=== PATIENT | female | born 1955 | race Caucasian/White ===

== ENCOUNTER 2022-03-09 15:41 | Inpatient (IN) ==
[2022-03-09] MEDS ORDERED: SODIUM CHLORIDE 0.9% 1000ML 500 ML IV ONE (15:52)
[2022-03-09] MEDS ORDERED: MoRPHine SULFATE 4 MG/ML 1 ML CARP\\VIAL IV STA (15:53)
[2022-03-09] MEDS ORDERED: ONDANSETRON INJ 2 MG/ML 2 ML VIAL IV STA (15:53)
--- NOTE | 2022-03-09 15:55 | Emergency Department Note ---
Impression & Plan Hip fracture ADMIT ED Provider Note HPI: The patient is a 66-year-old female with obesity, who presents the emergency department with a chief complaint of right-sided hip pain after mechanical fall. Patient states that she lost her balance when she tripped on something in her house, states that she tried to stabilize herself against a TV stand that then fell over and she fell on her right hip. She has acute pain in her right hip on arrival. She cannot move her right leg secondary to pain in the right hip joint. Patient is otherwise alert, denies any head trauma, she is hemodynamically stable on arrival and otherwise in no acute distress. ROS: -MSK: Right hip pain *10 point review systems was conducted and is otherwise negative unless stated above *Outpatient medications and allergy history reviewed PE: General: Obese, alert, NAD HEENT: Normocephalic, atraumatic Eyes: Extraocular eye movement is intact, no scleral erythema Pulmonary: Clear to auscultation bilaterally, no wheezing Cardio: Regular rate and rhythm GI: Abdomen is soft, nontender : No suprapubic tenderness MSK: Right lower extremity is externally rotated, limited range of motion secondary to pain Skin: No evidence of rash Neuro: Alert, no focal deficits Psychiatric: Cooperative laboratory monitor: - An order was placed for continuous cardiac monitoring - Patient was noted to be in sinus rhythm with rate of 90 EKG: Rate: 107 Rhythm: Sinus tachycardia Intervals: Within normal limits ST changes: No ST elevation Time: 1623 Medical Decision Making: Patient presented to the emergency department after mechanical fall, denies any head trauma, denies any syncope, she does complain of right hip pain, on arrival here examination is consistent with right hip fracture, external rotation, shortened, patient does have pain at the right hip. X-ray imaging does confirm a comminuted and mildly displaced right intertrochanteric hip fracture. Patient does have neurovascular status intact distally in the right foot, palpable dorsalis pedis pulse. Patient was given IV morphine here in the ED for pain, lab work was obtained, EKG does not show any arrhythmia or ischemic changes. Patient is not noted to be on any blood thinners. Patient's lab work shows evidence of hyperglycemia in the 390s without evidence of DKA. Case was discussed with the on-call hospitalist service for [facility], given the patient's multiple comorbidities including sleep apnea, on home oxygen at night, type 2 diabetes, patient will be admitted to the hospitalist service for orthopedic consultation and definitive care. Patient is in agreement to the above plan and she was admitted in stable condition. Diagnosis: 1. Right hip fracture, closed 2. Hyperglycemia without DKA 3. Morbid obesity 4. History of CINTHIA, on supplemental oxygen at night Disposition: Admission Blair Salazar DO Emergency Medicine Past Med/Surg History Social History Smoking Status: Current every day smoker Feels Safe at Home: Yes Results & Data (ED) Vital Signs Vital Signs - 24 hr 03/09/22 15:50 03/09/22 15:55 Temperature 37.4 C Temperature Source Oral Pulse Rate 111 H 95 H Pulse Rate [Apical] 111 H Pulse Rhythm Regular Regular Pulse Strength Normal Respiratory Rate 20 18 Respiratory Effort / Characteristics Non-Labored Respiratory Depth Normal Blood Pressure 170/93 H Blood Pressure Mean 118 Blood Pressure Position Lying Pulse Oximetry 90 96 Oxygen Delivery Method Room Air Nasal Cannula Oxygen Flow Rate 3 Sepsis Recent Fever Within 48 Hours No Sepsis New/Unexplained Change in Mental Status N/A Sepsis Action Taken by Nursing No Action Required Laboratory Data Result diagrams: 03/09/22 16:03 03/09/22 16:03 Lab Results 03/09/22 03/09/22 03/09/22 Range/Units 16:03 16:03 16:03 WBC 10.20 (4.8-10.8) K/uL RBC 5.50 H (4.2-5.4) M/uL Hgb 14.0 (12.0-16.0) g/dL Hct 45.9 (37-47) % MCV 83.5 (80-100) fL MCH 25.5 (25-34) pg MCHC 30.5 L (32-36) g/dL RDW Std Deviation 54.8 H (36.4-46.3) fL RDW Coeff of Prakash 17.7 H (11.5-14.5) % Plt Count 161 (130-400) K/uL Immature Gran % (Auto) 0.3 % Neut % (Auto) 77.9 % Lymph % (Auto) 15.1 % Citrus % (Auto) 6.1 % Eos % (Auto) 0.5 % Baso % (Auto) 0.1 % Neut # (Auto) 7.95 H (1.4-6.5) K/uL Lymph # (Auto) 1.54 (1.2-3.4) K/uL Citrus # (Auto) 0.62 H (0.11-0.59) K/uL Eos # (Auto) 0.05 (0-0.5) K/uL Baso # (Auto) 0.01 (0-0.2) K/uL Immature Gran # (Auto) 0.03 H (0.00-0.02) K/uL PT 10.4 (9.0-12.0) Seconds INR 1.0 (0.9-1.1) APTT 23.9 (21.0-31.0) Seconds PTT Ratio 0.9 Sodium 137 (136-145) mmol/L Potassium 3.6 (3.5-5.1) mmol/L Chloride 100 (98-107) mmol/L Carbon Dioxide 28 (21-32) mmol/L Anion Gap 9 (3-11) BUN 32 H (6-23) mg/dl Creatinine 1.47 H (0.6-1.2) mg/dl Est Cr Clr Drug Dosing 51.0 ml/min Est GFR ( Amer) 43.0 ml/min Est GFR (Non-Af Amer) 37.1 ml/min BUN/Creatinine Ratio 21.8 H (10-20) Glucose 389 H* (70-99(Fasting)) mg/dl Calcium 9.1 (8.5-10.1) mg/dl Total Bilirubin 0.4 (0.2-1.0) mg/dl AST 8 L (13-39) U/L ALT 7 (7-52) U/L Alkaline Phosphatase 130 H (34-104) U/L Total Protein 6.5 (6.0-8.3) gm/dl Albumin 3.7 (3.4-5.0) gm/dl Globulin 2.8 (2.5-4.0) gm/dl Albumin/Globulin Ratio 1.3 (0.9-2) Administered Medications Discontinued Medications Morphine Sulfate (Morphine Sulfate 4 Mg/Ml 1 Ml Carp\Vial) 4 mg IV NOW STA Stop: 03/09/22 15:54 Last Admin: 03/09/22 16:05 Dose: 4 mg Documented by: [id number] Ondansetron HCl (Ondansetron Inj 2 Mg/Ml 2 Ml Vial) 4 mg IV NOW STA Stop: 03/09/22 15:54 Last Admin: 03/09/22 16:06 Dose: 4 mg Documented by: [id number] Imaging Data Radiologist's Impression: Hip/Pelvis X-Ray 03/09/22 15:52 XR hip SARAH 2v w pelvis HISTORY: 66 years-old Female R hip pain s/p fall acute right hip pain status post fall COMPARISON: None TECHNIQUE: AP view of the pelvis with 2 views of the hips FINDINGS: Limited exam secondary to patient body habitus. Demineralized appearance of the bones. Mild osteoarthritis of the hips. No acute pelvic ring fracture identified. There is an acute fracture of the proximal right femur which is predominately intertrochanteric and also demonstrates subtrochanteric extension. The lesser trochanter is displaced medially several millimeters. Mild impaction with slight apex superior lateral angulation. There is no dislocation, additional acute fracture or dislocation. IMPRESSION: 1. Acute comminuted, mildly displaced and impacted intertrochanteric fracture of the right femur. 2. Limited exam secondary to patient body habitus. ACT 112: Negative or not required by law. The above report was generated using voice recognition software. It may contain grammatical, syntax or spelling errors. Electronically signed by: Malcolm Stauffer M.D. 03/09/2022 4:31 PM Chest X-Ray 03/09/22 15:53 XR chest 1V portable HISTORY: 66 years-old Female fall acute chest trauma status post fall COMPARISON: None TECHNIQUE: AP view of the chest FINDINGS: Cardiac silhouette is enlarged. Lungs are hyperinflated with interstitial coarsening. No pneumothorax, pleural effusion or lobar airspace consolidation. Degenerative changes of the shoulders and spine. Chronic appearing left-sided rib fractures. IMPRESSION: 1. Cardiomegaly without acute process. 2. Chronic appearing left-sided rib fractures. ACT 112: Negative or not required by law. The above report was generated using voice recognition software. It may contain grammatical, syntax or spelling errors. Electronically signed by: Malcolm Stauffer M.D. 03/09/2022 4:29 PM Discharge Plan Visit Data Chief Complaint: Hip Pain Stated Complaint: FALL, R HIP PAIN ED Provider: Blair Salazar Discharge Problem: Hip fracture Forms Stand Alone Forms: My [facility] Referrals Referrals: PCP,NO [Physician] - Discharge Problem: Hip fracture Qualifiers: Encounter type: initial encounter Fracture type: closed Laterality: right Qualified Code(s): S72.001A - Fracture of unspecified part of neck of right femur, initial encounter for closed fracture
[2022-03-09 16:18] LABS: Basophils # (auto) 0.01 K/uL (0-0.2); Basophils % (auto) 0.1 %; Eosinophils # (auto) 0.05 K/uL (0-0.5); Eosinophils % (auto) 0.5 %; Hematocrit (blood only) 45.9 % (37-47); Immature Granulocytes # (auto) 0.03 K/uL (0.00-0.02); Immature Granulocytes % (auto) 0.3 %; Lymphocytes # (auto) 1.54 K/uL (1.2-3.4); Lymphocytes % (auto) 15.1 %; Mean Corpuscular Hemoglobin 25.5 pg (25-34); Mean Corpuscular Hgb Conc 30.5 g/dL (32-36); Mean Corpuscular Volume 83.5 fL (80-100); Monocytes # (auto) 0.62 K/uL (0.11-0.59); Monocytes % (auto) 6.1 %; Neutrophils # (auto) 7.95 K/uL (1.4-6.5); Neutrophils % (auto) 77.9 %; Platelet Count 161 K/uL (130-400); RDW Coefficient of Variation 17.7 % (11.5-14.5); RDW Standard Deviation 54.8 fL (36.4-46.3)
[2022-03-09 16:29] LABS: Partial Thromboplastin Ratio 0.9; Partial Thromboplastin Time 23.9 Seconds (21.0-31.0); Prothrombin Time 10.4 Seconds (9.0-12.0)
--- NOTE | 2022-03-09 16:30 | XRay Report ---
XR chest 1V portable HISTORY: 66 years-old Female fall acute chest trauma status post fall COMPARISON: None TECHNIQUE: AP view of the chest FINDINGS: Cardiac silhouette is enlarged. Lungs are hyperinflated with interstitial coarsening. No pneumothorax , pleural effusion or lobar airspace consolidation. Degenerative changes of the shoulders and spine. Chronic appearing left-sided rib fractures. IMPRESSION: 1. Cardiomegaly without acute process. 2. Chronic appearing left-sided rib fractures. ACT 112: Negative or not required by law. The above report was generated using voice recognition software. It may contain grammatical, syntax o r spelling errors. Electronically signed by: Malcolm Stauffer M.D. 03/09/2022 4:29 PM
--- NOTE | 2022-03-09 16:32 | XRay Report ---
XR hip SARAH 2v w pelvis HISTORY: 66 years-old Female R hip pain s/p fall acute right hip pain status post fall COMPARISON: None TECHNIQUE: AP view of the pelvis with 2 views of the hips FINDINGS: Limited exam secondary to patient body habitus. Demineralized appearance of the bones. Mild osteoarth ritis of the hips. No acute pelvic ring fracture identified. There is an acute fracture of the proxim al right femur which is predominately intertrochanteric and also demonstrates subtrochanteric extensi on. The lesser trochanter is displaced medially several millimeters. Mild impaction with slight apex superior lateral angulation. There is no dislocation, additional acute fracture or dislocation. IMPRESSION: 1. Acute comminuted, mildly displaced and impacted intertrochanteric fracture of the right femur. 2. Limited exam secondary to patient body habitus. ACT 112: Negative or not required by law. The above report was generated using voice recognition software. It may contain grammatical, syntax o r spelling errors. Electronically signed by: Malcolm Stauffer M.D. 03/09/2022 4:31 PM
[2022-03-09 16:50] LABS: Albumin Globulin Ratio 1.3 (0.9-2); Albumin Level 3.7 gm/dl (3.4-5.0); BUN Creatinine Ratio 21.8 (10-20); Bilirubin,Total 0.4 mg/dl (0.2-1.0); Calcium 9.1 mg/dl (8.5-10.1); Est GFR (Non-African American) 37.1 ml/min; Globulin 2.8 gm/dl (2.5-4.0); Potassium 3.6 mmol/L (3.5-5.1); Total Protein 6.5 gm/dl (6.0-8.3)
[2022-03-09] MEDS ORDERED: PHARMACY GLYCEMIC MGMT CONSULT PRN (17:47)
--- NOTE | 2022-03-09 18:07 | History & Physical Report ---
Date of Service March 09, 2022 Assessment & Plan (1) Fall: (2) Hip fracture: Plan: Patient presented after mechanical fall with right hip pain. Hip x-ray showing acute comminuted impacted intertrochanteric right femoral fracture. Patient likely needs surgery. Patient does have some risk considering her cardiac history with diastolic heart failure, aortic stenosis. I explained this to the patient. However, risk of not having surgery likely outweighs surgical risks. Patient will like to proceed with surgery Review of previous outpatient Cardiology work up showed Echo in June 2018 showed EF of 55 to 59%, severe aortic valve stenosis. Patient was seen in by circulation librarian then and had cardiac catheterization in July 2018 which reported no significant coronary artery disease by angiography mild to moderate elevation of PA pressures of 35 to 88 mmHg, mean RA pressure of 14 mmHg, mean gradient of 16.9 mmHg and estimated LEAH of 1.22 cm quiet which represent moderate AAS, PVR of 2.4 Wood units which is mildly elevated. Cardiac output of 6.8 Shirin and 6.1 thermodilution Patient had not followed up with circulation librarian since and had considered appointment since 2018 till now. Based on history, patient does not seem to have decompensated heart failure or ACS at this time. However, will get a 2D echocardiogram to better assess aortic stenosis and cardiac function prior to surgery Will keep NPO after midnight Surgery consult (3) Chronic diastolic (congestive) heart failure: (4) Aortic stenosis: Plan: Hold home lasix for now in view of possible surgery Continue atorvastatin and gemfibrozil Continue coreg Hold ASA in view of surgery (5) Obesity: (6) CINTHIA (obstructive sleep apnea): (7) Smoker: (8) COPD (chronic obstructive pulmonary disease): Plan: Counseled patient extensively on need to quit smoking. Continue CPAP at bedtime while inpatient. Continue home guaifenesin Continue DuoNeb (9) Diabetes mellitus: Plan: Patient uses glipizide at home. Blood sugar elevated at 389. Hold home glipizide Start insulin per protocol Pharm glycemic consult Get A1c in AM Continue gabapentin for neuropathy (10) CKD (chronic kidney disease) stage 3, GFR 30-59 ml/min: Plan: Cr is 1.4 Avoid nephrotoxins and monitor (11) Hypothyroid: Plan: Continue levothyroxine DVT ppx SCD Hold pharmacologic agent for now in view of possible surgery History of Present Illness Chief Complaint: Fall Primary Care Provider: Mary Robert MD 66-year-old woman with history of obesity, COPD, CINTHIA on CPAP at bedtime with oxygen at 3 L, heart failure with preserved ejection fraction, aortic stenosis, diabetes mellitus, hyperlipidemia, neuropathy, hypothyroidism, active smoker who presents after a fall at home with right hip pain. Patient reported tripping at home and falling on the right side on her hip. Denies any trauma to head or loss of consciousness Reported she has been having pain since. Patient usually ambulates with a walker especially outside. Reports chronic dyspnea on exertion, chronic cough. Denies any chest pain, palpitations, orthopnea or PND. Denies fevers, chills, nausea, abdominal pain, diarrhea, constipation Denies dysuria, frequency, urgency, incontinence or hematuria. Reports she uses CPAP to sleep at night with 3 L/min of oxygen. Does not use oxygen during the day. Patient smokes about 1 pack/day. Denies alcohol or illicit drug use. Reports father had heart problems. Allergies Allergy/AdvReac Type Severity Reaction Status Date / Time No Known Allergies Allergy Unverified 03/09/22 17:28 Home Medications Medication Instructions Recorded Confirmed Type allopurinol 300 mg tablet 300 mg PO DAILY 03/09/22 03/09/22 History aspirin 81 mg capsule 81 mg PO DAILY 03/09/22 03/09/22 History atorvastatin 40 mg tablet 40 mg PO DAILY 03/09/22 03/09/22 History camphor-menthol 0.2 %-3.5 % 1 applic TOPICAL Q6H PRN 03/09/22 03/09/22 History topical gel carvedilol 6.25 mg tablet 6.25 mg PO BID 03/09/22 03/09/22 History clotrimazole 1 % topical cream 1 applic TOPICAL TID PRN 03/09/22 03/09/22 History (Athlete's Foot (clotrimazole)) cyanocobalamin (vitamin B-12) 1,000 mcg PO DAILY 03/09/22 03/09/22 History 1,000 mcg tablet furosemide 40 mg tablet 40 mg PO DAILY 03/09/22 03/09/22 History gabapentin 100 mg capsule 100 mg PO TID 03/09/22 03/09/22 History gemfibrozil 600 mg tablet 600 mg PO BID 03/09/22 03/09/22 History glipizide 5 mg tablet, extended 5 mg PO DAILYBB 03/09/22 03/09/22 History release 24 hr guaifenesin 1,200 mg tablet, 1,200 mg PO Q12H PRN 03/09/22 03/09/22 History extended release 12 hr levothyroxine 150 mcg tablet 150 mcg PO 5XWK 03/09/22 03/09/22 History omega 0-gli-dju-fish oil 1,000 mg 1 cap PO DAILY 03/09/22 03/09/22 History (120 mg-180 mg) capsule (Fish Oil) omeprazole 20 mg tablet,delayed 20 mg PO DAILY 03/09/22 03/09/22 History release tramadol 50 mg tablet 50 mg PO Q8H PRN 03/09/22 03/09/22 History Past Med/Surg History Social History Smoking Status: Current every day smoker Feels Safe at Home: Yes Review of Systems Review of Systems: Review of systems as detailed in HPI Physical Exam Constitutional: + well hydrated and + obese; no acute distress Eyes: PERRL, conjunctivae normal, anicteric sclerae ENMT: external ear and nose normal, oropharynx normal Respiratory: normal respiratory effort, lungs clear to auscultation Cardiovascular: Rate/Rhythm: regular rate and regular rhythm Systolic ejection murmur [prominently aortic region] S1-S2 Gastrointestinal (Abdomen): normal bowel sounds, soft, nontender, no hepatosplenomegaly Musculoskeletal: Right lower extremity externally rotated and shortened Neurologic: PERRL, EOMI, accommodation nl, no face palsy, no dysarthria Psychiatric: A+Ox3, euthymic affect Results & Data Results & Data ([facility]) Vital Signs (Past 12 Hours) Vital Signs Temp Pulse Pulse Resp BP Pulse Ox 03/09/22 15:55 95 H 111 H 18 96 03/09/22 15:50 37.4 C 111 H 20 170/93 H 90 Laboratory Results Abnormal lab results 03/09/22 03/09/22 Range/Units 16:03 16:03 RBC 5.50 H (4.2-5.4) M/uL MCHC 30.5 L (32-36) g/dL RDW Std Deviation 54.8 H (36.4-46.3) fL RDW Coeff of Prakash 17.7 H (11.5-14.5) % Neut # (Auto) 7.95 H (1.4-6.5) K/uL Becker # (Auto) 0.62 H (0.11-0.59) K/uL Immature Gran # (Auto) 0.03 H (0.00-0.02) K/uL BUN 32 H (6-23) mg/dl Creatinine 1.47 H (0.6-1.2) mg/dl BUN/Creatinine Ratio 21.8 H (10-20) Glucose 389 H* (70-99(Fasting)) mg/dl AST 8 L (13-39) U/L Alkaline Phosphatase 130 H (34-104) U/L Diagnostic Findings Chest x-ray Cardiac silhouette is enlarged. Lungs are hyperinflated with interstitial coarsening. No pneumothorax, pleural effusion or lobar airspace consolidation. Degenerative changes of the shoulders and spine. Chronic appearing left-sided rib fractures. IMPRESSION: 1. Cardiomegaly without acute process. 2. Chronic appearing left-sided rib fractures. Hip and pelvic x-ray Limited exam secondary to patient body habitus. Demineralized appearance of the bones. Mild osteoarthritis of the hips. No acute pelvic ring fracture identified. There is an acute fracture of the proximal right femur which is predominately intertrochanteric and also demonstrates subtrochanteric extension. The lesser trochanter is displaced medially several millimeters. Mild impaction with slight apex superior lateral angulation. There is no dislocation, additional acute fracture or dislocation. IMPRESSION: 1. Acute comminuted, mildly displaced and impacted intertrochanteric fracture of the right femur. 2. Limited exam secondary to patient body habitus. (1) Hip fracture Encounter type: initial encounter Fracture type: closed Laterality: right Qualified Code(s): S72.001A - Fracture of unspecified part of neck of right femur, initial encounter for closed fracture
[2022-03-09] MEDS ORDERED: INSULIN ASPART PER UNIT SC STA (18:17)
[2022-03-09] MEDS ORDERED: INSULIN GLARGINE SOLOSTAR 100 UNITS/ML 3 ML PEN SC STA (18:17)
[2022-03-09] MEDS ORDERED: CARBOHYDRATES FOR HYPOGLYCEMIA PO PRN ×2 (18:30→19:43)
[2022-03-09] MEDS ORDERED: DEXTROSE 50% 50 ML SYRINGE IV PRN ×2 (18:30→19:43)
[2022-03-09] MEDS ORDERED: GLUCAGON FOR INJ 1 MG VIAL SQ PRN ×2 (18:30→19:43)
[2022-03-09] MEDS ORDERED: GLUCOSE 10 TABS/TUBE PO PRN ×2 (18:30→19:43)
[2022-03-09] MEDS ORDERED: GLUCOSE 40% GEL 15 GM TUBE PO PRN ×2 (18:30→19:43)
[2022-03-09] MEDS ORDERED: INSULIN HUMAN REGULAR PER UNIT 5 UNITS in SYRINGE 0 ML IV STA (19:52)
[2022-03-09] MEDS ORDERED: PNEUMOCOCCAL POLYSACCHARIDES 25 MCG/0.5 ML VIAL/SYR IM ONE (20:10)
[2022-03-09] MEDS: MoRPHine SULFATE 2 MG/ML CARP IV PRN (20:12)
[2022-03-09] MEDS: INSULIN ASPART PER UNIT SC SCH (20:39)
[2022-03-09] MEDS ORDERED: INSULIN GLARGINE SOLOSTAR 100 UNITS/ML 3 ML PEN SC SCH ×3 (20:45→21:00)
[2022-03-09] MEDS: gemfibroziL 600 MG TAB PO SCH (21:34)
[2022-03-09] MEDS: carvediloL 6.25 MG TAB PO SCH (21:35)
[2022-03-09] MEDS: GABAPENTIN 100 MG CAP PO SCH (21:35)
[2022-03-09] MEDS: traMADol HCL 50 MG TABLET PO PRN (21:37)
[2022-03-09] MEDS: ACETAMINOPHEN 500 MG TAB PO SCH (21:44)
[2022-03-10] MEDS: INSULIN ASPART PER UNIT SC SCH ×4 (00:15→21:22)
[2022-03-10] MEDS ORDERED: CLOTRIMAZOLE 1% CR 15 GM TUBE TOP PRN (00:23)
[2022-03-10] MEDS: ACETAMINOPHEN 500 MG TAB PO SCH ×3 (03:34→21:23)
[2022-03-10] MEDS: LEVOTHYROXINE SODIUM 150 MCG TABLET PO SCH (05:24)
[2022-03-10] MEDS: MoRPHine SULFATE 2 MG/ML CARP IV PRN ×2 (06:21→11:46)
[2022-03-10 07:44] LABS: Estimated Average Glucose 283 mg/dl; Hemoglobin A1C 11.5 % (4.5-5.6)
[2022-03-10] MEDS: allopurinoL 300 MG TAB PO SCH (08:32)
[2022-03-10] MEDS: PANTOprazole 40 MG TAB PO SCH (08:33)
[2022-03-10] MEDS: ATORVASTATIN 40 MG TAB PO SCH (08:33)
[2022-03-10] MEDS: CYANOCOBALAMIN (B-12) 500 MCG TABLET PO SCH (08:33)
[2022-03-10] MEDS: carvediloL 6.25 MG TAB PO SCH ×2 (08:33→21:24)
[2022-03-10] MEDS: gemfibroziL 600 MG TAB PO SCH ×2 (08:33→21:25)
[2022-03-10] MEDS: GABAPENTIN 100 MG CAP PO SCH ×3 (08:33→21:25)
[2022-03-10] MEDS ORDERED: OMEGA-3 (PURIFIED FISH OIL) 1 GM CAP PO SCH (09:00)
--- NOTE | 2022-03-10 11:22 | Pharmacy Report ---
Pharmacy Glycemic Short Note 2 - Date of Service March 10, 2022 - Glycemic Short BSG Results (Last 24 hours): 03/09/22 03/09/22 03/09/22 16:03 18:29 19:48 Glucose 389 H* POC Glucose 380 H* 337 H* 03/09/22 03/10/22 03/10/22 19:50 00:08 05:59 Glucose POC Glucose 336 H* 267 H 232 H OUTPATIENT ANTIDIABETIC REGIMEN: * Glipizide * HbA1c 11.5% on 03/09/22 ASSESSMENT: * 66 yo with with poorly controlled T2DM on a single oral agent as an outpatient admitted 03/09 with a fall and is currently NPO for possible surgical intervention * Lantus initiated at 0.2 units/kg last night * Novolog weight-based moderate stress estimate initiated last night PLAN FOR INPATIENT GLYCEMIC CONTROL: * Hold outpatient oral diabetes medications * Basal insulin * Lantus [] units SQ BID * Bolus insulin * NovoLog per scale ACHS or Q6hrs while NPO * Goal Range: Low [] mg/dL - High [] mg/dL * Correction Factor: [] mg/dL/unit * Nutritional / Prandial insulin per carb ratio of 1 unit per [] grams CHO consumed
[2022-03-10] MEDS: NICOTINE 21 MG/24 HR TDSY TD SCH (11:46)
[2022-03-10] MEDS: ALBUT/IPRATROP 3MG/0.5MG NEB 3 ML VIAL NEB PRN (12:16)
--- NOTE | 2022-03-10 13:00 | Hospitalist Progress Note ---
Date of Service March 10, 2022 Assessment & Plan (1) Fall: (2) Hip fracture: Plan: Patient presented after mechanical fall with right hip pain. Hip x-ray showing acute comminuted impacted intertrochanteric right femoral fracture. Possible age related osteoporotic fracture Review of previous outpatient Cardiology work up showed Echo in June 2018 showed EF of 55 to 59%, severe aortic valve stenosis. Patient was seen by cnc mill operator then and had cardiac catheterization in July 2018 which reported no significant CAD but moderate Patient had not followed up with cnc mill operator since and had canceled appointments since 2018 till now. TTE today showed EF 60-65%, mod conc LVH, moderate Aortic stenosis Patient to go to OR today for surgery Vit D 27 (3) Chronic diastolic (congestive) heart failure: (4) Aortic stenosis: Plan: Hold home lasix for now in view of surgery and patient has been NPO. Will resume tomorrow postop Continue atorvastatin and gemfibrozil Continue coreg Continue to hold ASA in view of surgery (5) Obesity: (6) CINTHIA (obstructive sleep apnea): (7) Smoker: (8) COPD (chronic obstructive pulmonary disease): Plan: Continue CPAP at bedtime while inpatient. Continue home guaifenesin Continue DuoNeb Nicotine patch. Continue smoking cessation counselling (9) Diabetes mellitus: Plan: Patient uses glipizide at home only A1c is 11.5 Continue insulin per protocol Will need insulin on dc Educated patient on need for better glycemic control DM educator consult Continue gabapentin for neuropathy (10) CKD (chronic kidney disease) stage 3, GFR 30-59 ml/min: Plan: Cr is 1.4 Avoid nephrotoxins and monitor (11) Hypothyroid: Plan: Continue levothyroxine DVT ppx SCD Hold pharmacologic agent for now in view of possible surgery Admission and Anticipated Discharge Date Admission Date: March 09, 2022 Subjective Patient seen and examined Reports right hip pain is controlled Has chronic cough Reported some shortness of breath this morning that resolved with nebs Denied chest pain, nausea, vomiting, abd pain, diarrhea Physical Exam Constitutional: + well hydrated and + obese; no acute distress Eyes: PERRL, conjunctivae normal, anicteric sclerae ENMT: external ear and nose normal, oropharynx normal Respiratory: normal respiratory effort, lungs clear to auscultation Cardiovascular: Rate/Rhythm: regular rate and regular rhythm Systolic ejection murmur S1 S2 Gastrointestinal (Abdomen): normal bowel sounds, soft, nontender, no hepatosplenomegaly Musculoskeletal: Right lower extremity externally rotated and shortened Neurologic: PERRL, EOMI, accommodation nl, no face palsy, no dysarthria Psychiatric: A+Ox3, euthymic affect Results & Data Results & Data ([facility]) Vital Signs (Past 12 Hours) Vital Signs Temp Pulse Pulse Resp BP Pulse Ox 03/10/22 12:17 103 H 22 93 03/10/22 08:18 36.4 C L 107 H 18 153/85 H 92 03/10/22 03:09 106 H 21 91 Laboratory Results Abnormal lab results 03/09/22 03/09/22 03/09/22 Range/Units 15:51 16:03 16:03 RBC 5.50 H (4.2-5.4) M/uL MCHC 30.5 L (32-36) g/dL RDW Std Deviation 54.8 H (36.4-46.3) fL RDW Coeff of Prakash 17.7 H (11.5-14.5) % Neut # (Auto) 7.95 H (1.4-6.5) K/uL Noble # (Auto) 0.62 H (0.11-0.59) K/uL Immature Gran # (Auto) 0.03 H (0.00-0.02) K/uL BUN 32 H (6-23) mg/dl Creatinine 1.47 H (0.6-1.2) mg/dl BUN/Creatinine Ratio 21.8 H (10-20) Glucose 389 H* (70-99(Fasting)) mg/dl POC Glucose (70-99) mg/dl Hemoglobin A1c 11.5 H (4.5-5.6) % AST 8 L (13-39) U/L Alkaline Phosphatase 130 H (34-104) U/L 25-OH Vitamin D Total (30-100) ng/ml 03/09/22 03/09/22 03/09/22 Range/Units 18:29 19:48 19:50 RBC (4.2-5.4) M/uL MCHC (32-36) g/dL RDW Std Deviation (36.4-46.3) fL RDW Coeff of Prakash (11.5-14.5) % Neut # (Auto) (1.4-6.5) K/uL Noble # (Auto) (0.11-0.59) K/uL Immature Gran # (Auto) (0.00-0.02) K/uL BUN (6-23) mg/dl Creatinine (0.6-1.2) mg/dl BUN/Creatinine Ratio (10-20) Glucose (70-99(Fasting)) mg/dl POC Glucose 380 H* 337 H* 336 H* (70-99) mg/dl Hemoglobin A1c (4.5-5.6) % AST (13-39) U/L Alkaline Phosphatase (34-104) U/L 25-OH Vitamin D Total (30-100) ng/ml 03/10/22 03/10/22 03/10/22 Range/Units 00:08 05:59 08:51 RBC (4.2-5.4) M/uL MCHC (32-36) g/dL RDW Std Deviation (36.4-46.3) fL RDW Coeff of Prakash (11.5-14.5) % Neut # (Auto) (1.4-6.5) K/uL Noble # (Auto) (0.11-0.59) K/uL Immature Gran # (Auto) (0.00-0.02) K/uL BUN (6-23) mg/dl Creatinine (0.6-1.2) mg/dl BUN/Creatinine Ratio (10-20) Glucose (70-99(Fasting)) mg/dl POC Glucose 267 H 232 H (70-99) mg/dl Hemoglobin A1c (4.5-5.6) % AST (13-39) U/L Alkaline Phosphatase (34-104) U/L 25-OH Vitamin D Total 27.1 L (30-100) ng/ml 03/10/22 Range/Units 12:00 RBC (4.2-5.4) M/uL MCHC (32-36) g/dL RDW Std Deviation (36.4-46.3) fL RDW Coeff of Prakash (11.5-14.5) % Neut # (Auto) (1.4-6.5) K/uL Noble # (Auto) (0.11-0.59) K/uL Immature Gran # (Auto) (0.00-0.02) K/uL BUN (6-23) mg/dl Creatinine (0.6-1.2) mg/dl BUN/Creatinine Ratio (10-20) Glucose (70-99(Fasting)) mg/dl POC Glucose 201 H (70-99) mg/dl Hemoglobin A1c (4.5-5.6) % AST (13-39) U/L Alkaline Phosphatase (34-104) U/L 25-OH Vitamin D Total (30-100) ng/ml (1) Hip fracture Encounter type: initial encounter Fracture type: closed Laterality: right Qualified Code(s): S72.001A - Fracture of unspecified part of neck of right femur, initial encounter for closed fracture
--- NOTE | 2022-03-10 13:53 | Orthopedic Consultation ---
Date of Consultation March 10, 2022 Assessment & Plan (1) Hip fracture: Patient has a displaced right intertrochanteric fracture. Discussed surgical intervention is recommended. Risk, benefits, alternatives to surgery discussed with patient and she wishes to proceed. Plan will be for right trochanteric femoral nailing, likely will need an intermediate length nail. Dr. Harris will see the patient later today. We will plan on OR today with Dr. Harris if medically optimized to proceed with surgery today. History of Present Illness Reason for Consultation: Right hip fracture Requesting Physician: Linda Shetty MD Attending Physician: Linda Shetty MD History of Present Illness 66-year-old woman with history of obesity, COPD, CINTHIA on CPAP at bedtime with oxygen at 3 L, heart failure with preserved ejection fraction, aortic stenosis, diabetes mellitus, hyperlipidemia, neuropathy, hypothyroidism, active smoker who presents after a mechanical fall at home. She has nausea and vomiting and x- rays revealed intertrochanteric fracture of her right femur. Currently her pain is controlled. She has no other complaints at this time. Denies chest pain, shortness of breath, dizziness, fever/chills. Allergies Allergy/AdvReac Type Severity Reaction Status Date / Time No Known Allergies Allergy Unverified 03/09/22 17:28 Home Medications Medication Instructions Recorded Confirmed Type allopurinol 300 mg tablet 300 mg PO DAILY 03/09/22 03/09/22 History aspirin 81 mg capsule 81 mg PO DAILY 03/09/22 03/09/22 History atorvastatin 40 mg tablet 40 mg PO DAILY 03/09/22 03/09/22 History camphor-menthol 0.2 %-3.5 % 1 applic TOPICAL Q6H PRN 03/09/22 03/09/22 History topical gel carvedilol 6.25 mg tablet 6.25 mg PO BID 03/09/22 03/09/22 History clotrimazole 1 % topical cream 1 applic TOPICAL TID PRN 03/09/22 03/09/22 History (Athlete's Foot (clotrimazole)) cyanocobalamin (vitamin B-12) 1,000 mcg PO DAILY 03/09/22 03/09/22 History 1,000 mcg tablet furosemide 40 mg tablet 40 mg PO DAILY 03/09/22 03/09/22 History gabapentin 100 mg capsule 100 mg PO TID 03/09/22 03/09/22 History gemfibrozil 600 mg tablet 600 mg PO BID 03/09/22 03/09/22 History glipizide 5 mg tablet, extended 5 mg PO DAILYBB 03/09/22 03/09/22 History release 24 hr guaifenesin 1,200 mg tablet, 1,200 mg PO Q12H PRN 03/09/22 03/09/22 History extended release 12 hr levothyroxine 150 mcg tablet 150 mcg PO 5XWK 03/09/22 03/09/22 History omega 6-acx-zky-fish oil 1,000 mg 1 cap PO DAILY 03/09/22 03/09/22 History (120 mg-180 mg) capsule (Fish Oil) omeprazole 20 mg tablet,delayed 20 mg PO DAILY 03/09/22 03/09/22 History release tramadol 50 mg tablet 50 mg PO Q8H PRN 03/09/22 03/09/22 History Patient History Medical History Aortic stenosis Chronic diastolic (congestive) heart failure CKD (chronic kidney disease) stage 3, GFR 30-59 ml/min COPD (chronic obstructive pulmonary disease) Diabetes mellitus GERD (gastroesophageal reflux disease) Gout Hypothyroid Obesity CINTHIA (obstructive sleep apnea) Smoker Social History Smoking Status: Current every day smoker Cigarettes Per Day: one; Do You Dip or Chew Tobacco: No; Tobacco Cessation Education Requested by Patient: Yes Hx Alcohol Use: No Hx Substance Use: No Preferred Language: Marshallese Communication Ability: Effective Car Pilot Required: No Beliefs That Will Affect Care: None Current Living Situation: Spouse Other Information That Helps Us Care for You: No Feels Safe at Home: Yes Safety Concerns: Feels Safe At This Time Assistive Devices: Walker Review of Systems Review of Systems: All systems reviewed & are unremarkable except as noted in HPI & below Physical Exam Constitutional: WD/WN, vitals as above abdominal obesity Eyes: PERRL, conjunctivae normal, anicteric sclerae Respiratory: normal respiratory effort; no respiratory distress Cardiovascular: Rate/Rhythm: regular rate and regular rhythm Extremities: no edema Musculoskeletal: Right hip: Leg is shortened and externally rotated. Pain with gentle logroll. Mild tenderness proximal femur. Distally neurovascular status and sensation intact. Toes are mobile. No calf tenderness. Skin: no rashes, warm and dry Neurologic: patellar DTR's 2+ bilat, sensation intact Psychiatric: A+Ox3, euthymic affect Results & Data ([facility]) Vital Signs (Past 12 Hours) Vital Signs Temp Pulse Pulse Resp BP Pulse Ox 03/10/22 12:17 103 H 22 93 03/10/22 08:18 36.4 C L 107 H 18 153/85 H 92 03/10/22 03:09 106 H 21 91 Diagnostic Findings XR hip SARAH 2v w pelvis HISTORY: 66 years-old Female R hip pain s/p fall acute right hip pain status post fall COMPARISON: None TECHNIQUE: AP view of the pelvis with 2 views of the hips FINDINGS: Limited exam secondary to patient body habitus. Demineralized appearance of the bones. Mild osteoarthritis of the hips. No acute pelvic ring fracture identified. There is an acute fracture of the proximal right femur which is predominately intertrochanteric and also demonstrates subtrochanteric extension. The lesser trochanter is displaced medially several millimeters. Mild impaction with slight apex superior lateral angulation. There is no dislocation, additional acute fracture or dislocation. IMPRESSION: 1. Acute comminuted, mildly displaced and impacted intertrochanteric fracture of the right femur. 2. Limited exam secondary to patient body habitus. (1) Hip fracture Encounter type: initial encounter Fracture type: closed Laterality: right Qualified Code(s): S72.001A - Fracture of unspecified part of neck of right femur, initial encounter for closed fracture
--- NOTE | 2022-03-10 14:03 | Electrocardiogram Report ---
Test Reason : Blood Pressure : / mmHG Vent. Rate : 107 BPM Atrial Rate : 107 BPM P-R Int : 170 ms QRS Dur : 102 ms QT Int : 352 ms P-R-T Axes : 068 078 063 degrees QTc Int : 469 ms Poor data quality, interpretation may be adversely affected Sinus tachycardia with occasional Premature ventricular complexes Otherwise normal ECG No previous ECGs available Confirmed by Geronimo Mason ([id number]) on 03/10/2022 2:02:56 PM Referred By: REFERRED SELF Confirmed By:Joe Mason
[2022-03-10] MEDS: INSULIN GLARGINE SOLOSTAR 100 UNITS/ML 3 ML PEN SC SCH ×2 (14:08→21:19)
[2022-03-10] MEDS ORDERED: PROPOFOL IV EMULSION 10 MG/ML 20 ML VIAL IV ONE (16:15)
[2022-03-10] MEDS ORDERED: PHENYLEPHRINE 100MCG/ML 5ML SYR ONE (16:15)
[2022-03-10] MEDS ORDERED: MIDAZOLAM HCL 1 MG/ML 2ML VIAL ONE (16:15)
[2022-03-10] MEDS ORDERED: fentaNYL citrate 100 MCG/2 ML VIAL ONE (16:15)
[2022-03-10] MEDS ORDERED: LIDOCAINE 2% 2 ML VIAL/AMP(20MG/ML) INFIL ONE (16:15)
[2022-03-10] MEDS ORDERED: ePHEDrine sulfate 50 MG/ML SYR ONE (16:15)
[2022-03-10] MEDS ORDERED: ePHEDrine sulfate 50 MG/ML AMP IV PRN (16:19)
[2022-03-10] MEDS ORDERED: ATROPINE SULFATE 0.1 MG/ML 10ML SYR IV PRN (16:19)
[2022-03-10] MEDS ORDERED: LABETALOL HCL IV 5 MG/ML 20ML IV PRN (16:19)
[2022-03-10] MEDS ORDERED: fentaNYL citrate 100 MCG/2 ML VIAL IV PRN (16:19)
[2022-03-10] MEDS ORDERED: ONDANSETRON INJ 2 MG/ML 2 ML VIAL IV PRN (16:19)
[2022-03-10] MEDS ORDERED: HYDROmorphone INJ 1 MG/ML SYRINGE IV PRN (16:19)
[2022-03-10] MEDS ORDERED: PHENYLEPHRINE 100MCG/ML 5ML SYR IV PRN (16:19)
--- NOTE | 2022-03-10 16:25 | Anesthesiology Consultation ---
Date of Service March 10, 2022 Assessment & Plan (1) Encounter for pre-operative examination: Chart Review Chart Review: Acceptable Risk for Surgery and Patient NOT seen in Pre Admission Testing Consults Requested none History Surgery Operation Date: 03/10/22 09:35 Proposed Procedures p Right Troch Nail - Brodie Harris MD Height/Weight Height: 5 ft 9 in Weight: 113.5 kg Allergies Allergy/AdvReac Type Severity Reaction Status Date / Time No Known Allergies Allergy Unverified 03/09/22 17:28 Medications Home Medications Medication Instructions Recorded Confirmed Last Taken allopurinol 300 mg tablet 300 mg PO DAILY 03/09/22 03/09/22 Unknown aspirin 81 mg capsule 81 mg PO DAILY 03/09/22 03/09/22 Unknown atorvastatin 40 mg tablet 40 mg PO DAILY 03/09/22 03/09/22 Unknown camphor-menthol 0.2 %-3.5 % 1 applic TOPICAL Q6H PRN 03/09/22 03/09/22 Unknown topical gel carvedilol 6.25 mg tablet 6.25 mg PO BID 03/09/22 03/09/22 Unknown clotrimazole 1 % topical cream 1 applic TOPICAL TID PRN 03/09/22 03/09/22 Unknown (Athlete's Foot (clotrimazole)) cyanocobalamin (vitamin B-12) 1,000 mcg PO DAILY 03/09/22 03/09/22 Unknown 1,000 mcg tablet furosemide 40 mg tablet 40 mg PO DAILY 03/09/22 03/09/22 Unknown gabapentin 100 mg capsule 100 mg PO TID 03/09/22 03/09/22 Unknown gemfibrozil 600 mg tablet 600 mg PO BID 03/09/22 03/09/22 Unknown glipizide 5 mg tablet, extended 5 mg PO DAILYBB 03/09/22 03/09/22 03/09/22 release 24 hr guaifenesin 1,200 mg tablet, 1,200 mg PO Q12H PRN 03/09/22 03/09/22 Unknown extended release 12 hr levothyroxine 150 mcg tablet 150 mcg PO 5XWK 03/09/22 03/09/22 Unknown omega 2-jbs-zsg-fish oil 1,000 mg 1 cap PO DAILY 03/09/22 03/09/22 Unknown (120 mg-180 mg) capsule (Fish Oil) omeprazole 20 mg tablet,delayed 20 mg PO DAILY 03/09/22 03/09/22 Unknown release tramadol 50 mg tablet 50 mg PO Q8H PRN 03/09/22 03/09/22 Unknown Active Medications Generic Name Dose Route Start Last Admin Trade Name Freq PRN Reason Stop Dose Admin Acetaminophen 1,000 mg 03/09/22 19:43 03/10/22 11:46 Acetaminophen 500 Mg Tab PO 04/08/22 19:42 1,000 mg Q8H TRINA Administration Albuterol 3 ml 03/09/22 19:43 03/10/22 12:16 Albut/Ipratrop 3mg/0.5mg Neb 3 Ml Vial NEB 04/08/22 19:42 3 ml QIDR PRN Administration shortness of breath Protocol Allopurinol 300 mg 03/10/22 09:00 03/10/22 08:32 Allopurinol 300 Mg Tab PO 04/09/22 08:59 300 mg DAILY TRINA Administration Atorvastatin Calcium 40 mg 03/10/22 09:00 03/10/22 08:33 Atorvastatin 40 Mg Tab PO 04/09/22 08:59 40 mg DAILY TRINA Administration Carvedilol 6.25 mg 03/09/22 21:00 03/10/22 08:33 Carvedilol 6.25 Mg Tab PO 04/08/22 20:59 6.25 mg BID TRINA Administration Clotrimazole 1 appln 03/10/22 00:23 03/10/22 06:08 Clotrimazole 1% Cr 15 Gm Tube TOP 04/09/22 00:22 1 appln TID PRN Administration Other Cyanocobalamin 1,000 mcg 03/10/22 09:00 03/10/22 08:33 Cyanocobalamin (B-12) 500 Mcg Tablet PO 04/09/22 08:59 1,000 mcg DAILY TRINA Administration Fish Oil 1 gm 03/10/22 09:00 03/10/22 08:33 Eccles-3 (Purified Fish Oil) 1 Gm Cap PO 04/09/22 08:59 1 gm DAILY TRINA Administration Gabapentin 100 mg 03/09/22 21:00 03/10/22 14:08 Gabapentin 100 Mg Cap PO 04/08/22 20:59 100 mg TID TRINA Administration Gemfibrozil 600 mg 03/09/22 21:00 03/10/22 08:33 Gemfibrozil 600 Mg Tab PO 04/08/22 20:59 600 mg BID TRINA Administration Insulin Aspart 0 units 03/09/22 21:00 03/10/22 12:23 Insulin Aspart Per Unit SC 04/08/22 20:59 4 units Q6 TRINA Administration Insulin Glargine 0 units 03/10/22 12:45 03/10/22 14:08 Insulin Glargine Solostar 100 Units/Ml 3 Ml Pen SC 04/09/22 12:44 10 units BID TRINA Administration Protocol Levothyroxine Sodium 150 mcg 03/10/22 06:30 03/10/22 05:24 Levothyroxine Sodium 150 Mcg Tablet PO 04/09/22 06:29 Not Given [id number] TRINA Morphine Sulfate 2 mg 03/09/22 19:43 03/10/22 11:46 Morphine Sulfate 2 Mg/Ml Carp IV 03/23/22 19:42 2 mg Q4H PRN Administration Severe Pain Nicotine 21 mg 03/10/22 10:45 03/10/22 11:46 Nicotine 21 Mg/24 Hr Tdsy TD 04/09/22 10:44 21 mg QAM TRINA Administration Pantoprazole Sodium 40 mg 03/10/22 09:00 03/10/22 08:33 Pantoprazole 40 Mg Tab PO 04/09/22 08:59 40 mg DAILY TRINA Administration Tramadol HCl 50 mg 03/09/22 19:43 03/09/22 21:37 Tramadol Hcl 50 Mg Tablet PO 04/08/22 19:42 50 mg Q8H PRN Administration moderate pain Past Medical History Medical History Aortic stenosis Chronic diastolic (congestive) heart failure CKD (chronic kidney disease) stage 3, GFR 30-59 ml/min COPD (chronic obstructive pulmonary disease) Diabetes mellitus GERD (gastroesophageal reflux disease) Gout Hypothyroid Obesity CINTHIA (obstructive sleep apnea) Smoker Social History Smoking Status: Current every day smoker tobacco type: cigarettes Smoking cigarettes per day: one Do You Dip or Chew Tobacco: No Hx Alcohol Use: No Hx Substance Use: No Physical Exam Vital Signs Last Vital Signs Temp 36.6 C 03/10/22 15:10 Pulse 101 H 03/10/22 15:10 Resp 20 03/10/22 15:10 BP 148/72 H 03/10/22 15:10 Pulse Ox 90 03/10/22 15:10 Testing Laboratory Results 03/09/22 16:03 03/09/22 16:03 PT 10.4 Seconds (9.0-12.0) 03/09/22 16:03 INR 1.0 (0.9-1.1) 03/09/22 16:03 APTT 23.9 Seconds (21.0-31.0) 03/09/22 16:03 Hemoglobin A1c 11.5 % (4.5-5.6) H 03/09/22 15:51 03/10/22 03/10/22 12:00 05:59 POC Glucose 201 H 232 H Electrocardiogram Date: 03/09/22 DICTATED BY:Geronimo Mason MD Test Reason : Blood Pressure : / mmHG Vent. Rate : 107 BPM Atrial Rate : 107 BPM P-R Int : 170 ms QRS Dur : 102 ms QT Int : 352 ms P-R-T Axes : 068 078 063 degrees QTc Int : 469 ms Poor data quality, interpretation may be adversely affected Sinus tachycardia with occasional Premature ventricular complexes Otherwise normal ECG No previous ECGs available Confirmed by Geronimo Mason ([id number]) on 03/10/2022 2:02:56 PM Referred By: REFERRED SELF Confirmed By:Joe Mason Chest X-Ray Date: 03/09/22 XR chest 1V portable HISTORY: 66 years-old Female fall acute chest trauma status post fall COMPARISON: None TECHNIQUE: AP view of the chest FINDINGS: Cardiac silhouette is enlarged. Lungs are hyperinflated with interstitial coarsening. No pneumothorax, pleural effusion or lobar airspace consolidation. Degenerative changes of the shoulders and spine. Chronic appearing left-sided rib fractures. IMPRESSION: 1. Cardiomegaly without acute process. 2. Chronic appearing left-sided rib fractures. ACT 112: Negative or not required by law. The above report was generated using voice recognition software. It may contain grammatical, syntax or spelling errors. Electronically signed by: Malcolm Stauffer M.D. 03/09/2022 4:29 PM Dictated:03/09/221627 Transcribed: 03/09/221627 Echocardiogram Date: 03/10/22 EF: 60-65 Other Findings: + LVH (moderate concentric) Valvular Disease: + (at least moderate)
[2022-03-10] MEDS ORDERED: INSULIN ASPART PER UNIT SC STA (16:34)
[2022-03-10] MEDS ORDERED: ceFAZolin 2000MG 2,000 MG/15 ML SYR IV ONE (16:51)
[2022-03-10] MEDS ORDERED: ceFAZolin 2,000 MG/15 ML IV PUSH IV ONE (16:52)
[2022-03-10] MEDS ORDERED: BUPIVACAINE 0.5 % 5 MG/1 ML MPF 30ML VIAL ONE (17:19)
[2022-03-10] MEDS ORDERED: GLYCOPYRROLATE 0.2 MG/ML VIAL ONE (17:44)
[2022-03-10] MEDS ORDERED: SUCCINYLCHOLINE CHLORIDE 20 MG/ML 10 ML VIAL IV ONE (17:44)
[2022-03-10] MEDS ORDERED: NEOSTIGMINE METHYLSULFATE 1 MG/ML 10ML VIAL ONE (17:44)
[2022-03-10] MEDS ORDERED: ROCURONIUM BROMIDE 10 MG/ML 5 ML VIAL IV ONE (17:44)
[2022-03-10] MEDS ORDERED: ONDANSETRON INJ 2 MG/ML 2 ML VIAL ONE (17:44)
--- NOTE | 2022-03-10 19:02 | Post Operative Brief Note ---
Immediate Post Op Note v1 Date of Surgery March 10, 2022 Pre & Post Diagnosis Operation Date: 03/10/22 09:35 Pre-Op Diagnosis: acute, comminuted mild displaced and impacted intertrochanteric fracture of right femur, obesity BMI 37 Post-Op Diagnosis: acute, comminuted mild displaced and impacted intertrochanteric fracture of right femur, obesity BMI 37 I identified the patient and participated in the time-out.: Yes Procedure Operation Date: 03/10/22 09:35 Actual Procedures p internal fixation right hip fracture with Right Trochanteric femoral Nailing(Right), increased level difficulty due to obesity- Brodie Harris MD Surgeon Brodie Harris MD Laboratory Administrative Director Spencer EASLEY Estimated Blood Loss 50 Findings Consistent with Post-Op Diagnosis Anesthesia Type General Complications none Disposition Disposition: Recovery Room Overlapping Procedure I was immediately available: during the entire case.
[2022-03-10] MEDS ORDERED: SUGAMMADEX SODIUM 200 MG/2 ML VIAL IV ONE (19:06)
--- NOTE | 2022-03-10 19:11 | Operative Report ---
Post Operative Report Pre & Post Diagnosis Operation Date: 03/10/22 09:35 Pre-Op Diagnosis: acute, comminuted mild displaced and impacted intertrochanteric fracture of right femur, obesity BMI 37 Post-Op Diagnosis: acute, comminuted mild displaced and impacted intertrochanteric fracture of right femur, obesity BMI 37 I identified the patient and participated in the time-out.: Yes Procedure Operation Date: 03/10/22 09:35 Actual Procedures p internal fixation right hip fracture with Right Trochanteric femoral Nailing(Right), increased difficulty obesity BMI 37- Brodie Harris MD Surgeon Brodie Harris MD Staffing Mgr Spencer EASLEY Estimated Blood Loss 50 Findings Consistent with Post-Op Diagnosis Specimens None Drains None Complications none Disposition Disposition: Recovery Room Indications 66-year-old obese female who fell and fractured her right hip. Radiographs demonstrate varus alignment of the hip with intertrochanteric hip fracture with fracture line extending slightly below the lesser trochanter area. Patient appears to have good cortexes the femur distally. Description of Procedure Patient was taken to the operating room and anesthetized under general anesthesia in view of history of aortic stenosis. Patient had marked abdominal obesity with a large pannus and moderate obesity about the hip. The patient was placed supine on a fracture table. The right leg was placed into boot traction and the well leg was placed into a well-padded leg holding device in flexion and internal rotation. A calf SCD was on the left leg. We had to place benzoin on her abdomen pannus area and then placed surgical tape and tape her pannus to the opposite side of the bed in order to position the fat out of the surgical field. This took some time extra from normal positioning due to her obesity. Both upper extremities were well-padded and sheaths were placed around her arms to keep them across her chest area. The reduction was performed by abducting the hip placing longitudinal traction in the external rotated position then internally rotation after traction was placed and then adducting the hip. An anatomic reduction was obtained. The hip was sterilely prepped and draped in usual fashion using ChloraPrep. Fluoroscopy was used throughout the case to assist in the procedure. A lateral incision was made over the hip. The skin was incised sharply. The subcutaneous fat was divided down to the fascia. The fascia was divided longitudinally and the gluteus medius was split with a Kumar elevator enough to identify the tip of the greater trochanter. A guidewire was placed under fluoroscopic guidance and then the drill was used to open up the canal. We chose a Synthes titanium cannulated trochanteric femoral nail 11 mm x 130 degree neck angle. The insertion device was used to insert the leon and seated at the appropriate depth and then the second incision was made for the helical blade. The guide was placed and the guidewire was advanced under fluoroscopic guidance into the femoral neck and head. The guidewire placement on AP view just below the central region in the lower third on the lateral view centrally aligned. It was noted that while drilling the guidepin patient very hard bone. The reamers were used verifying very hard bone not consistent with osteoporosis. Then the 100 mm x 11 mm titanium helical blade was impacted into the neck and head fragment. The bone quality was excellent. The proximal locking screw was tightened. Traction was let off and then the compression device was used to compress the fracture site. Another small incision was made and the guide for the distal locking screw was advanced to the bone and the drill used and the measurement taken. A 42 mm length 4.9 mm with titanium locking screw was then placed with good fixation. Fluoroscopy views were obtained to document reduction AP and lateral views. All wounds were irrigated. The fascia was closed with i nterrupted #1 Vicryl sutures. The subcutaneous tissues were closed with 2-0 Vicryl sutures. The skin was closed with milton and sterile dressings were applied. The patient tolerated the procedure well. There was some time increased in the positioning and reduction part of the procedure which added 20 minutes of the procedure due to her obesity. My physician commercial lines account assistant Spencer EASLEY participated as heel sprayer first and was integral part in all aspects of the procedure throughout the procedure including patient positioning, prepping and draping, soft tissue retraction and wound closure and will participate in the postoperative care of the patient. I attest to the content of the Intraoperative Record and any orders documented therein. Any exceptions are noted below.
--- NOTE | 2022-03-10 19:21 | Fluoroscopy Report ---
FL femur RT 2V HISTORY: 66 years-old Female RIGHT TROCH NAIL acute right proximal femoral fracture COMPARISON: Pelvis and hip radiographs 03/09/2022 TECHNIQUE: 4 spot fluoroscopic images of the right femur were obtained utilizing 105.6 seconds fluoro scopy time FINDINGS: Status post placement of an intratrochanteric nail with medullary leon fixating the acute intertrochan teric fracture. There is improved alignment. Expected postoperative soft tissue swelling with deep ti ssue air. IMPRESSION: Fluoroscopic assistance as above. ACT 112: Negative or not required by law. The above report was generated using voice recognition software. It may contain grammatical, syntax o r spelling errors. Electronically signed by: Malcolm Stauffer M.D. 03/10/2022 7:19 PM
[2022-03-10] MEDS ORDERED: METOPROLOL TARTRATE 1 MG/ML VIAL IV ONE (19:22)
[2022-03-10] MEDS ORDERED: METOPROLOL TARTRATE 1 MG/ML VIAL IV STA (19:24)
[2022-03-10] MEDS ORDERED: ALBUT/IPRATROP 3MG/0.5MG NEB 3 ML VIAL NEB STA (20:23)
--- NOTE | 2022-03-10 20:48 | Anesthesiology Progress Note ---
Date of Service March 10, 2022 Anesthesia Post Procedure Vital Signs Vital Signs: Temp Pulse Pulse Pulse Resp BP BP 03/10/22 20:40 36.3 C L 96 H 17 139/83 03/10/22 20:37 97 H 17 03/10/22 20:30 36.3 C L 99 H 27 H 149/80 H 03/10/22 20:20 36.3 C L 97 H 9 L 141/84 H 03/10/22 20:10 94 H 16 154/74 H 03/10/22 20:00 94 H 27 H 141/95 H 03/10/22 19:50 94 H 17 113/83 03/10/22 19:41 101 H 147/87 H 03/10/22 19:40 95 H 16 163/91 H 03/10/22 19:30 95 H 18 140/94 03/10/22 19:20 36.6 C 102 H 16 149/93 H 03/10/22 16:28 36.7 C 103 H 19 138/73 03/10/22 15:10 36.6 C 101 H 20 148/72 H 03/10/22 12:17 103 H 22 03/10/22 08:18 36.4 C L 107 H 18 153/85 H 03/10/22 03:09 106 H 21 03/09/22 23:07 36.7 C 93 H 19 126/76 03/09/22 22:07 109 H 19 Pulse Ox 03/10/22 20:40 94 03/10/22 20:37 94 03/10/22 20:30 94 03/10/22 20:20 91 03/10/22 20:10 91 03/10/22 20:00 91 03/10/22 19:50 94 03/10/22 19:41 03/10/22 19:40 88 L 03/10/22 19:30 85 L 03/10/22 19:20 96 03/10/22 16:28 92 03/10/22 15:10 90 03/10/22 12:17 93 03/10/22 08:18 92 03/10/22 03:09 91 03/09/22 23:07 95 03/09/22 22:07 94 Pain Intensity Right Hip: Pain Intensity: 0 Transfer of Care Handoff Completed per policy Notes Mental Status: alert / awake / arousable Patient Amnestic to Procedure: Yes Nausea / Vomiting: adequately controlled Pain: adequately controlled Airway Patency, RR, SpO2: stable & adequate BP & HR: stable & adequate Hydration State: stable & adequate Anesthetic Complications: no major complications apparent and Pt Satisfied with anesthetic care Notes: The patient is awake and comfortable. Her vitals are stable. She is now using her CPAP from the floor and SpO2 is 94. She will have continuous pulse oximetry overnight.
[2022-03-10 21:28] LABS: BUN Creatinine Ratio 22.6 (10-20); Calcium 8.7 mg/dl (8.5-10.1); Creatinine Clr Calc Pharmacy 42.6 ml/min; Est GFR (African American) 34.3 ml/min; Est GFR (Non-African American) 29.6 ml/min; Potassium 4.3 mmol/L (3.5-5.1)
[2022-03-10] MEDS ORDERED: Nursing to Pharmacy Communication SCH (21:45)
[2022-03-10] MEDS: traMADol HCL 50 MG TABLET PO PRN (22:13)
[2022-03-11] MEDS: MoRPHine SULFATE 2 MG/ML CARP IV PRN (02:15)
[2022-03-11] MEDS: ACETAMINOPHEN 500 MG TAB PO SCH ×3 (05:08→19:31)
[2022-03-11] MEDS: LEVOTHYROXINE SODIUM 150 MCG TABLET PO SCH (05:08)
[2022-03-11] MEDS: ALBUT/IPRATROP 3MG/0.5MG NEB 3 ML VIAL NEB PRN (05:27)
[2022-03-11] MEDS: traMADol HCL 50 MG TABLET PO PRN ×2 (07:58→19:31)
[2022-03-11] MEDS: ATORVASTATIN 40 MG TAB PO SCH (08:01)
[2022-03-11] MEDS: CYANOCOBALAMIN (B-12) 500 MCG TABLET PO SCH (08:01)
[2022-03-11] MEDS: NICOTINE 21 MG/24 HR TDSY TD SCH (08:01)
[2022-03-11] MEDS: gemfibroziL 600 MG TAB PO SCH ×2 (08:01→22:01)
[2022-03-11] MEDS: PANTOprazole 40 MG TAB PO SCH (08:02)
[2022-03-11] MEDS: carvediloL 6.25 MG TAB PO SCH ×2 (08:02→20:15)
[2022-03-11] MEDS: GABAPENTIN 100 MG CAP PO SCH ×3 (08:02→20:14)
[2022-03-11] MEDS: allopurinoL 300 MG TAB PO SCH (08:02)
[2022-03-11] MEDS: POLYETHYLENE (MIRALAX) 17 GM PACK PO SCH (08:03)
[2022-03-11] MEDS: INSULIN GLARGINE SOLOSTAR 100 UNITS/ML 3 ML PEN SC SCH ×2 (08:03→20:25)
--- NOTE | 2022-03-11 08:31 | Orthopedic Progress Note ---
Date of Service March 11, 2022 Assessment & Plan (1) Hip fracture: Plan: Postop day 1 status post right TFN. PT/OT protocols. Toe-touch weightbearing. Right lower extremity DVT prophylaxis-enoxaparin, SCDs, LEXX devlin. Pain management as written. DC planning-patient planning for rehab versus SNF. Admission and Anticipated Discharge Date Admission Date: March 09, 2022 Subjective Postop day 1 Patient sitting up in bed awake and alert. Denies shortness of breath, chest pain, lightheadedness. She is having some pain getting in and out of bed but currently pain is controlled. Physical Exam Physical Exam: Dressings are clean, dry, and intact. Thigh is soft and nontender. Calves are soft nontender. Neurovascular intact. Toes are mobile. Results & Data ([facility]) Vital Signs (Past 12 Hours) Vital Signs Temp Pulse Pulse Pulse Resp BP BP 03/11/22 07:46 36.7 C 102 H 20 129/74 03/11/22 06:12 105 H 20 139/79 03/11/22 05:27 102 H 22 03/11/22 05:12 37.1 C 107 H 22 141/83 H 03/11/22 03:50 106 H 27 H 03/11/22 01:11 36.2 C L 95 H 20 130/60 03/11/22 00:10 36.5 C 75 19 112/60 03/10/22 23:01 36 C L 103 H 20 111/65 03/10/22 22:45 36.5 C 105 H 20 134/70 03/10/22 22:23 102 H 19 03/10/22 22:10 36.5 C 103 H 20 134/70 03/10/22 21:34 37.0 C 03/10/22 21:27 103 H 19 151/72 H 03/10/22 20:40 36.3 C L 96 H 17 139/83 03/10/22 20:37 97 H 17 Pulse Ox 03/11/22 07:46 91 03/11/22 06:12 91 03/11/22 05:27 90 03/11/22 05:12 89 L 03/11/22 03:50 96 03/11/22 01:11 94 03/11/22 00:10 93 03/10/22 23:01 94 03/10/22 22:45 91 03/10/22 22:23 92 03/10/22 22:10 91 03/10/22 21:34 03/10/22 21:27 93 03/10/22 20:40 94 03/10/22 20:37 94 Laboratory Results Laboratory Results WBC 10.20 K/uL (4.8-10.8) 03/09/22 16:03 RBC 5.50 M/uL (4.2-5.4) H 03/09/22 16:03 Hgb 14.0 g/dL (12.0-16.0) 03/09/22 16:03 Hct 45.9 % (37-47) 03/09/22 16:03 MCV 83.5 fL (80-100) 03/09/22 16:03 MCH 25.5 pg (25-34) 03/09/22 16:03 MCHC 30.5 g/dL (32-36) L 03/09/22 16:03 RDW Std Deviation 54.8 fL (36.4-46.3) H 03/09/22 16:03 RDW Coeff of Prakash 17.7 % (11.5-14.5) H 03/09/22 16:03 Plt Count 161 K/uL (130-400) 03/09/22 16:03 Immature Gran % (Auto) 0.3 % 03/09/22 16:03 Neut % (Auto) 77.9 % 03/09/22 16:03 Lymph % (Auto) 15.1 % 03/09/22 16:03 [place] % (Auto) 6.1 % 03/09/22 16:03 Eos % (Auto) 0.5 % 03/09/22 16:03 Baso % (Auto) 0.1 % 03/09/22 16:03 Neut # (Auto) 7.95 K/uL (1.4-6.5) H 03/09/22 16:03 Lymph # (Auto) 1.54 K/uL (1.2-3.4) 03/09/22 16:03 [place] # (Auto) 0.62 K/uL (0.11-0.59) H 03/09/22 16:03 Eos # (Auto) 0.05 K/uL (0-0.5) 03/09/22 16:03 Baso # (Auto) 0.01 K/uL (0-0.2) 03/09/22 16:03 Immature Gran # (Auto) 0.03 K/uL (0.00-0.02) H 03/09/22 16:03 PT 10.4 Seconds (9.0-12.0) 03/09/22 16:03 INR 1.0 (0.9-1.1) 03/09/22 16:03 APTT 23.9 Seconds (21.0-31.0) 03/09/22 16:03 PTT Ratio 0.9 03/09/22 16:03 Sodium 142 mmol/L (136-145) 03/10/22 21:00 Potassium 4.3 mmol/L (3.5-5.1) 03/10/22 21:00 Chloride 103 mmol/L (98-107) 03/10/22 21:00 Carbon Dioxide 32 mmol/L (21-32) 03/10/22 21:00 Anion Gap 7 (3-11) 03/10/22 21:00 BUN 40 mg/dl (6-23) H 03/10/22 21:00 Creatinine 1.77 mg/dl (0.6-1.2) H D 03/10/22 21:00 Est Cr Clr Drug Dosing 42.6 ml/min 03/10/22 21:00 Est GFR ( Amer) 34.3 ml/min 03/10/22 21:00 Est GFR (Non-Af Amer) 29.6 ml/min 03/10/22 21:00 BUN/Creatinine Ratio 22.6 (10-20) H 03/10/22 21:00 Glucose 204 mg/dl (70-99(Fasting)) H 03/10/22 21:00 POC Glucose 168 mg/dl (70-99) H 03/11/22 07:59 Estimat Average Glucose 283 mg/dl 03/09/22 15:51 Hemoglobin A1c 11.5 % (4.5-5.6) H 03/09/22 15:51 Calcium 8.7 mg/dl (8.5-10.1) 03/10/22 21:00 Total Bilirubin 0.4 mg/dl (0.2-1.0) 03/09/22 16:03 AST 8 U/L (13-39) L 03/09/22 16:03 ALT 7 U/L (7-52) 03/09/22 16:03 Alkaline Phosphatase 130 U/L (34-104) H 03/09/22 16:03 Total Protein 6.5 gm/dl (6.0-8.3) 03/09/22 16:03 Albumin 3.7 gm/dl (3.4-5.0) 03/09/22 16:03 Globulin 2.8 gm/dl (2.5-4.0) 03/09/22 16:03 Albumin/Globulin Ratio 1.3 (0.9-2) 03/09/22 16:03 25-OH Vitamin D Total 27.1 ng/ml (30-100) L 03/10/22 08:51 SARS-CoV-2, RNA, NAAT NEGATIVE (NEGATIVE) 03/09/22 16:54 Femur X-Ray 03/10/22 13:58 FL femur RT 2V HISTORY: 66 years-old Female RIGHT TROCH NAIL acute right proximal femoral fracture COMPARISON: Pelvis and hip radiographs 03/09/2022 TECHNIQUE: 4 spot fluoroscopic images of the right femur were obtained utilizing 105.6 seconds fluoroscopy time FINDINGS: Status post placement of an intratrochanteric nail with medullary leon fixating the acute intertrochanteric fracture. There is improved alignment. Expected postoperative soft tissue swelling with deep tissue air. IMPRESSION: Fluoroscopic assistance as above. ACT 112: Negative or not required by law. The above report was generated using voice recognition software. It may contain grammatical, syntax or spelling errors. Electronically signed by: Malcolm Stauffer M.D. 03/10/2022 7:19 PM (1) Hip fracture Encounter type: initial encounter Fracture type: closed Laterality: right Qualified Code(s): S72.001A - Fracture of unspecified part of neck of right femur, initial encounter for closed fracture
[2022-03-11 08:44] LABS: Basophils # (auto) 0.01 K/uL (0-0.2); Basophils % (auto) 0.1 %; Eosinophils # (auto) 0.01 K/uL (0-0.5); Eosinophils % (auto) 0.1 %; Hematocrit (blood only) 40.4 % (37-47); Immature Granulocytes # (auto) 0.03 K/uL (0.00-0.02); Immature Granulocytes % (auto) 0.3 %; Mean Corpuscular Hgb Conc 29.7 g/dL (32-36); Mean Corpuscular Volume 84.2 fL (80-100); Monocytes # (auto) 0.88 K/uL (0.11-0.59); Monocytes % (auto) 8.8 %; Neutrophils # (auto) 7.54 K/uL (1.4-6.5); Neutrophils % (auto) 75.7 %; Nucleated RBC # (auto) 0.02 K/uL (0-0); Nucleated RBC % (auto) 0.2 %; Platelet Count 169 K/uL (130-400); RDW Coefficient of Variation 18.2 % (11.5-14.5); RDW Standard Deviation 56.1 fL (36.4-46.3); White Blood Count 9.97 K/uL (4.8-10.8)
[2022-03-11] MEDS: INSULIN ASPART PER UNIT SC SCH ×4 (08:54→20:27)
[2022-03-11] MEDS: CHOLECALCIFEROL 400 UNITS 10 MCG TAB PO SCH (08:55)
[2022-03-11 09:13] LABS: BUN Creatinine Ratio 23.7 (10-20); Calcium 8.2 mg/dl (8.5-10.1); Creatinine Clr Calc Pharmacy 42.6 ml/min; Est GFR (African American) 34.3 ml/min; Est GFR (Non-African American) 29.6 ml/min; Potassium 3.9 mmol/L (3.5-5.1)
--- NOTE | 2022-03-11 10:49 | Hospitalist Progress Note ---
Date of Service March 11, 2022 Assessment & Plan (1) Fall: (2) Hip fracture: Plan: Patient presented after mechanical fall with right hip pain. Hip x-ray showing acute comminuted impacted intertrochanteric right femoral fracture. Possible age related osteoporotic fracture S/p Internal fixation with Right trochanteric femoral nailing POD#1 Pain control Incentive spirometry and flutter Repeat XR in view of increased oxygen requirement Vit D 27 (3) Chronic diastolic (congestive) heart failure: (4) Aortic stenosis: Plan: Review of previous outpatient Cardiology work up showed Echo in June 2018 showed EF of 55 to 59%, severe aortic valve stenosis. Patient was seen by child care leader then and had cardiac catheterization in July 2018 which reported no significant CAD but moderate Patient had not followed up with child care leader since and had canceled appointments since 2018 till now. TTE today showed EF 60-65%, mod conc LVH, moderate Aortic stenosis Resume home lasix Continue atorvastatin and gemfibrozil Continue coreg Resume home ASA Counseled patient on need to follow up with Card outpatient (5) Obesity: (6) CINTHIA (obstructive sleep apnea): (7) Smoker: (8) COPD (chronic obstructive pulmonary disease): Plan: Continue CPAP at bedtime while inpatient. Continue home guaifenesin Continue DuoNeb Nicotine patch. Continue smoking cessation counselling (9) Diabetes mellitus: Plan: Patient uses glipizide at home only A1c is 11.5 Continue insulin per protocol Will need insulin on dc DM educator consult Continue gabapentin for neuropathy (10) CKD (chronic kidney disease) stage 3, GFR 30-59 ml/min: Plan: Cr is 1.77 Avoid nephrotoxins and monitor (11) Hypothyroid: Plan: Continue levothyroxine DVT ppx Lovenox sq PT/OT while inpatient Will need rehab Admission and Anticipated Discharge Date Admission Date: March 09, 2022 Subjective Patient seen and examined Had surgery yesterday Has chronic cough On increased oxygen post op Reports right hip pain is well controlled Denied chest pain, nausea, vomiting, abd pain, diarrhea Yet to have a BM but passing flatus Denied fevers, chills Physical Exam Constitutional: + well hydrated and + obese; no acute distress Eyes: PERRL, conjunctivae normal, anicteric sclerae ENMT: external ear and nose normal, oropharynx normal Respiratory: normal respiratory effort; no respiratory distress Diminished breath sounds Cardiovascular: Rate/Rhythm: regular rate and regular rhythm S1 S2 Gastrointestinal (Abdomen): normal bowel sounds, soft, nontender, no hepatosplenomegaly Musculoskeletal: Clean dressing over right hip Neurologic: PERRL, EOMI, accommodation nl, no face palsy, no dysarthria Psychiatric: A+Ox3, euthymic affect Results & Data Results & Data ([facility]) Vital Signs (Past 12 Hours) Vital Signs Temp Pulse Pulse Resp BP Pulse Ox 03/11/22 07:46 36.7 C 102 H 20 129/74 91 03/11/22 06:12 105 H 20 139/79 91 03/11/22 05:27 102 H 22 90 03/11/22 05:12 37.1 C 107 H 22 141/83 H 89 L 03/11/22 03:50 106 H 27 H 96 03/11/22 01:11 36.2 C L 95 H 20 130/60 94 03/11/22 00:10 36.5 C 75 19 112/60 93 03/10/22 23:01 36 C L 103 H 20 111/65 94 Laboratory Results Abnormal lab results 03/10/22 03/10/22 03/10/22 Range/Units 16:30 19:27 20:59 MCHC (32-36) g/dL RDW Std Deviation (36.4-46.3) fL RDW Coeff of Prakash (11.5-14.5) % Neut # (Auto) (1.4-6.5) K/uL [place] # (Auto) (0.11-0.59) K/uL Immature Gran # (Auto) (0.00-0.02) K/uL Absolute Nucleated RBC (0-0) K/uL BUN (6-23) mg/dl Creatinine (0.6-1.2) mg/dl BUN/Creatinine Ratio (10-20) Glucose (70-99(Fasting)) mg/dl POC Glucose 206 H 188 H 174 H (70-99) mg/dl Calcium (8.5-10.1) mg/dl 03/10/22 03/11/22 03/11/22 Range/Units 21:00 06:14 07:59 MCHC (32-36) g/dL RDW Std Deviation (36.4-46.3) fL RDW Coeff of Prakash (11.5-14.5) % Neut # (Auto) (1.4-6.5) K/uL [place] # (Auto) (0.11-0.59) K/uL Immature Gran # (Auto) (0.00-0.02) K/uL Absolute Nucleated RBC (0-0) K/uL BUN 40 H (6-23) mg/dl Creatinine 1.77 H D (0.6-1.2) mg/dl BUN/Creatinine Ratio 22.6 H (10-20) Glucose 204 H (70-99(Fasting)) mg/dl POC Glucose 176 H 168 H (70-99) mg/dl Calcium (8.5-10.1) mg/dl 03/11/22 03/11/22 03/11/22 Range/Units 08:03 08:03 12:02 MCHC 29.7 L (32-36) g/dL RDW Std Deviation 56.1 H (36.4-46.3) fL RDW Coeff of Prakash 18.2 H (11.5-14.5) % Neut # (Auto) 7.54 H (1.4-6.5) K/uL [place] # (Auto) 0.88 H (0.11-0.59) K/uL Immature Gran # (Auto) 0.03 H (0.00-0.02) K/uL Absolute Nucleated RBC 0.02 H (0-0) K/uL BUN 42 H (6-23) mg/dl Creatinine 1.77 H (0.6-1.2) mg/dl BUN/Creatinine Ratio 23.7 H (10-20) Glucose 144 H (70-99(Fasting)) mg/dl POC Glucose 216 H (70-99) mg/dl Calcium 8.2 L (8.5-10.1) mg/dl (1) Hip fracture Encounter type: initial encounter Fracture type: closed Laterality: right Qualified Code(s): S72.001A - Fracture of unspecified part of neck of right femur, initial encounter for closed fracture
--- NOTE | 2022-03-11 13:00 | Pharmacy Report ---
Pharmacy Glycemic Short Note 2 - Date of Service March 11, 2022 - Glycemic Short BSG Results (Last 24 hours): 03/10/22 03/10/22 03/10/22 16:30 19:27 20:59 Glucose POC Glucose 206 H 188 H 174 H 03/10/22 03/11/22 03/11/22 21:00 06:14 07:59 Glucose 204 H POC Glucose 176 H 168 H 03/11/22 03/11/22 08:03 12:02 Glucose 144 H POC Glucose 216 H OUTPATIENT ANTIDIABETIC REGIMEN: * Glipizide * HbA1c 11.5% on 03/09/22 ASSESSMENT: 03/11/22 * Patient received 35 units of insulin yesterday, 20 units basal, fasting blood sugar above goal, increase basal. * Blood sugars trending up today with meals, tighten CR 03/10/22 * 66 yo with with poorly controlled T2DM on a single oral agent as an outpatient admitted 03/09 with a fall and is currently NPO for possible surgical intervention * Lantus initiated at 0.2 units/kg last night * Novolog weight-based moderate stress estimate initiated last night PLAN FOR INPATIENT GLYCEMIC CONTROL: * Hold outpatient oral diabetes medications * Basal insulin * Lantus 0-15 units SQ BID, BSG < 90 = 0 units, BSG 90-140 = 10 units, BSG > 140 = 15 units * Bolus insulin * NovoLog per scale ACHS or Q6hrs while NPO * Goal Range: Low 110 mg/dL - High 140 mg/dL * Correction Factor: 15 mg/dL/unit * Nutritional / Prandial insulin per carb ratio of 1 unit per 6 grams CHO consumed
--- NOTE | 2022-03-11 15:03 | XRay Report ---
XR chest 1V portable HISTORY: Hypoxia COMPARISON: Chest 03/09/2022. FINDINGS: No pneumothorax. No pleural effusions. There is diffuse chronic interstitial thickening, un changed. Progressive patchy densities within the base of the right lower lobe. Cardiac silhouette is top normal in size. No evidence for pulmonary edema. IMPRESSION: 1. Diffuse chronic interstitial thickening, unchanged. 2. Progressive patchy densities at the right lung base. This may represent atelectasis or pneumonia. ACT 112: Negative or not required by law. Electronically signed by: Lenard Herrera M.D. 03/11/2022 3:02 PM
[2022-03-11] MEDS: ENOXAPARIN INJ 40 MG/0.4 ML SYR SQ SCH (19:30)
[2022-03-11] MEDS: guaiFENesin 600 MG TABCR PO PRN (20:13)
[2022-03-12] MEDS: MoRPHine SULFATE 2 MG/ML CARP IV PRN (01:16)
[2022-03-12] MEDS: ACETAMINOPHEN 500 MG TAB PO SCH ×3 (04:09→19:54)
[2022-03-12] MEDS: LEVOTHYROXINE SODIUM 150 MCG TABLET PO SCH (04:09)
[2022-03-12] MEDS: ALBUT/IPRATROP 3MG/0.5MG NEB 3 ML VIAL NEB PRN (07:45)
[2022-03-12] MEDS: CYANOCOBALAMIN (B-12) 500 MCG TABLET PO SCH (08:12)
[2022-03-12] MEDS: ASPIRIN 81 MG ECTAB PO SCH (08:12)
[2022-03-12] MEDS: GABAPENTIN 100 MG CAP PO SCH ×3 (08:13→19:51)
[2022-03-12] MEDS: ATORVASTATIN 40 MG TAB PO SCH (08:14)
[2022-03-12] MEDS: PANTOprazole 40 MG TAB PO SCH (08:14)
[2022-03-12] MEDS: allopurinoL 300 MG TAB PO SCH (08:15)
[2022-03-12] MEDS: CHOLECALCIFEROL 400 UNITS 10 MCG TAB PO SCH (08:18)
[2022-03-12] MEDS: carvediloL 6.25 MG TAB PO SCH ×2 (08:19→19:52)
[2022-03-12] MEDS: POLYETHYLENE (MIRALAX) 17 GM PACK PO SCH (08:20)
[2022-03-12] MEDS: gemfibroziL 600 MG TAB PO SCH ×2 (08:21→19:52)
[2022-03-12] MEDS: NICOTINE 21 MG/24 HR TDSY TD SCH (08:22)
[2022-03-12] MEDS: FUROSEMIDE 40 MG TAB PO SCH (08:25)
[2022-03-12 08:33] LABS: Mean Corpuscular Hgb Conc 29.8 g/dL (32-36)
[2022-03-12 08:54] LABS: Hematocrit (blood only) 38.6 % (37-47); Hemoglobin 11.5 g/dL (12.0-16.0); Mean Corpuscular Hemoglobin 25.4 pg (25-34); Mean Corpuscular Volume 85.2 fL (80-100); RDW Coefficient of Variation 18.5 % (11.5-14.5); RDW Standard Deviation 57.7 fL (36.4-46.3); Red Blood Count 4.53 M/uL (4.2-5.4); White Blood Count 8.53 K/uL (4.8-10.8)
[2022-03-12 08:56] LABS: BUN Creatinine Ratio 24.4 (10-20); Calcium 8.2 mg/dl (8.5-10.1); Creatinine Clr Calc Pharmacy 42.8 ml/min; Est GFR (African American) 34.6 ml/min; Est GFR (Non-African American) 29.8 ml/min; Potassium 3.9 mmol/L (3.5-5.1)
[2022-03-12] MEDS: INSULIN ASPART PER UNIT SC SCH ×4 (08:59→20:50)
[2022-03-12] MEDS: INSULIN GLARGINE SOLOSTAR 100 UNITS/ML 3 ML PEN SC SCH ×2 (09:00→20:46)
[2022-03-12 09:14] LABS: Platelet Count 116 K/uL (130-400)
[2022-03-12 09:15] LABS: Platelet Estimate Decreased (Normal)
--- NOTE | 2022-03-12 10:02 | Orthopedic Progress Note ---
Date of Service March 12, 2022 Assessment & Plan (1) Hip fracture: Plan: Postop day 2 status post right TFN. PT/OT protocols. Toe-touch weightbearing. Right lower extremity DVT prophylaxis-enoxaparin, SCDs, LEXX hose. Pain management as written. DC planning-patient planning for rehab versus SNF. Admission and Anticipated Discharge Date Admission Date: March 09, 2022 Subjective Patient is postop day 2. Resting comfortably in bed. Complains of mild pain in her hip otherwise no complaints. Denies chest pain, shortness of breath, head aches, fevers and chills. Review of Systems Review of Systems: All systems reviewed & are unremarkable except as noted in Subjective Physical Exam Physical Exam: Right hip dressings are clean dry and intact. Compartments are soft and compressible. Toes are mobile. No calf tenderness. Distal neurovascular status and sensation intact Constitutional: WD/WN, vitals as above Results & Data ([facility]) Vital Signs (Past 12 Hours) Vital Signs Temp Pulse Resp BP Pulse Ox 03/12/22 08:08 36.6 C 105 H 20 121/77 93 03/12/22 08:07 36.5 C 105 H 18 122/81 89 L 03/12/22 07:45 104 H 20 89 L 03/11/22 22:18 98 H 91 03/11/22 22:08 92 (1) Hip fracture Encounter type: initial encounter Fracture type: closed Laterality: right Qualified Code(s): S72.001A - Fracture of unspecified part of neck of right femur, initial encounter for closed fracture
--- NOTE | 2022-03-12 13:59 | Pharmacy Report ---
Pharmacy Glycemic Short Note 2 - Date of Service March 12, 2022 - Glycemic Short BSG Results (Last 24 hours): 03/11/22 03/11/22 03/12/22 17:11 20:18 07:52 Glucose 103 H POC Glucose 186 H 223 H 03/12/22 03/12/22 08:03 12:10 Glucose POC Glucose 133 H 219 H OUTPATIENT ANTIDIABETIC REGIMEN: * Glipizide * HbA1c 11.5% on 03/09/22 ASSESSMENT: 03/12/22 * BSGs yesterday were [phone] mg/dL. * Patient received 64 units of insulin yesterday (30 units of basal and 34 units of bolus). * Fasting today is slightly lower with POC of 133 mg/dL and PRP of 103 mg/dL. Decrease basal to 26 units (10% decrease) * Tighten CR since BSGs continue to trend upwards. 03/11/22 * Patient received 35 units of insulin yesterday, 20 units basal, fasting blood sugar above goal, increase basal. * Blood sugars trending up today with meals, tighten CR 03/10/22 * 66 yo with with poorly controlled T2DM on a single oral agent as an outpatient admitted 03/09 with a fall and is currently NPO for possible surgical intervention * Lantus initiated at 0.2 units/kg last night * Novolog weight-based moderate stress estimate initiated last night PLAN FOR INPATIENT GLYCEMIC CONTROL: * Hold outpatient oral diabetes medications * Basal insulin * Lantus 13 units SQ BID * Bolus insulin * NovoLog per scale ACHS or Q6hrs while NPO * Goal Range: Low 110 mg/dL - High 140 mg/dL * Correction Factor: 15 mg/dL/unit * Nutritional / Prandial insulin per carb ratio of 1 unit per 5 grams CHO consumed
--- NOTE | 2022-03-12 18:14 | Hospitalist Progress Note ---
Date of Service March 12, 2022 Assessment & Plan (1) Fall: (2) Hip fracture: Plan: Right hip fracture Secondary to mechanical fall Hip x-ray showing acute comminuted impacted intertrochanteric right femoral fracture. Possible age related osteoporotic fracture S/P Internal fixation with Right trochanteric femoral nailing on 03/10/22 by Pain control Incentive spirometry Vit D 27 Appreciate orthopedics help On Lovenox for DVT prophylaxis Needs follow-up with orthopedics upon discharge Needs rehab placement Toe-touch weightbearing right lower extremity Continue vitamin D supplements (3) Chronic diastolic (congestive) heart failure: Plan: New home diuretics Monitor volume status (4) Aortic stenosis: Plan: As per Prior Provider Review of previous outpatient Cardiology work up showed Echo in June 2018 showed EF of 55 to 59%, severe aortic valve stenosis. Patient was seen by sewer bricklayer then and had cardiac catheterization in July 2018 which reported no significant CAD but moderate Patient had not followed up with sewer bricklayer since and had canceled appointments since 2018 till now. --TTE showed EF 60-65%, mod conc LVH, moderate Aortic stenosis Resume home lasix Continue atorvastatin and gemfibrozil Continue Coreg Continue home ASA Needs follow up with Cardiology upon discharge (5) Obesity: Plan: BMI 37 (6) CINTHIA (obstructive sleep apnea): Plan: CPAP at bedtime (7) Smoker: (8) COPD (chronic obstructive pulmonary disease): Plan: Chronic oxygen dependency on 3 L at bedtime Continue CPAP at bedtime while inpatient. Inhalers not helpful as per patient Continue DuoNeb Nicotine patch. Continue smoking cessation counselling Check CXR and Procalcitonin AM Titrate oxygen to keep saturation 88 to 92% given history of COPD (9) Diabetes mellitus: Plan: Patient uses glipizide at home only A1c is 11.5 Continue insulin per protocol Will need insulin on dc DM educator consulted Continue gabapentin for neuropathy (10) CKD (chronic kidney disease) stage 3, GFR 30-59 ml/min: Plan: Cr is 1.77 Avoid nephrotoxins and monitor (11) Hypothyroid: Plan: Continue levothyroxine DVT ppx Lovenox sq PT/OT while inpatient Will need rehab Needs Scripts: 1.) Pen [place] 32 gauge x 5/32. 2.) Basaglar Kwikpen. 3.) Accu-Chek Maty meter. Admission and Anticipated Discharge Date Admission Date: March 09, 2022 Subjective Patient is seen and examined at bedside States having cough with expectoration Right hip pain is controlled Denies any chest pain, dizziness, nausea, abdominal pain Offers no other complaints Review of Systems Review of Systems: All systems reviewed & are unremarkable except as noted in Subjective Physical Exam Physical Exam: Physical Exam: Vitals signs as noted above General Appearance:Obese, no apparent distress Head: normocephalic, Atraumatic Eyes: normal inspection, EOMI Neck: supple, Trachea midline Respiratory/Chest: Decreased breath sounds, Scattered wheezes, No accessory muscle use Cardiovascular: S1, S2, No murmur Abdomen/GI:Soft, Non tender, Bowel sounds present Extremities/Musculoskeletal:normal inspection, no edema, R ight hip surgical site Neurologic/Psych:AAOX3, grossly no focal neurological deficits Skin: normal color, warm Results & Data Results & Data ([facility]) Vital Signs (Past 12 Hours) Vital Signs Temp Pulse Resp BP Pulse Ox 03/12/22 15:31 93 03/12/22 15:00 36.7 C 113 H 20 106/57 L 92 03/12/22 11:17 92 03/12/22 11:00 36.5 C 109 H 16 121/74 88 L 03/12/22 08:08 36.6 C 105 H 20 121/77 93 03/12/22 08:07 36.5 C 105 H 18 122/81 89 L 03/12/22 07:45 104 H 20 89 L Laboratory Results Short CBC 03/12/22 Range/Units 07:52 WBC 8.53 (4.8-10.8) K/uL Hgb 11.5 L (12.0-16.0) g/dL Hct 38.6 (37-47) % Plt Count 116 L (130-400) K/uL BMP 03/12/22 07:52 Sodium 139 Potassium 3.9 Chloride 100 Carbon Dioxide 30 BUN 43 H Creatinine 1.76 H Glucose 103 H Calcium 8.2 L (1) Hip fracture Encounter type: initial encounter Fracture type: closed Laterality: right Qualified Code(s): S72.001A - Fracture of unspecified part of neck of right fem ur, initial encounter for closed fracture
[2022-03-12] MEDS: ENOXAPARIN INJ 40 MG/0.4 ML SYR SQ SCH (19:50)
[2022-03-12] MEDS: traMADol HCL 50 MG TABLET PO PRN (19:50)
[2022-03-13] MEDS: MoRPHine SULFATE 2 MG/ML CARP IV PRN (02:09)
[2022-03-13] MEDS: LEVOTHYROXINE SODIUM 150 MCG TABLET PO SCH (05:07)
[2022-03-13] MEDS: ACETAMINOPHEN 500 MG TAB PO SCH ×3 (05:07→18:46)
--- NOTE | 2022-03-13 07:39 | XRay Report ---
XR chest 1V portable CLINICAL HISTORY: Cough. COMPARISON STUDY: Chest radiograph March 11, 2022. FINDINGS: An old proximal right humeral fracture is incidentally noted. Patient is rotated. No pneumo thorax or pleural effusion is present. Cardiomegaly is noted. No evidence for pulmonary edema. No con solidation to suggest pneumonia. Mild left basilar opacity favors atelectasis. IMPRESSION: 1. No acute cardiopulmonary findings. 2. Mild left basilar opacity which favors atelectasis. ACT 112: Negative or not required by law. Electronically signed by: Jareth Dupont M.D. 03/13/2022 7:38 AM
[2022-03-13 07:58] LABS: Hematocrit (blood only) 35.4 % (37-47); Hemoglobin 10.7 g/dL (12.0-16.0); Mean Corpuscular Hemoglobin 25.4 pg (25-34); Mean Corpuscular Hgb Conc 30.2 g/dL (32-36); Mean Corpuscular Volume 84.1 fL (80-100); Nucleated RBC # (auto) 0.03 K/uL (0-0); Nucleated RBC % (auto) 0.5 %; Platelet Count 164 K/uL (130-400); RDW Coefficient of Variation 18.4 % (11.5-14.5); RDW Standard Deviation 56.2 fL (36.4-46.3); Red Blood Count 4.21 M/uL (4.2-5.4); White Blood Count 5.76 K/uL (4.8-10.8)
[2022-03-13 09:01] LABS: BUN Creatinine Ratio 27.1 (10-20); Creatinine Clr Calc Pharmacy 41.6 ml/min; Est GFR (African American) 33.4 ml/min; Est GFR (Non-African American) 28.8 ml/min; Potassium 3.7 mmol/L (3.5-5.1)
[2022-03-13] MEDS: INSULIN ASPART PER UNIT SC SCH ×4 (09:12→21:06)
[2022-03-13] MEDS: NICOTINE 21 MG/24 HR TDSY TD SCH (09:13)
[2022-03-13] MEDS: ASPIRIN 81 MG ECTAB PO SCH (09:13)
[2022-03-13] MEDS: CHOLECALCIFEROL 400 UNITS 10 MCG TAB PO SCH (09:13)
[2022-03-13] MEDS: GABAPENTIN 100 MG CAP PO SCH ×3 (09:14→20:07)
[2022-03-13] MEDS: allopurinoL 300 MG TAB PO SCH (09:14)
[2022-03-13] MEDS: CYANOCOBALAMIN (B-12) 500 MCG TABLET PO SCH (09:14)
[2022-03-13] MEDS: gemfibroziL 600 MG TAB PO SCH ×2 (09:14→20:06)
[2022-03-13] MEDS: PANTOprazole 40 MG TAB PO SCH (09:14)
[2022-03-13] MEDS: carvediloL 6.25 MG TAB PO SCH ×2 (09:14→20:07)
[2022-03-13] MEDS: ATORVASTATIN 40 MG TAB PO SCH (09:14)
[2022-03-13] MEDS: INSULIN GLARGINE SOLOSTAR 100 UNITS/ML 3 ML PEN SC SCH ×2 (09:15→21:05)
[2022-03-13] MEDS: FUROSEMIDE 40 MG TAB PO SCH (09:15)
[2022-03-13] MEDS: POLYETHYLENE (MIRALAX) 17 GM PACK PO SCH (09:16)
[2022-03-13] MEDS: traMADol HCL 50 MG TABLET PO PRN ×2 (11:26→21:08)
--- NOTE | 2022-03-13 12:40 | Orthopedic Progress Note ---
Date of Service March 13, 2022 Assessment & Plan (1) Hip fracture: Plan: Postop day 3 status post right TFN. PT/OT protocols. Toe-touch weightbearing. Right lower extremity DVT prophylaxis-enoxaparin, SCDs, LEXX devlin. Pain management as written. DC planning-patient planning for rehab versus SNF. Orthopedics will sign off at this time. Instructions placed in dc section. Please call with any questions. Admission and Anticipated Discharge Date Admission Date: March 09, 2022 Subjective POD 1 Pt sitting up in bed. Feeling well today. Having some pain in the hip depending on her positioning. No other complaints. Physical Exam Physical Exam: Dressings C/D/I. Thigh soft, NT. Calves soft, NT. N/V intact. Toes mobile. Results & Data ([facility]) Vital Signs (Past 12 Hours) Vital Signs Resp BP Pulse Ox 03/13/22 12:30 94 03/13/22 10:01 96 03/13/22 08:38 19 131/66 94 (1) Hip fracture Encounter type: initial encounter Fracture type: closed Laterality: right Qualified Code(s): S72.001A - Fracture of unspecified part of neck of right femur, initial encounter for closed fracture
--- NOTE | 2022-03-13 18:00 | Electrocardiogram Report ---
Test Reason : Blood Pressure : / mmHG Vent. Rate : 104 BPM Atrial Rate : 104 BPM P-R Int : 170 ms QRS Dur : 100 ms QT Int : 366 ms P-R-T Axes : 068 076 081 degrees QTc Int : 481 ms Sinus tachycardia with occasional Premature ventricular complexes Nonspecific ST abnormality Abnormal ECG When compared with ECG of 09-MAR-2022 16:23, No significant change was found Confirmed by Geronimo Mason ([id number]) on 03/13/2022 5:59:53 PM Referred By: REFERRED SELF Confirmed By:Joe Mason
[2022-03-13] MEDS: guaiFENesin 600 MG TABCR PO PRN (18:16)
--- NOTE | 2022-03-13 18:22 | Hospitalist Progress Note ---
Date of Service March 13, 2022 Assessment & Plan (1) Fall: (2) Hip fracture: Plan: Right hip fracture Secondary to mechanical fall Hip x-ray showing acute comminuted impacted intertrochanteric right femoral fracture. Possible age related osteoporotic fracture S/P Internal fixation with Right trochanteric femoral nailing on 03/10/22 by Pain control Incentive spirometry Vit D 27 Appreciate orthopedics help On Lovenox for DVT prophylaxis Needs follow-up with orthopedics upon discharge Toe-touch weightbearing right lower extremity Continue vitamin D supplements Plan to discharge to rehab facility as able (3) Chronic diastolic (congestive) heart failure: Plan: New home diuretics Monitor volume status (4) Aortic stenosis: Plan: As per Prior Provider Review of previous outpatient Cardiology work up showed Echo in June 2018 showed EF of 55 to 59%, severe aortic valve stenosis. Patient was seen by feather cutting machine feeder then and had cardiac catheterization in July 2018 which reported no significant CAD but moderate Patient had not followed up with feather cutting machine feeder since and had canceled appointments since 2018 till now. --TTE showed EF 60-65%, mod conc LVH, moderate Aortic stenosis Resume home lasix Continue atorvastatin and gemfibrozil Continue Coreg Continue home ASA Needs follow up with Cardiology upon discharge (5) Obesity: Plan: BMI 37 (6) CINTHIA (obstructive sleep apnea): Plan: CPAP at bedtime (7) Smoker: (8) COPD (chronic obstructive pulmonary disease): Plan: Chronic oxygen dependency on 3 L at bedtime Continue CPAP at bedtime while inpatient. Inhalers not helpful as per patient Continue DuoNeb Nicotine patch. Continue smoking cessation counselling Check CXR and Procalcitonin AM Titrate oxygen to keep saturation 88 to 92% given history of COPD Pulmonary hygiene Currently at baseline supplemental oxygen. (9) Diabetes mellitus: Plan: Patient uses glipizide at home only A1c is 11.5 Continue insulin per protocol Will need insulin on dc DM educator consulted Continue gabapentin for neuropathy (10) CKD (chronic kidney disease) stage 3, GFR 30-59 ml/min: Plan: Cr is 1.77 Avoid nephrotoxins and monitor (11) Hypothyroid: Plan: Continue levothyroxine DVT ppx Lovenox sq PT/OT while inpatient Will need rehab Needs Scripts: 1.) Pen [place] 32 gauge x /32. 2.) Basaglar Kwikpen. 3.) Accu-Chek Maty meter. Admission and Anticipated Discharge Date Admission Date: March 09, 2022 Subjective Patient is seen and examined at bedside States having thick secretions which she had difficulty expectorating Hip pain is controlled No other complaints Denies any chest pain, dizziness, nausea, abdominal pain Review of Systems Review of Systems: All systems reviewed & are unremarkable except as noted in Subjective Physical Exam Physical Exam: Physical Exam: Vitals signs as noted above General Appearance:Obese, no apparent distress Head: normocephalic, Atraumatic Eyes: normal inspection, EOMI Neck: supple, Trachea midline Respiratory/Chest: Decreased breath sounds, Scattered wheezes, No accessory muscle use Cardiovascular: S1, S2, No murmur Abdomen/GI:Soft, Non tender, Bowel sounds present Extremities/Musculoskeletal:normal inspection, no edema, R ight hip surgical site Neurologic/Psych:AAOX3, grossly no focal neurological deficits Skin: normal color, warm Results & Data Results & Data ([facility]) Vital Signs (Past 12 Hours) Vital Signs Temp Pulse Resp BP Pulse Ox 03/13/22 15:44 36.6 C 103 H 19 130/77 90 03/13/22 12:30 94 03/13/22 10:01 96 03/13/22 08:38 19 131/66 94 Laboratory Results Short CBC 03/13/22 Range/Units 07:36 WBC 5.76 (4.8-10.8) K/uL Hgb 10.7 L (12.0-16.0) g/dL Hct 35.4 L (37-47) % Plt Count 164 (130-400) K/uL BMP 03/13/22 07:36 Sodium 139 Potassium 3.7 Chloride 99 Carbon Dioxide 29 BUN 49 H Creatinine 1.81 H Glucose 148 H Calcium 8.0 L (1) Hip fracture Encounter type: initial encounter Fracture type: closed Laterality: right Qualified Code(s): S72.001A - Fracture of unspecified part of neck of right femur, initial encounter for closed fracture
[2022-03-13] MEDS: ENOXAPARIN INJ 40 MG/0.4 ML SYR SQ SCH (18:45)
[2022-03-14] MEDS: ACETAMINOPHEN 500 MG TAB PO SCH ×3 (03:50→20:28)
[2022-03-14] MEDS: LEVOTHYROXINE SODIUM 150 MCG TABLET PO SCH (06:25)
[2022-03-14 08:09] LABS: Hematocrit (blood only) 36.2 % (37-47); Hemoglobin 10.8 g/dL (12.0-16.0); Mean Corpuscular Hemoglobin 25.4 pg (25-34); Mean Corpuscular Hgb Conc 29.8 g/dL (32-36); Mean Corpuscular Volume 85.2 fL (80-100); Platelet Count 155 K/uL (130-400); RDW Coefficient of Variation 18.6 % (11.5-14.5); RDW Standard Deviation 57.2 fL (36.4-46.3); Red Blood Count 4.25 M/uL (4.2-5.4); White Blood Count 5.87 K/uL (4.8-10.8)
[2022-03-14 08:44] LABS: BUN Creatinine Ratio 33.8 (10-20); Calcium 8.2 mg/dl (8.5-10.1); Creatinine Clr Calc Pharmacy 49.9 ml/min; Est GFR (African American) 41.6 ml/min; Est GFR (Non-African American) 35.9 ml/min; Potassium 3.9 mmol/L (3.5-5.1)
[2022-03-14] MEDS: CHOLECALCIFEROL 400 UNITS 10 MCG TAB PO SCH (08:52)
[2022-03-14] MEDS: ASPIRIN 81 MG ECTAB PO SCH (08:53)
[2022-03-14] MEDS: carvediloL 6.25 MG TAB PO SCH ×2 (08:53→20:26)
[2022-03-14] MEDS: gemfibroziL 600 MG TAB PO SCH ×2 (08:53→20:26)
[2022-03-14] MEDS: GABAPENTIN 100 MG CAP PO SCH ×3 (08:53→20:26)
[2022-03-14] MEDS: CYANOCOBALAMIN (B-12) 500 MCG TABLET PO SCH (08:53)
[2022-03-14] MEDS: ATORVASTATIN 40 MG TAB PO SCH (08:53)
[2022-03-14] MEDS: FUROSEMIDE 40 MG TAB PO SCH (08:53)
[2022-03-14] MEDS: allopurinoL 300 MG TAB PO SCH (08:53)
[2022-03-14] MEDS: PANTOprazole 40 MG TAB PO SCH (08:53)
[2022-03-14] MEDS: POLYETHYLENE (MIRALAX) 17 GM PACK PO SCH (08:54)
[2022-03-14] MEDS: NICOTINE 21 MG/24 HR TDSY TD SCH (08:54)
[2022-03-14] MEDS: INSULIN GLARGINE SOLOSTAR 100 UNITS/ML 3 ML PEN SC SCH ×2 (08:56→18:06)
[2022-03-14] MEDS: INSULIN ASPART PER UNIT SC SCH ×4 (08:57→20:27)
--- NOTE | 2022-03-14 11:14 | Pharmacy Report ---
Pharmacy Glycemic Short Note 2 - Date of Service March 14, 2022 - Glycemic Short BSG Results (Last 24 hours): 03/13/22 03/13/22 03/13/22 11:58 16:52 20:47 Glucose POC Glucose 285 H 100 H 213 H 03/14/22 03/14/22 07:41 08:15 Glucose 144 H POC Glucose 156 H OUTPATIENT ANTIDIABETIC REGIMEN: * Glipizide * HbA1c 11.5% on 03/09/22 ASSESSMENT: 03/14/22 * BSGs yesterday were [phone] and fasting today is 156 mg/dL. * Patient received 80 units of insulin yesterday (30 units of basal and 50 units of bolus). * Increase basal to 34 units daily (~15% increase) as fasting still above goal. Transition to once daily dosing by giving PM Lantus at dinnertime. * Continue Novolog as CR tightened at lunch yesterday. 03/12/22 * BSGs yesterday were [phone] mg/dL. * Patient received 64 units of insulin yesterday (30 units of basal and 34 units of bolus). * Fasting today is slightly lower with POC of 133 mg/dL and PRP of 103 mg/dL. Decrease basal to 26 units (10% decrease) * Tighten CR since BSGs continue to trend upwards. 03/11/22 * Patient received 35 units of insulin yesterday, 20 units basal, fasting blood sugar above goal, increase basal. * Blood sugars trending up today with meals, tighten CR 03/10/22 * 66 yo with with poorly controlled T2DM on a single oral agent as an outpatient admitted 03/09 with a fall and is currently NPO for possible surgical intervention * Lantus initiated at 0.2 units/kg last night * Novolog weight-based moderate stress estimate initiated last night PLAN FOR INPATIENT GLYCEMIC CONTROL: * Hold outpatient oral diabetes medications * Basal insulin * Lantus 17 units SQ BID * Bolus insulin * NovoLog per scale ACHS or Q6hrs while NPO * Goal Range: Low 110 mg/dL - High 140 mg/dL * Correction Factor: 15 mg/dL/unit * Nutritional / Prandial insulin per carb ratio of 1 unit per 4 grams CHO consumed
[2022-03-14] MEDS: traMADol HCL 50 MG TABLET PO PRN (13:00)
--- NOTE | 2022-03-14 16:39 | Hospitalist Progress Note ---
Date of Service March 14, 2022 Assessment & Plan (1) Fall: (2) Hip fracture: Plan: Right hip fracture Secondary to mechanical fall Hip x-ray showing acute comminuted impacted intertrochanteric right femoral fracture. Possible age related osteoporotic fracture S/P Internal fixation with Right trochanteric femoral nailing on 03/10/22 by Pain control Incentive spirometry Vit D 27 Appreciate orthopedics help On Lovenox for DVT prophylaxis Needs follow-up with orthopedics upon discharge Toe-touch weightbearing right lower extremity Continue vitamin D supplements Plan to discharge to rehab facility when arranged Pain is controlled (3) Chronic diastolic (congestive) heart failure: Plan: New home diuretics Monitor volume status (4) Aortic stenosis: Plan: As per Prior Provider Review of previous outpatient Cardiology work up showed Echo in June 2018 showed EF of 55 to 59%, severe aortic valve stenosis. Patient was seen by manufacturing maintenance mechanic then and had cardiac catheterization in July 2018 which reported no significant CAD but moderate Patient had not followed up with manufacturing maintenance mechanic since and had canceled appointments since 2018 till now. --TTE showed EF 60-65%, mod conc LVH, moderate Aortic stenosis Resume home lasix Continue atorvastatin and gemfibrozil Continue Coreg Continue home ASA Needs follow up with Cardiology upon discharge (5) Obesity: Plan: BMI 37 (6) CINTHIA (obstructive sleep apnea): Plan: CPAP at bedtime (7) Smoker: (8) COPD (chronic obstructive pulmonary disease): Plan: Chronic oxygen dependency on 3 L at bedtime Continue CPAP at bedtime while inpatient. Inhalers not helpful as per patient Continue DuoNeb Nicotine patch. Continue smoking cessation counselling Normal Procalcitonin Titrate oxygen to keep saturation 88 to 92% given history of COPD Pulmonary hygiene Currently at baseline supplemental oxygen. Continue Pulmonary Hygiene (9) Diabetes mellitus: Plan: Patient uses glipizide at home only A1c is 11.5 Continue insulin per protocol Will need insulin on discharge DM educator consulted Continue gabapentin for neuropathy (10) CKD (chronic kidney disease) stage 3, GFR 30-59 ml/min: Plan: Cr is 1.77 Avoid nephrotoxins and monitor (11) Hypothyroid: Plan: Continue levothyroxine DVT ppx Lovenox sq PT/OT while inpatient Waiting for Rehab Placement Needs Scripts: 1.) Pen [place] 32 gauge x /32. 2.) Basaglar [place]. 3.) Accu-Chek Maty meter. Admission and Anticipated Discharge Date Admission Date: March 09, 2022 Subjective Patient is seen and examined at bedside States feeling much better today Supplemental oxygen back to baseline Less cough today No new complaints Waiting for rehab placement Denies any chest pain, dizziness, nausea, abdominal pain Review of Systems Review of Systems: All systems reviewed & are unremarkable except as noted in Subjective Physical Exam Physical Exam: Physical Exam: Vitals signs as noted above General Appearance:Obese, no apparent distress Head: normocephalic, Atraumatic Eyes: normal inspection, EOMI Neck: supple, Trachea midline Respiratory/Chest: Decreased breath sounds, Scattered wheezes, No accessory muscle use Cardiovascular: S1, S2, No murmur Abdomen/GI:Soft, Non tender, Bowel sounds present Extremities/Musculoskeletal:normal inspection, no edema, R ight hip surgical site Neurologic/Psych:AAOX3, grossly no focal neurological deficits Skin: normal color, warm Results & Data Results & Data ([facility]) Vital Signs (Past 12 Hours) Vital Signs Temp Pulse Resp BP Pulse Ox 03/14/22 14:17 36.3 C L 110 H 17 150/83 H 93 03/14/22 08:30 36.7 C 102 H 18 134/82 93 Laboratory Results Short CBC 03/14/22 Range/Units 07:41 WBC 5.87 (4.8-10.8) K/uL Hgb 10.8 L (12.0-16.0) g/dL Hct 36.2 L (37-47) % Plt Count 155 (130-400) K/uL BMP 03/14/22 07:41 Sodium 141 Potassium 3.9 Chloride 104 Carbon Dioxide 27 BUN 51 H Creatinine 1.51 H D Glucose 144 H Calcium 8.2 L (1) Hip fracture Encounter type: initial encounter Fracture type: closed Laterality: right Qualified Code(s): S72.001A - Fracture of unspecified part of neck of right femu r, initial encounter for closed fracture
[2022-03-14] MEDS: ENOXAPARIN INJ 40 MG/0.4 ML SYR SQ SCH (18:07)
[2022-03-15] MEDS: traMADol HCL 50 MG TABLET PO PRN ×2 (01:49→19:48)
[2022-03-15] MEDS: ACETAMINOPHEN 500 MG TAB PO SCH ×3 (04:31→19:46)
[2022-03-15] MEDS: CHOLECALCIFEROL 400 UNITS 10 MCG TAB PO SCH (08:31)
[2022-03-15] MEDS: GABAPENTIN 100 MG CAP PO SCH ×3 (08:31→19:46)
[2022-03-15] MEDS: carvediloL 6.25 MG TAB PO SCH ×2 (08:31→19:48)
[2022-03-15] MEDS: gemfibroziL 600 MG TAB PO SCH ×2 (08:31→19:47)
[2022-03-15] MEDS: PANTOprazole 40 MG TAB PO SCH (08:32)
[2022-03-15] MEDS: ATORVASTATIN 40 MG TAB PO SCH (08:32)
[2022-03-15] MEDS: FUROSEMIDE 40 MG TAB PO SCH (08:32)
[2022-03-15] MEDS: POLYETHYLENE (MIRALAX) 17 GM PACK PO SCH (08:32)
[2022-03-15] MEDS: CYANOCOBALAMIN (B-12) 500 MCG TABLET PO SCH (08:32)
[2022-03-15] MEDS: allopurinoL 300 MG TAB PO SCH (08:32)
[2022-03-15] MEDS: ASPIRIN 81 MG ECTAB PO SCH (08:32)
[2022-03-15] MEDS: NICOTINE 21 MG/24 HR TDSY TD SCH (08:34)
[2022-03-15] MEDS: INSULIN ASPART PER UNIT SC SCH ×4 (09:40→20:50)
[2022-03-15] MEDS: INSULIN GLARGINE SOLOSTAR 100 UNITS/ML 3 ML PEN SC SCH (09:41)
--- NOTE | 2022-03-15 14:54 | Hospitalist Progress Note ---
Date of Service March 15, 2022 Assessment & Plan (1) Fall: (2) Hip fracture: Plan: Right hip fracture Secondary to mechanical fall Hip x-ray showing acute comminuted impacted intertrochanteric right femoral fracture. Possible age related osteoporotic fracture S/P Internal fixation with Right trochanteric femoral nailing on 03/10/22 by Pain control Incentive spirometry Vit D 27 Appreciate orthopedics help On Lovenox for DVT prophylaxis Needs follow-up with orthopedics upon discharge Toe-touch weightbearing right lower extremity Continue vitamin D supplements Pain is controlled Waiting for rehab placement (3) Chronic diastolic (congestive) heart failure: Plan: New home diuretics Monitor volume status (4) Aortic stenosis: Plan: As per Prior Provider Review of previous outpatient Cardiology work up showed Echo in June 2018 showed EF of 55 to 59%, severe aortic valve stenosis. Patient was seen by transcribing operators supervisor then and had cardiac catheterization in July 2018 which reported no significant CAD but moderate Patient had not followed up with transcribing operators supervisor since and had canceled appointments since 2018 till now. --TTE showed EF 60-65%, mod conc LVH, moderate Aortic stenosis Resume home lasix Continue atorvastatin and gemfibrozil Continue Coreg Continue home ASA Needs follow up with Cardiology upon discharge (5) Obesity: Plan: BMI 37 (6) CINTHIA (obstructive sleep apnea): Plan: CPAP at bedtime (7) Smoker: (8) COPD (chronic obstructive pulmonary disease): Plan: Chronic oxygen dependency on 3 L at bedtime Continue CPAP at bedtime while inpatient. Inhalers not helpful as per patient Continue DuoNeb Nicotine patch. Continue smoking cessation counselling Normal Procalcitonin Titrate oxygen to keep saturation 88 to 92% given history of COPD Pulmonary hygiene Currently at baseline supplemental oxygen. Continue Pulmonary Hygiene (9) Diabetes mellitus: Plan: Patient uses glipizide at home only A1c is 11.5 Continue insulin per protocol Will need insulin on discharge DM educator consulted Continue gabapentin for peripheral neuropathy (10) CKD (chronic kidney disease) stage 3, GFR 30-59 ml/min: Plan: Cr 1.5 Avoid nephrotoxins and monitor (11) Hypothyroid: Plan: Continue levothyroxine DVT ppx Lovenox sq PT/OT while inpatient Waiting for Rehab Placement Needs Scripts: 1.) Pen [place] 32 gauge x /32. 2.) Basaglar Kwikpen. 3.) Accu-Chek Maty meter. Admission and Anticipated Discharge Date Admission Date: March 09, 2022 Subjective Patient is seen and examined at bedside No new complaints Waiting for rehab placement Denies any chest pain, dizziness, nausea, abdominal pain Review of Systems Review of Systems: All systems reviewed & are unremarkable except as noted in Subjective Physical Exam Physical Exam: Physical Exam: Vitals signs as noted above General Appearance:Obese, no apparent distress Head: normocephalic, Atraumatic Eyes: normal inspection, EOMI Neck: supple, Trachea midline Respiratory/Chest: Decreased breath sounds, Scattered wheezes, No accessory muscle use Cardiovascular: S1, S2, No murmur Abdomen/GI:Soft, Non tender, Bowel sounds present Extremities/Musculoskeletal:normal inspection, no edema, R ight hip surgical site Neurologic/Psych:AAOX3, grossly no focal neurological deficits Skin: normal color, warm Results & Data Results & Data ([facility]) Vital Signs (Past 12 Hours) Vital Signs Temp Pulse Resp BP Pulse Ox 03/15/22 08:02 36.4 C L 86 16 147/81 H 90 (1) Hip fracture Encounter type: initial encounter Fracture type: closed Laterality: right Qualified Code(s): S72.001A - Fracture of unspecified part of neck of right femur, initial encounter for closed fracture
[2022-03-15] MEDS: ENOXAPARIN INJ 40 MG/0.4 ML SYR SQ SCH (19:46)
[2022-03-16] MEDS: traMADol HCL 50 MG TABLET PO PRN ×2 (02:51→19:54)
[2022-03-16] MEDS: ACETAMINOPHEN 500 MG TAB PO SCH ×3 (02:51→19:49)
[2022-03-16] MEDS: POLYETHYLENE (MIRALAX) 17 GM PACK PO SCH (07:43)
[2022-03-16] MEDS: GABAPENTIN 100 MG CAP PO SCH ×3 (07:54→19:49)
[2022-03-16] MEDS: CYANOCOBALAMIN (B-12) 500 MCG TABLET PO SCH (07:54)
[2022-03-16] MEDS: ASPIRIN 81 MG ECTAB PO SCH (07:54)
[2022-03-16] MEDS: allopurinoL 300 MG TAB PO SCH (07:55)
[2022-03-16] MEDS: NICOTINE 21 MG/24 HR TDSY TD SCH (07:55)
[2022-03-16] MEDS: FUROSEMIDE 40 MG TAB PO SCH (07:55)
[2022-03-16] MEDS: PANTOprazole 40 MG TAB PO SCH (07:55)
[2022-03-16] MEDS: ATORVASTATIN 40 MG TAB PO SCH (07:55)
[2022-03-16] MEDS: gemfibroziL 600 MG TAB PO SCH ×2 (07:55→19:48)
[2022-03-16] MEDS: carvediloL 6.25 MG TAB PO SCH ×2 (07:55→19:48)
[2022-03-16] MEDS: CHOLECALCIFEROL 400 UNITS 10 MCG TAB PO SCH (07:56)
[2022-03-16] MEDS: INSULIN ASPART PER UNIT SC SCH ×4 (08:57→21:52)
[2022-03-16] MEDS: INSULIN GLARGINE SOLOSTAR 100 UNITS/ML 3 ML PEN SC SCH (09:01)
--- NOTE | 2022-03-16 13:35 | Pharmacy Report ---
Pharmacy Glycemic Short Note 2 - Date of Service March 16, 2022 - Glycemic Short BSG Results (Last 24 hours): 03/15/22 03/16/22 03/16/22 17:16 08:18 12:06 POC Glucose 85 127 H 215 H OUTPATIENT ANTIDIABETIC REGIMEN: * Glipizide * HbA1c 11.5% on 03/09/22 ASSESSMENT: 03/16/22 * BSGs yesterday were [phone] mg/dL. Fasting today is 127 mg/dL. * Patient received 77 units of insulin yesterday (35 units of basal and 42 units of bolus). Transitioned to once daily Lantus yesterday. * Continue Lantus as fasting in goal range. * Loosened CF as patient overcorrects. Continue Carbohydrate ratio. May require tighter CR at breakfast. 03/14/22 * BSGs yesterday were [phone] and fasting today is 156 mg/dL. * Patient received 80 units of insulin yesterday (30 units of basal and 50 units of bolus). * Increase basal to 34 units daily (~15% increase) as fasting still above goal. Transition to once daily dosing by giving PM Lantus at dinnertime. * Continue Novolog as CR tightened at lunch yesterday. 03/12/22 * BSGs yesterday were [phone] mg/dL. * Patient received 64 units of insulin yesterday (30 units of basal and 34 units of bolus). * Fasting today is slightly lower with POC of 133 mg/dL and PRP of 103 mg/dL. Decrease basal to 26 units (10% decrease) * Tighten CR since BSGs continue to trend upwards. 03/11/22 * Patient received 35 units of insulin yesterday, 20 units basal, fasting blood sugar above goal, increase basal. * Blood sugars trending up today with meals, tighten CR 03/10/22 * 66 yo with with poorly controlled T2DM on a single oral agent as an outpatient admitted 03/09 with a fall and is currently NPO for possible surgical intervention * Lantus initiated at 0.2 units/kg last night * Novolog weight-based moderate stress estimate initiated last night PLAN FOR INPATIENT GLYCEMIC CONTROL: * Hold outpatient oral diabetes medications * Basal insulin * Lantus 35 units SQ daily * Bolus insulin * NovoLog per scale ACHS or Q6hrs while NPO * Goal Range: Low 110 mg/dL - High 140 mg/dL * Correction Factor: 20 mg/dL/unit * Nutritional / Prandial insulin per carb ratio of 1 unit per 4 grams CHO consumed
--- NOTE | 2022-03-16 14:34 | XRay Report ---
KUB CLINICAL HISTORY: Abdominal discomfort. COMPARISON STUDY: None. FINDINGS: Right femoral internal fixation is partially imaged. Bowel gas pattern is within normal zhou its although the flanks were not included on this exam. A 6.2 cm slightly irregular density projects over the right upper quadrant and distal stomach, suboptimally assessed by radiography. IMPRESSION: 1. No evidence for a bowel obstruction. 2. 6.2 cm slightly irregular density which projects over the right upper quadrant and distal stomach. This is suboptimally assessed by radiography and of questionable significance. A CT of the abdomen c ould be obtained for further evaluation. ACT 112: Negative or not required by law. Electronically signed by: Jareth Dupont M.D. 03/16/2022 2:32 PM
--- NOTE | 2022-03-16 15:57 | Hospitalist Progress Note ---
Date of Service March 16, 2022 Assessment & Plan (1) Fall: (2) Hip fracture: Plan: Right hip fracture Secondary to mechanical fall Hip x-ray showing acute comminuted impacted intertrochanteric right femoral fracture. Possible age related osteoporotic fracture S/P Internal fixation with Right trochanteric femoral nailing on 03/10/22 by Pain control Incentive spirometry Vit D 27 Appreciate orthopedics help On Lovenox for DVT prophylaxis Needs follow-up with orthopedics upon discharge Toe-touch weightbearing right lower extremity Continue vitamin D supplements Pain is controlled Waiting for rehab placement Gastric Density -KUB:No evidence for a bowel obstruction. 6.2 cm slightly irregular density which projects over the right upper quadrant and distal stomach. This is suboptimally assessed by radiography and of questionable significance. A CT of the abdomen could be obtained for further evaluation. -Will obtain CT for further eval (3) Chronic diastolic (congestive) heart failure: Plan: New home diuretics Monitor volume status (4) Aortic stenosis: Plan: As per Prior Provider Review of previous outpatient Cardiology work up showed Echo in June 2018 showed EF of 55 to 59%, severe aortic valve stenosis. Patient was seen by jack winder then and had cardiac catheterization in July 2018 which reported no significant CAD but moderate Patient had not followed up with jack winder since and had canceled appointments since 2018 till now. --TTE showed EF 60-65%, mod conc LVH, moderate Aortic stenosis Resume home lasix Continue atorvastatin and gemfibrozil Continue Coreg Continue home ASA Needs follow up with Cardiology upon discharge (5) Obesity: Plan: BMI 37 (6) CINTHIA (obstructive sleep apnea): Plan: CPAP at bedtime (7) Smoker: (8) COPD (chronic obstructive pulmonary disease): Plan: Chronic oxygen dependency on 3 L at bedtime Continue CPAP at bedtime while inpatient. Inhalers not helpful as per patient Continue DuoNeb Nicotine patch. Continue smoking cessation counselling Normal Procalcitonin Titrate oxygen to keep saturation 88 to 92% given history of COPD Pulmonary hygiene Currently at baseline supplemental oxygen. Continue Pulmonary Hygiene (9) Diabetes mellitus: Plan: Patient uses glipizide at home only A1c is 11.5 Continue insulin per protocol Will need insulin on discharge DM educator consulted Continue gabapentin for peripheral neuropathy (10) CKD (chronic kidney disease) stage 3, GFR 30-59 ml/min: Plan: Cr 1.5 Avoid nephrotoxins and monitor (11) Hypothyroid: Plan: Continue levothyroxine DVT ppx Lovenox sq PT/OT while inpatient Waiting for Rehab Placement Needs Scripts: 1.) Pen [place] 32 gauge x 5/32. 2.) Sylwia Oneillpen. 3.) Accu-Chek Maty meter. Admission and Anticipated Discharge Date Admission Date: March 09, 2022 Subjective Patient is seen and examined at bedside States having some abd discomfort Last BM yesterday Denies any chest pain, dizziness, nausea, abdominal pain Review of Systems Review of Systems: All systems reviewed & are unremarkable except as noted in Subjective Physical Exam Physical Exam: Physical Exam: Vitals signs as noted above General Appearance:Obese, no apparent distress Head: normocephalic, Atraumatic Eyes: normal inspection, EOMI Neck: supple, Trachea midline Respiratory/Chest: Decreased breath sounds, Scattered wheezes, No accessory muscle use Cardiovascular: S1, S2, No murmur Abdomen/GI:Soft, Non tender, Bowel sounds present Extremities/Musculoskeletal:normal inspection, no edema, R ight hip surgical site Neurologic/Psych:AAOX3, grossly no focal neurological deficits Skin: normal color, warm Results & Data Results & Data ([facility]) Vital Signs (Past 12 Hours) Vital Signs Temp Pulse Resp BP Pulse Ox 03/16/22 07:45 37 C 95 H 18 133/68 94 (1) Hip fracture Encounter type: initial encounter Fracture type: closed Laterality: right Qualified Code(s): S72.001A - Fracture of unspecified part of neck of right femur, initial encounter for closed fracture
[2022-03-16] MEDS: ENOXAPARIN INJ 40 MG/0.4 ML SYR SQ SCH (19:47)
[2022-03-17] MEDS: traMADol HCL 50 MG TABLET PO PRN (02:08)
[2022-03-17] MEDS: ACETAMINOPHEN 500 MG TAB PO SCH ×2 (02:08→12:28)
[2022-03-17] MEDS: LEVOTHYROXINE SODIUM 150 MCG TABLET PO SCH (05:41)
[2022-03-17] MEDS ORDERED: INSULIN ASPART PER UNIT SC SCH ×2 (07:30→11:30)
[2022-03-17] MEDS: gemfibroziL 600 MG TAB PO SCH (09:00)
[2022-03-17] MEDS: GABAPENTIN 100 MG CAP PO SCH (09:00)
[2022-03-17] MEDS: carvediloL 6.25 MG TAB PO SCH (09:01)
[2022-03-17] MEDS: CYANOCOBALAMIN (B-12) 500 MCG TABLET PO SCH (09:01)
[2022-03-17] MEDS: POLYETHYLENE (MIRALAX) 17 GM PACK PO SCH (09:01)
[2022-03-17] MEDS: FUROSEMIDE 40 MG TAB PO SCH (09:02)
[2022-03-17] MEDS: CHOLECALCIFEROL 400 UNITS 10 MCG TAB PO SCH (09:02)
[2022-03-17] MEDS: allopurinoL 300 MG TAB PO SCH (09:02)
[2022-03-17] MEDS: ATORVASTATIN 40 MG TAB PO SCH (09:02)
[2022-03-17] MEDS: PANTOprazole 40 MG TAB PO SCH (09:02)
[2022-03-17] MEDS: ASPIRIN 81 MG ECTAB PO SCH (09:02)
--- NOTE | 2022-03-17 09:04 | CT Scan Report ---
CT abd pelvis wo con CLINICAL HISTORY: Stomach density TECHNIQUE: Helical axial images of the abdomen and pelvis were obtained. Automated dose lowering tech niques and/or adjustment according to patient size were utilized for this exam. This exam was perfor med without intravenous contrast. CT DOSE: 1544.42 mGy.cm COMPARISON: Comparison is made to abdomen radiograph 03/16/2022 FINDINGS: Lower chest: Atelectasis versus scarring is seen at the right lung base. Atherosclerotic disease is noted in the coronary arteries. Liver: Unremarkable. No focal lesions are seen. Gallbladder and biliary tree: No calcified gallstones. Normal caliber wall. No intra- or extrahepatic biliary ductal dilation. Pancreas: Unremarkable, no focal lesions. Spleen: Unremarkable. Adrenals: Multiple bilateral adrenal nodules are seen compatible with lipid rich adenomas. Kidneys and ureters: Multiple renal cysts are noted. Mild atrophic thinning of the kidneys is noted. Bladder: Unremarkable. Reproductive organs: Unremarkable. Bowel: Diverticulosis is seen without evidence of diverticulitis. Previously noted radiodensity in th e stomach is favored to represent gastric material. Lymph nodes Retroperitoneal: Unremarkable. Mesenteric: Unremarkable. Pelvic: Unremarkable. Peritoneum: Normal. Vessels: Unremarkable. Abdominal wall: A fat-containing umbilical hernia is seen. Bones: The right femur is transfixed by medullary leon. Partially healed fracture is noted. Degenerati ve changes are seen and there is a likely chronic compression deformity of L1. IMPRESSION: 1. Previously noted radiodensity in the stomach is favored to represent gastric contents. 2. Bilateral adrenal adenomas and renal cysts. 3. Additional findings as above. ACT 112: Negative or not required by law. Electronically signed by: Daren Yepez M.D. 03/17/2022 9:03 AM
[2022-03-17] MEDS: NICOTINE 21 MG/24 HR TDSY TD SCH (09:05)
[2022-03-17] MEDS: INSULIN GLARGINE SOLOSTAR 100 UNITS/ML 3 ML PEN SC SCH (09:43)
[2022-03-17 10:54] LABS: Appearance Urine Turbid (Clear); Bacteria Urine Automated 4+ (Negative); Bilirubin Urine Negative (Negative); Blood Urine 1+ (Negative); Color Urine Yellow; Epithelial Cell Urine Auto >30 /lpf (0-5); Glucose Urine UA Negative (Negative); Ketones Urine Negative (Negative); Leukocyte Esterase Urine 3+ (Negative); Nitrite Urine Negative (Negative); Protein Urine 2+ (Negative); Specific Gravity Urine 1.015 (1.000-1.030); Urobilinogen Urine Negative (Negative); WBC Urine Automated >30 /hpf (0-5); pH Urine 5.5 (4.5-7.5)
--- NOTE | 2022-03-17 12:57 | Hospitalist Progress Note ---
Date of Service March 17, 2022 Assessment & Plan (1) Fall: (2) Hip fracture: Plan: Right hip fracture Secondary to mechanical fall Hip x-ray showing acute comminuted impacted intertrochanteric right femoral fracture. Possible age related osteoporotic fracture S/P Internal fixation with Right trochanteric femoral nailing on 03/10/22 by Pain control Incentive spirometry Vit D 27 Appreciate orthopedics help On Lovenox for DVT prophylaxis Needs follow-up with orthopedics upon discharge Toe-touch weightbearing right lower extremity Continue vitamin D supplements Pain is controlled Plan to discharge to rehab facility today Adrenal Adenoma Gastric Density--Likely gastric contents -KUB:No evidence for a bowel obstruction. 6.2 cm slightly irregular density which projects over the right upper quadrant and distal stomach. This is rae boptimally assessed by radiography and of questionable significance. A CT of the abdomen could be obtained for further evaluation. -CT ABD:Previously noted radiodensity in the stomach is favored to represent gastric contents. Bilateral adrenal adenomas and renal cysts. -Incidentally found adrenal adenoma on CT. Advised to follow-up as outpatient (3) Chronic diastolic (congestive) heart failure: Plan: New home diuretics Monitor volume status (4) Aortic stenosis: Plan: As per Prior Provider Review of previous outpatient Cardiology work up showed Echo in June 2018 showed EF of 55 to 59%, severe aortic valve stenosis. Patient was seen by c ardiologist then and had cardiac catheterization in July 2018 which reported no significant CAD but moderate Patient had not followed up with ui lead developer since and had canceled appointments since 2018 till now. --TTE showed EF 60-65%, mod conc LVH, moderate Aortic stenosis Resume home lasix Continue atorvastatin and gemfibrozil Continue Coreg Continue home ASA Needs follow up with Cardiology upon discharge (5) Obesity: Plan: BMI 37 (6) CINTHIA (obstructive sleep apnea): Plan: CPAP at bedtime (7) Smoker: (8) COPD (chronic obstructive pulmonary disease): Plan: Chronic oxygen dependency on 3 L at bedtime Continue CPAP at bedtime while inpatient. Inhalers not helpful as per patient Continue DuoNeb Nicotine patch. Continue smoking cessation counselling Normal Procalcitonin Titrate oxygen to keep saturation 88 to 92% given history of COPD Pulmonary hygiene Currently at baseline supplemental oxygen. Continue Pulmonary Hygiene (9) Diabetes mellitus: Plan: Patient uses glipizide at home only A1c is 11.5 Continue insulin per protocol Will need insulin on discharge DM educator consulted Continue gabapentin for peripheral neuropathy (10) CKD (chronic kidney disease) stage 3, GFR 30-59 ml/min: Plan: Cr 1.5 Avoid nephrotoxins and monitor (11) Hypothyroid: Plan: Continue levothyroxine DVT ppx Lovenox sq Disposition Rehab Needs Scripts: 1.) Pen [place] 32 gauge x 5/32. 2.) Basaglar Kwikpen. 3.) Accu-Chek Maty meter. Admission and Anticipated Discharge Date Admission Date: March 09, 2022 Subjective Patient is seen and examined at bedside Right hip pain at surgical site is controlled No Abd pain today No other complaints Denies any chest pain, dyspnea, dizziness, nausea Plan to discharge to Rehab today Review of Systems Review of Systems: All systems reviewed & are unremarkable except as noted in Subjective Physical Exam Physical Exam: Physical Exam: Vitals signs as noted above General Appearance:Obese, no apparent distress Head: normocephalic, Atraumatic Eyes: normal inspection, EOMI Neck: supple, Trachea midline Respiratory/Chest: Decreased breath sounds, Scattered wheezes, No accessory muscle use Cardiovascular: S1, S2, No murmur Abdomen/GI:Soft, Non tender, Bowel sounds present Extremities/Musculoskeletal:normal inspection, no edema, Right hip surgical site Neurologic/Psych:AAOX3, grossly no focal neurological deficits Skin: normal color, warm Results & Data Results & Data ([facility]) Vital Signs (Past 12 Hours) Vital Signs Temp Pulse Resp BP Pulse Ox 03/17/22 07:24 36.5 C 94 H 18 138/81 92 Laboratory Results Urine 03/17/22 Range/Units Unknown Urine Color Yellow Urine Appearance Turbid A (Clear) Urine pH 5.5 (4.5-7.5) Ur Specific [place] 1.015 (1.000-1.030) Urine Protein 2+ H (Negative) Urine Glucose (UA) Negative (Negative) (1) Hip fracture Encounter type: initial encounter Fracture type: closed Laterality: right Qualified Code(s): S72.001A - Fracture of unspecified part of neck of right femur, initial encounter for closed fracture
--- NOTE | 2022-03-17 13:31 | Discharge Summary ---
Date of Service March 17, 2022 Admission HPI Per Admitting Provider 66-year-old woman with history of obesity, COPD, CINTHIA on CPAP at bedtime with oxygen at 3 L, heart failure with preserved ejection fraction, aortic stenosis, diabetes mellitus, hyperlipidemia, neuropathy, hypothyroidism, active smoker who presents after a fall at home with right hip pain. Patient reported tripping at home and falling on the right side on her hip. Denies any trauma to head or loss of consciousness Reported she has been having pain since. Patient usually ambulates with a walker especially outside. Reports chronic dyspnea on exertion, chronic cough. Denies any chest pain, palpitations, orthopnea or PND. Denies fevers, chills, nausea, abdominal pain, diarrhea, constipation Denies dysuria, frequency, urgency, incontinence or hematuria. Reports she uses CPAP to sleep at night with 3 L/min of oxygen. Does not use oxygen during the day. Patient smokes about 1 pack/day. Denies alcohol or illicit drug use. Reports father had heart problems. Admission Exam Per Admitting Provider Physical Exam Constitutional: + well hydrated and + obese; no acute di stress Eyes: PERRL, conjunctivae normal, anicteric sclerae ENMT: external ear and nose normal, oropharynx normal Respiratory: normal respiratory effort, lungs clear to auscultation Cardiovascular: Rate/Rhythm: regular rate and regular rhythm Systolic ejection murmur [prominently aortic region] S1-S2 Gastrointestinal (Abdomen): normal bowel sounds, soft, nontender, no hepatosplenomegaly Musculoskeletal: Right lower extremity externally rotated and shortened Neurologic: PERRL, EOMI, accommodation nl, no face palsy, no dysarthria Psychiatric: A+Ox3, euthymic affect Principal Diagnosis Right hip fracture Bilateral Adrenal Adenoma--Incidental finding CINTHIA on CPAP COPD:Chronic oxygen dependency on 3 L at bedtime CKD Uncontrolled DM II Discharge Data Allergies Allergy/AdvReac Type Severity Reaction Status Date / Time No Known Allergies Allergy Unverified 03/09/22 17:28 Consultations 03/09/22 16:58 Consult Orthopedic Surgery Routine 03/09/22 17:01 ED Decision to Admit Stat Procedures Performed Operation Date: 03/10/22 09:35 Actual Procedures p internal fixation right hip fracture with Right Trochanteric femoral Nailing(Right) - Brodie Harris MD Ordered Studies 03/10/22 13:58 FL femur RT 2V Routine 03/16/22 15:54 CT abd pelvis wo con Urgent Diabetes Follow up Diabetes Follow-up Needed for HgbA1c >9% Hospital Course (1) Fall: (2) Hip fracture: Right hip fracture Secondary to mechanical fall Hip x-ray showing acute comminuted impacted intertrochanteric right femoral fracture. Possible age related osteoporotic fracture S/P Internal fixation with Right trochanteric femoral nailing on 03/10/22 by Pain control Incentive spirometry Vit D 27 Appreciate orthopedics help On Lovenox for DVT prophylaxis Needs follow-up with orthopedics upon discharge Toe-touch weightbearing right lower extremity Continue vitamin D supplements Pain is controlled Plan to discharge to rehab facility today Adrenal Adenoma Gastric Density--Likely gastric contents -KUB:No evidence for a bowel obstruction. 6.2 cm slightly irregular density which projects over the right upper quadrant and distal stomach. This is suboptimally assessed by radiography and of questionable significance. A CT of the abdomen could be obtained for further evaluation. -CT ABD:Previously noted radiodensity in the stomach is favored to represent gastric contents. Bilateral adrenal adenomas and renal cysts. -Incidentally found adrenal adenoma on CT. Advised to follow-up as outpatient (3) Chronic diastolic (congestive) heart failure: New home diuretics Monitor volume status (4) Aortic stenosis: As per Prior Provider Review of previous outpatient Cardiology work up showed Echo in June 2018 showed EF of 55 to 59%, severe aortic valve stenosis. Patient was seen by anthropology department chair then and had cardiac catheterization in July 2018 which r eported no significant CAD but moderate Patient had not followed up with anthropology department chair since and had canceled appointments since 2018 till now. --TTE showed EF 60-65%, mod conc LVH, moderate Aortic stenosis Resume home lasix Continue atorvastatin and gemfibrozil Continue Coreg Continue home ASA Needs follow up with Cardiology upon discharge (5) Obesity: BMI 37 (6) CINTHIA (obstructive sleep apnea): CPAP at bedtime (7) Smoker: (8) COPD (chronic obstructive pulmonary disease): Chronic oxygen dependency on 3 L at bedtime Continue CPAP at bedtime while inpatient. Inhalers not helpful as per patient Continue DuoNeb Nicotine patch. Continue smoking cessation counselling Normal Procalcitonin Titrate oxygen to keep saturation 88 to 92% given history of COPD Pulmonary hygiene Currently at baseline supplemental oxygen. Continue Pulmonary Hygiene (9) Diabetes mellitus: Patient uses glipizide at home only A1c is 11.5 Continue insulin per protocol Will need insulin on discharge DM educator consulted Continue gabapentin for peripheral neuropathy (10) CKD (chronic kidney disease) stage 3, GFR 30-59 ml/min: Cr 1.5 Avoid nephrotoxins and monitor (11) Hypothyroid: Continue levothyroxine DVT ppx Lovenox sq Disposition Rehab Needs Scripts: 1.) Pen [place] 32 gauge x 5/32. 2.) Basaglar Kwikpen. 3.) Accu-Chek Maty meter. Total Time Total Time Spent Total Time Spent (In Minutes): 45 minutes Discharge Plan Discharge Items Patient Disposition: Transfer [facility] Reason For Visit: FALL Discharge Diagnosis: Right hip fracture Bilateral Adrenal Adenoma--Incidental finding CINTHIA on CPAP COPD:Chronic oxygen dependency on 3 L at bedtime CKD Uncontrolled DM II Activity: Per Instructions section Exercise/Sports: Gradually increase as tolerated Weightbearing: Right toe touch Non-emergency contact: Primary Care Provider and Surgeon Call non-emergency contact if: you have any medication questions, your symptoms worsen, your pain is not controlled, you have a fever, your temperature is above 101.5, your wound has increased redness and your wound has increased drainage Follow-up/Referrals: Mary Robert MD [Primary Care Provider] - Diet: Carb Consistent or DM2 and Heart Healthy [facility] Attending Provider Instructions: Follow-up with your primary care physician in 1 week upon discharge from rehab facility Follow-up with your orthopedic surgeon as advised. --You are Incidentally found to have adrenal adenoma on CT. follow-up with your physician for further work-up. --- Your diabetes is uncontrolled. Discussed with your physician for further adjustment of medications as needed. Seek immediate medical attention if your symptoms reoccur or worsen Please take all medications as instructed on discharge list below. Please call if you have any questions or problems. You can reach a [facility] hospitalist on duty at [facility] 24 hours a day by calling [phone] [facility] [employer] Provider Instructions: [facility] DISCHARGE INSTRUCTIONS: HIP FRACTURE SELF CARE INSTRUCTIONS: A. You are to ambulate with a walker or crutches for approximately 6 weeks. B. You are TOE TOUCH WEIGHT BEARING on your operative lower extremity for at least 6 weeks. C. Wear low heeled shoes with non-slip soles D. Be sure that your floors are free of things that could trip you throw rugs, electrical cords, and small objects. Avoid wet and waxed floors, especially with crutches/walker/cane. E. Try to walk several times a day with rest periods between. F. You may shower 48 hours after surgery and get the incision area wet, but DO NOT soak or submerge incision area in water. (No baths, swimming pools, hot tubs) G. You may have a large, band-aid like dressing over your incision (Aquacel). This will remain on your incision for 7 days, and then can be removed. You CAN shower with this on. If incision is leaking through the dressing, please call the office . H. Do NOT apply soap or any ointment/lotions directly over incision. I. You may use ice as needed to operative site. SPECIAL CARE INSTRUCTIONS: VERY IMPORTANT TO READ AND REVIEW A. You may be at risk for phlebitis or blood clots. a. Wear surgical stockings (LEXX hose) for 2 weeks after surgery to improve circulation and reduce swelling. b. Take LOVENOX 40mg SQ daily for 4 weeks or as directed. This is your blood thinner. B. There are a few signs you need to watch for after you are home. Call [facility] at [phone] if you experience any of the following: a. If you have a temperature of 101 degrees or higher. b. Sudden increase in pain in your hip not relieved by rest or pain medication. c. Any fluid or drainage from the incision; redness of the incision. d. Shortness of breath or chest pain. C. Call your physician if: a. Temperature is greater than 101 degrees (F). b. Pain is not relieved by prescribed pain medications. c. Increase drainage or redness from incision. d. Unanswered questions or concerns. D. Pain Medication: a. You will be prescribed pain medication upon discharge that should last till your first post-operative appointment. b. If you experience nausea and/or skin rash, discontinue this medication and contact our office for an alternative medication. c. Caution- narcotic pain medication can cause constip ation. FOLLOW UP VISIT: Please call [facility] at [phone] to schedule a follow up appointment 10-14 days from the date of your surgery date. Pending Studies at Discharge: No Stand-Alone Forms: My [facility] Skilled Items Patient informed of condition?: Yes DNR: No Discharge Level of Care: Skilled Communicable Disease: No Discharge Prognosis: Stable Lines: None Urinary Catheter: No Medications and DC Order Prescriptions: New polyethylene glycol 3350 [Miralax] 17 gram Powder In Packet 17 g PO DAILY PRN (Reason: constipation) Qty: 30 RF: 0 enoxaparin [Lovenox] 40 mg/0.4 mL Syringe 40 mg subcut Q24H 21 Days Qty: 8.4 RF: 0 cholecalciferol (vitamin D3) [Vitamin D3] 10 mcg (400 unit) Tablet 600 unit PO QAM Qty: 30 RF: 0 Basaglar KwikPen U-100 Insulin 100 unit/mL (3 mL) insulin pen 35 unit subcut DAILY Qty: 15 RF: 0 (DME) pen needle, diabetic [Pen Needle] 32 gauge x 5/32" needle See Rx Instructions .Route Qty: 100 RF: 0 (DME) blood-glucose meter [Accu-Chek Maty Plus Meter] [facility] [place] See Rx Instructions .Route Qty: 1 RF: 0 Continued gemfibrozil 600 mg tablet 600 mg PO BID RF: 0 levothyroxine 150 mcg tablet 150 mcg PO 5XWK RF: 0 furosemide 40 mg tablet 40 mg PO DAILY RF: 0 atorvastatin 40 mg tablet 40 mg PO DAILY RF: 0 carvedilol 6.25 mg tablet 6.25 mg PO BID RF: 0 glipizide 5 mg tablet extended release 24 hr 5 mg PO DAILYBB RF: 0 cyanocobalamin (vitamin B-12) 1,000 mcg tablet 1,000 mcg PO DAILY RF: 0 allopurinol 300 mg tablet 300 mg PO DAILY RF: 0 gabapentin 100 mg capsule 100 mg PO TID RF: 0 clotrimazole [Athlete's Foot (clotrimazole)] 1 % Cream 1 applic TOPICAL TID PRN (Reason: Other) RF: 0 guaifenesin 1,200 mg Tablet Extended Release 12hr 1,200 mg PO Q12H PRN (Reason: Cough) RF: 0 omeprazole 20 mg Tablet,Delayed Release (Dr/Ec) 20 mg PO DAILY RF: 0 omega 7-snj-dgu-fish oil [Fish Oil] 1,000 mg (120 mg-180 mg) Capsule 1 cap PO DAILY RF: 0 Biofreeze 0.2-3.5 % Gel 1 applic TOPICAL Q6H PRN (Reason: Pain) RF: 0 aspirin 81 mg Capsule 81 mg PO DAILY RF: 0 ipratropium-albuterol 0.5 mg-3 mg(2.5 mg base)/3 mL solution for nebulization 3 ml INHALATION QID PRN (Reason: Shortness Of Breath Or Wheezing) RF: 0 albuterol 90 mcg/actuation Aerosol 2 INHALATION Q6H PRN (Reason: Shortness Of Breath Or Wheezing) RF: 0 Dulera 200-5 mcg/actuation Hfa Aerosol Inhaler 2 INHALATION BID RF: 0 tramadol 50 mg tablet 50 mg PO Q8H PRN (Reason: Pain) Qty: 10 RF: 0 Discharge Orders: Discharge Order (Routine); Ordered 03/17/22 Ordered By: Bunny Carrero/Other Patient Handouts: Managing Type 2 Diabetes, Special Foot [facility] for Diabetes Admission Data Admit Date/Time: 03/09/22 17:40 Attending Provider: Bunny Anand Admit Provider: Linda Shetty I. Primary Care Provider: Mary Robert Other Providers: [place] ; Marvel Ware ; Linda Shetty I.
== END 2022-03-17 14:08 | DRG 481 ==
LOC: ED 15:41 → 3N 17:40 → SUATTDRO 17:40 → 3N 19:06

== ENCOUNTER 2022-04-27 15:20 | Inpatient (IN) ==
[2022-04-27] MEDS ORDERED: SODIUM CHLORIDE 0.9% 1000ML 1,000 ML IV SCH (16:00)
[2022-04-27 16:41] LABS: Basophils # (auto) 0.02 K/uL (0-0.2); Basophils % (auto) 0.2 %; Eosinophils # (auto) 0.06 K/uL (0-0.5); Eosinophils % (auto) 0.7 %; Hematocrit (blood only) 28.1 % (37-47); Hemoglobin 8.5 g/dL (12.0-16.0); Immature Granulocytes # (auto) 0.07 K/uL (0.00-0.02); Immature Granulocytes % (auto) 0.8 %; Lymphocytes % (auto) 32.1 %; Mean Corpuscular Hemoglobin 26.6 pg (25-34); Mean Corpuscular Hgb Conc 30.2 g/dL (32-36); Mean Corpuscular Volume 87.8 fL (80-100); Monocytes # (auto) 0.59 K/uL (0.11-0.59); Monocytes % (auto) 6.8 %; Neutrophils # (auto) 5.19 K/uL (1.4-6.5); Neutrophils % (auto) 59.4 %; Platelet Count 211 K/uL (130-400); RDW Coefficient of Variation 20.7 % (11.5-14.5); RDW Standard Deviation 66.1 fL (36.4-46.3); White Blood Count 8.73 K/uL (4.8-10.8)
[2022-04-27 16:57] LABS: Anisocytosis Present; Ovalocytes 1+; Polychromasia 1+
[2022-04-27 16:59] LABS: Albumin Globulin Ratio 1.4 (0.9-2); Albumin Level 3.1 gm/dl (3.4-5.0); BUN Creatinine Ratio 24.2 (10-20); Bilirubin,Total 0.3 mg/dl (0.2-1.0); Calcium 8.2 mg/dl (8.5-10.1); Creatinine Clr Calc Pharmacy 50.8 ml/min; Est GFR (African American) 40.7 ml/min; Est GFR (Non-African American) 35.1 ml/min; Globulin 2.2 gm/dl (2.5-4.0); Total Protein 5.3 gm/dl (6.0-8.3)
--- NOTE | 2022-04-27 18:24 | CT Scan Report ---
CT SCAN OF THE ABDOMEN AND PELVIS WITHOUT IV CONTRAST CLINICAL HISTORY: Hematochezia. COMPARISON STUDY: Abdominal CT dated 03/16/2022. TECHNIQUE: CT scan of the abdomen and pelvis is performed from the lung bases to the proximal femora. Images are reviewed in the axial, sagittal, and coronal planes. IV contrast was not administered for this examination. Note that the examination was performed in suboptimal fashion without IV contrast. A dose lowering technique was utilized adhering to the principles of ALARA. The patient was scanned twice due to significant streak artifact from the body wall abutting the CT gantry, and to include th e entirety of the right abdomen. CT DOSE: 3351.26 mGy.cm FINDINGS: Lung bases: The heart is normal in size and without pericardial effusion. The coronary arteries are d ensely calcified. There is a small hiatal hernia. A calcified granuloma seen in the right lower lobe. The lung bases are clear noting bibasilar scarring/atelectasis. Liver: The unenhanced liver is enlarged, measuring 20.5 cm in length. The liver is otherwise normal i n contour and attenuation. There is no intrahepatic biliary ductal dilatation. Gallbladder: The gallbladder is distended but otherwise normal as imaged. Spleen: The spleen is enlarged measuring 14.5 cm in length. Pancreas: The unenhanced pancreas is grossly unremarkable. Adrenal glands: Large bilateral adrenal adenomas are unchanged. Kidneys: The unenhanced kidneys demonstrate cortical atrophy and are without hydronephrosis. There ar e no renal calculi identified. Numerous bilateral renal cysts measure up to 3.4 cm. Abdominal vasculature: The abdominal aorta is normal in course and caliber noting advanced atheroscle rotic calcification. Bowel: There is moderate colonic diverticulosis without CT evidence of acute diverticulitis. No bowel obstruction is identified. The appendix is well-visualized and normal. Peritoneum: There is no intraperitoneal free air or abdominal ascites. There is a fat-containing umbi lical hernia. Lymphadenopathy: None. Pelvic viscera: The bladder, uterus, and adnexa are normal as visualized. Skeletal structures: The skeletal structures are osteopenic. No lytic or blastic lesions are seen. Th ere is a subacute fracture of the right proximal femur with intertrochanteric and intramedullary nail s in place. A chronic compression deformity of L1 is unchanged from previous, as is a mild chronic rae perior endplate compression deformity of T11. There are chronic/healed left-sided rib fractures. IMPRESSION: 1. No acute infectious or inflammatory findings are identified in the abdomen or pelvis. 2. Moderate colonic diverticulosis without CT evidence of acute diverticulitis. 3. Advanced coronary artery calcification. 4. Subacute fracture of the right proximal femur status post internal fixation. 5. Hepatosplenomegaly. 6. Additional chronic findings as above. ACT 112: Negative or not required by law. Electronically signed by: Jeffery Ruff M.D. 04/27/2022 6:22 PM
--- NOTE | 2022-04-27 18:31 | Emergency Department Note ---
Impression & Plan Acute GI bleeding, Acute blood loss anemia, CKD (chronic kidney disease) stage 3, GFR 30-59 ml/min ED Provider Note NAME: GRACIELA GARCIA AGE: 67 SEX: F ARRIVES VIA: Ambulance INFORMANT: Patient ED PROVIDER(S): Deavn Wyman MD CHIEF COMPLAINT: Red blood per rectum, referred. PLAN: Disposition: Admit MEDICAL DECISION MAKING: The patient is a pleasant 67-year-old woman who presents emergency department referred from [facility] [place] for gross bloody stools that began today. Patient reports she had milder episode yesterday but this resolved. Patient was recently admitted to this facility and had a right hip replacement on 03/10 and was discharged to [facility] subsequently. She reports she has been ambulating and performing her rehab effectively. Otherwise she denies any fevers, chills, cough, congestion, urinary symptoms. She denies any abdominal pain. Patient reports she takes a baby aspirin daily but denies any anticoagulation. On arrival the patient is no distress, afebrile, HR 110s and otherewise stable vital signs. Her abdomen is benign. Rectal exam does demonstrate gross red blood. This also accumulated into the patient's vaginal vault however this is not likely to be the source of bleeding and rather more likely to be GI in origin. WBC and platelets within normal limits. Hemoglobin is 8.5 which is down 2 poi nts from a week ago. Chemistry without metabolic acidosis. Creatinine 1.53 within patient's prior range of values in the setting of CKD. LFTs are unremarkable. CT of the abdomen pelvis was performed and did not demonstrate acute findings. Note is made of diverticulosis without evidence of diverticulitis. Given the patient's active hematochezia reasonable to proceed with admission for further management. Patient is agreement with this plan. Case was discussed with Dr. Andersen, [facility] hospitalist, who will evaluate the patient for admission. Triage Nursing notes reviewed and agree them. Prior medical records reviewed Vital Signs: reviewed and remarkable for tachycardia. Differential diagnosis: Diverticulosis, AVM, coagulopathy, colitis, inflammatory bowel disease, malignancy, Tahira-Hughes tear, esophagitis, peptic ulcer disease, variceal bleed, gastritis, epistaxis, fissure, hemorrhoids, as well as other pathologies. ER treatment provided: See below. Diagnostics interpreted by me: Cardiac Monitoring: An order for continuous cardiac monitoring was placed and demonstrated Sinus tachycardia, 116 bpm, no ectopy, no overt ST elevation or depression. Laboratory studies: See below Imaging studies: See below Consultation(s): Dr. Andersen [facility] hospitalist, HPI: The patient is a pleasant 67-year-old woman who presents emergency department referred from [facility] [place] for gross bloody stools that began today. Patient reports she had milder episode yesterday but this resolved. Patient was recently admitted to this facility and had a right hip replacement on 03/10 and was discharged to [facility] subsequently. She reports she has been ambulating and performing her rehab effectively. Otherwise she denies any fevers, chills, cough, congestion, urinary symptoms. She denies any abdominal pain. Patient reports she takes a baby aspirin daily but denies any anticoagulation. ROS: See above HPI for pertinent positives & negatives. A total of 10 systems reviewed and were otherwise negative. VITALS:See Below PHYSICAL EXAMINATION: GENERAL: Awake, alert, well-appearing, in no distress HENT: Normocephalic, atraumatic. Oropharynx unremarkable. EYES: Normal conjunctiva. Sclera non-icteric. NECK: Supple. No nuchal rigidity. FROM. No JVD. RESPIRATORY: Clear to auscultation. CARDIAC: Regular rate, normal rhythm. Extremities warm and well perfused. Pulses equal. ABDOMEN: Soft, non-distended. No tenderness to palpation. No rebound or gu arding. No masses. RECTAL: Gross red blood per rectum. MUSCULOSKELETAL: Chest examination reveals no tenderness. The back is symmetrical on inspection without obvious abnormality. There is no CVA tend erness to palpation. No joint edema. LOWER EXTREMITIES: Calves are equal size bilaterally and non-tender. No edema. No discoloration. NEURO: Normal sensorium. No sensory or motor deficits noted. SKIN: No rash or jaundice noted. Devan Wyman MD Past Med/Surg History Medical History Aortic stenosis Chronic diastolic (congestive) heart failure CKD (chronic kidney disease) stage 3, GFR 30-59 ml/min COPD (chronic obstructive pulmonary disease) Diabetes mellitus GERD (gastroesophageal reflux disease) Gout Hypothyroid Obesity CINTHIA (obstructive sleep apnea) Smoker Surgical History History of hip surgery Previous section Family History Father Coronary heart disease Brother Coronary heart disease Stroke Sister Diabetes Brother Coronary heart disease Social History Smoking Status: Former smoker Tobacco Type: Cigarettes Cigarettes Per Day: 1 ppd; Smoking End Date: 03/07/22; Second Hand Exposure: No; Do You Dip or Chew Tobacco: No; Tobacco Cessation Education Requested by Patient: No Hx Alcohol Use: No Hx Substance Use: No Preferred Language: Irish Communication Ability: Effective Landscape Management Technician Required: No Beliefs That Will Affect Care: None Current Living Situation: Rehab Current Living Situation Comment: [facility] Other Information That Helps Us Care for You: No Feels Safe at Home: Yes Safety Concerns: Feels Safe At This Time Assistive Devices: BiPap and Oxygen - at Night Allergies Allergies Allergy/AdvReac Type Severity Reaction Status Date / Time No Known Allergies Allergy Verified 04/27/22 15:44 Home Meds Home Medications Medication Instructions Recorded Confirmed allopurinol 300 mg tablet 300 mg PO DAILY 03/09/22 04/27/22 aspirin 81 mg capsule 81 mg PO DAILY 03/09/22 04/27/22 atorvastatin 40 mg tablet 40 mg PO QPM 03/09/22 04/27/22 camphor-menthol 0.2 %-3.5 % 1 applic TOPICAL Q6H PRN 03/09/22 04/27/22 topical gel carvedilol 6.25 mg tablet 6.25 mg PO BID 03/09/22 04/27/22 clotrimazole 1 % topical cream 1 applic TOPICAL Q8H PRN 03/09/22 04/27/22 (Athlete's Foot (clotrimazole)) cyanocobalamin (vitamin B-12) 1,000 mcg PO DAILY 03/09/22 04/27/22 1,000 mcg tablet furosemide 40 mg tablet 40 mg PO DAILY 03/09/22 04/27/22 gabapentin 100 mg capsule 100 mg PO TID 03/09/22 04/27/22 gemfibrozil 600 mg tablet 600 mg PO BID 03/09/22 04/27/22 glipizide 5 mg tablet, extended 5 mg PO DAILY 03/09/22 04/27/22 release 24 hr guaifenesin 1,200 mg tablet, 1,200 mg PO Q12H PRN 03/09/22 04/27/22 extended release 12 hr levothyroxine 150 mcg tablet 150 mcg PO DAILY 03/09/22 04/27/22 omega 8-lhn-fyw-fish oil 1,000 mg 1 cap PO TID 03/09/22 04/27/22 (120 mg-180 mg) capsule (Fish Oil) omeprazole 20 mg tablet,delayed 20 mg PO DAILY 03/09/22 04/27/22 release ipratropium 0.5 mg-albuterol 3 mg 3 ml INHALATION Q6H PRN 03/17/22 04/27/22 (2.5 mg base)/3 mL nebulization soln mometasone-formoterol HFA 200 2 inh INHALATION BID 03/17/22 04/27/22 mcg-5 mcg/actuation aerosol inhaler (Dulera) acetaminophen 325 mg tablet 650 mg PO Q6H PRN MDD 3 GRAMS/24 04/27/22 04/27/22 (Tylenol) HOURS albuterol sulfate 90 mcg/actuation 2 inh INHALATION Q6H PRN 04/27/22 04/27/22 breath activated powder inhaler insulin glargine 100 unit/mL 35 unit SUBCUT DAILY 04/27/22 04/27/22 subcutaneous solution menthol 0.44 %-zinc oxide 20.6 % 1 applic TOPICAL TID 04/27/22 04/27/22 topical ointment (Calmoseptine) methyl salicylate 15 %-menthol 10 1 applic TOPICAL Q6H PRN 04/27/22 04/27/22 % topical cream multivitamin with minerals 1 tab PO DAILY 04/27/22 04/27/22 tramadol 50 mg tablet 50 mg PO Q8H PRN 04/27/22 04/27/22 Previous Rx's Medication Instructions Recorded blood-glucose meter (Accu-Chek #1 ea 03/17/22 Maty Plus Meter) cholecalciferol (vitamin D3) 10 600 unit PO QAM #30 tab 03/17/22 mcg (400 unit) tablet (Vitamin D3) pen needle, diabetic 32 gauge x #100 ea 03/17/22 5/32" (Pen Needle) Results & Data (ED) Vital Signs Vital Signs - 24 hr 04/27/22 15:25 04/27/22 15:57 04/27/22 16:30 Temperature 36.9 C Temperature Source Oral Pulse Rate 113 H 114 H Respiratory Rate 20 16 Blood Pressure 129/65 141/66 H Blood Pressure Mean 86 91 Pulse Oximetry 94 95 94 Oxygen Delivery Method Room Air Sepsis Recent Fever Within 48 Hours No Sepsis New/Unexplained Change in Mental Status N/A Sepsis Action Taken by Nursing No Action Required 04/27/22 17:00 04/27/22 17:30 04/27/22 18:00 Temperature Temperature Source Pulse Rate 106 H 107 H 108 H Respiratory Rate 19 20 20 Blood Pressure 112/58 L 107/67 105/69 Blood Pressure Mean 76 80 81 Pulse Oximetry 92 96 94 Oxygen Delivery Method Sepsis Recent Fever Within 48 Hours Sepsis New/Unexplained Change in Mental Status Sepsis Action Taken by Nursing Laboratory Data Attestation: I reviewed the patient's lab results. Result diagrams: 04/27/22 22:08 04/27/22 16:29 Lab Results 04/27/22 04/27/22 04/27/22 Range/Units 16:29 16:29 16:29 WBC 8.73 (4.8-10.8) K/uL RBC 3.20 L (4.2-5.4) M/uL Hgb 8.5 L (12.0-16.0) g/dL Hct 28.1 L (37-47) % MCV 87.8 (80-100) fL MCH 26.6 (25-34) pg MCHC 30.2 L (32-36) g/dL RDW Std Deviation 66.1 H (36.4-46.3) fL RDW Coeff of Prakash 20.7 H (11.5-14.5) % Plt Count 211 (130-400) K/uL MPV 11.0 H (7.4-10.4) fL Immature Gran % (Auto) 0.8 % Neut % (Auto) 59.4 % Lymph % (Auto) 32.1 % [place] % (Auto) 6.8 % Eos % (Auto) 0.7 % Baso % (Auto) 0.2 % Neut # (Auto) 5.19 (1.4-6.5) K/uL Lymph # (Auto) 2.80 (1.2-3.4) K/uL [place] # (Auto) 0.59 (0.11-0.59) K/uL Eos # (Auto) 0.06 (0-0.5) K/uL Baso # (Auto) 0.02 (0-0.2) K/uL Immature Gran # (Auto) 0.07 H (0.00-0.02) K/uL Polychromasia 1+ Anisocytosis Present Ovalocytes 1+ PT 11.0 (9.0-12.0) Seconds INR 1.0 (0.9-1.1) Sodium 142 (136-145) mmol/L Potassium 4.0 (3.5-5.1) mmol/L Chloride 107 (98-107) mmol/L Carbon Dioxide 27 (21-32) mmol/L Anion Gap 8 (3-11) BUN 37 H (6-23) mg/dl Creatinine 1.53 H (0.6-1.2) mg/dl Est Cr Clr Drug Dosing 50.8 ml/min Est GFR ( Amer) 40.7 ml/min Est GFR (Non-Af Amer) 35.1 ml/min BUN/Creatinine Ratio 24.2 H (10-20) Glucose 170 H (70-99(Fasting)) mg/dl Calcium 8.2 L (8.5-10.1) mg/dl Total Bilirubin 0.3 (0.2-1.0) mg/dl AST 13 (13-39) U/L ALT 10 (7-52) U/L Alkaline Phosphatase 98 (34-104) U/L Total Protein 5.3 L (6.0-8.3) gm/dl Albumin 3.1 L (3.4-5.0) gm/dl Globulin 2.2 L (2.5-4.0) gm/dl Albumin/Globulin Ratio 1.4 (0.9-2) Lipase 14 (11-82) U/L SARS-CoV-2, RNA, NAAT (NEGATIVE) Blood Type Antibody Screen 04/27/22 04/27/22 Range/Units 16:30 18:38 WBC (4.8-10.8) K/uL RBC (4.2-5.4) M/uL Hgb (12.0-16.0) g/dL Hct (37-47) % MCV (80-100) fL MCH (25-34) pg MCHC (32-36) g/dL RDW Std Deviation (36.4-46.3) fL RDW Coeff of Prakash (11.5-14.5) % Plt Count (130-400) K/uL MPV (7.4-10.4) fL Immature Gran % (Auto) % Neut % (Auto) % Lymph % (Auto) % [place] % (Auto) % Eos % (Auto) % Baso % (Auto) % Neut # (Auto) (1.4-6.5) K/uL Lymph # (Auto) (1.2-3.4) K/uL [place] # (Auto) (0.11-0.59) K/uL Eos # (Auto) (0-0.5) K/uL Baso # (Auto) (0-0.2) K/uL Immature Gran # (Auto) (0.00-0.02) K/uL Polychromasia Anisocytosis Ovalocytes PT (9.0-12.0) Seconds INR (0.9-1.1) Sodium (136-145) mmol/L Potassium (3.5-5.1) mmol/L Chloride (98-107) mmol/L Carbon Dioxide (21-32) mmol/L Anion Gap (3-11) BUN (6-23) mg/dl Creatinine (0.6-1.2) mg/dl Est Cr Clr Drug Dosing ml/min Est GFR ( Amer) ml/min Est GFR (Non-Af Amer) ml/min BUN/Creatinine Ratio (10-20) Glucose (70-99(Fasting)) mg/dl Calcium (8.5-10.1) mg/dl Total Bilirubin (0.2-1.0) mg/dl AST (13-39) U/L ALT (7-52) U/L Alkaline Phosphatase (34-104) U/L Total Protein (6.0-8.3) gm/dl Albumin (3.4-5.0) gm/dl Globulin (2.5-4.0) gm/dl Albumin/Globulin Ratio (0.9-2) Lipase (11-82) U/L SARS-CoV-2, RNA, NAAT NEGATIVE (NEGATIVE) Blood Type O Positive Antibody Screen NEGATIVE Administered Medications Atorvastatin Calcium (Atorvastatin 40 Mg Tab) 40 mg PO QPM TRINA Stop: 05/27/22 21:13 Last Admin: 04/27/22 22:00 Dose: 40 mg Documented by: [id number] Carvedilol (Carvedilol 6.25 Mg Tab) 6.25 mg PO BID TRINA Stop: 05/27/22 21:13 Last Admin: 04/27/22 22:00 Dose: 6.25 mg Documented by: [id number] Gabapentin (Gabapentin 100 Mg Cap) 100 mg PO TID TRINA Stop: 05/27/22 21:13 Last Admin: 04/27/22 21:59 Dose: 100 mg Documented by: [id number] Gemfibrozil (Gemfibrozil 600 Mg Tab) 600 mg PO BID TRINA Stop: 05/27/22 21:13 Last Admin: 04/27/22 22:00 Dose: 600 mg Documented by: [id number] Sodium Chloride (Nss 1000ml) 1,000 mls @ 100 mls/hr IV .Q10H TRINA Stop: 05/27/22 21:13 Last Admin: 04/27/22 21:58 Dose: 100 mls/hr Documented by: [id number] Insulin Aspart (Insulin Aspart Per Unit) 0 units SC Q6 TRINA Stop: 05/27/22 21:29 Last Admin: 04/27/22 22:01 Dose: Not Given Documented by: [id number] Insulin Glargine (Insulin Glargine Solostar 100 Units/Ml 3 Ml Pen) 15 units SC BID TRINA Stop: 05/27/22 21:13 Last Admin: 04/27/22 22:01 Dose: 15 units Documented by: [id number] Cosigned by: [id number] Discontinued Medications Sodium Chloride (Nss 1000ml) 1,000 mls @ 125 mls/hr IV .Q8H TRINA Stop: 05/27/22 15:59 Last Infusion: 04/27/22 21:15 Dose: 0 mls/hr Documented by: [id number] Admin: 04/27/22 15:59 Dose: 125 mls/hr Documented by: [id number] Imaging Data Radiologist's Impression: Abdomen/Pelvis CT 04/27/22 17:10 CT SCAN OF THE ABDOMEN AND PELVIS WITHOUT IV CONTRAST CLINICAL HISTORY: Hematochezia. COMPARISON STUDY: Abdominal CT dated 03/16/2022. TECHNIQUE: CT scan of the abdomen and pelvis is performed from the lung bases to the proximal femora. Images are reviewed in the axial, sagittal, and coronal planes. IV contrast was not administered for this examination. Note that the examination was performed in suboptimal fashion without IV contrast. A dose lowering technique was utilized adhering to the principles of ALARA. The patient was scanned twice due to significant streak artifact from the body wall abutting the CT gantry, and to include the entirety of the right abdomen. CT DOSE: 3351.26 mGy.cm FINDINGS: Lung bases: The heart is normal in size and without pericardial effusion. The coronary arteries are densely calcified. There is a small hiatal hernia. A calcified granuloma seen in the right lower lobe. The lung bases are clear n oting bibasilar scarring/atelectasis. Liver: The unenhanced liver is enlarged, measuring 20.5 cm in length. The liver is otherwise normal in contour and attenuation. There is no intrahepatic biliary ductal dilatation. Gallbladder: The gallbladder is distended but otherwise normal as imaged. Spleen: The spleen is enlarged measuring 14.5 cm in length. Pancreas: The unenhanced pancreas is grossly unremarkable. Adrenal glands: Large bilateral adrenal adenomas are unchanged. Kidneys: The unenhanced kidneys demonstrate cortical atrophy and are without hydronephrosis. There are no renal calculi identified. Numerous bilateral renal cysts measure up to 3.4 cm. Abdominal vasculature: The abdominal aorta is normal in course and caliber noting advanced atherosclerotic calcification. Bowel: There is moderate colonic diverticulosis without CT evidence of acute diverticulitis. No bowel obstruction is identified. The appendix is well- visualized and normal. Peritoneum: There is no intraperitoneal free air or abdominal ascites. There is a fat-containing umbilical hernia. Lymphadenopathy: None. Pelvic viscera: The bladder, uterus, and adnexa are normal as visualized. Skeletal structures: The skeletal structures are osteopenic. No lytic or blastic lesions are seen. There is a subacute fracture of the right proximal femur with intertrochanteric and intramedullary nails in place. A chronic compression deformity of L1 is unchanged from previous, as is a mild chronic superior endplate compression deformity of T11. There are chronic/healed left-sided rib fractures. IMPRESSION: 1. No acute infectious or inflammatory findings are identified in the abdomen or pelvis. 2. Moderate colonic diverticulosis without CT evidence of acute diverticulitis. 3. Advanced coronary artery calcification. 4. Subacute fracture of the right proximal femur status post internal fixation. 5. Hepatosplenomegaly. 6. Additional chronic findings as above. ACT 112: Negative or not required by law. Electronically signed by: Jeffery Ruff M.D. 04/27/2022 6:22 PM Discharge Plan Visit Data Chief Complaint: Rectal Bleed ED Provider: Devan Wyman Discharge Problem: Acute GI bleeding, Acute blood loss anemia, CKD (chronic kidney disease) stage 3, GFR 30-59 ml/min Patient Disposition: Admitted As Inpatient Discharge Instructions Interventions: ED Discharge Assessment Last Done: 04/27/22 20:38 Discharge Problem: CKD (chronic kidney disease) stage 3, GFR 30-59 ml/min Qualifiers: Chronic kidney disease stage 3 subtype: unspecified whether 3a or 3b Qualified Code(s): N18.30 - Chronic kidney disease, stage 3 unspecified
--- NOTE | 2022-04-27 19:24 | History & Physical Report ---
Date of Service April 27, 2022 Assessment & Plan (1) Acute GI bleeding: Plan: Appears to be a lower GI bleed, possibly diverticular. Slight pain to palpation in LLQ. No evidence of obstruction/colitis/diverticulitis on CT scan. No h/o colonoscopy. No current indication for transfusion. Trend Hb in am. Ensure [address] large [address] IV[address] in place. GI consulted. Hold aspirin and Lasix. NPO pending consideration for scope tomorrow. (2) Acute blood loss anemia: Plan: Slight anemia at baseline in post-operative setting with additional blood loss anemia seen today 2/2 GI bleeding. Plan as above. (3) COPD (chronic obstructive pulmonary disease): Plan: chronic, stable. Cont current inhaler therapy. (4) Diabetes mellitus: Plan: chronic, uncontrolled with A1C last seen >11 in February 2022. Cont with Lantus, hold glipizide and start prandial insulin while in hospital. Repeat A1C with PCP after discharge from . (5) CINTHIA (obstructive sleep apnea): Plan: wears nightly CPAP. (6) Smoker: Plan: Has stayed quit since her surgery in February. Not using nicotine replacement at this time. Encouraged to continue in this effort. (7) CKD (chronic kidney disease) stage 3, GFR 30-59 ml/min: Plan: chronic, stable. Avoid nephrotoxic medications. (8) Aortic stenosis: Plan: Moderate with preservd EF seen on echo from February 2022. Monitor IVF administration closely so as to avoid pulmonary edema. (9) Hypothyroid: Plan: chronic, stable. Cont levothyroxine. (10) DVT prophylaxis: Plan: SCDs, chemoprophylaxis contraindicated in acute bleeding Full Code Dispo-to PCU, then back to center care after GI recommendations and clinical improvement. [facility] (11) Post-operative state: History of Present Illness Chief Complaint: rectal bleeding Primary Care Provider: [facility] 67 yo F presents with bright red bleed per rectum. She underwent a R hip nailing by Dr. Harris on 03/10/22 and subsequently went to [facility] for rehab where she has been since 03/17/22. She was placed on Lovenox for approximately 3-4 weeks. She also takes a baby aspirin for primary prevention of cardiac disease, given her elevated risk as a diabetic. She denies ever having GI bleeding or issues, and has not had a colonoscopy or endoscopy in the past. Baseline Hb was 12.5, post op it was around 10, now it is 8.5. She first had two episodes of BRBPR on 04/18 with no other symptoms. Her aspirin was held at that time and repeat labwork showed a stable Hb 10.6. She had no other e pisodes and was placed back on ASA 81mg on 04/23. She did well until yesterday (04/26) when she had more than 6 episodes of BRBPR with clots. She is tachycardic, but denies lightheadedness when changing position, denies chest pain, SOB, nausea, vomiting, abdominal pain, fevers or chills. She did mention a few days where she had significant diarrhea but this was a couple of weeks ago and has resolved. Allergies Allergy/AdvReac Type Severity Reaction Status Date / Time No Known Allergies Allergy Verified 04/27/22 15:44 Home Medications Medication Instructions Recorded Confirmed Type allopurinol 300 mg tablet 300 mg PO DAILY 03/09/22 04/27/22 History aspirin 81 mg capsule 81 mg PO DAILY 03/09/22 04/27/22 History atorvastatin 40 mg tablet 40 mg PO QPM 03/09/22 04/27/22 History camphor-menthol 0.2 %-3.5 % 1 applic TOPICAL Q6H PRN 03/09/22 04/27/22 History topical gel carvedilol 6.25 mg tablet 6.25 mg PO BID 03/09/22 04/27/22 History clotrimazole 1 % topical cream 1 applic TOPICAL Q8H PRN 03/09/22 04/27/22 History (Athlete's Foot (clotrimazole)) cyanocobalamin (vitamin B-12) 1,000 mcg PO DAILY 03/09/22 04/27/22 History 1,000 mcg tablet furosemide 40 mg tablet 40 mg PO DAILY 03/09/22 04/27/22 History gabapentin 100 mg capsule 100 mg PO TID 03/09/22 04/27/22 History gemfibrozil 600 mg tablet 600 mg PO BID 03/09/22 04/27/22 History glipizide 5 mg tablet, extended 5 mg PO DAILY 03/09/22 04/27/22 History release 24 hr guaifenesin 1,200 mg tablet, 1,200 mg PO Q12H PRN 03/09/22 04/27/22 History extended release 12 hr levothyroxine 150 mcg tablet 150 mcg PO DAILY 03/09/22 04/27/22 History omega 2-bew-ecx-fish oil 1,000 mg 1 cap PO TID 03/09/22 04/27/22 History (120 mg-180 mg) capsule (Fish Oil) omeprazole 20 mg tablet,delayed 20 mg PO DAILY 03/09/22 04/27/22 History release blood-glucose meter (Accu-Chek #1 ea 03/17/22 04/27/22 Rx Maty Plus Meter) cholecalciferol (vitamin D3) 10 600 unit PO QAM #30 tab 03/17/22 04/27/22 Rx mcg (400 unit) tablet (Vitamin D3) ipratropium 0.5 mg-albuterol 3 mg 3 ml INHALATION Q6H PRN 03/17/22 04/27/22 History (2.5 mg base)/3 mL nebulization soln mometasone-formoterol HFA 200 2 inh INHALATION BID 03/17/22 04/27/22 History mcg-5 mcg/actuation aerosol inhaler (Dulera) pen needle, diabetic 32 gauge x #100 ea 03/17/22 04/27/22 Rx 5/32" (Pen Needle) acetaminophen 325 mg tablet 650 mg PO Q6H PRN MDD 3 GRAMS/24 04/27/22 04/27/22 History (Tylenol) HOURS albuterol sulfate 90 mcg/actuation 2 inh INHALATION Q6H PRN 04/27/22 04/27/22 History breath activated powder inhaler insulin glargine 100 unit/mL 35 unit SUBCUT DAILY 04/27/22 04/27/22 History subcutaneous solution menthol 0.44 %-zinc oxide 20.6 % 1 applic TOPICAL TID 04/27/22 04/27/22 History topical ointment (Calmoseptine) methyl salicylate 15 %-menthol 10 1 applic TOPICAL Q6H PRN 04/27/22 04/27/22 History % topical cream multivitamin with minerals 1 tab PO DAILY 04/27/22 04/27/22 History tramadol 50 mg tablet 50 mg PO Q8H PRN 04/27/22 04/27/22 History Past Med/Surg History Medical History Aortic stenosis Chronic diastolic (congestive) heart failure CKD (chronic kidney disease) stage 3, GFR 30-59 ml/min COPD (chronic obstructive pulmonary disease) Diabetes mellitus GERD (gastroesophageal reflux disease) Gout Hypothyroid Obesity CINTHIA (obstructive sleep apnea) Smoker Surgical History History of hip surgery Previous section Family History Father Coronary heart disease Brother Coronary heart disease Stroke Sister Diabetes Brother Coronary heart disease Social History Smoking Status: Former smoker Tobacco Type: Cigarettes Cigarettes Per Day: 1 ppd; Smoking End Date: 03/07/22; Hx Alcohol Use: No Hx Substance Use: No Preferred Language: Bulgarian Communication Ability: Effective Front Office Specialist Required: No Beliefs That Will Affect Care: None Current Living Situation: Spouse Feels Safe at Home: Yes Assistive Devices: Walker Review of Systems Review of Systems: All systems were reviewed and negative except as indicated in HPI above. Physical Exam Physical Exam: CONSTITUTIONAL: obese, vitals as above, generally well- appearing, NAD EYES: pupils are round and equal bilaterally, normal conjunctivae, no scleral icterus ENT: external ear and nose normal, MMM, edentulous. NECK: trachea midline, RESPIRATORY: clear to auscultation bilaterally, no crackles, rales or wheezes, normal respiratory effort CARDIOVASCULAR: regular rate and rhythm, S1 and 2 heard without murmurs, gallops or rubs, no JVD, no peripheral edema, CHEST: inspection of chest was normal GASTROINTESTINAL: soft, TTP in LLQ, nondistended, no hepatomegaly, no guarding MUSCULOSKELETAL: strength 5/5 throughout, head is normocephalic and atraumatic SKIN: warm and dry, no rashes. well healed incision site on lateral right hip. NEUROLOGIC: patellar DTRs 2+ bilat. CN 2-12 grossly intact, +chronic sensory deficit on plantar foot surface bilaterally, normal cognition, normal speech, no tremor PSYCHIATRIC: alert cooperative and oriented to person, place and time. Euthymic mood, makes good eye contact, language grossly intact, recent and remote memory grossly intact. Results & Data Results & Data ([facility]) Vital Signs (Past 12 Hours) Vital Signs Temp Pulse Resp BP Pulse Ox 04/27/22 18:00 108 H 20 105/69 94 04/27/22 17:30 107 H 20 107/67 96 04/27/22 17:00 106 H 19 112/58 L 92 04/27/22 16:30 114 H 16 141/66 H 94 04/27/22 15:57 95 04/27/22 15:25 36.9 C 113 H 20 129/65 94 Laboratory Results Short CBC 04/27/22 Range/Units 16:29 WBC 8.73 (4.8-10.8) K/uL Hgb 8.5 L (12.0-16.0) g/dL Hct 28.1 L (37-47) % Plt Count 211 (130-400) K/uL BMP 04/27/22 16:29 Sodium 142 Potassium 4.0 Chloride 107 Carbon Dioxide 27 BUN 37 H Creatinine 1.53 H Glucose 170 H Calcium 8.2 L Liver Function 04/27/22 Range/Units 16:29 Total Bilirubin 0.3 (0.2-1.0) mg/dl AST 13 (13-39) U/L ALT 10 (7-52) U/L Alkaline Phosphatase 98 (34-104) U/L Albumin 3.1 L (3.4-5.0) gm/dl Diagnostic Findings Abdomen/Pelvis CT 04/27/22 17:10 CT SCAN OF THE ABDOMEN AND PELVIS WITHOUT IV CONTRAST CLINICAL HISTORY: Hematochezia. COMPARISON STUDY: Abdominal CT dated 03/16/2022. TECHNIQUE: CT scan of the abdomen and pelvis is performed from the lung bases to the proximal femora. Images are reviewed in the axial, sagittal, and coronal planes. IV contrast was not administered for this examination. Note that the examination was performed in suboptimal fashion without IV contrast. A dose lowering technique was utilized adhering to the principles of ALARA. The patient was scanned twice due to significant streak artifact from the body wall abutting the CT gantry, and to include the entirety of the right abdomen. CT DOSE: 3351.26 mGy.cm FINDINGS: Lung bases: The heart is normal in size and without pericardial effusion. The coronary arteries are densely calcified. There is a small hiatal hernia. A calcified granuloma seen in the right lower lobe. The lung bases are clear noting bibasilar scarring/atelectasis. Liver: The unenhanced liver is enlarged, measuring 20.5 cm in length. The liver is otherwise normal in contour and attenuation. There is no intrahepatic biliary ductal dilatation. Gallbladder: The gallbladder is distended but otherwise normal as imaged. Spleen: The spleen is enlarged measuring 14.5 cm in length. Pancreas: The unenhanced pancreas is grossly unremarkable. Adrenal glands: Large bilateral adrenal adenomas are unchanged. Kidneys: The unenhanced kidneys demonstrate cortical atrophy and are without hydronephrosis. There are no renal calculi identified. Numerous bilateral renal cysts measure up to 3.4 cm. Abdominal vasculature: The abdominal aorta is normal in course and caliber noting advanced atherosclerotic calcification. Bowel: There is moderate colonic diverticulosis without CT evidence of acute diverticulitis. No bowel obstruction is identified. The appendix is well- visualized and normal. Peritoneum: There is no intraperitoneal free air or abdominal ascites. There is a fat-containing umbilical hernia. Lymphadenopathy: None. Pelvic viscera: The bladder, uterus, and adnexa are normal as visualized. Skeletal structures: The skeletal structures are osteopenic. No lytic or blastic lesions are seen. There is a subacute fracture of the right proximal femur with intertrochanteric and intramedullary nails in place. A chronic compression deformity of L1 is unchanged from previous, as is a mild chronic superior endplate compression deformity of T11. There are chronic/healed left-sided rib fractures. IMPRESSION: 1. No acute infectious or inflammatory findings are identified in the abdomen or pelvis. 2. Moderate colonic diverticulosis without CT evidence of acute diverticulitis. 3. Advanced coronary artery calcification. 4. Subacute fracture of the right proximal femur status post internal fixation. 5. Hepatosplenomegaly. 6. Additional chronic findings as above. ACT 112: Negative or not required by law. Electronically signed by: Jeffery Ruff M.D. 04/27/2022 6:22 PM Code Status & VTE Plan VTE Prophylaxis Plan VTE Prophylaxis will be ordered: Yes
[2022-04-27] MEDS ORDERED: ALBUT/IPRATROP 3MG/0.5MG NEB 3 ML VIAL INH PRN (21:14)
[2022-04-27] MEDS ORDERED: GLUCOSE 10 TABS/TUBE PO PRN (21:14)
[2022-04-27] MEDS ORDERED: CARBOHYDRATES FOR HYPOGLYCEMIA PO PRN (21:14)
[2022-04-27] MEDS ORDERED: ACETAMINOPHEN 325 MG TAB PO PRN (21:14)
[2022-04-27] MEDS ORDERED: GLUCOSE 40% GEL 15 GM TUBE PO PRN (21:14)
[2022-04-27] MEDS ORDERED: DEXTROSE 50% 50 ML SYRINGE IV PRN (21:14)
[2022-04-27] MEDS ORDERED: GLUCAGON FOR INJ 1 MG VIAL SQ PRN (21:14)
[2022-04-27] MEDS ORDERED: ONDANSETRON INJ 2 MG/ML 2 ML VIAL IV PRN (21:14)
[2022-04-27] MEDS ORDERED: ALBUTEROL HFA 8 GM INHALER INH PRN (21:30)
[2022-04-27] MEDS: SODIUM CHLORIDE 0.9% 1000ML 1,000 ML IV SCH (21:58)
[2022-04-27] MEDS: GABAPENTIN 100 MG CAP PO SCH (21:59)
[2022-04-27] MEDS: carvediloL 6.25 MG TAB PO SCH (22:00)
[2022-04-27] MEDS: gemfibroziL 600 MG TAB PO SCH (22:00)
[2022-04-27] MEDS: ATORVASTATIN 40 MG TAB PO SCH (22:00)
[2022-04-27] MEDS: INSULIN GLARGINE SOLOSTAR 100 UNITS/ML 3 ML PEN SC SCH (22:01)
[2022-04-27] MEDS: INSULIN ASPART PER UNIT SC SCH (22:01)
[2022-04-27 22:23] LABS: Hematocrit (blood only) 24.8 % (37-47); Hemoglobin 7.5 g/dL (12.0-16.0)
[2022-04-28] MEDS: traMADol HCL 50 MG TABLET PO PRN ×2 (01:23→19:37)
[2022-04-28] MEDS: INSULIN ASPART PER UNIT SC SCH ×4 (06:09→21:00)
[2022-04-28] MEDS: LEVOTHYROXINE SODIUM 150 MCG TABLET PO SCH (06:10)
[2022-04-28] MEDS: SODIUM CHLORIDE 0.9% 1000ML 1,000 ML IV SCH (07:41)
[2022-04-28] MEDS: PANTOprazole 40 MG TAB PO SCH (07:42)
[2022-04-28] MEDS: gemfibroziL 600 MG TAB PO SCH ×2 (07:42→22:18)
[2022-04-28] MEDS: allopurinoL 300 MG TAB PO SCH (07:42)
[2022-04-28] MEDS: GABAPENTIN 100 MG CAP PO SCH ×3 (07:42→22:19)
[2022-04-28] MEDS: carvediloL 6.25 MG TAB PO SCH ×2 (07:42→22:18)
[2022-04-28] MEDS: INSULIN GLARGINE SOLOSTAR 100 UNITS/ML 3 ML PEN SC SCH (07:43)
[2022-04-28] MEDS: FLUTICASONE/VILANTEROL 100/25MCG 14 PUFFS/INHALER INH SCH (07:43)
[2022-04-28 08:02] LABS: Hematocrit (blood only) 21.5 % (37-47); Hemoglobin 6.4 g/dL (12.0-16.0); Mean Corpuscular Hemoglobin 26.6 pg (25-34); Mean Corpuscular Hgb Conc 29.8 g/dL (32-36); Mean Corpuscular Volume 89.2 fL (80-100); Mean Platelet Volume 10.6 fL (7.4-10.4); Nucleated RBC # (auto) 0.03 K/uL (0-0); Nucleated RBC % (auto) 0.5 %; Platelet Count 164 K/uL (130-400); RDW Coefficient of Variation 20.7 % (11.5-14.5); RDW Standard Deviation 67.6 fL (36.4-46.3); Red Blood Count 2.41 M/uL (4.2-5.4); White Blood Count 5.55 K/uL (4.8-10.8)
[2022-04-28 08:05] LABS: Calcium 7.9 mg/dl (8.5-10.1); Creatinine Clr Calc Pharmacy 54.1 ml/min; Est GFR (African American) 45.3 ml/min; Est GFR (Non-African American) 39.1 ml/min; Magnesium 1.3 mg/dl (1.7-2.4); Potassium 4.1 mmol/L (3.5-5.1)
[2022-04-28] MEDS ORDERED: FUROSEMIDE 40 MG/4 ML VIAL IV ONE (09:04)
[2022-04-28] MEDS ORDERED: SODIUM CHLORIDE 0.9% 250 ML IV PRN (09:04)
--- NOTE | 2022-04-28 09:59 | Gastrointestinal Consultation ---
Date of Consultation April 28, 2022 Assessment & Plan (1) Acute GI bleeding: (2) Acute blood loss anemia: 67-year-old female with the above multiple comorbidities, recent hip surgery, had been on Lovenox but not for several weeks, presented with BRB ME with blood clots. Had 1 episode overnight. Had drop in her hemoglobin, Hgb 6.4 this morning, with stable BUN. On exam, no active GI bleeding, she is resting comfortably in bed, soft abdomen. 2 units of PRBC ordered. Currently hemodynam ically stable. Given her presentation, this may represent a diverticular bleed, versus AVM, inflammatory, or even malignancy, given she has never had a colonoscopy. Upper GI bleed not as likely given her unchanged BUN. Clears today Start GoLytely bowel prep at 5 PM N.p.o. at midnight We will plan for colonoscopy tomorrow to evaluate her symptoms Agree with trend H&H, PRBC as needed Can continue PPI Monitor and document GI output Thank you for allowing us to participate in the care of this patient. Please call with any acute changes, questions or concerns. Please see addendum below with additional recommendation from my supervising physician. Supervising Physician Co-Signing Physician Notes Late entry: Patient was seen and examined on 04/28 with Arthur Pimentel PA-C whose note reflects our findings and plan. Patient with recent hip surgery. Painless hematochezia at home. Drop in H/H. Abd exam benign. Has never had a colonoscopy. PRep today for colonoscopy Thursday. History of Present Illness Reason for Consultation: acute GI bleeding Requesting Physician: Dr. Andersen Attending Physician: Pastora Montilla MD History of Present Illness This is a 67-year-old female with history of CKD, CHF, COPD, T2DM, GERD, hypothyroidism, obesity, CINTHIA on CPAP, tobacco use, referred from [facility] where she has been staying since 03/17/2022 after undergoing right hip nailing on 03/10/2022. She had been on Lovenox postop for several weeks but has not been on this since then. She takes a baby aspirin daily. She had approximately 1 episode of BRBPR approximately 1 week ago, that stopped spontaneously. Over the weekend developed several episodes of BRBPR with clots and was referred to the ER. On arrival Hgb 10.6, this morning was 6.4. Preop in February it was 12.5. Her BUN is at baseline - in the 40s. CKD is also baseline. She was having some lighth eadedness with ambulation. Aspirin has been held. She is getting 2 units of blood ordered. Overnight she had 1 episode of BRBPR, none this AM. CTAP nonacute. On exam, she is resting comfortably, she is tired and wants to go to sleep, her sleep mask is in place, wears a BiPAP mask. She is hemodynamically stable. She is mildly tachycardic but this appears to be chronic. Typically bowels move 1 or 2 times a day, brown and formed. Never had an EGD or a colonoscopy. Denies abdominal pain, nausea vomiting, hematemesis, melena or diarrhea, heartburn, dysphagia, abdominal cramping, CP, SOB, syncope or lightheadedness currently. Denies a family history of colon cancer, stomach or other GI cancers. She stopped smoking in February, otherwise no other AC or EtOH use. Allergies Allergy/AdvReac Type Severity Reaction Status Date / Time No Known Allergies Allergy Verified 04/27/22 15:44 Home Medications Medication Instructions Recorded Confirmed Type allopurinol 300 mg tablet 300 mg PO DAILY 03/09/22 04/27/22 History aspirin 81 mg capsule 81 mg PO DAILY 03/09/22 04/27/22 History atorvastatin 40 mg tablet 40 mg PO QPM 03/09/22 04/27/22 History camphor-menthol 0.2 %-3.5 % 1 applic TOPICAL Q6H PRN 03/09/22 04/27/22 History topical gel carvedilol 6.25 mg tablet 6.25 mg PO BID 03/09/22 04/27/22 History clotrimazole 1 % topical cream 1 applic TOPICAL Q8H PRN 03/09/22 04/27/22 History (Athlete's Foot (clotrimazole)) cyanocobalamin (vitamin B-12) 1,000 mcg PO DAILY 03/09/22 04/27/22 History 1,000 mcg tablet furosemide 40 mg tablet 40 mg PO DAILY 03/09/22 04/27/22 History gabapentin 100 mg capsule 100 mg PO TID 03/09/22 04/27/22 History gemfibrozil 600 mg tablet 600 mg PO BID 03/09/22 04/27/22 History glipizide 5 mg tablet, extended 5 mg PO DAILY 03/09/22 04/27/22 History release 24 hr guaifenesin 1,200 mg tablet, 1,200 mg PO Q12H PRN 03/09/22 04/27/22 History extended release 12 hr levothyroxine 150 mcg tablet 150 mcg PO DAILY 03/09/22 04/27/22 History omega 4-lzh-hyi-fish oil 1,000 mg 1 cap PO TID 03/09/22 04/27/22 History (120 mg-180 mg) capsule (Fish Oil) omeprazole 20 mg tablet,delayed 20 mg PO DAILY 03/09/22 04/27/22 History release blood-glucose meter (Accu-Chek #1 ea 03/17/22 04/27/22 Rx Maty Plus Meter) cholecalciferol (vitamin D3) 10 600 unit PO QAM #30 tab 03/17/22 04/27/22 Rx mcg (400 unit) tablet (Vitamin D3) ipratropium 0.5 mg-albuterol 3 mg 3 ml INHALATION Q6H PRN 03/17/22 04/27/22 History (2.5 mg base)/3 mL nebulization soln mometasone-formoterol HFA 200 2 inh INHALATION BID 03/17/22 04/27/22 History mcg-5 mcg/actuation aerosol inhaler (Dulera) pen needle, diabetic 32 gauge x #100 ea 03/17/22 04/27/22 Rx 5/32" (Pen Needle) acetaminophen 325 mg tablet 650 mg PO Q6H PRN MDD 3 GRAMS/24 04/27/22 04/27/22 History (Tylenol) HOURS albuterol sulfate 90 mcg/actuation 2 inh INHALATION Q6H PRN 04/27/22 04/27/22 History breath activated powder inhaler insulin glargine 100 unit/mL 35 unit SUBCUT DAILY 04/27/22 04/27/22 History subcutaneous solution menthol 0.44 %-zinc oxide 20.6 % 1 applic TOPICAL TID 04/27/22 04/27/22 History topical ointment (Calmoseptine) methyl salicylate 15 %-menthol 10 1 applic TOPICAL Q6H PRN 04/27/22 04/27/22 History % topical cream multivitamin with minerals 1 tab PO DAILY 04/27/22 04/27/22 History tramadol 50 mg tablet 50 mg PO Q8H PRN 04/27/22 04/27/22 History Patient History Medical History Aortic stenosis Chronic diastolic (congestive) heart failure CKD (chronic kidney disease) stage 3, GFR 30-59 ml/min COPD (chronic obstructive pulmonary disease) Diabetes mellitus GERD (gastroesophageal reflux disease) Gout Hypothyroid Obesity CINTHIA (obstructive sleep apnea) Smoker Surgical History History of hip surgery Previous section Family History Father Coronary heart disease Brother Coronary heart disease Stroke Sister Diabetes Brother Coronary heart disease Social History Smoking Status: Former smoker Tobacco Type: Cigarettes Cigarettes Per Day: 1 ppd; Smoking End Date: 03/07/22; Second Hand Exposure: No; Do You Dip or Chew Tobacco: No; Tobacco Cessation Education Requested by Patient: No Hx Alcohol Use: No Hx Substance Use: No Preferred Language: Setswana Communication Ability: Effective Database Software Technician Required: No Beliefs That Will Affect Care: None marital status: Current Living Situation: Rehab Current Living Situation Comment: [facility] Other Information That Helps Us Care for You: No Feels Safe at Home: Yes Safety Concerns: Feels Safe At This Time Assistive Devices: Oxygen - at Night and Walker Review of Systems Review of Systems: All systems reviewed & are unremarkable except as noted in HPI & below Physical Exam Constitutional: WD/WN, vitals as above Eyes: PERRL, conjunctivae normal, anicteric sclerae Respiratory: normal respiratory effort, lungs clear to auscultation Cardiovascular: Rate/Rhythm: regular rate and regular rhythm soft systoic murmur Gastrointestinal (Abdomen): normal bowel sounds, soft, nontender, no hepatosplenomegaly RECTAL: Dried maroon colored material ME; no active hematochezia or melena Skin: no rashes, warm and dry Psychiatric: A+Ox3, euthymic affect Results & Data ([facility]) Vital Signs (Past 12 Hours) Vital Signs Temp Pulse Pulse Resp BP Pulse Ox 04/28/22 08:32 95 H 04/28/22 07:49 36.5 C 94 H 18 117/72 93 04/28/22 05:00 36.8 C 107 H 18 103/62 91 04/28/22 04:03 93 H 19 94 04/27/22 23:39 36.5 C 102 H 18 109/58 L 100 04/27/22 23:05 104 H 21 94 Laboratory Results 04/28/22 04/28/22 04/28/22 Range/Units 06:51 06:51 06:51 WBC 5.55 (4.8-10.8) K/uL RBC 2.41 L (4.2-5.4) M/uL Hgb 6.4 L* (12.0-16.0) g/dL Hct 21.5 L (37-47) % MCV 89.2 (80-100) fL MCH 26.6 (25-34) pg MCHC 29.8 L (32-36) g/dL RDW Std Deviation 67.6 H (36.4-46.3) fL RDW Coeff of Prakash 20.7 H (11.5-14.5) % Plt Count 164 (130-400) K/uL MPV 10.6 H (7.4-10.4) fL Immature Gran % (Auto) % Neut % (Auto) % Lymph % (Auto) % Stanton % (Auto) % Eos % (Auto) % Baso % (Auto) % Neut # (Auto) (1.4-6.5) K/uL Lymph # (Auto) (1.2-3.4) K/uL Stanton # (Auto) (0.11-0.59) K/uL Eos # (Auto) (0-0.5) K/uL Baso # (Auto) (0-0.2) K/uL Immature Gran # (Auto) (0.00-0.02) K/uL Absolute Nucleated RBC 0.03 H (0-0) K/uL Nucleated RBC % (auto) 0.5 % Polychromasia Anisocytosis Ovalocytes PT (9.0-12.0) Seconds INR (0.9-1.1) Sodium 144 (136-145) mmol/L Potassium 4.1 (3.5-5.1) mmol/L Chloride 109 H (98-107) mmol/L Carbon Dioxide 27 (21-32) mmol/L Anion Gap 8 (3-11) BUN 42 H (6-23) mg/dl Creatinine 1.40 H (0.6-1.2) mg/dl Est Cr Clr Drug Dosing 54.1 ml/min Est GFR ( Amer) 45.3 ml/min Est GFR (Non-Af Amer) 39.1 ml/min BUN/Creatinine Ratio 30.0 H (10-20) Glucose 141 H (70-99(Fasting)) mg/dl POC Glucose (70-99) mg/dl Calcium 7.9 L (8.5-10.1) mg/dl Magnesium 1.3 L (1.7-2.4) mg/dl Total Bilirubin (0.2-1.0) mg/dl AST (13-39) U/L ALT (7-52) U/L Alkaline Phosphatase (34-104) U/L Total Protein (6.0-8.3) gm/dl Albumin (3.4-5.0) gm/dl Globulin (2.5-4.0) gm/dl Albumin/Globulin Ratio (0.9-2) Lipase (11-82) U/L Nasal Screen MRSA (PCR) (Negative) SARS-CoV-2, RNA, NAAT (NEGATIVE) Blood Type Blood Type Recheck O Positive Antibody Screen Crossmatch 04/28/22 04/28/22 04/27/22 Range/Units 06:00 01:57 22:08 WBC (4.8-10.8) K/uL RBC (4.2-5.4) M/uL Hgb 7.5 L (12.0-16.0) g/dL Hct 24.8 L (37-47) % MCV (80-100) fL MCH (25-34) pg MCHC (32-36) g/dL RDW Std Deviation (36.4-46.3) fL RDW Coeff of Prakash (11.5-14.5) % Plt Count (130-400) K/uL MPV (7.4-10.4) fL Immature Gran % (Auto) % Neut % (Auto) % Lymph % (Auto) % Stanton % (Auto) % Eos % (Auto) % Baso % (Auto) % Neut # (Auto) (1.4-6.5) K/uL Lymph # (Auto) (1.2-3.4) K/uL Stanton # (Auto) (0.11-0.59) K/uL Eos # (Auto) (0-0.5) K/uL Baso # (Auto) (0-0.2) K/uL Immature Gran # (Auto) (0.00-0.02) K/uL Absolute Nucleated RBC (0-0) K/uL Nucleated RBC % (auto) % Polychromasia Anisocytosis Ovalocytes PT (9.0-12.0) Seconds INR (0.9-1.1) Sodium (136-145) mmol/L Potassium (3.5-5.1) mmol/L Chloride (98-107) mmol/L Carbon Dioxide (21-32) mmol/L Anion Gap (3-11) BUN (6-23) mg/dl Creatinine (0.6-1.2) mg/dl Est Cr Clr Drug Dosing ml/min Est GFR ( Amer) ml/min Est GFR (Non-Af Amer) ml/min BUN/Creatinine Ratio (10-20) Glucose (70-99(Fasting)) mg/dl POC Glucose 139 H 160 H (70-99) mg/dl Calcium (8.5-10.1) mg/dl Magnesium (1.7-2.4) mg/dl Total Bilirubin (0.2-1.0) mg/dl AST (13-39) U/L ALT (7-52) U/L Alkaline Phosphatase (34-104) U/L Total Protein (6.0-8.3) gm/dl Albumin (3.4-5.0) gm/dl Globulin (2.5-4.0) gm/dl Albumin/Globulin Ratio (0.9-2) Lipase (11-82) U/L Nasal Screen MRSA (PCR) (Negative) SARS-CoV-2, RNA, NAAT (NEGATIVE) Blood Type Blood Type Recheck Antibody Screen Crossmatch 04/27/22 04/27/22 04/27/22 Range/Units 21:30 21:00 18:38 WBC (4.8-10.8) K/uL RBC (4.2-5.4) M/uL Hgb (12.0-16.0) g/dL Hct (37-47) % MCV (80-100) fL MCH (25-34) pg MCHC (32-36) g/dL RDW Std Deviation (36.4-46.3) fL RDW Coeff of Prakash (11.5-14.5) % Plt Count (130-400) K/uL MPV (7.4-10.4) fL Immature Gran % (Auto) % Neut % (Auto) % Lymph % (Auto) % Stanton % (Auto) % Eos % (Auto) % Baso % (Auto) % Neut # (Auto) (1.4-6.5) K/uL Lymph # (Auto) (1.2-3.4) K/uL Stanton # (Auto) (0.11-0.59) K/uL Eos # (Auto) (0-0.5) K/uL Baso # (Auto) (0-0.2) K/uL Immature Gran # (Auto) (0.00-0.02) K/uL Absolute Nucleated RBC (0-0) K/uL Nucleated RBC % (auto) % Polychromasia Anisocytosis Ovalocytes PT (9.0-12.0) Seconds INR (0.9-1.1) Sodium (136-145) mmol/L Potassium (3.5-5.1) mmol/L Chloride (98-107) mmol/L Carbon Dioxide (21-32) mmol/L Anion Gap (3-11) BUN (6-23) mg/dl Creatinine (0.6-1.2) mg/dl Est Cr Clr Drug Dosing ml/min Est GFR ( Amer) ml/min Est GFR (Non-Af Amer) ml/min BUN/Creatinine Ratio (10-20) Glucose (70-99(Fasting)) mg/dl POC Glucose 154 H (70-99) mg/dl Calcium (8.5-10.1) mg/dl Magnesium (1.7-2.4) mg/dl Total Bilirubin (0.2-1.0) mg/dl AST (13-39) U/L ALT (7-52) U/L Alkaline Phosphatase (34-104) U/L Total Protein (6.0-8.3) gm/dl Albumin (3.4-5.0) gm/dl Globulin (2.5-4.0) gm/dl Albumin/Globulin Ratio (0.9-2) Lipase (11-82) U/L Nasal Screen MRSA (PCR) Negative (Negative) SARS-CoV-2, RNA, NAAT NEGATIVE (NEGATIVE) Blood Type Blood Type Recheck Antibody Screen Crossmatch 04/27/22 04/27/22 04/27/22 Range/Units 16:30 16:29 16:29 WBC 8.73 (4.8-10.8) K/uL RBC 3.20 L (4.2-5.4) M/uL Hgb 8.5 L (12.0-16.0) g/dL Hct 28.1 L (37-47) % MCV 87.8 (80-100) fL MCH 26.6 (25-34) pg MCHC 30.2 L (32-36) g/dL RDW Std Deviation 66.1 H (36.4-46.3) fL RDW Coeff of Prakash 20.7 H (11.5-14.5) % Plt Count 211 (130-400) K/uL MPV 11.0 H (7.4-10.4) fL Immature Gran % (Auto) 0.8 % Neut % (Auto) 59.4 % Lymph % (Auto) 32.1 % Stanton % (Auto) 6.8 % Eos % (Auto) 0.7 % Baso % (Auto) 0.2 % Neut # (Auto) 5.19 (1.4-6.5) K/uL Lymph # (Auto) 2.80 (1.2-3.4) K/uL Stanton # (Auto) 0.59 (0.11-0.59) K/uL Eos # (Auto) 0.06 (0-0.5) K/uL Baso # (Auto) 0.02 (0-0.2) K/uL Immature Gran # (Auto) 0.07 H (0.00-0.02) K/uL Absolute Nucleated RBC (0-0) K/uL Nucleated RBC % (auto) % Polychromasia 1+ Anisocytosis Present Ovalocytes 1+ PT (9.0-12.0) Seconds INR (0.9-1.1) Sodium 142 (136-145) mmol/L Potassium 4.0 (3.5-5.1) mmol/L Chloride 107 (98-107) mmol/L Carbon Dioxide 27 (21-32) mmol/L Anion Gap 8 (3-11) BUN 37 H (6-23) mg/dl Creatinine 1.53 H (0.6-1.2) mg/dl Est Cr Clr Drug Dosing 50.8 ml/min Est GFR ( Amer) 40.7 ml/min Est GFR (Non-Af Amer) 35.1 ml/min BUN/Creatinine Ratio 24.2 H (10-20) Glucose 170 H (70-99(Fasting)) mg/dl POC Glucose (70-99) mg/dl Calcium 8.2 L (8.5-10.1) mg/dl Magnesium (1.7-2.4) mg/dl Total Bilirubin 0.3 (0.2-1.0) mg/dl AST 13 (13-39) U/L ALT 10 (7-52) U/L Alkaline Phosphatase 98 (34-104) U/L Total Protein 5.3 L (6.0-8.3) gm/dl Albumin 3.1 L (3.4-5.0) gm/dl Globulin 2.2 L (2.5-4.0) gm/dl Albumin/Globulin Ratio 1.4 (0.9-2) Lipase 14 (11-82) U/L Nasal Screen MRSA (PCR) (Negative) SARS-CoV-2, RNA, NAAT (NEGATIVE) Blood Type O Positive Blood Type Recheck Antibody Screen NEGATIVE Crossmatch See Detail 04/27/22 Range/Units 16:29 WBC (4.8-10.8) K/uL RBC (4.2-5.4) M/uL Hgb (12.0-16.0) g/dL Hct (37-47) % MCV (80-100) fL MCH (25-34) pg MCHC (32-36) g/dL RDW Std Deviation (36.4-46.3) fL RDW Coeff of Prakash (11.5-14.5) % Plt Count (130-400) K/uL MPV (7.4-10.4) fL Immature Gran % (Auto) % Neut % (Auto) % Lymph % (Auto) % Stanton % (Auto) % Eos % (Auto) % Baso % (Auto) % Neut # (Auto) (1.4-6.5) K/uL Lymph # (Auto) (1.2-3.4) K/uL Stanton # (Auto) (0.11-0.59) K/uL Eos # (Auto) (0-0.5) K/uL Baso # (Auto) (0-0.2) K/uL Immature Gran # (Auto) (0.00-0.02) K/uL Absolute Nucleated RBC (0-0) K/uL Nucleated RBC % (auto) % Polychromasia Anisocytosis Ovalocytes PT 11.0 (9.0-12.0) Seconds INR 1.0 (0.9-1.1) Sodium (136-145) mmol/L Potassium (3.5-5.1) mmol/L Chloride (98-107) mmol/L Carbon Dioxide (21-32) mmol/L Anion Gap (3-11) BUN (6-23) mg/dl Creatinine (0.6-1.2) mg/dl Est Cr Clr Drug Dosing ml/min Est GFR ( Amer) ml/min Est GFR (Non-Af Amer) ml/min BUN/Creatinine Ratio (10-20) Glucose (70-99(Fasting)) mg/dl POC Glucose (70-99) mg/dl Calcium (8.5-10.1) mg/dl Magnesium (1.7-2.4) mg/dl Total Bilirubin (0.2-1.0) mg/dl AST (13-39) U/L ALT (7-52) U/L Alkaline Phosphatase (34-104) U/L Total Protein (6.0-8.3) gm/dl Albumin (3.4-5.0) gm/dl Globulin (2.5-4.0) gm/dl Albumin/Globulin Ratio (0.9-2) Lipase (11-82) U/L Nasal Screen MRSA (PCR) (Negative) SARS-CoV-2, RNA, NAAT (NEGATIVE) Blood Type Blood Type Recheck Antibody Screen Crossmatch Diagnostic Findings CTAP: 1. No acute infectious or inflammatory findings are identified in the abdomen or pelvis. 2. Moderate colonic diverticulosis without CT evidence of acute diverticulitis. 3. Advanced coronary artery calcification. 4. Subacute fracture of the right proximal femur status post internal fixation. 5. Hepatosplenomegaly. 6. Additional chronic findings as above.
--- NOTE | 2022-04-28 15:50 | Hospitalist Progress Note ---
Date of Service April 28, 2022 Assessment & Plan Plan: Acute blood loss Anemia -Plan for Colonoscopy tomorrow -Hb 10.5 last week, 8.5 yesterday and 6.4 today -2 units pRBC ordered, will repeat CBC after transfusion Moderate Aortic Stenosis -appears euvolemic currently. 1 dose Lasix 40mg IV in between units of blood CKD stage 3 -Cr within baseline CINTHIA on night time BIPAP IDDM -will ask for glycemic pharmacist consult DVT ppx SCDs, no AC due to active bleed Admission and Anticipated Discharge Date Admission Date: April 27, 2022 Subjective Hb down to 6.4 today, consented for blood transfusion. 2 units RBC ordered Patient feels weak. Denies chest pain or shortness of breath however Physical Exam Physical Exam: Appears weak, pale, currently wearing BIPAP (she wears BIPAP at night to sleep) Respiratory: Clear bilaterally, no wheezing/rhonchi/rales Cardiovascular: Regular rate and rhythm, no murmurs/rubs/gallops Gastrointestinal (Abdomen): Soft, non tender, non distended Musculoskeletal: No edema Neurologic: Awake, alert, spontaneously moving extremities Results & Data Results & Data ([facility]) Vital Signs (Past 12 Hours) Vital Signs Temp Pulse Pulse Resp BP BP Pulse Ox 04/28/22 14:50 36.7 C 87 18 125/79 93 04/28/22 14:21 36.7 C 91 H 18 114/57 L 93 04/28/22 14:04 36.7 C 89 20 107/60 97 04/28/22 13:11 36.7 C 88 20 114/72 96 04/28/22 12:50 36.7 C 87 18 125/79 93 04/28/22 12:35 36.7 C 87 20 104/67 96 04/28/22 11:35 36.7 C 112 H 20 106/66 94 04/28/22 11:05 36.5 C 91 H 20 104/59 L 95 04/28/22 10:50 36.4 C L 92 H 20 111/71 95 04/28/22 10:31 36.5 C 98 H 20 121/62 99 04/28/22 08:32 95 H 04/28/22 07:49 36.5 C 94 H 18 117/72 93 04/28/22 05:00 36.8 C 107 H 18 103/62 91 04/28/22 04:03 93 H 19 94 Laboratory Results Short CBC 04/27/22 04/27/22 04/28/22 Range/Units 16:29 22:08 06:51 WBC 8.73 5.55 (4.8-10.8) K/uL Hgb 8.5 L 7.5 L 6.4 L* (12.0-16.0) g/dL Hct 28.1 L 24.8 L 21.5 L (37-47) % Plt Count 211 164 (130-400) K/uL BMP 04/27/22 04/28/22 16:29 06:51 Sodium 142 144 Potassium 4.0 4.1 Chloride 107 109 H Carbon Dioxide 27 27 BUN 37 H 42 H Creatinine 1.53 H 1.40 H Glucose 170 H 141 H Calcium 8.2 L 7.9 L Liver Function 04/27/22 Range/Units 16:29 Total Bilirubin 0.3 (0.2-1.0) mg/dl AST 13 (13-39) U/L ALT 10 (7-52) U/L Alkaline Phosphatase 98 (34-104) U/L Albumin 3.1 L (3.4-5.0) gm/dl Medications Administered Current Inpatient Medications Acetaminophen (Acetaminophen 325 Mg Tab) 650 mg PO Q4H PRN PRN Reason: Pain or Fever Stop: 05/27/22 21:13 Albuterol (Albuterol Hfa 8 Gm Inhaler) 2 puffs INH Q6H PRN PRN Reason: Shortness Of Breath Or Wheezing Stop: 05/27/22 21:29 Albuterol (Albut/Ipratrop 3mg/0.5mg Neb 3 Ml Vial) 3 ml INH Q6H PRN; Protocol PRN Reason: Shortness Of Breath Or Wheezing Stop: 05/27/22 21:13 Allopurinol (Allopurinol 300 Mg Tab) 300 mg PO DAILY TRINA Stop: 05/28/22 08:59 Last Admin: 04/28/22 07:42 Dose: 300 mg Documented by: Atorvastatin Calcium (Atorvastatin 40 Mg Tab) 40 mg PO QPM TRINA Stop: 05/27/22 21:13 Last Admin: 04/27/22 22:00 Dose: 40 mg Documented by: Carvedilol (Carvedilol 6.25 Mg Tab) 6.25 mg PO BID TRINA Stop: 05/27/22 21:13 Last Admin: 04/28/22 07:42 Dose: 6.25 mg Documented by: Dextrose (Dextrose 50% 50 Ml Syringe) 25 - 50 ml IV UD PRN; Protocol PRN Reason: Hypoglycemia Protocol Stop: 05/27/22 21:13 Fluticasone/Vilanterol (Fluticasone/Vilanterol 100/25mcg 14 Puffs/Inhaler) 1 puffs INH DAILY TRINA Stop: 05/28/22 08:59 Last Admin: 04/28/22 07:43 Dose: 1 puffs Documented by: Gabapentin (Gabapentin 100 Mg Cap) 100 mg PO TID [facility]INA Stop: 05/27/22 21:13 Last Admin: 04/28/22 13:26 Dose: 100 mg Documented by: Gemfibrozil (Gemfibrozil 600 Mg Tab) 600 mg PO BID TRINA Stop: 05/27/22 21:13 Last Admin: 04/28/22 07:42 Dose: 600 mg Documented by: Glucagon (Glucagon For Inj 1 Mg Vial) 1 mg SQ UD PRN; Protocol PRN Reason: Hypoglycemia Protocol Stop: 05/27/22 21:13 Glucose (Glucose 10 Tabs/Tube) 4 - 8 tabs PO UD PRN; Protocol PRN Reason: Hypoglycemia Protocol Stop: 05/27/22 21:13 Glucose (Glucose 40% Gel 15 Gm Tube) 15 - 30 gm PO UD PRN; Protocol PRN Reason: Hypoglycemia Protocol Stop: 05/27/22 21:13 Sodium Chloride (Nss) 250 mls @ 15 mls/hr IV .[id number] PRN PRN Reason: For Transfusion Stop: 04/28/22 19:04 Insulin Aspart (Insulin Aspart Per Unit) 0 units SC Q6 [facility] Stop: 05/27/22 21:29 Last Admin: 04/28/22 11:37 Dose: Not Given Documented by: Insulin Glargine (Insulin Glargine Solostar 100 Units/Ml 3 Ml Pen) 15 units SC BID [facility] Stop: 05/27/22 21:13 Last Admin: 04/28/22 07:43 Dose: 15 units Documented by: Levothyroxine Sodium (Levothyroxine Sodium 150 Mcg Tablet) 150 mcg PO DAILYBB [facility] Stop: 05/28/22 06:29 Last Admin: 04/28/22 06:10 Dose: 150 mcg Documented by: Miscellaneous (Carbohydrates For Hypoglycemia ) 15 - 30 gm PO UD PRN PRN Reason: Hypoglycemia Protocol Stop: 05/27/22 21:13 Ondansetron HCl (Ondansetron Inj 2 Mg/Ml 2 Ml Vial) 4 mg IV Q6H PRN PRN Reason: Nausea Stop: 05/27/22 21:13 Pantoprazole Sodium (Pantoprazole 40 Mg Tab) 40 mg PO DAILY [facility] Stop: 05/28/22 08:59 Last Admin: 04/28/22 07:42 Dose: 40 mg Documented by: Polyethylene Glycol/Electrolytes (Lavage Solution 4000ml) 16 dose PO TODAY@06 [facility] Stop: 04/28/22 17:01 Tramadol HCl (Tramadol Hcl 50 Mg Tablet) 50 mg PO Q8H PRN PRN Reason: Pain (Scale Score 5-10) Stop: 05/27/22 21:13 Last Admin: 04/28/22 01:23 Dose: 50 mg Documented by:
[2022-04-28] MEDS ORDERED: PHARMACY GLYCEMIC MGMT CONSULT PRN (15:56)
[2022-04-28 16:07] LABS: Hematocrit (blood only) 27.7 % (37-47); Hemoglobin 8.6 g/dL (12.0-16.0); Mean Corpuscular Hemoglobin 27.7 pg (25-34); Mean Corpuscular Volume 89.1 fL (80-100); Mean Platelet Volume 11.1 fL (7.4-10.4); Nucleated RBC # (auto) 0.03 K/uL (0-0); Nucleated RBC % (auto) 0.4 %; Platelet Count 172 K/uL (130-400); Red Blood Count 3.11 M/uL (4.2-5.4); White Blood Count 6.64 K/uL (4.8-10.8)
[2022-04-28] MEDS ORDERED: LAVAGE SOLUTION 4000ML PO SCH ×2 (17:00→20:00)
[2022-04-28] MEDS ORDERED: INSULIN GLARGINE SOLOSTAR 100 UNITS/ML 3 ML PEN SC SCH (21:00)
[2022-04-28] MEDS: ATORVASTATIN 40 MG TAB PO SCH (22:19)
[2022-04-29 01:50] LABS: Hematocrit (blood only) 23.4 % (37-47); Hemoglobin 7.5 g/dL (12.0-16.0)
[2022-04-29] MEDS ORDERED: SODIUM CHLORIDE 0.9% 250 ML IV PRN (01:55)
[2022-04-29] MEDS ORDERED: LAVAGE SOLUTION 4000ML PO SCH (04:00)
[2022-04-29] MEDS: traMADol HCL 50 MG TABLET PO PRN ×2 (05:57→20:13)
[2022-04-29] MEDS: INSULIN ASPART PER UNIT SC SCH ×4 (07:42→20:56)
[2022-04-29] MEDS: allopurinoL 300 MG TAB PO SCH (07:45)
[2022-04-29] MEDS: carvediloL 6.25 MG TAB PO SCH ×2 (07:45→20:11)
[2022-04-29] MEDS: FLUTICASONE/VILANTEROL 100/25MCG 14 PUFFS/INHALER INH SCH (07:45)
[2022-04-29] MEDS: LEVOTHYROXINE SODIUM 150 MCG TABLET PO SCH (07:45)
[2022-04-29] MEDS: PANTOprazole 40 MG TAB PO SCH (07:46)
[2022-04-29] MEDS: gemfibroziL 600 MG TAB PO SCH ×2 (07:46→20:11)
[2022-04-29] MEDS: GABAPENTIN 100 MG CAP PO SCH ×3 (07:46→20:11)
--- NOTE | 2022-04-29 08:35 | Anesthesiology Consultation ---
Date of Service April 29, 2022 Assessment & Plan Chart Review Chart Review: Acceptable Risk for Surgery, Patient NOT seen in Pre Admission Testing and front end java developer initiated Consults Requested none History Surgery Operation Date: 04/29/22 16:45 Proposed Procedures p Colonoscopy Dr Malagon - Jessica Malagon, Height/Weight Height: 5 ft 9 in Weight: 116.9 kg Allergies Allergy/AdvReac Type Severity Reaction Status Date / Time No Known Allergies Allergy Verified 04/27/22 15:44 Medications Home Medications Medication Instructions Recorded Confirmed Last Taken allopurinol 300 mg tablet 300 mg PO DAILY 03/09/22 04/27/22 04/27/22 aspirin 81 mg capsule 81 mg PO DAILY 03/09/22 04/27/22 04/26/22 atorvastatin 40 mg tablet 40 mg PO QPM 03/09/22 04/27/22 04/26/22 camphor-menthol 0.2 %-3.5 % 1 applic TOPICAL Q6H PRN 03/09/22 04/27/22 Unknown topical gel carvedilol 6.25 mg tablet 6.25 mg PO BID 03/09/22 04/27/22 04/27/22 08:30 clotrimazole 1 % topical cream 1 applic TOPICAL Q8H PRN 03/09/22 04/27/22 Unknown (Athlete's Foot (clotrimazole)) cyanocobalamin (vitamin B-12) 1,000 mcg PO DAILY 03/09/22 04/27/22 04/27/22 1,000 mcg tablet furosemide 40 mg tablet 40 mg PO DAILY 03/09/22 04/27/22 04/27/22 gabapentin 100 mg capsule 100 mg PO TID 03/09/22 04/27/22 04/27/22 12:30 gemfibrozil 600 mg tablet 600 mg PO BID 03/09/22 04/27/22 04/27/22 08:30 glipizide 5 mg tablet, extended 5 mg PO DAILY 03/09/22 04/27/22 04/27/22 release 24 hr guaifenesin 1,200 mg tablet, 1,200 mg PO Q12H PRN 03/09/22 04/27/22 Unknown extended release 12 hr levothyroxine 150 mcg tablet 150 mcg PO DAILY 03/09/22 04/27/22 04/27/22 omega 7-mqb-zoy-fish oil 1,000 mg 1 cap PO TID 03/09/22 04/27/22 04/27/22 (120 mg-180 mg) capsule (Fish Oil) omeprazole 20 mg tablet,delayed 20 mg PO DAILY 03/09/22 04/27/22 04/27/22 release blood-glucose meter (Accu-Chek #1 ea 03/17/22 04/27/22 Unknown Maty Plus Meter) cholecalciferol (vitamin D3) 10 600 unit PO QAM #30 tab 03/17/22 04/27/22 04/27/22 mcg (400 unit) tablet (Vitamin D3) ipratropium 0.5 mg-albuterol 3 mg 3 ml INHALATION Q6H PRN 03/17/22 04/27/22 Unknown (2.5 mg base)/3 mL nebulization soln mometasone-formoterol HFA 200 2 inh INHALATION BID 03/17/22 04/27/22 04/27/22 08:30 mcg-5 mcg/actuation aerosol inhaler (Dulera) pen needle, diabetic 32 gauge x #100 ea 03/17/22 04/27/22 Unknown 5/32" (Pen Needle) acetaminophen 325 mg tablet 650 mg PO Q6H PRN MDD 3 GRAMS/24 04/27/22 04/27/22 Unknown (Tylenol) HOURS albuterol sulfate 90 mcg/actuation 2 inh INHALATION Q6H PRN 04/27/22 04/27/22 Unknown breath activated powder inhaler insulin glargine 100 unit/mL 35 unit SUBCUT DAILY 04/27/22 04/27/22 04/27/22 subcutaneous solution menthol 0.44 %-zinc oxide 20.6 % 1 applic TOPICAL TID 04/27/22 04/27/22 04/26/22 topical ointment (Calmoseptine) methyl salicylate 15 %-menthol 10 1 applic TOPICAL Q6H PRN 04/27/22 04/27/22 Unknown % topical cream multivitamin with minerals 1 tab PO DAILY 04/27/22 04/27/22 04/27/22 tramadol 50 mg tablet 50 mg PO Q8H PRN 04/27/22 04/27/22 04/27/22 03:56 Active Medications Generic Name Dose Route Start Last Admin Trade Name Freq PRN Reason Stop Dose Admin Allopurinol 300 mg 04/28/22 09:00 04/29/22 07:45 Allopurinol 300 Mg Tab PO 05/28/22 08:59 300 mg DAILY TRINA Administration Atorvastatin Calcium 40 mg 04/27/22 21:14 04/28/22 22:19 Atorvastatin 40 Mg Tab PO 05/27/22 21:13 40 mg QPM TRINA Administration Carvedilol 6.25 mg 04/27/22 21:14 04/29/22 07:45 Carvedilol 6.25 Mg Tab PO 05/27/22 21:13 6.25 mg BID TRINA Administration Fluticasone/Vilanterol 1 puffs 04/28/22 09:00 04/29/22 07:45 Fluticasone/Vilanterol 100/25mcg 14 Puffs/Inhaler INH 05/28/22 08:59 1 puffs DAILY TRINA Administration Gabapentin 100 mg 04/27/22 21:14 04/29/22 07:46 Gabapentin 100 Mg Cap PO 05/27/22 21:13 100 mg TID TRINA Administration Gemfibrozil 600 mg 04/27/22 21:14 04/29/22 07:46 Gemfibrozil 600 Mg Tab PO 05/27/22 21:13 600 mg BID TRINA Administration Insulin Aspart 0 units 04/28/22 16:40 04/29/22 07:42 Insulin Aspart Per Unit SC 05/27/22 21:29 1 units ACHS TRINA Administration Insulin Glargine 10 units 04/29/22 09:00 04/29/22 07:42 Insulin Glargine Solostar 100 Units/Ml 3 Ml Pen SC 04/29/22 09:01 10 units QAM TRINA Administration Levothyroxine Sodium 150 mcg 04/28/22 06:30 04/29/22 07:45 Levothyroxine Sodium 150 Mcg Tablet PO 05/28/22 06:29 150 mcg DAILYBB TRINA Administration Pantoprazole Sodium 40 mg 04/28/22 09:00 04/29/22 07:46 Pantoprazole 40 Mg Tab PO 05/28/22 08:59 40 mg DAILY TRINA Administration Tramadol HCl 50 mg 04/27/22 21:14 04/29/22 05:57 Tramadol Hcl 50 Mg Tablet PO 05/27/22 21:13 50 mg Q8H PRN Administration Pain (Scale Score 5-10) Past Medical History Medical History Aortic stenosis Chronic diastolic (congestive) heart failure CKD (chronic kidney disease) stage 3, GFR 30-59 ml/min COPD (chronic obstructive pulmonary disease) Diabetes mellitus GERD (gastroesophageal reflux disease) Gout Hypothyroid Obesity CINTHIA (obstructive sleep apnea) Smoker Past Family History Family History Father Coronary heart disease Brother Coronary heart disease Stroke Sister Diabetes Brother Coronary heart disease Past Surgical History Surgical History History of hip surgery Previous section Social History Smoking Status: Former smoker tobacco type: cigarettes Smoking cigarettes per day: 1 ppd Do You Dip or Chew Tobacco: No Smoking End Date: 03/07/22 Hx Alcohol Use: No Hx Substance Use: No Physical Exam Vital Signs Last Vital Signs Temp 36.8 C 04/29/22 07:14 Pulse 98 H 04/29/22 08:13 Resp 20 04/29/22 07:14 BP 135/68 04/29/22 07:14 Pulse Ox 100 04/29/22 07:14 Testing Laboratory Results PT 11.0 Seconds (9.0-12.0) 04/27/22 16:29 INR 1.0 (0.9-1.1) 04/27/22 16:29 Blood Type O Positive 04/27/22 16:30 Antibody Screen NEGATIVE 04/27/22 16:30 04/29/22 04/28/22 07:16 20:51 POC Glucose 154 H 107 H Electrocardiogram Date: 04/27/22 Poor data quality, interpretation may be adversely affected Sinus tachycardia Low voltage QRS Cannot rule out Inferior infarct , age undetermined Abnormal ECG When compared with ECG of 13-MAR-2022 05:27, Premature ventricular complexes are no longer Present Minimal criteria for Inferior infarct are now Present Chest X-Ray Date: 03/13/22 CLINICAL HISTORY: Cough. COMPARISON STUDY: Chest radiograph March 11, 2022. FINDINGS: An old proximal right humeral fracture is incidentally noted. Patient is rotated. No pneumothorax or pleural effusion is present. Cardiomegaly is noted. No evidence for pulmonary edema. No consolidation to suggest pneumonia. Mild left basilar opacity favors atelectasis. IMPRESSION: 1. No acute cardiopulmonary findings. 2. Mild left basilar opacity which favors atelectasis. Echocardiogram Date: 03/10/22 EF: 60-65% LV Function: normal RWMA: + none Other Findings: + LVH Valvular Disease: + (At least moderate stenosis)
[2022-04-29 08:55] LABS: Hematocrit (blood only) 25.5 % (37-47); Hemoglobin 8.4 g/dL (12.0-16.0); Mean Corpuscular Hemoglobin 28.9 pg (25-34); Mean Corpuscular Hgb Conc 32.9 g/dL (32-36); Mean Corpuscular Volume 87.6 fL (80-100); Mean Platelet Volume 10.6 fL (7.4-10.4); Nucleated RBC # (auto) 0.49 K/uL (0-0); Nucleated RBC % (auto) 6.6 %; Platelet Count 165 K/uL (130-400); RDW Standard Deviation 55.7 fL (36.4-46.3); Red Blood Count 2.91 M/uL (4.2-5.4); White Blood Count 7.38 K/uL (4.8-10.8)
--- NOTE | 2022-04-29 08:59 | History & Physical Report ---
Date of Service April 29, 2022 Assessment & Plan (1) Acute GI bleeding: Plan: 67-year-old female with recent hip surgery, had been on Lovenox but not for several weeks, presented with [facility] MD with blood clots. Had drop in her hemoglobin, Hgb 6.4 this morning, with stable BUN. 2 units of PRBC. Currently hemodynamically stable. Given her presentation, this may represent a diverticular bleed, versus AVM, inflammatory, or even malignancy, given she has never had a colonoscopy. Upper GI bleed not as likely given her unchanged BUN. - Colonoscopy today Admission and Anticipated Discharge Date Admission Date: April 27, 2022 History of Present Illness Chief Complaint: hematochezia Primary Care Provider: [facility] hematochezia Allergies Allergy/AdvReac Type Severity Reaction Status Date / Time No Known Allergies Allergy Verified 04/27/22 15:44 Home Medications Medication Instructions Recorded Confirmed Type allopurinol 300 mg tablet 300 mg PO DAILY 03/09/22 04/27/22 History aspirin 81 mg capsule 81 mg PO DAILY 03/09/22 04/27/22 History atorvastatin 40 mg tablet 40 mg PO QPM 03/09/22 04/27/22 History camphor-menthol 0.2 %-3.5 % 1 applic TOPICAL Q6H PRN 03/09/22 04/27/22 History topical gel carvedilol 6.25 mg tablet 6.25 mg PO BID 03/09/22 04/27/22 History clotrimazole 1 % topical cream 1 applic TOPICAL Q8H PRN 03/09/22 04/27/22 History (Athlete's Foot (clotrimazole)) cyanocobalamin (vitamin B-12) 1,000 mcg PO DAILY 03/09/22 04/27/22 History 1,000 mcg tablet furosemide 40 mg tablet 40 mg PO DAILY 03/09/22 04/27/22 History gabapentin 100 mg capsule 100 mg PO TID 03/09/22 04/27/22 History gemfibrozil 600 mg tablet 600 mg PO BID 03/09/22 04/27/22 History glipizide 5 mg tablet, extended 5 mg PO DAILY 03/09/22 04/27/22 History release 24 hr guaifenesin 1,200 mg tablet, 1,200 mg PO Q12H PRN 03/09/22 04/27/22 History extended release 12 hr levothyroxine 150 mcg tablet 150 mcg PO DAILY 03/09/22 04/27/22 History omega 8-vkx-uou-fish oil 1,000 mg 1 cap PO TID 03/09/22 04/27/22 History (120 mg-180 mg) capsule (Fish Oil) omeprazole 20 mg tablet,delayed 20 mg PO DAILY 03/09/22 04/27/22 History release blood-glucose meter (Accu-Chek #1 ea 03/17/22 04/27/22 Rx Maty Plus Meter) cholecalciferol (vitamin D3) 10 600 unit PO QAM #30 tab 03/17/22 04/27/22 Rx mcg (400 unit) tablet (Vitamin D3) ipratropium 0.5 mg-albuterol 3 mg 3 ml INHALATION Q6H PRN 03/17/22 04/27/22 History (2.5 mg base)/3 mL nebulization soln mometasone-formoterol HFA 200 2 inh INHALATION BID 03/17/22 04/27/22 History mcg-5 mcg/actuation aerosol inhaler (Dulera) pen needle, diabetic 32 gauge x #100 ea 03/17/22 04/27/22 Rx 5/32" (Pen Needle) acetaminophen 325 mg tablet 650 mg PO Q6H PRN MDD 3 GRAMS/24 04/27/22 04/27/22 History (Tylenol) HOURS albuterol sulfate 90 mcg/actuation 2 inh INHALATION Q6H PRN 04/27/22 04/27/22 History breath activated powder inhaler insulin glargine 100 unit/mL 35 unit SUBCUT DAILY 04/27/22 04/27/22 History subcutaneous solution menthol 0.44 %-zinc oxide 20.6 % 1 applic TOPICAL TID 04/27/22 04/27/22 History topical ointment (Calmoseptine) methyl salicylate 15 %-menthol 10 1 applic TOPICAL Q6H PRN 04/27/22 04/27/22 History % topical cream multivitamin with minerals 1 tab PO DAILY 04/27/22 04/27/22 History tramadol 50 mg tablet 50 mg PO Q8H PRN 04/27/22 04/27/22 History Past Med/Surg History Medical History Aortic stenosis Chronic diastolic (congestive) heart failure CKD (chronic kidney disease) stage 3, GFR 30-59 ml/min COPD (chronic obstructive pulmonary disease) Diabetes mellitus GERD (gastroesophageal reflux disease) Gout Hypothyroid Obesity CINTHIA (obstructive sleep apnea) Smoker Surgical History History of hip surgery Previous section Family History Father Coronary heart disease Brother Coronary heart disease Stroke Sister Diabetes Brother Coronary heart disease Social History Smoking Status: Former smoker Tobacco Type: Cigarettes Cigarettes Per Day: 1 ppd; Smoking End Date: 03/07/22; Second Hand Exposure: No; Do You Dip or Chew Tobacco: No; Tobacco Cessation Education Requested by Patient: No Hx Alcohol Use: No Hx Substance Use: No Preferred Language: Macedonian Communication Ability: Effective Rehabilitator Required: No Beliefs That Will Affect Care: None marital status: Current Living Situation: Rehab Current Living Situation Comment: [facility] Other Information That Helps Us Care for You: No Feels Safe at Home: Yes Safety Concerns: Feels Safe At This Time Assistive Devices: Oxygen - at Night and Walker Results & Data ([facility]) Vital Signs (Past 12 Hours) Vital Signs Temp Pulse Pulse Resp BP BP Pulse Ox 04/29/22 08:37 36.6 C 93 H 16 144/74 H 93 04/29/22 08:13 98 H 04/29/22 07:14 36.8 C 93 H 20 135/68 100 04/29/22 07:13 36.7 C 93 H 20 135/68 100 04/29/22 06:18 36.6 C 955 H 18 129/77 97 04/29/22 05:18 36.8 C 97 H 18 119/68 100 04/29/22 04:18 37.1 C 94 H 16 130/78 100 04/29/22 03:48 36.8 C 96 H 16 131/71 100 04/29/22 03:33 37.1 C 94 H 16 127/78 100 04/29/22 03:07 36.6 C 88 18 135/79 99 04/29/22 02:56 36.8 C 90 16 116/77 100 04/28/22 23:48 36.4 C L 87 16 127/77 94 04/28/22 22:20 88 04/28/22 21:14 Pulse Ox 04/29/22 08:37 04/29/22 08:13 04/29/22 07:14 04/29/22 07:13 04/29/22 06:18 04/29/22 05:18 04/29/22 04:18 04/29/22 03:48 04/29/22 03:33 04/29/22 03:07 04/29/22 02:56 04/28/22 23:48 04/28/22 22:20 04/28/22 21:14 97 Code Status & VTE Plan VTE Prophylaxis Plan VTE Prophylaxis will be ordered: Yes
[2022-04-29] MEDS ORDERED: INSULIN GLARGINE SOLOSTAR 100 UNITS/ML 3 ML PEN SC SCH (09:00)
[2022-04-29 09:08] LABS: Anion Gap 9 (3-11); BUN Creatinine Ratio 29.7 (10-20); Blood Urea Nitrogen 43 mg/dl (6-23); Calcium 7.6 mg/dl (8.5-10.1); Carbon Dioxide 28 mmol/L (21-32); Chloride 106 mmol/L (98-107); Creatinine Clr Calc Pharmacy 52.1 ml/min; Est GFR (African American) 43.4 ml/min; Est GFR (Non-African American) 37.4 ml/min; Glucose 135 mg/dl (70-99(Fasting)); Magnesium 1.6 mg/dl (1.7-2.4); Sodium 143 mmol/L (136-145)
[2022-04-29] MEDS ORDERED: PROPOFOL IV EMULSION 10 MG/ML 20 ML VIAL IV ONE (09:39)
[2022-04-29] MEDS ORDERED: LIDOCAINE 2% 2 ML VIAL/AMP(20MG/ML) INFIL ONE (09:39)
--- NOTE | 2022-04-29 09:50 | GI REPORT ---
Patient Name: Lorraine North Procedure Date: 04/29/2022 9:08 AM Date of : 1955 Admit Type: Inpatient Age: 67 Gender: Female Attending MD: Jessica Malagon DO Procedure: Colonoscopy Providers: Jessica Malagon DO Referring MD: Emilie Salas Indications: Hematochezia Medicines: Propofol per Anesthesia Complications: No immediate complications. Estimated blood loss: Minimal. Estimated Blood Loss: Estimated blood loss was minimal. Procedure: Pre-Anesthesia Assessment: - Prior to the procedure, a History and Physical was performed, and patient medications, allergies and sensitivities were reviewed. The patient's tolerance of previous anesthesia was reviewed. - The risks and benefits of the procedure and the sedation options and risks were discussed with the patient. All questions were answered and informed consent was obtained. - Patient identification and proposed procedure were verified prior to the procedure by the physician and the nurse. The procedure was verified in the pre-procedure area in the procedure room. - Mental Status Examination: alert and oriented. Airway Examination: normal oropharyngeal airway and neck mobility. Respiratory Examination: clear to auscultation. CV Examination: normal. Abdominal Examination: bowel sounds present, abdomen soft and non-tender, no masses or organomegaly noted. - ASA Grade Assessment: III - A patient with severe systemic disease. After I obtained informed consent, the scope was passed under direct vision. Throughout the procedure, the patient's blood pressure, pulse, and oxygen saturations were monitored continuously. The Loaner was introduced through the anus and advanced to the cecum, identified by appendiceal orifice and ileocecal valve. The colonoscopy was performed without difficulty. The patient tolerated the procedure well. The quality of the bowel preparation was good. Findings: The perianal and digital rectal examinations were normal. Pertinent negatives include normal sphincter tone and no palpable rectal lesions. Three sessile polyps were found in the ascending colon. The polyps were 3 to 6 mm in size. These polyps were removed with a hot snare. Resection and retrieval were complete. Verification of patient identification for the specimen was done by the physician and nurse using the patient's name and date. Estimated blood loss was minimal. Multiple small and large-mouthed diverticula were found in the entire colon. External and internal hemorrhoids were found during retroflexion and during perianal exam. The hemorrhoids were medium-sized. Impression: - Three 5 to 8 mm polyps in the ascending colon, removed with a hot snare. Resected and retrieved. - Diverticulosis in the entire examined colon. - External and internal hemorrhoids. Recommendation: - Await pathology results. - Repeat colonoscopy in 3 years for surveillance. - Return to primary care physician as previously scheduled. - Return patient to hospital [facility] for ongoing care. - Advance diet as tolerated. Jessica Malagon D.O. Jessica Malagon, 04/29/2022 9:49:53 AM This report has been signed electronically. Note Initiated On: 04/29/2022 9:08 AM Number of Addenda: 0 I attest to the content of the Intraoperative Record and orders documented therein, exceptions below {[id number]}
--- NOTE | 2022-04-29 13:30 | Anesthesiology Progress Note ---
Date of Service April 29, 2022 Anesthesia Post Procedure Vital Signs Vital Signs: Temp Pulse Pulse Resp BP BP BP 04/29/22 11:26 37.0 C 89 18 120/73 04/29/22 10:46 36.4 C L 91 H 16 122/61 04/29/22 10:11 87 18 119/55 L 04/29/22 09:57 82 18 131/50 L 04/29/22 09:47 91 H 16 99/43 L 04/29/22 08:37 36.6 C 93 H 16 144/74 H 04/29/22 08:13 98 H 04/29/22 07:14 36.8 C 93 H 20 135/68 04/29/22 07:13 36.7 C 93 H 20 135/68 04/29/22 06:18 36.6 C 955 H 18 129/77 04/29/22 05:18 36.8 C 97 H 18 119/68 04/29/22 04:18 37.1 C 94 H 16 130/78 04/29/22 03:48 36.8 C 96 H 16 131/71 04/29/22 03:33 37.1 C 94 H 16 127/78 04/29/22 03:07 36.6 C 88 18 135/79 04/29/22 02:56 36.8 C 90 16 116/77 04/28/22 23:48 36.4 C L 87 16 127/77 04/28/22 22:20 88 04/28/22 21:14 04/28/22 18:54 36.6 C 84 18 107/69 04/28/22 16:53 36.5 C 91 H 20 124/79 04/28/22 16:06 36.7 C 88 20 133/81 04/28/22 16:00 87 04/28/22 15:50 36.9 C 84 18 126/79 04/28/22 14:50 36.7 C 87 18 125/79 04/28/22 14:21 36.7 C 91 H 18 114/57 L 04/28/22 14:04 36.7 C 89 20 107/60 Pulse Ox Pulse Ox 04/29/22 11:26 92 04/29/22 10:46 94 04/29/22 10:11 94 04/29/22 09:57 93 04/29/22 09:47 98 04/29/22 08:37 93 04/29/22 08:13 04/29/22 07:14 100 04/29/22 07:13 100 04/29/22 06:18 97 04/29/22 05:18 100 04/29/22 04:18 100 04/29/22 03:48 100 04/29/22 03:33 100 04/29/22 03:07 99 04/29/22 02:56 100 04/28/22 23:48 94 04/28/22 22:20 04/28/22 21:14 97 04/28/22 18:54 97 04/28/22 16:53 96 04/28/22 16:06 96 04/28/22 16:00 04/28/22 15:50 96 04/28/22 14:50 93 04/28/22 14:21 93 04/28/22 14:04 97 Transfer of Care Handoff Completed per policy Notes Mental Status: alert / awake / arousable and participated in evaluation Patient Amnestic to Procedure: Yes Nausea / Vomiting: adequately controlled Pain: adequately controlled Airway Patency, RR, SpO2: stable & adequate BP & HR: stable & adequate Hydration State: stable & adequate Anesthetic Complications: no major complications apparent and Pt Satisfied with anesthetic care
--- NOTE | 2022-04-29 18:43 | Hospitalist Progress Note ---
Date of Service April 29, 2022 Assessment & Plan (1) Acute GI bleeding: (2) Acute blood loss anemia: (3) COPD (chronic obstructive pulmonary disease): (4) Diabetes mellitus: (5) CINTHIA (obstructive sleep apnea): (6) Smoker: (7) CKD (chronic kidney disease) stage 3, GFR 30-59 ml/min: (8) Aortic stenosis: (9) Hypothyroid: (10) DVT prophylaxis: (11) Post-operative state: Plan: Ms Lorraine North is a 67 year old female who has a history of CINTHIA on BIPAP, CKD stage 3, moderate aortic stenosis, hypothyroidism, insulin dependent diabetes who has been at [facility]22 after a hip surgery presented to the ER 04/27 for several episodes of bright red blood per rectum. 1. Acute blood loss anemia Lower GI bleed, likely diverticular -Hb 10.5 (04/22/2022)--> 8.5 (04/27, day of admission)--> 6.4 (04/28), received 2 units pRBC--> 8.6 --> 7.5 (04/29), received 1 unit pRBC--> 8.4 this morning -Colonoscopy today showed diverticulosis, internal and external hemorrhoids, multiple polyps which were removed. No active bleeding was noted 2. Recent hip surgery -from [facility], return there when medically stable 3. CINTHIA -continue BIPAP 4. CKD stage 3 -Cr remains at baseline 5. Moderate aortic stenosis -appears euvolemic, careful with fluids or diuresis 6. Hypothyroidism -synthroid 7. IDDM -management by glycemic pharmacist 8. Hypokalemia Hypomagnesemia -from bowel prep -replete now and repeat BMP tomorrow DVT ppx -SCDs Admission and Anticipated Discharge Date Admission Date: April 27, 2022 Subjective Patient went for colonoscopy today Reports no further bleed but yesterday while doing her prep was still bleeding Received 3 units total packed RBC yesterday Physical Exam Physical Exam: Pleasant, comfortable, no acute distress Respiratory: breathing comfortably on room air, no wheezing/rhonchi/rales Cardiovascular: regular rate and rhythm, no murmurs/rubs/gallops Gastrointestinal (Abdomen): +BS, soft, non tender Musculoskeletal: No edema Neurologic: Awake, alert, spontaneously moving extremities Results & Data Results & Data ([facility]) Vital Signs (Past 12 Hours) Vital Signs Temp Pulse Pulse Resp BP BP BP 04/29/22 16:00 94 H 04/29/22 15:55 36.8 C 95 H 18 126/73 04/29/22 11:26 37.0 C 89 18 120/73 04/29/22 10:46 36.4 C L 91 H 16 122/61 04/29/22 10:11 87 18 119/55 L 04/29/22 09:57 82 18 131/50 L 04/29/22 09:47 91 H 16 99/43 L 04/29/22 08:37 36.6 C 93 H 16 144/74 H 04/29/22 08:13 98 H 04/29/22 07:14 36.8 C 93 H 20 135/68 04/29/22 07:13 36.7 C 93 H 20 135/68 Pulse Ox 04/29/22 16:00 04/29/22 15:55 94 04/29/22 11:26 92 04/29/22 10:46 94 04/29/22 10:11 94 04/29/22 09:57 93 04/29/22 09:47 98 04/29/22 08:37 93 04/29/22 08:13 04/29/22 07:14 100 04/29/22 07:13 100 Laboratory Results Short CBC 04/29/22 04/29/22 Range/Units 01:29 08:12 WBC 7.38 (4.8-10.8) K/uL Hgb 7.5 L 8.4 L (12.0-16.0) g/dL Hct 23.4 L 25.5 L (37-47) % Plt Count 165 (130-400) K/uL BMP 04/29/22 04/29/22 08:12 11:06 Sodium 143 Potassium TNP 3.4 L Chloride 106 Carbon Dioxide 28 BUN 43 H Creatinine 1.45 H Glucose 135 H Calcium 7.6 L Medications Administered Current Inpatient Medications Acetaminophen (Acetaminophen 325 Mg Tab) 650 mg PO Q4H PRN PRN Reason: Pain or Fever Stop: 05/27/22 21:13 Albuterol (Albuterol Hfa 8 Gm Inhaler) 2 puffs INH Q6H PRN PRN Reason: Shortness Of Breath Or Wheezing Stop: 05/27/22 21:29 Albuterol (Albut/Ipratrop 3mg/0.5mg Neb 3 Ml Vial) 3 ml INH Q6H PRN; Protocol PRN Reason: Shortness Of Breath Or Wheezing Stop: 05/27/22 21:13 Allopurinol (Allopurinol 300 Mg Tab) 300 mg PO DAILY TRINA Stop: 05/28/22 08:59 Last Admin: 04/29/22 07:45 Dose: 300 mg Documented by: Atorvastatin Calcium (Atorvastatin 40 Mg Tab) 40 mg PO QPM TRINA Stop: 05/27/22 21:13 Last Admin: 04/28/22 22:19 Dose: 40 mg Documented by: Carvedilol (Carvedilol 6.25 Mg Tab) 6.25 mg PO BID TRINA Stop: 05/27/22 21:13 Last Admin: 04/29/22 07:45 Dose: 6.25 mg Documented by: Dextrose (Dextrose 50% 50 Ml Syringe) 25 - 50 ml IV UD PRN; Protocol PRN Reason: Hypoglycemia Protocol Stop: 05/27/22 21:13 Fluticasone/Vilanterol (Fluticasone/Vilanterol 100/25mcg 14 Puffs/Inhaler) 1 puffs INH DAILY TRINA Stop: 05/28/22 08:59 Last Admin: 04/29/22 07:45 Dose: 1 puffs Documented by: Gabapentin (Gabapentin 100 Mg Cap) 100 mg PO TID TRINA Stop: 05/27/22 21:13 Last Admin: 04/29/22 14:20 Dose: 100 mg Documented by: Gemfibrozil (Gemfibrozil 600 Mg Tab) 600 mg PO BID TRINA Stop: 05/27/22 21:13 Last Admin: 04/29/22 07:46 Dose: 600 mg Documented by: Glucagon (Glucagon For Inj 1 Mg Vial) 1 mg SQ UD PRN; Protocol PRN Reason: Hypoglycemia Protocol Stop: 05/27/22 21:13 Glucose (Glucose 10 Tabs/Tube) 4 - 8 tabs PO UD PRN; Protocol PRN Reason: Hypoglycemia Protocol Stop: 05/27/22 21:13 Glucose (Glucose 40% Gel 15 Gm Tube) 15 - 30 gm PO UD PRN; Protocol PRN Reason: Hypoglycemia Protocol Stop: 05/27/22 21:13 Insulin Aspart (Insulin Aspart Per Unit) 0 units SC ACHS TRINA Stop: 05/27/22 21:29 Last Admin: 04/29/22 16:48 Dose: 5 units Documented by: Levothyroxine Sodium (Levothyroxine Sodium 150 Mcg Tablet) 150 mcg PO DAILYBB [facility] Stop: 05/28/22 06:29 Last Admin: 04/29/22 07:45 Dose: 150 mcg Documented by: Miscellaneous (Carbohydrates For Hypoglycemia ) 15 - 30 gm PO UD PRN PRN Reason: Hypoglycemia Protocol Stop: 05/27/22 21:13 Miscellaneous Information (Pharmacy Glycemic Mgmt Consult) 1 ea N/A UD PRN PRN Reason: Consult Stop: 05/28/22 15:55 Ondansetron HCl (Ondansetron Inj 2 Mg/Ml 2 Ml Vial) 4 mg IV Q6H PRN PRN Reason: Nausea Stop: 05/27/22 21:13 Pantoprazole Sodium (Pantoprazole 40 Mg Tab) 40 mg PO DAILY [facility] Stop: 05/28/22 08:59 Last Admin: 04/29/22 07:46 Dose: 40 mg Documented by: Tramadol HCl (Tramadol Hcl 50 Mg Tablet) 50 mg PO Q8H PRN PRN Reason: Pain (Scale Score 5-10) Stop: 05/27/22 21:13 Last Admin: 04/29/22 05:57 Dose: 50 mg Documented by: (1) CKD (chronic kidney disease) stage 3, GFR 30-59 ml/min Chronic kidney disease stage 3 subtype: unspecified whether 3a or 3b Qualified Code(s): N18.30 - Chronic kidney disease, stage 3 unspecified
[2022-04-29] MEDS ORDERED: POTASSIUM CHLORIDE CRTAB 20 MEQ TABCR PO STA (18:58)
--- NOTE | 2022-04-29 19:02 | Electrocardiogram Report ---
Test Reason : Blood Pressure : / mmHG Vent. Rate : 113 BPM Atrial Rate : 113 BPM P-R Int : 160 ms QRS Dur : 084 ms QT Int : 336 ms P-R-T Axes : 061 048 080 degrees QTc Int : 460 ms Poor data quality, interpretation may be adversely affected Sinus tachycardia Low voltage QRS When compared with ECG of 13-MAR-2022 05:27, Premature ventricular complexes are no longer Present Confirmed by Cresencio Johnson ([id number]) on 04/29/2022 7:02:00 PM Referred By: [facility] Confirmed By:Cresencio Johnson
[2022-04-29] MEDS ORDERED: MAGNESIUM SULFATE / D5W 1 GM/100 ML BAG IV ONE (19:15)
[2022-04-29] MEDS: ATORVASTATIN 40 MG TAB PO SCH (20:11)
[2022-04-30] MEDS: LEVOTHYROXINE SODIUM 150 MCG TABLET PO SCH (06:04)
[2022-04-30 07:38] LABS: Hematocrit (blood only) 25.2 % (37-47); Mean Corpuscular Hemoglobin 28.7 pg (25-34); Mean Corpuscular Hgb Conc 31.7 g/dL (32-36); Mean Corpuscular Volume 90.3 fL (80-100); Mean Platelet Volume 11.3 fL (7.4-10.4); Nucleated RBC # (auto) 0.05 K/uL (0-0); Nucleated RBC % (auto) 0.8 %; Platelet Count 181 K/uL (130-400); Red Blood Count 2.79 M/uL (4.2-5.4); White Blood Count 5.82 K/uL (4.8-10.8)
[2022-04-30 07:58] LABS: BUN Creatinine Ratio 24.6 (10-20); Calcium 7.6 mg/dl (8.5-10.1); Creatinine Clr Calc Pharmacy 52.7 ml/min; Est GFR (African American) 44.5 ml/min; Est GFR (Non-African American) 38.4 ml/min; Magnesium 1.9 mg/dl (1.7-2.4); Potassium 3.6 mmol/L (3.5-5.1)
[2022-04-30] MEDS: GABAPENTIN 100 MG CAP PO SCH ×3 (08:31→20:02)
[2022-04-30] MEDS: carvediloL 6.25 MG TAB PO SCH ×2 (08:31→20:02)
[2022-04-30] MEDS: PANTOprazole 40 MG TAB PO SCH (08:31)
[2022-04-30] MEDS: gemfibroziL 600 MG TAB PO SCH ×2 (08:31→20:02)
[2022-04-30] MEDS: FLUTICASONE/VILANTEROL 100/25MCG 14 PUFFS/INHALER INH SCH (08:31)
[2022-04-30] MEDS: allopurinoL 300 MG TAB PO SCH (08:31)
[2022-04-30] MEDS: INSULIN ASPART PER UNIT SC SCH ×4 (08:33→20:38)
--- NOTE | 2022-04-30 08:54 | Pharmacy Report ---
Pharmacy Glycemic Short Note 2 - Date of Service April 30, 2022 - Glycemic Short BSG Results (Last 24 hours): 04/29/22 04/29/22 04/29/22 08:12 11:27 16:27 Glucose 135 H POC Glucose 126 H 204 H 04/29/22 04/29/22 04/30/22 16:29 20:37 07:03 Glucose POC Glucose 183 H 154 H 156 H 04/30/22 07:21 Glucose 152 H POC Glucose OUTPATIENT ANTIDIABETIC REGIMEN: * Lantus 35 units daily, glipizide 5 mg daily * A1c ~11% 02/2022 ASSESSMENT: * 67 year old female admitted with GI bleed, colonoscopy yesterday performed. Type 2 diabetic with elevated A1c * Patient received total of 17 units of insulin yesterday, of which 10 units were basal (reduced for NPO status) * Fasting BSG 156 mg/dL - diet now ordered, plan to titrate up basal to 15 units this morning PLAN FOR INPATIENT GLYCEMIC CONTROL: * Hold outpatient oral diabetes medications * Basal insulin * Lantus 15 units daily * Bolus insulin * NovoLog per scale ACHS or Q6hrs while NPO * Goal Range: Low 110 mg/dL - High 140 mg/dL * Correction Factor: 30 mg/dL/unit * Nutritional / Prandial insulin per carb ratio of 1 unit per 10 grams CHO consumed
[2022-04-30] MEDS ORDERED: INSULIN GLARGINE SOLOSTAR 100 UNITS/ML 3 ML PEN SC SCH (09:00)
--- NOTE | 2022-04-30 09:29 | Hospitalist Progress Note ---
Date of Service April 30, 2022 Assessment & Plan (1) Acute GI bleeding: (2) Acute blood loss anemia: (3) COPD (chronic obstructive pulmonary disease): (4) Diabetes mellitus: (5) CINTHIA (obstructive sleep apnea): (6) Smoker: (7) CKD (chronic kidney disease) stage 3, GFR 30-59 ml/min: (8) Aortic stenosis: (9) Hypothyroid: (10) DVT prophylaxis: (11) Post-operative state: Plan: Ms Lorraine North is a 67 year old female who has a history of CINTHIA on BIPAP, CKD stage 3, moderate aortic stenosis, hypothyroidism, insulin dependent diabetes who has been at [facility] since 03[facility]22 after a hip surgery presented to the ER 04/27 for several episodes of bright red blood per rectum. 1. Acute blood loss anemia Lower GI bleed, likely diverticular -Hb 10.5 (04/22/2022)--> 8.5 (04/27, day of admission)--> 6.4 (04/28), received 2 units pRBC--> 8.6 --> 7.5 (04/29), received 1 unit pRBC--> 8.4 04/29 AM -Colonoscopy on 04/29 showed diverticulosis, internal and external hemorrhoids, multiple polyps which were removed. No active bleeding was noted Hgb 8.0 this AM (04/30) Resume ASA and monitor for any bleed 2. Recent hip surgery -from [facility], return there when medically stable 3. CINTHIA -continue BIPAP 4. CKD stage 3 -Cr remains at baseline 5. Moderate aortic stenosis -appears euvolemic, careful with fluids or diuresis 6. Hypothyroidism -synthroid 7. IDDM -management by glycemic pharmacist 8. Hypokalemia Hypomagnesemia -from bowel prep -replete and monitor DVT ppx -SCDs Admission and Anticipated Discharge Date Admission Date: April 27, 2022 Subjective Patient seen in follow-up of GI bleed, anemia, had colonoscopy yesterday, 04/30 Received 3 units total of packed RBCs Reports small brown stool Currently she is lying in bed, in no acute distress Denies any blood in her stool Overall reports feeling well, no fevers, chills, chest pain, shortness of breath, abdominal pain Discussed with GI, will resume aspirin, monitor for any bleed Review of Systems Review of Systems: All systems reviewed & are unremarkable except as noted in Subjective Physical Exam Physical Exam: Physical Exam: Pleasant, comforta ble, no acute dist ress Respiratory: breathing comforta ligia on room air, n o wheezing/rhonchi /rales Cardiovascular:I regular rate and r hythm, no murmurs/ rubs/gallops Gastrointestinal ( Abdomen): +BS, soft, non te nder Musculoskeletal: No edema Neurologic: Awake, alert, spon taneously moving e xtremities Results & Data Results & Data ([facility]) Vital Signs (Past 12 Hours) Vital Signs Temp Pulse Pulse Resp BP BP Pulse Ox 04/30/22 07:37 36.6 C 93 H 17 135/79 92 04/30/22 04:04 36.6 C 96 H 18 111/65 97 04/30/22 03:05 90 27 H 95 04/29/22 23:21 36.5 C 98 H 18 102/56 L 99 04/29/22 22:30 85 Laboratory Results 04/30/22 04/30/22 04/30/22 Range/Units 07:21 07:21 07:03 WBC 5.82 (4.8-10.8) K/uL RBC 2.79 L (4.2-5.4) M/uL Hgb 8.0 L (12.0-16.0) g/dL Hct 25.2 L (37-47) % MCV 90.3 (80-100) fL MCH 28.7 (25-34) pg MCHC 31.7 L (32-36) g/dL RDW Std Deviation 60.0 H (36.4-46.3) fL RDW Coeff of Prakash 19.0 H (11.5-14.5) % Plt Count 181 (130-400) K/uL MPV 11.3 H (7.4-10.4) fL Absolute Nucleated RBC 0.05 H (0-0) K/uL Nucleated RBC % (auto) 0.8 % Sodium 144 (136-145) mmol/L Potassium 3.6 (3.5-5.1) mmol/L Chloride 108 H (98-107) mmol/L Carbon Dioxide 29 (21-32) mmol/L Anion Gap 7 (3-11) BUN 35 H (6-23) mg/dl Creatinine 1.42 H (0.6-1.2) mg/dl Est Cr Clr Drug Dosing 52.7 ml/min Est GFR ( Amer) 44.5 ml/min Est GFR (Non-Af Amer) 38.4 ml/min BUN/Creatinine Ratio 24.6 H (10-20) Glucose 152 H (70-99(Fasting)) mg/dl POC Glucose 156 H (70-99) mg/dl Calcium 7.6 L (8.5-10.1) mg/dl Magnesium 1.9 (1.7-2.4) mg/dl 04/29/22 04/29/22 04/29/22 Range/Units 20:37 16:29 16:27 WBC (4.8-10.8) K/uL RBC (4.2-5.4) M/uL Hgb (12.0-16.0) g/dL Hct (37-47) % MCV (80-100) fL MCH (25-34) pg MCHC (32-36) g/dL RDW Std Deviation (36.4-46.3) fL RDW Coeff of Prakash (11.5-14.5) % Plt Count (130-400) K/uL MPV (7.4-10.4) fL Absolute Nucleated RBC (0-0) K/uL Nucleated RBC % (auto) % Sodium (136-145) mmol/L Potassium (3.5-5.1) mmol/L Chloride (98-107) mmol/L Carbon Dioxide (21-32) mmol/L Anion Gap (3-11) BUN (6-23) mg/dl Creatinine (0.6-1.2) mg/dl Est Cr Clr Drug Dosing ml/min Est GFR ( Amer) ml/min Est GFR (Non-Af Amer) ml/min BUN/Creatinine Ratio (10-20) Glucose (70-99(Fasting)) mg/dl POC Glucose 154 H 183 H 204 H (70-99) mg/dl Calcium (8.5-10.1) mg/dl Magnesium (1.7-2.4) mg/dl 04/29/22 04/29/22 Range/Units 11:27 11:06 WBC (4.8-10.8) K/uL RBC (4.2-5.4) M/uL Hgb (12.0-16.0) g/dL Hct (37-47) % MCV (80-100) fL MCH (25-34) pg MCHC (32-36) g/dL RDW Std Deviation (36.4-46.3) fL RDW Coeff of Prakash (11.5-14.5) % Plt Count (130-400) K/uL MPV (7.4-10.4) fL Absolute Nucleated RBC (0-0) K/uL Nucleated RBC % (auto) % Sodium (136-145) mmol/L Potassium 3.4 L (3.5-5.1) mmol/L Chloride (98-107) mmol/L Carbon Dioxide (21-32) mmol/L Anion Gap (3-11) BUN (6-23) mg/dl Creatinine (0.6-1.2) mg/dl Est Cr Clr Drug Dosing ml/min Est GFR ( Amer) ml/min Est GFR (Non-Af Amer) ml/min BUN/Creatinine Ratio (10-20) Glucose (70-99(Fasting)) mg/dl POC Glucose 126 H (70-99) mg/dl Calcium (8.5-10.1) mg/dl Magnesium (1.7-2.4) mg/dl Medications Administered Current Inpatient Medications Acetaminophen (Acetaminophen 325 Mg Tab) 650 mg PO Q4H PRN PRN Reason: Pain or Fever Stop: 05/27/22 21:13 Albuterol (Albuterol Hfa 8 Gm Inhaler) 2 puffs INH Q6H PRN PRN Reason: Shortness Of Breath Or Wheezing Stop: 05/27/22 21:29 Albuterol (Albut/Ipratrop 3mg/0.5mg Neb 3 Ml Vial) 3 ml INH Q6H PRN; Protocol PRN Reason: Shortness Of Breath Or Wheezing Stop: 05/27/22 21:13 Allopurinol (Allopurinol 300 Mg Tab) 300 mg PO DAILY TRINA Stop: 05/28/22 08:59 Last Admin: 04/30/22 08:31 Dose: 300 mg Documented by: Atorvastatin Calcium (Atorvastatin 40 Mg Tab) 40 mg PO QPM TRINA Stop: 05/27/22 21:13 Last Admin: 04/29/22 20:11 Dose: 40 mg Documented by: Carvedilol (Carvedilol 6.25 Mg Tab) 6.25 mg PO BID TRINA Stop: 05/27/22 21:13 Last Admin: 04/30/22 08:31 Dose: 6.25 mg Documented by: Dextrose (Dextrose 50% 50 Ml Syringe) 25 - 50 ml IV UD PRN; Protocol PRN Reason: Hypoglycemia Protocol Stop: 05/27/22 21:13 Fluticasone/Vilanterol (Fluticasone/Vilanterol 100/25mcg 14 Puffs/Inhaler) 1 puffs INH DAILY TRINA Stop: 05/28/22 08:59 Last Admin: 04/30/22 08:31 Dose: 1 puffs Documented by: Gabapentin (Gabapentin 100 Mg Cap) 100 mg PO TID TRINA Stop: 05/27/22 21:13 Last Admin: 04/30/22 08:31 Dose: 100 mg Documented by: Gemfibrozil (Gemfibrozil 600 Mg Tab) 600 mg PO BID TRINA Stop: 05/27/22 21:13 Last Admin: 04/30/22 08:31 Dose: 600 mg Documented by: Glucagon (Glucagon For Inj 1 Mg Vial) 1 mg SQ UD PRN; Protocol PRN Reason: Hypoglycemia Protocol Stop: 05/27/22 21:13 Glucose (Glucose 10 Tabs/Tube) 4 - 8 tabs PO UD PRN; Protocol PRN Reason: Hypoglycemia Protocol Stop: 05/27/22 21:13 Glucose (Glucose 40% Gel 15 Gm Tube) 15 - 30 gm PO UD PRN; Protocol PRN Reason: Hypoglycemia Protocol Stop: 05/27/22 21:13 Insulin Aspart (Insulin Aspart Per Unit) 0 units SC ACHS TRINA Stop: 05/27/22 21:29 Last Admin: 04/30/22 08:33 Dose: 4 units Documented by: Insulin Glargine (Insulin Glargine Solostar 100 Units/Ml 3 Ml Pen) 15 units SC QAM [facility] Stop: 05/30/22 08:59 Last Admin: 04/30/22 08:34 Dose: 15 units Documented by: Levothyroxine Sodium (Levothyroxine Sodium 150 Mcg Tablet) 150 mcg PO DAILYBB [facility] Stop: 05/28/22 06:29 Last Admin: 04/30/22 06:04 Dose: 150 mcg Documented by: Miscellaneous (Carbohydrates For Hypoglycemia ) 15 - 30 gm PO UD PRN PRN Reason: Hypoglycemia Protocol Stop: 05/27/22 21:13 Miscellaneous Information (Pharmacy Glycemic Mgmt Consult) 1 ea N/A UD PRN PRN Reason: Consult Stop: 05/28/22 15:55 Ondansetron HCl (Ondansetron Inj 2 Mg/Ml 2 Ml Vial) 4 mg IV Q6H PRN PRN Reason: Nausea Stop: 05/27/22 21:13 Pantoprazole Sodium (Pantoprazole 40 Mg Tab) 40 mg PO DAILY TRINA Stop: 05/28/22 08:59 Last Admin: 04/30/22 08:31 Dose: 40 mg Documented by: Tramadol HCl (Tramadol Hcl 50 Mg Tablet) 50 mg PO Q8H PRN PRN Reason: Pain (Scale Score 5-10) Stop: 05/27/22 21:13 Last Admin: 04/29/22 20:13 Dose: 50 mg Documented by: (1) CKD (chronic kidney disease) stage 3, GFR 30-59 ml/min Chronic kidney disease stage 3 subtype: unspecified whether 3a or 3b Qualified Code(s): N18.30 - Chronic kidney disease, stage 3 unspecified
[2022-04-30] MEDS ORDERED: POTASSIUM CHLORIDE CRTAB 20 MEQ TABCR PO STA (09:39)
--- NOTE | 2022-04-30 11:09 | Gastroenterology Progress Note ---
Date of Service April 30, 2022 Assessment & Plan (1) Acute GI bleeding: (2) Acute blood loss anemia: Plan: 67-year-old female with the above multiple comorbidities, recent hip surgery, had been on Lovenox but not for several weeks, presented with painless hematochezia, drop in H&H, that improved with PRBC transfusion x2. Colonoscopy done 04/29/2022 as above, had polyps, diverticulosis and hemorrhoids. Bleeding has not recurred, H&H is stable. On exam today, soft abd. Tolerating regular diet. - Continue diet as tolerated Monitor for any recurrent symptoms Repeat colonoscopy in 3 years Otherwise GI will sign off, please call with questions or concerns Thank you for allowing us to participate in the care of this patient. Please call with any acute changes, questions or concerns. Please see addendum below with additional recommendation from my supervising physician. Admission and Anticipated Discharge Date Admission Date: April 27, 2022 Supervising Physician Co-Signing Physician Notes Attg add: I interviewed and examined pt, reviewed chart and labs. Ok for d/c if no recurrent bleeding for 48 hours. Please recall us if needed. Subjective Patient seen and examined, chart reviewed. No acute events overnight. Patient tolerating a regular breakfast. No GI bleeding, no melena hematochezia or hematemesis. No abdominal pain, fevers chills chest pain shortness of breath. She is sitting in bedside chair. Hemoglobin is stable. Physical Exam Constitutional: WD/WN, vitals as above Eyes: PERRL, conjunctivae normal, anicteric sclerae Respiratory: normal respiratory effort, lungs clear to auscultation Cardiovascular: Rate/Rhythm: regular rate and regular rhythm Gastrointestinal (Abdomen): normal bowel sounds, soft, nontender, no hepatosplenomegaly Skin: no rashes, warm and dry Psychiatric: A+Ox3, euthymic affect Results & Data ([facility]) Vital Signs (Past 12 Hours) Vital Signs Temp Pulse Pulse Resp BP BP Pulse Ox 04/30/22 07:37 36.6 C 93 H 17 135/79 92 04/30/22 04:04 36.6 C 96 H 18 111/65 97 04/30/22 03:05 90 27 H 95 04/29/22 23:21 36.5 C 98 H 18 102/56 L 99 Laboratory Results 04/30/22 04/30/2204/30/22 Range/Units 07:21 07:21 07:03 WBC 5.82 (4.8-10.8) K/uL RBC 2.79 L (4.2-5.4) M/uL Hgb 8.0 L (12.0-16.0) g/dL Hct 25.2 L (37-47) % MCV 90.3 (80-100) fL MCH 28.7 (25-34) pg MCHC 31.7 L (32-36) g/dL RDW Std Deviation 60.0 H (36.4-46.3) fL RDW Coeff of Prakash 19.0 H (11.5-14.5) % Plt Count 181 (130-400) K/uL MPV 11.3 H (7.4-10.4) fL Absolute Nucleated RBC 0.05 H (0-0) K/uL Nucleated RBC % (auto) 0.8 % Sodium 144 (136-145) mmol/L Potassium 3.6 (3.5-5.1) mmol/L Chloride 108 H (98-107) mmol/L Carbon Dioxide 29 (21-32) mmol/L Anion Gap 7 (3-11) BUN 35 H (6-23) mg/dl Creatinine 1.42 H (0.6-1.2) mg/dl Est Cr Clr Drug Dosing 52.7 ml/min Est GFR ( Amer) 44.5 ml/min Est GFR (Non-Af Amer) 38.4 ml/min BUN/Creatinine Ratio 24.6 H (10-20) Glucose 152 H (70-99(Fasting)) mg/dl POC Glucose 156 H (70-99) mg/dl Calcium 7.6 L (8.5-10.1) mg/dl Magnesium 1.9 (1.7-2.4) mg/dl 04/29/22 04/29/22 04/29/22 Range/Units 20:37 16:29 16:27 WBC (4.8-10.8) K/uL RBC (4.2-5.4) M/uL Hgb (12.0-16.0) g/dL Hct (37-47) % MCV (80-100) fL MCH (25-34) pg MCHC (32-36) g/dL RDW Std Deviation (36.4-46.3) fL RDW Coeff of Prakash (11.5-14.5) % Plt Count (130-400) K/uL MPV (7.4-10.4) fL Absolute Nucleated RBC (0-0) K/uL Nucleated RBC % (auto) % Sodium (136-145) mmol/L Potassium (3.5-5.1) mmol/L Chloride (98-107) mmol/L Carbon Dioxide (21-32) mmol/L Anion Gap (3-11) BUN (6-23) mg/dl Creatinine (0.6-1.2) mg/dl Est Cr Clr Drug Dosing ml/min Est GFR ( Amer) ml/min Est GFR (Non-Af Amer) ml/min BUN/Creatinine Ratio (10-20) Glucose (70-99(Fasting)) mg/dl POC Glucose 154 H 183 H 204 H (70-99) mg/dl Calcium (8.5-10.1) mg/dl Magnesium (1.7-2.4) mg/dl 04/29/22 04/29/22 Range/Units 11:27 11:06 WBC (4.8-10.8) K/uL RBC (4.2-5.4) M/uL Hgb (12.0-16.0) g/dL Hct (37-47) % MCV (80-100) fL MCH (25-34) pg MCHC (32-36) g/dL RDW Std Deviation (36.4-46.3) fL RDW Coeff of Prakash (11.5-14.5) % Plt Count (130-400) K/uL MPV (7.4-10.4) fL Absolute Nucleated RBC (0-0) K/uL Nucleated RBC % (auto) % Sodium (136-145) mmol/L Potassium 3.4 L (3.5-5.1) mmol/L Chloride (98-107) mmol/L Carbon Dioxide (21-32) mmol/L Anion Gap (3-11) BUN (6-23) mg/dl Creatinine (0.6-1.2) mg/dl Est Cr Clr Drug Dosing ml/min Est GFR ( Amer) ml/min Est GFR (Non-Af Amer) ml/min BUN/Creatinine Ratio (10-20) Glucose (70-99(Fasting)) mg/dl POC Glucose 126 H (70-99) mg/dl Calcium (8.5-10.1) mg/dl Magnesium (1.7-2.4) mg/dl Diagnostic Findings Colonoscopy 04/29/2022: Impression: - Three 5 to 8 mm polyps in the ascending colon, removed with a hot snare. Resected and retrieved. - Diverticulosis in the entire examined colon. - External and internal hemorrhoids. Recommendation: - Await pathology results. - Repeat colonoscopy in 3 years for surveillance. - Return to primary care physician as previously scheduled. - Return patient to hospital [facility] for ongoing care. - Advance diet as tolerated.
[2022-04-30] MEDS: ASPIRIN 81 MG ECTAB PO SCH (13:50)
[2022-04-30] MEDS: traMADol HCL 50 MG TABLET PO PRN ×2 (14:31→22:50)
[2022-04-30] MEDS: ATORVASTATIN 40 MG TAB PO SCH (20:02)
[2022-05-01] MEDS: LEVOTHYROXINE SODIUM 150 MCG TABLET PO SCH (06:01)
[2022-05-01 07:14] LABS: Hematocrit (blood only) 22.5 % (37-47)
--- NOTE | 2022-05-01 07:32 | Hospitalist Progress Note ---
Date of Service May 01, 2022 Assessment & Plan (1) Acute GI bleeding: (2) Acute blood loss anemia: (3) COPD (chronic obstructive pulmonary disease): (4) Diabetes mellitus: (5) CINTHIA (obstructive sleep apnea): (6) Smoker: (7) CKD (chronic kidney disease) stage 3, GFR 30-59 ml/min: (8) Aortic stenosis: (9) Hypothyroid: (10) DVT prophylaxis: (11) Post-operative state: Plan: Ms Lorraine North is a 67 year old female who has a history of CINTHIA on BIPAP, CKD stage 3, moderate aortic stenosis, hypothyroidism, insulin dependent diabetes who has been at [facility] since 03/17[facility]22 after a hip surgery presented to the ER 04/27 for several episodes of bright red blood per rectum. 1. Acute blood loss anemia Lower GI bleed, likely diverticular -Hb 10.5 (04/22/2022)--> 8.5 (04/27, day of admission)--> 6.4 (04/28), received 2 units pRBC--> 8.6 --> 7.5 (04/29), received 1 unit pRBC--> 8.4 04/29 AM -Colonoscopy on 04/29 showed diverticulosis, internal and external hemorrhoids, multiple polyps which were removed. No active bleeding was noted Hgb 8.0 on (04/30) Resumed ASA -Hemoglobin 7.0, May 01 -Aspirin held today, monitor for any bleed 2. Recent hip surgery -from [facility], return there when medically stable -Patient was supposed to follow-up with orthopedic surgeon, Dr. Harris tomorrow -will be seen here while inpt -X-rays ordered by orthopedics 3. CINTHIA -continue BIPAP 4. CKD stage 3 -Cr remains at baseline 5. Moderate aortic stenosis -appears euvolemic, careful with fluids or diuresis 6. Hypothyroidism -synthroid 7. IDDM -management by glycemic pharmacist 8. Hypokalemia Hypomagnesemia -from bowel prep -replete and monitor DVT ppx -SCDs Admission and Anticipated Discharge Date Admission Date: April 27, 2022 Subjective Patient seen in follow-up of GI bleed, anemia, had colonoscopy on 04/29 Received 3 units total of packed RBCs Reports small brown stool Currently she is lying in bed, in no acute distress Denies any blood in her stool Overall reports feeling well, no fevers, chills, chest pain, shortness of breat h, abdominal pain Discussed with GI, resumed aspirin Hemoglobin today 7.0, 1 unit of PRBC ordered Review of Systems Review of Systems: All systems reviewed & are unremarkable except as noted in Subjective Physical Exam Physical Exam: Physical Exam: Pleasant, comforta ble, no acute dist ress Respiratory: breathing comforta ligia on room air, n o wheezing/rhonchi /rales Cardiovascular:I regular rate and r hythm, no murmurs/ rubs/gallops Gastrointestinal ( Abdomen): +BS, soft, non te nder Musculoskeletal: No edema Neurologic: Awake, alert, spon taneously moving e xtremities Results & Data Results & Data ([facility]) Vital Signs (Past 12 Hours) Vital Signs Temp Pulse Pulse Resp BP BP Pulse Ox 05/01/22 03:39 95 H 20 96 05/01/22 02:46 36.7 C 102 H 20 136/59 L 95 04/30/22 23:48 98 H 04/30/22 22:46 96 H 23 98 04/30/22 22:45 36.7 C 98 H 20 128/72 100 04/30/22 21:00 Pulse Ox 05/01/22 03:39 05/01/22 02:46 04/30/22 23:48 04/30/22 22:46 04/30/22 22:45 04/30/22 21:00 93 Laboratory Results 05/01/22 05/01/22 04/30/22 Range/Units 07:18 06:32 20:09 WBC (4.8-10.8) K/uL RBC (4.2-5.4) M/uL Hgb 7.0 L (12.0-16.0) g/dL Hct 22.5 L (37-47) % MCV (80-100) fL MCH (25-34) pg MCHC (32-36) g/dL RDW Std Deviation (36.4-46.3) fL RDW Coeff of Prakash (11.5-14.5) % Plt Count (130-400) K/uL MPV (7.4-10.4) fL Absolute Nucleated RBC (0-0) K/uL Nucleated RBC % (auto) % Sodium (136-145) mmol/L Potassium (3.5-5.1) mmol/L Chloride (98-107) mmol/L Carbon Dioxide (21-32) mmol/L Anion Gap (3-11) BUN (6-23) mg/dl Creatinine (0.6-1.2) mg/dl Est Cr Clr Drug Dosing ml/min Est GFR ( Amer) ml/min Est GFR (Non-Af Amer) ml/min BUN/Creatinine Ratio (10-20) Glucose (70-99(Fasting)) mg/dl POC Glucose 157 H 195 H (70-99) mg/dl Calcium (8.5-10.1) mg/dl Magnesium (1.7-2.4) mg/dl 04/30/22 04/30/22 04/30/22 Range/Units 15:53 11:24 07:21 WBC (4.8-10.8) K/uL RBC (4.2-5.4) M/uL Hgb (12.0-16.0) g/dL Hct (37-47) % MCV (80-100) fL MCH (25-34) pg MCHC (32-36) g/dL RDW Std Deviation (36.4-46.3) fL RDW Coeff of Prakash (11.5-14.5) % Plt Count (130-400) K/uL MPV (7.4-10.4) fL Absolute Nucleated RBC (0-0) K/uL Nucleated RBC % (auto) % Sodium 144 (136-145) mmol/L Potassium 3.6 (3.5-5.1) mmol/L Chloride 108 H (98-107) mmol/L Carbon Dioxide 29 (21-32) mmol/L Anion Gap 7 (3-11) BUN 35 H (6-23) mg/dl Creatinine 1.42 H (0.6-1.2) mg/dl Est Cr Clr Drug Dosing 52.7 ml/min Est GFR ( Amer) 44.5 ml/min Est GFR (Non-Af Amer) 38.4 ml/min BUN/Creatinine Ratio 24.6 H (10-20) Glucose 152 H (70-99(Fasting)) mg/dl POC Glucose 144 H 155 H (70-99) mg/dl Calcium 7.6 L (8.5-10.1) mg/dl Magnesium 1.9 (1.7-2.4) mg/dl 04/30/22 Range/Units 07:21 WBC 5.82 (4.8-10.8) K/uL RBC 2.79 L (4.2-5.4) M/uL Hgb 8.0 L (12.0-16.0) g/dL Hct 25.2 L (37-47) % MCV 90.3 (80-100) fL MCH 28.7 (25-34) pg MCHC 31.7 L (32-36) g/dL RDW Std Deviation 60.0 H (36.4-46.3) fL RDW Coeff of Prakash 19.0 H (11.5-14.5) % Plt Count 181 (130-400) K/uL MPV 11.3 H (7.4-10.4) fL Absolute Nucleated RBC 0.05 H (0-0) K/uL Nucleated RBC % (auto) 0.8 % Sodium (136-145) mmol/L Potassium (3.5-5.1) mmol/L Chloride (98-107) mmol/L Carbon Dioxide (21-32) mmol/L Anion Gap (3-11) BUN (6-23) mg/dl Creatinine (0.6-1.2) mg/dl Est Cr Clr Drug Dosing ml/min Est GFR ( Amer) ml/min Est GFR (Non-Af Amer) ml/min BUN/Creatinine Ratio (10-20) Glucose (70-99(Fasting)) mg/dl POC Glucose (70-99) mg/dl Calcium (8.5-10.1) mg/dl Magnesium (1.7-2.4) mg/dl Medications Administered Current Inpatient Medications Acetaminophen (Acetaminophen 325 Mg Tab) 650 mg PO Q4H PRN PRN Reason: Pain or Fever Stop: 05/27/22 21:13 Albuterol (Albuterol Hfa 8 Gm Inhaler) 2 puffs INH Q6H PRN PRN Reason: Shortness Of Breath Or Wheezing Stop: 05/27/22 21:29 Albuterol (Albut/Ipratrop 3mg/0.5mg Neb 3 Ml Vial) 3 ml INH Q6H PRN; Protocol PRN Reason: Shortness Of Breath Or Wheezing Stop: 05/27/22 21:13 Allopurinol (Allopurinol 300 Mg Tab) 300 mg PO DAILY TRINA Stop: 05/28/22 08:59 Last Admin: 04/30/22 08:31 Dose: 300 mg Documented by: Aspirin (Aspirin 81 Mg Ectab) 81 mg PO DAILY TRINA Stop: 05/30/22 12:59 Last Admin: 04/30/22 13:50 Dose: 81 mg Documented by: Atorvastatin Calcium (Atorvastatin 40 Mg Tab) 40 mg PO QPM TRINA Stop: 05/27/22 21:13 Last Admin: 04/30/22 20:02 Dose: 40 mg Documented by: Carvedilol (Carvedilol 6.25 Mg Tab) 6.25 mg PO BID TRINA Stop: 05/27/22 21:13 Last Admin: 04/30/22 20:02 Dose: 6.25 mg Documented by: Dextrose (Dextrose 50% 50 Ml Syringe) 25 - 50 ml IV UD PRN; Protocol PRN Reason: Hypoglycemia Protocol Stop: 05/27/22 21:13 Fluticasone/Vilanterol (Fluticasone/Vilanterol 100/25mcg 14 Puffs/Inhaler) 1 puffs INH DAILY TRINA Stop: 05/28/22 08:59 Last Admin: 04/30/22 08:31 Dose: 1 puffs Documented by: Gabapentin (Gabapentin 100 Mg Cap) 100 mg PO TID [facility] Stop: 05/27/22 21:13 Last Admin: 04/30/22 20:02 Dose: 100 mg Documented by: Gemfibrozil (Gemfibrozil 600 Mg Tab) 600 mg PO BID [facility] Stop: 05/27/22 21:13 Last Admin: 04/30/22 20:02 Dose: 600 mg Documented by: Glucagon (Glucagon For Inj 1 Mg Vial) 1 mg SQ UD PRN; Protocol PRN Reason: Hypoglycemia Protocol Stop: 05/27/22 21:13 Glucose (Glucose 10 Tabs/Tube) 4 - 8 tabs PO UD PRN; Protocol PRN Reason: Hypoglycemia Protocol Stop: 05/27/22 21:13 Glucose (Glucose 40% Gel 15 Gm Tube) 15 - 30 gm PO UD PRN; Protocol PRN Reason: Hypoglycemia Protocol Stop: 05/27/22 21:13 Insulin Aspart (Insulin Aspart Per Unit) 0 units SC ACHS [facility] Stop: 05/27/22 21:29 Last Admin: 04/30/22 20:38 Dose: 5 units Documented by: Insulin Glargine (Insulin Glargine Solostar 100 Units/Ml 3 Ml Pen) 15 units SC QAM [facility] Stop: 05/30/22 08:59 Last Admin: 04/30/22 08:34 Dose: 15 units Documented by: Levothyroxine Sodium (Levothyroxine Sodium 150 Mcg Tablet) 150 mcg PO DAILYBB [facility] Stop: 05/28/22 06:29 Last Admin: 05/01/22 06:01 Dose: 150 mcg Documented by: Miscellaneous (Carbohydrates For Hypoglycemia ) 15 - 30 gm PO UD PRN PRN Reason: Hypoglycemia Protocol Stop: 05/27/22 21:13 Miscellaneous Information (Pharmacy Glycemic Mgmt Consult) 1 ea N/A UD PRN PRN Reason: Consult Stop: 05/28/22 15:55 Ondansetron HCl (Ondansetron Inj 2 Mg/Ml 2 Ml Vial) 4 mg IV Q6H PRN PRN Reason: Nausea Stop: 05/27/22 21:13 Pantoprazole Sodium (Pantoprazole 40 Mg Tab) 40 mg PO DAILY [facility] Stop: 05/28/22 08:59 Last Admin: 04/30/22 08:31 Dose: 40 mg Documented by: Tramadol HCl (Tramadol Hcl 50 Mg Tablet) 50 mg PO Q8H PRN PRN Reason: Pain (Scale Score 5-10) Stop: 05/27/22 21:13 Last Admin: 04/30/22 22:50 Dose: 50 mg Documented by: (1) CKD (chronic kidney disease) stage 3, GFR 30-59 ml/min Chronic kidney disease stage 3 subtype: unspecified whether 3a or 3b Qualified Code(s): N18.30 - Chronic kidney disease, stage 3 unspecified
[2022-05-01] MEDS ORDERED: SODIUM CHLORIDE 0.9% 250 ML IV PRN (07:53)
[2022-05-01] MEDS: ASPIRIN 81 MG ECTAB PO SCH (08:06)
[2022-05-01] MEDS: GABAPENTIN 100 MG CAP PO SCH ×3 (08:13→21:04)
[2022-05-01] MEDS: PANTOprazole 40 MG TAB PO SCH (08:13)
[2022-05-01] MEDS: FLUTICASONE/VILANTEROL 100/25MCG 14 PUFFS/INHALER INH SCH (08:13)
[2022-05-01] MEDS: carvediloL 6.25 MG TAB PO SCH ×2 (08:13→21:05)
[2022-05-01] MEDS: gemfibroziL 600 MG TAB PO SCH ×2 (08:13→21:06)
[2022-05-01] MEDS: allopurinoL 300 MG TAB PO SCH (08:13)
[2022-05-01] MEDS: INSULIN GLARGINE SOLOSTAR 100 UNITS/ML 3 ML PEN SC SCH (08:14)
[2022-05-01] MEDS: INSULIN ASPART PER UNIT SC SCH ×4 (08:14→21:08)
--- NOTE | 2022-05-01 09:05 | Gastroenterology Progress Note ---
Date of Service May 01, 2022 Assessment & Plan (1) Acute GI bleeding: (2) Acute blood loss anemia: Plan: 67-year-old female with the above multiple comorbidities, recent hip surgery, had been on Lovenox but not for several weeks, presented with painless hematochezia, drop in H&H, that improved with PRBC transfusion x3. Colonoscopy 04/29/2022 showed polyps, diverticulosis and hemorrhoids. Bleeding has not recurred, ASA resumed. GI asked to re-evaluate as HGB this AM was 7. She has not had any further evidence of GI bleeding, denying melena or hematochezia. - No acute indication got endoscopic evaluation - Continue diet as tolerated - Transfusion per primary team - Can continue ASA - Repeat labs in the AM, no contraindication to discharge if medically stable - Check CBC in 1 week - Can have OP EGD Repeat colonoscopy in 3 years GI will sign off, please call with questions or concerns. Thank you for allowing us to participate in the care of this patient. Please call with any acute changes, questions or concerns. Please see addendum below with additional recommendation from my supervising physician. Admission and Anticipated Discharge Date Admission Date: April 27, 2022 Supervising Physician Co-Signing Physician Notes Attg add - pt denies further bleeding. Please call with questions. Subjective GI was asked to re-evaluate for drop in HGB She was admitted earlier this week with hematochezia, s/p colonoscopy with any active bleeding. She was transfused x 4 units and remained hemodynamically stable. Her ASA was resumed yesterday This AM, HGB returned at 7 fro 8 yesterday. Pt notes she is feeling great, wants to go home. Denies pain, nausea, vomiting. No report of black stools or bloody stools sine her colonoscopy. Review of Systems Review of Systems: All systems reviewed & are unremarkable except as noted in HPI & below Physical Exam Constitutional: WD/WN, vitals as above Neck: trachea midline Respiratory: normal respiratory effort, lungs clear to auscultation Cardiovascular: RRR, no murmur, no edema Gastrointestinal (Abdomen): normal bowel sounds, soft, nontender, no hepatosplenomegaly Skin: no rashes, warm and dry Results & Data ([facility]) Vital Signs (Past 12 Hours) Vital Signs Temp Pulse Pulse Resp BP BP Pulse Ox 05/01/22 08:09 36.8 C 95 H 18 112/70 92 05/01/22 03:39 95 H 20 96 05/01/22 02:46 36.7 C 102 H 20 136/59 L 95 04/30/22 23:48 98 H 04/30/22 22:46 96 H 23 98 04/30/22 22:45 36.7 C 98 H 20 128/72 100 04/30/22 21:00 Pulse Ox 05/01/22 08:09 05/01/22 03:39 05/01/22 02:46 04/30/22 23:48 04/30/22 22:46 04/30/22 22:45 04/30/22 21:00 93 Laboratory Results 05/01/22 05/01/22 05/01/22 Range/Units 08:21 07:18 06:32 Hgb 7.0 L (12.0-16.0) g/dL Hct 22.5 L (37-47) % POC Glucose 157 H (70-99) mg/dl Blood Type Pending Antibody Screen Pending Crossmatch See Detail 04/30/22 04/30/22 04/30/22 Range/Units 20:09 15:53 11:24 Hgb (12.0-16.0) g/dL Hct (37-47) % POC Glucose 195 H 144 H 155 H (70-99) mg/dl Blood Type Antibody Screen Crossmatch
[2022-05-01] MEDS ORDERED: FUROSEMIDE 20 MG TAB PO ONE (15:00)
--- NOTE | 2022-05-01 15:04 | XRay Report ---
RIGHT HIP 2 VIEWS CLINICAL HISTORY: Follow-up right hip fracture. FINDINGS: AP and frog-leg views of the right hip are compared to study dated 03/09/2022 and correlated with pelvic CT dated 04/27/2022. The skeletal structures are osteopenic. There is a subacute/healing i ntertrochanteric fracture of the right hip status post intertrochanteric and intramedullary nail fixa tion. Near-anatomic alignment is maintained. Fracture lucency persists. Mild to moderate arthritic ch kathryn and joint space narrowing is noted in the right hip joint. The visualized right hemipelvis appea rs intact. The overlying soft tissues are normal as imaged. IMPRESSION: Subacute/healing intertrochanteric fracture of the right proximal femur status post inter nal fixation. Electronically signed by: Jeffery Ruff M.D. 05/01/2022 3:03 PM
[2022-05-01 16:23] LABS: Hematocrit (blood only) 27.6 % (37-47); Hemoglobin 8.4 g/dL (12.0-16.0)
--- NOTE | 2022-05-01 17:57 | Orthopedic Progress Note ---
Date of Service May 01, 2022 Assessment & Plan (1) Hip fracture: Plan: Follow-up for right hip fracture. Healing intertrochanteric hip fracture. Allow progressive increase weightbearing over time to full weightbearing as tolerated with walker long as she does not have substantial pain she can increase weight as tolerated. Would recommending continue with a walker for another month. Recommend follow-up in orthopedic office as outpatient in a month for x-rays. Admission and Anticipated Discharge Date Admission Date: April 27, 2022 Subjective Doing well with toe-touch weightbearing with walker right hip Physical Exam Physical Exam: Right hip nonpainful incisions benign well-healed Results & Data ([facility]) Vital Signs (Past 12 Hours) Vital Signs Temp Pulse Pulse Resp BP BP Pulse Ox 05/01/22 16:00 36.8 C 87 18 120/75 95 05/01/22 14:28 37.0 C 89 18 123/75 93 05/01/22 13:55 36.9 C 90 18 114/69 93 05/01/22 12:55 36.9 C 92 H 18 119/76 93 05/01/22 11:55 37.2 C 92 H 18 134/80 91 05/01/22 11:25 37.2 C 85 18 107/69 92 05/01/22 11:10 37.2 C 86 18 117/71 93 05/01/22 10:50 36.8 C 91 H 18 106/53 L 97 05/01/22 08:09 36.8 C 95 H 18 112/70 92 Diagnostic Findings Intertrochanteric hip fracture with a trochanteric femoral nail mid length with good proximal healing with the spiral nail within the femoral head on AP and lateral views. (1) Hip fracture Encounter type: initial encounter Fracture type: closed Laterality: right Qualified Code(s): S72.001A - Fracture of unspecified part of neck of right femur, initial encounter for closed fracture
[2022-05-01] MEDS: traMADol HCL 50 MG TABLET PO PRN (21:03)
[2022-05-01] MEDS: ATORVASTATIN 40 MG TAB PO SCH (21:07)
[2022-05-02] MEDS: LEVOTHYROXINE SODIUM 150 MCG TABLET PO SCH (06:10)
[2022-05-02 07:18] LABS: Hematocrit (blood only) 27.3 % (37-47); Hemoglobin 8.3 g/dL (12.0-16.0)
--- NOTE | 2022-05-02 07:29 | Hospitalist Progress Note ---
Date of Service May 02, 2022 Assessment & Plan (1) Acute GI bleeding: (2) Acute blood loss anemia: (3) COPD (chronic obstructive pulmonary disease): (4) Diabetes mellitus: (5) CINTHIA (obstructive sleep apnea): (6) Smoker: (7) CKD (chronic kidney disease) stage 3, GFR 30-59 ml/min: (8) Aortic stenosis: (9) Hypothyroid: (10) DVT prophylaxis: (11) Post-operative state: Plan: Ms Lorraine North is a 67 year old female who has a history of CINTHIA on BIPAP, CKD stage 3, moderate aortic stenosis, hypothyroidism, insulin dependent diabetes who has been at [facility] since 03/17/22 after a hip surgery presented to the ER 04/27 for several episodes of bright red blood per rectum. 1. Acute blood loss anemia Lower GI bleed, likely diverticular -Hb 10.5 (04/22/2022)--> 8.5 (04/27, day of admission)--> 6.4 (04/28), received 2 units pRBC--> 8.6 --> 7.5 (04/29), received 1 unit pRBC--> 8.4 6/ AM -Colonoscopy on 04/29 showed diverticulosis, internal and external hemorrhoids, multiple polyps which were removed. No active bleeding was noted Hgb 8.0 on (04/30) Resumed ASA -next day Hemoglobin 7.0 (May 01) -Aspirin held yesterday (05/01) -No GI bleed noted for past 2 days, patient had brown stools -Per GI, aspirin can be resumed -Patient does not have a known history of CAD, would recommend to hold aspirin for next day or 2, discuss further with primary care doctor if/when aspirin should be resumed -Continue to monitor for any GI bleed at outside facility ([facility]) 2. Recent hip surgery (on 03/10) -from [facility], return there when medically stable -Patient supposed to follow-up with orthopedic surgeon, Dr. Harris - seen here while inpt -X-rays ordered by orthopedics and reviewed Follow-up for right hip fracture. Healing intertrochanteric hip fracture. Allow progressive increase weightbearing over time to full weightbearing as tolerated with walker long as she does not have substantial pain she can increase weight as tolerated. Would recommending continue with a walker for another month. Recommend follow-up in orthopedic office as outpatient in a month for x-rays. 3. CINTHIA -continue BIPAP 4. CKD stage 3 -Cr remains at baseline 5. Moderate aortic stenosis -appears euvolemic, careful with fluids or diuresis 6. Hypothyroidism -synthroid 7. IDDM -management by glycemic pharmacist 8. Hypokalemia Hypomagnesemia -from bowel prep -replete and monitor DVT ppx -SCDs Admission and Anticipated Discharge Date Admission Date: April 27, 2022 Subjective Patient seen in follow-up of GI bleed, anemia, had colonoscopy on 04/29 Received 4 units total of packed RBCs Had brown stool today Currently she is lying in bed, in no acute distress Denies any blood in her stool Overall reports feeling well, no fevers, chills, chest pain, shortness of breath, abdominal pain Hemoglobin yesterday 7.0, 1 unit of PRBC ordered Review of Systems Review of Systems: All systems reviewed & are unremarkable except as noted in Subjective Physical Exam Physical Exam: Physical Exam: Pleasant, comforta ble, no acute dist ress Respiratory: breathing comforta ligia on room air, n o wheezing/rhonchi /rales Cardiovascular:I regular rate and r hythm, no murmurs/ rubs/gallops Gastrointestinal ( Abdomen): +BS, soft, obese, non tender Musculoskeletal: No edema Neurologic: Awake, alert, spon taneously moving e xtremities Results & Data Results & Data ([facility]) Vital Signs (Past 12 Hours) Vital Signs Temp Pulse Pulse Resp BP BP Pulse Ox 05/02/22 03:45 89 24 99 05/02/22 03:17 36.7 C 93 H 18 135/69 93 05/01/22 23:21 36.6 C 86 20 110/72 99 05/01/22 22:35 93 H 05/01/22 22:13 95 H 20 98 Laboratory Results 05/02/22 05/02/22 05/02/22 Range/Units 07:03 06:16 06:16 Hgb 8.3 L (12.0-16.0) g/dL Hct 27.3 L (37-47) % Sodium Pending Potassium Pending Chloride Pending Carbon Dioxide Pending Anion Gap Pending BUN Pending Creatinine Pending Est Cr Clr Drug Dosing Pending Est GFR ( Amer) Pending Est GFR (Non-Af Amer) Pending BUN/Creatinine Ratio Pending Glucose Pending POC Glucose 165 H (70-99) mg/dl Calcium Pending Stl C. diff Tox B Gene Blood Type Antibody Screen Crossmatch 05/02/22 05/01/22 05/01/22 Range/Units 05:52 19:36 16:32 Hgb (12.0-16.0) g/dL Hct (37-47) % Sodium Potassium Chloride Carbon Dioxide Anion Gap BUN Creatinine Est Cr Clr Drug Dosing Est GFR ( Amer) Est GFR (Non-Af Amer) BUN/Creatinine Ratio Glucose POC Glucose 118 H 84 (70-99) mg/dl Calcium Stl C. diff Tox B Gene Pending Blood Type Antibody Screen Crossmatch 05/01/22 05/01/22 05/01/22 Range/Units 16:08 11:11 08:21 Hgb 8.4 L (12.0-16.0) g/dL Hct 27.6 L (37-47) % Sodium Potassium Chloride Carbon Dioxide Anion Gap BUN Creatinine Est Cr Clr Drug Dosing Est GFR ( Amer) Est GFR (Non-Af Amer) BUN/Creatinine Ratio Glucose POC Glucose 253 H (70-99) mg/dl Calcium Stl C. diff Tox B Gene Blood Type O Positive Antibody Screen NEGATIVE Crossmatch See Detail Medications Administered Current Inpatient Medications Acetaminophen (Acetaminophen 325 Mg Tab) 650 mg PO Q4H PRN PRN Reason: Pain or Fever Stop: 05/27/22 21:13 Last Admin: 05/02/22 03:21 Dose: 650 mg Documented by: Albuterol (Albuterol Hfa 8 Gm Inhaler) 2 puffs INH Q6H PRN PRN Reason: Shortness Of Breath Or Wheezing Stop: 05/27/22 21:29 Albuterol (Albut/Ipratrop 3mg/0.5mg Neb 3 Ml Vial) 3 ml INH Q6H PRN; Protocol PRN Reason: Shortness Of Breath Or Wheezing Stop: 05/27/22 21:13 Allopurinol (Allopurinol 300 Mg Tab) 300 mg PO DAILY [facility] Stop: 05/28/22 08:59 Last Admin: 05/01/22 08:13 Dose: 300 mg Documented by: Aspirin (Aspirin 81 Mg Ectab) 81 mg PO DAILY [facility] Stop: 05/30/22 12:59 Last Admin: 05/01/22 08:06 Dose: Not Given Documented by: Atorvastatin Calcium (Atorvastatin 40 Mg Tab) 40 mg PO QPM [facility] Stop: 05/27/22 21:13 Last Admin: 05/01/22 21:07 Dose: 40 mg Documented by: Carvedilol (Carvedilol 6.25 Mg Tab) 6.25 mg PO BID [facility] Stop: 05/27/22 21:13 Last Admin: 05/01/22 21:05 Dose: 6.25 mg Documented by: Dextrose (Dextrose 50% 50 Ml Syringe) 25 - 50 ml IV UD PRN; Protocol PRN Reason: Hypoglycemia Protocol Stop: 05/27/22 21:13 Fluticasone/Vilanterol (Fluticasone/Vilanterol 100/25mcg 14 Puffs/Inhaler) 1 puffs INH DAILY [facility] Stop: 05/28/22 08:59 Last Admin: 05/01/22 08:13 Dose: 1 puffs Documented by: Gabapentin (Gabapentin 100 Mg Cap) 100 mg PO TID [facility] Stop: 05/27/22 21:13 Last Admin: 05/01/22 21:04 Dose: 100 mg Documented by: Gemfibrozil (Gemfibrozil 600 Mg Tab) 600 mg PO BID [facility] Stop: 05/27/22 21:13 Last Admin: 05/01/22 21:06 Dose: 600 mg Documented by: Glucagon (Glucagon For Inj 1 Mg Vial) 1 mg SQ UD PRN; Protocol PRN Reason: Hypoglycemia Protocol Stop: 05/27/22 21:13 Glucose (Glucose 10 Tabs/Tube) 4 - 8 tabs PO UD PRN; Protocol PRN Reason: Hypoglycemia Protocol Stop: 05/27/22 21:13 Glucose (Glucose 40% Gel 15 Gm Tube) 15 - 30 gm PO UD PRN; Protocol PRN Reason: Hypoglycemia Protocol Stop: 05/27/22 21:13 Insulin Aspart (Insulin Aspart Per Unit) 0 units SC ACHS [facility] Stop: 05/27/22 21:29 Last Admin: 05/01/22 21:08 Dose: 3 units Documented by: Insulin Glargine (Insulin Glargine Solostar 100 Units/Ml 3 Ml Pen) 18 units SC QAM [facility] Stop: 05/31/22 08:59 Last Admin: 05/01/22 08:14 Dose: 18 units Documented by: Levothyroxine Sodium (Levothyroxine Sodium 150 Mcg Tablet) 150 mcg PO DAILYBB [facility] Stop: 05/28/22 06:29 Last Admin: 05/02/22 06:10 Dose: 150 mcg Documented by: Miscellaneous (Carbohydrates For Hypoglycemia ) 15 - 30 gm PO UD PRN PRN Reason: Hypoglycemia Protocol Stop: 05/27/22 21:13 Miscellaneous Information (Pharmacy Glycemic Mgmt Consult) 1 ea N/A UD PRN PRN Reason: Consult Stop: 05/28/22 15:55 Ondansetron HCl (Ondansetron Inj 2 Mg/Ml 2 Ml Vial) 4 mg IV Q6H PRN PRN Reason: Nausea Stop: 05/27/22 21:13 Pantoprazole Sodium (Pantoprazole 40 Mg Tab) 40 mg PO DAILY [facility] Stop: 05/28/22 08:59 Last Admin: 05/01/22 08:13 Dose: 40 mg Documented by: Tramadol HCl (Tramadol Hcl 50 Mg Tablet) 50 mg PO Q8H PRN PRN Reason: Pain (Scale Score 5-10) Stop: 05/27/22 21:13 Last Admin: 05/01/22 21:03 Dose: 50 mg Documented by: (1) CKD (chronic kidney disease) stage 3, GFR 30-59 ml/min Chronic kidney disease stage 3 subtype: unspecified whether 3a or 3b Qualified Code(s): N18.30 - Chronic kidney disease, stage 3 unspecified
[2022-05-02 07:46] LABS: BUN Creatinine Ratio 18.1 (10-20); Calcium 7.8 mg/dl (8.5-10.1); Creatinine Clr Calc Pharmacy 50.7 ml/min; Est GFR (Non-African American) 36.2 ml/min; Potassium 3.6 mmol/L (3.5-5.1)
[2022-05-02] MEDS: carvediloL 6.25 MG TAB PO SCH (08:27)
[2022-05-02] MEDS: allopurinoL 300 MG TAB PO SCH (08:27)
[2022-05-02] MEDS: INSULIN ASPART PER UNIT SC SCH ×2 (08:27→11:42)
[2022-05-02] MEDS: GABAPENTIN 100 MG CAP PO SCH (08:28)
[2022-05-02] MEDS: ASPIRIN 81 MG ECTAB PO SCH ×2 (08:28→09:56)
[2022-05-02] MEDS: gemfibroziL 600 MG TAB PO SCH (08:29)
[2022-05-02] MEDS: PANTOprazole 40 MG TAB PO SCH (08:29)
[2022-05-02] MEDS: FLUTICASONE/VILANTEROL 100/25MCG 14 PUFFS/INHALER INH SCH (08:30)
[2022-05-02] MEDS: INSULIN GLARGINE SOLOSTAR 100 UNITS/ML 3 ML PEN SC SCH (08:30)
--- NOTE | 2022-05-02 09:46 | Pharmacy Report ---
Pharmacy Glycemic Short Note 2 - Date of Service May 02, 2022 - Glycemic Short BSG Results (Last 24 hours): 05/01/22 05/01/22 05/01/22 11:11 16:32 19:36 Glucose POC Glucose 253 H 84 118 H 05/02/22 05/02/22 06:16 07:03 Glucose 153 H POC Glucose 165 H OUTPATIENT ANTIDIABETIC REGIMEN: * Lantus 35 units daily, glipizide 5 mg daily * A1c ~11% 02/2022 ASSESSMENT: 05/02/22 * Blood sugars at goal on 18 units basal and 21 units bolus insulin/day. * Lantus increased and CR tightened yesterday for better basal and prandial coverage, no further changes at this time. 04/30/22 * 67 year old female admitted with GI bleed, colonoscopy yesterday performed. Type 2 diabetic with elevated A1c * Patient received total of 17 units of insulin yesterday, of which 10 units were basal (reduced for NPO status) * Fasting BSG 156 mg/dL - diet now ordered, plan to titrate up basal to 15 units this morning PLAN FOR INPATIENT GLYCEMIC CONTROL: * Hold outpatient oral diabetes medications * Basal insulin * Lantus 18 units daily * Bolus insulin * NovoLog per scale ACHS or Q6hrs while NPO * Goal Range: Low 110 mg/dL - High 140 mg/dL * Correction Factor: 30 mg/dL/unit * Nutritional / Prandial insulin per carb ratio of 1 unit per 8 grams CHO consumed
--- NOTE | 2022-05-02 10:12 | Discharge Summary ---
Date of Service May 02, 2022 Admission HPI Per Admitting Provider hematochezia 67 yo F presents with bright red bleed per rectum. She underwent a R hip nailing by Dr. Harris on 03/10/22 and subsequently went to [facility] for rehab where she has been since 03/17/22. She was placed on Lovenox for approximately 3-4 weeks. She also takes a baby aspirin for primary prevention of cardiac disease, given her elevated risk as a diabetic. She denies ever having GI bleeding or issues, and has not had a colonoscopy or endoscopy in the past. Baseline Hb was 12.5, post op it was around 10, now it is 8.5. She first had two episodes of BRBPR on 04/18 with no other symptoms. Her aspirin was held at that time and repeat labwork showed a stable Hb 10.6. She had no other episodes and was placed back on ASA 81mg on 04/23. She did well until yesterday (04/26) when she had more than 6 episodes of BRBPR with clots. She is tachycardic, but denies lightheadedness when changing position, denies chest pain, SOB, nausea, vomiting, abdominal pain, fevers or chills. She did mention a few days where she had significant diarrhea but this was a couple of weeks ago and has resolved. Admission Exam Per Admitting Provider CONSTITUTIONAL: obese, vitals as above, generally well-appearing, NAD EYES: pupils are round and equal bilaterally, normal conjunctivae, no scleral icterus ENT: external ear and nose normal, MMM, edentulous. NECK: trachea midline, RESPIRATORY: clear to auscultation bilaterally, no crackles, rales or wheezes, normal respiratory effort CARDIOVASCULAR: regular rate and rhythm, S1 and 2 heard without murmurs, gallops or rubs, no JVD, no peripheral edema, CHEST: inspection of chest was normal GASTROINTESTINAL: soft, TTP in LLQ, nondistended, no hepatomegaly, no guarding MUSCULOSKELETAL: strength 5/5 throughout, head is normocephalic and atraumatic SKIN: warm and dry, no rashes. well healed incision site on lateral right hip. NEUROLOGIC: patellar DTRs 2+ bilat. CN 2-12 grossly intact, +chronic sensory deficit on plantar foot surface bilaterally, normal cognition, normal speech, no tremor PSYCHIATRIC: alert cooperative and oriented to person, place and time. Euthymic mood, makes good eye contact, language grossly intact, recent and remote memory grossly intact. Principal Diagnosis Hematochezia, acute blood loss anemia Discharge Exam Physical Exam: Pleasant, comfortable, no acute distress Respiratory: breathing comfortably on room air, no wheezing/rhonchi/rales Cardiovascular: regular rate and rhythm, no murmurs/rubs/gallops Gastrointestinal (Abdomen): +BS, soft, obese, non tender Musculoskeletal: No edema Neurologic: Awake, alert, spontaneously moving extremities Discharge Data Allergies Allergy/AdvReac Type Severity Reaction Status Date / Time No Known Allergies Allergy Verified 04/27/22 15:44 Consultations 04/27/22 18:32 ED Decision to Admit Stat 04/27/22 21:14 Consult Gastroenterology Routine Procedures Performed Operation Date: 04/29/22 16:45 Actual Procedures p Colonoscopy Polypectomy - Jessica Malagon, DO Ordered Studies 04/27/22 17:10 CT abd pelvis wo con Stat FINDINGS: Lung bases: The heart is normal in size and without pericardial effusion. The coronary arteries are densely calcified. There is a small hiatal hernia. A calcified granuloma seen in the right lower lobe. The lung bases are clear noting bibasilar scarring/atelectasis. Liver: The unenhanced liver is enlarged, measuring 20.5 cm in length. The liver is otherwise normal in contour and attenuation. There is no intrahepatic biliary ductal dilatation. Gallbladder: The gallbladder is distended but otherwise normal as imaged. Spleen: The spleen is enlarged measuring 14.5 cm in length. Pancreas: The unenhanced pancreas is grossly unremarkable. Adrenal glands: Large bilateral adrenal adenomas are unchanged. Kidneys: The unenhanced kidneys demonstrate cortical atrophy and are without hydronephrosis. There are no renal calculi identified. Numerous bilateral renal cysts measure up to 3.4 cm. Abdominal vasculature: The abdominal aorta is normal in course and caliber noting advanced atherosclerotic calcification. Bowel: There is moderate colonic diverticulosis without CT evidence of acute diverticulitis. No bowel obstruction is identified. The appendix is well- visualized and normal. Peritoneum: There is no intraperitoneal free air or abdominal ascites. There is a fat-containing umbilical hernia. Lymphadenopathy: None. Pelvic viscera: The bladder, uterus, and adnexa are normal as visualized. Skeletal structures: The skeletal structures are osteopenic. No lytic or blastic lesions are seen. There is a subacute fracture of the right proximal femur with intertrochanteric and intramedullary nails in place. A chronic compression deformity of L1 is unchanged from previous, as is a mild chronic superior endplate compression deformity of T11. There are chronic/healed left-sided rib fractures. IMPRESSION: 1. No acute infectious or inflammatory findings are identified in the abdomen or pelvis. 2. Moderate colonic diverticulosis without CT evidence of acute diverticulitis. 3. Advanced coronary artery calcification. 4. Subacute fracture of the right proximal femur status post internal fixation. 5. Hepatosplenomegaly. 6. Additional chronic findings as above. Hospital Course (1) Acute GI bleeding: (2) Acute blood loss anemia: (3) COPD (chronic obstructive pulmonary disease): (4) Diabetes mellitus: (5) CINTHIA (obstructive sleep apnea): (6) Smoker: (7) CKD (chronic kidney disease) stage 3, GFR 30-59 ml/min: (8) Aortic stenosis: (9) Hypothyroid: (10) DVT prophylaxis: (11) Post-operative state: Ms Lorraine North is a 67 year old female who has a history of CINTHIA on BIPAP, CKD stage 3, moderate aortic stenosis, hypothyroidism, insulin dependent diabetes who has [facility] after a hip surgery presented to the ER 04/27 for several episodes of bright red blood per rectum. 1. Acute blood loss anemia Lower GI bleed, likely diverticular -Hb 10.5 (04/22/2022)--> 8.5 (04/27, day of admission)--> 6.4 (04/28), received 2 units pRBC--> 8.6 --> 7.5 (04/29), received 1 unit pRBC--> 8.4 04/29 AM -Colonoscopy on 04/29 showed diverticulosis, internal and external hemorrhoids, multiple polyps which were removed. No active bleeding was noted Hgb 8.0 on (04/30) Resumed ASA -next day Hemoglobin 7.0 (May 01) -Aspirin held yesterday (05/01) -No GI bleed noted for past 2 days, patient had brown stools -Per GI, aspirin can be resumed -Patient does not have a known history of CAD, would recommend to hold aspirin for next day or 2, discuss further with primary care doctor if/when aspirin should be resumed -Continue to monitor for any GI bleed at outside facility ([facility]) 2. Recent hip surgery (on 03/10) -from [facility], return there when medically stable -Patient supposed to follow-up with orthopedic surgeon, Dr. Harris - seen here while inpt -X-rays ordered by orthopedics and reviewed Follow-up for right hip fracture. Healing intertrochanteric hip fracture. Allow progressive increase weightbearing over time to full weightbearing as tolerated with walker long as she does not have substantial pain she can increase weight as tolerated. Would recommending continue with a walker for another month. Recommend follow-up in orthopedic office as outpatient in a month for x-rays. 3. CINTHIA -continue BIPAP 4. CKD stage 3 -Cr remains at baseline 5. Moderate aortic stenosis -appears euvolemic, careful with fluids or diuresis 6. Hypothyroidism -synthroid 7. IDDM -management by glycemic pharmacist 8. Hypokalemia Hypomagnesemia -from bowel prep -replete and monitor DVT ppx -SCDs Total Time Total Time Spent Total Time Spent (In Minutes): 40 Discharge Plan Discharge Items Patient Disposition: Transfer Inpatient Rehab Fac Reason For Visit: hematochezia, acute blood loss anemia Discharge Diagnosis: Hematochezia, acute blood loss anemia Activity: Per Instructions section Non-emergency contact: Primary Care Provider Call non-emergency contact if: you have any medication questions and your symptoms worsen Follow-up/Referrals: [facility] [Primary Care Provider] - Diet: Carb Consistent or DM2 Addtl Attending Provider Instructions: You were seen in follow-up for your hip fracture, by your orthopedic surgeon. You will need to follow-up with them again in a month. You had gastrointestinal bleeding, and needed a blood transfusion. This was likely diverticular type of bleed. Continue to closely monitor your stools for any blood. Pending Studies at Discharge: No Stand-Alone Forms: My [employer] Skilled Items Patient informed of condition?: Yes DNR: No Discharge Level of Care: Acute rehab Communicable Disease: No Discharge Prognosis: Stable Lines: None Urinary Catheter: No Medications and DC Order Prescriptions: Continued gemfibrozil 600 mg tablet 600 mg PO BID RF: 0 levothyroxine 150 mcg tablet 150 mcg PO DAILY RF: 0 furosemide 40 mg tablet 40 mg PO DAILY RF: 0 atorvastatin 40 mg tablet 40 mg PO QPM RF: 0 carvedilol 6.25 mg tablet 6.25 mg PO BID RF: 0 glipizide 5 mg tablet extended release 24 hr 5 mg PO DAILY RF: 0 cyanocobalamin (vitamin B-12) 1,000 mcg tablet 1,000 mcg PO DAILY RF: 0 allopurinol 300 mg tablet 300 mg PO DAILY RF: 0 gabapentin 100 mg capsule 100 mg PO TID RF: 0 clotrimazole [Athlete's Foot (clotrimazole)] 1 % Cream 1 applic TOPICAL Q8H PRN (Reason: ATHLETE'S FEET) RF: 0 guaifenesin 1,200 mg Tablet Extended Release 12hr 1,200 mg PO Q12H PRN (Reason: Cough) RF: 0 omeprazole 20 mg Tablet,Delayed Release (Dr/Ec) 20 mg PO DAILY RF: 0 omega 7-wre-wei-fish oil [Fish Oil] 1,000 mg (120 mg-180 mg) Capsule 1 cap PO TID RF: 0 camphor-menthol 0.2-3.5 % Gel 1 applic TOPICAL Q6H PRN (Reason: Pain) RF: 0 aspirin 81 mg Capsule 81 mg PO DAILY RF: 0 ipratropium-albuterol 0.5 mg-3 mg(2.5 mg base)/3 mL solution for nebulization 3 ml INHALATION Q6H PRN (Reason: Shortness Of Breath Or Wheezing) RF: 0 Dulera 200-5 mcg/actuation Hfa Aerosol Inhaler 2 inh INHALATION BID RF: 0 cholecalciferol (vitamin D3) [Vitamin D3] 10 mcg (400 unit) Tablet 600 unit PO QAM Qty: 30 RF: 0 (DME) pen needle, diabetic [Pen Needle] 32 gauge x 5/32" needle See Rx Instructions .Route Qty: 100 RF: 0 (DME) blood-glucose meter [Accu-Chek Maty Plus Meter] [facility] [place] See Rx Instructions .Route Qty: 1 RF: 0 acetaminophen [Tylenol] 325 mg Tablet 650 mg PO Q6H MDD 3 GRAMS/24 HOURS PRN (Reason: FEVER >100/PAIN (1-4)) RF: 0 insulin glargine 100 unit/mL Solution 35 unit SUBCUT DAILY RF: 0 multivitamin with minerals Tablet 1 tab PO DAILY RF: 0 Bengay Greaseless 15-10 % Cream 1 applic TOPICAL Q6H PRN (Reason: RIGHT LEG/HIP PAIN) RF: 0 menthol-zinc oxide [Calmoseptine] 0.44-20.6 % Ointment 1 applic TOPICAL TID RF: 0 albuterol sulfate 90 mcg/actuation Aerosol Powdr Breath Activated 2 inh INHALATION Q6H PRN (Reason: Shortness Of Breath Or Wheezing) RF: 0 tramadol 50 mg tablet 50 mg PO Q8H PRN (Reason: Pain (Scale Score 5-10)) RF: 0 Discharge Orders: Discharge Order (Routine); Ordered 05/02/22 Ordered By: Aníbal Silva Admission Data Admit Date/Time: 04/27/22 19:00 Attending Provider: Aníbal Silva Admit Provider: Reta Andersen [facility] Other Providers: Reta Andersen ; Amanda Hein ; [facility] ; Pastora Montilla Other Interventions: Discharge Summary Assessment (RN) Last Done: 04/29/22 09:56
== END 2022-05-02 12:15 | DRG 378 ==
LOC: ED 15:20 → 2S 19:00 → SUATTDRO 19:00 → 2S 20:38

== ENCOUNTER 2024-01-05 12:45 | Inpatient (IN) ==
--- NOTE | 2024-01-05 12:54 | ED Triage Note ---
Date of Service January 05, 2024 Provider in Triage Author: María Elena Overton History of Present Illness This patient was briefly evaluated while in triage. An abbreviated physical exam was performed. This patient is a 68-year-old Female who presents to the ED for evaluation of sob, cough, weakness and generalized illness over the past few days. She has been very short of breath. She normally wears oxygen at night but has been wearing it during the day. States that she was around someone with COVID-19 about 8 days ago. Patient has history of COPD. Physical Exam VITALS: Vitals are noted on the nurse's note and reviewed by myself. GENERAL: This is a 68-year-old female, appears short of breath, sitting upright in wheelchair in triage. HEART: Regular rate and rhythm without murmurs gallops or rubs. LUNGS: Decreased lung sounds throughout. NEURO: Patient was alert and oriented to person place and time. Initial orders for labs and / or imaging were placed and patient was placed in the waiting area until a bed is available. Please see further documentation for the full ED course. MDM / Impression Impression Impression: Acute dyspnea, CHF (congestive heart failure), COVID-19, MELISSA (acute kidney injury), Acute hypoxemic respiratory failure
--- OUTSIDE RECORDS SUMMARY | 2024-01-05 12:58 | External Medical Summary | Summary of Care ---
Author Name Unknown Organization [facility] Address [address] [facility] [address] Phone [phone] Care Team Providers Care Tile Trimmer Name Role Phone Mary Robert MD Primary Care Provide r Reason for Visit * Reason Onset Date Comments Medication Pre-auth 01/04/2024 Encounter Details Date Type Department Care Team (Late st Contact Info) Description 01/04/2024 Telephone Family [address] [phone] Mary Robert MD [address] [place], [place] [address] [address] Medication Pre-auth Allergies Active Allergy Reactions Criticality Noted Date Comments No Known Drug Allergy 10/01/2010 documented as of this encounter (statuses as of 01/05/2024) Medications Medication Sig Dispensed Refills Start Date End Date Status FISH OIL 1000 MG PO CAPSIndications:Dysli pidemia, goal to be determined one tid with meals 100 5 01/18/2007 Active ONETOUCH ULTRASOFT LANCETS MISCIndications:DM type 2, goal A1c below 7 tests three times a day;Diagnosis 250.00 [address] 03/01/2013 Active ACCU-CHEK FASTCLIX LANCETS MISC USE DIRECTED TO TEST BLOOD SUGAR TWICE DAILY. E11.9 204 Each 3 11/29/2019 Active Glucose Blood (ACCU-CHEK GUIDE) STRP USE DIRECTED TO TEST BLOOD SUGAR TWICE DAILY. E11.9 200 Strip 3 11/29/2019 Active Omeprazole 20 MG Oral Capsule Delayed Release (PriLOSEC) TAKE ONE CAPSULE BY MOUTH DAILY 30-60 MINUTES BEFORE BREAKFAST 90 Cap 1 09/24/2020 Active Albuterol Sulfate HFA 108 (90 Base) MCG/ACT Inhalation Aerosol Solution 0 11/23/2020 Active guaiFENesin ER 1200 MG Oral Tablet Extended Release 12 Hour Take 1 Tablet by mouth every 12 hours as needed for Cough. 0 Active Acetaminophen 325 MG Oral Tablet Take 2 Tablets by mouth every 6 hours as needed. 0 Active Loperamide HCl 2 MG Oral Tablet Take 1 Tablet by mouth 4 times a day as needed for Diarrhea. 0 Active Bengay Cold Therapy 5 % External Gel (Menthol (Topical Analgesic)) Apply topically to affected area . Apply to right leg/hip every 6 hours as needed for pain. 0 Active Aspirin 81 MG Oral Tablet ChewableIndications:T ype 2 diabetes mellitus with stage 3b chronic kidney disease, with long-term current use of insulin (HCC) Take 1 Tablet by mouth in the morning. with food.. 100 Tablet 5 05/19/2022 Active Atorvastatin Calcium 40 MG Oral Tablet (Lipitor)Indications: Dyslipidemia, goal LDL below 100 TAKE 1 TABLET BY MOUTH EVERY DAY 90 Tablet 3 12/31/2022 Active Basaglar KwikPen 100 UNIT/ML Subcutaneous Solution Pen-injector (Insulin Glargine Solostar) INJECT UNDER THE SKIN 35 UNITS IN THE MORNING 30 mL 3 05/06/2023 Active glipiZIDE ER 5 MG Oral Tablet Extended Release 24 Hour (Glucotrol XL) TAKE 1 TABLET BY MOUTH DAILY. 30 MINUTES BEFORE A MEAL. 90 Tablet 3 05/13/2023 Active Furosemide 40 MG Oral Tablet (Lasix) TAKE 1 TABLET BY MOUTH EVERY DAY 90 Tablet 3 05/13/2023 Active BD Pen Needle Mini U/F 31G X 5 MM (Insulin Pen Needle)Indications:Ty pe 2 diabetes mellitus with stage 3b chronic kidney disease, with long-term current use of insulin (HCC) USE WITH LANTUS SOLOSTAR. DX E11.9 100 Each 3 06/11/2023 Active Carvedilol 12.5 MG Oral Tablet (Coreg)Indications:He art failure, left-sided (HCC),HTN, goal below 130/80 Take 1 Tablet by mouth in the morning and 1 Tablet before bedtime. with food. 180 Tablet 3 06/29/2023 Active Allopurinol 300 MG Oral Tablet (Zyloprim) TAKE 1 TABLET BY MOUTH EVERY DAY 90 Tablet 1 06/30/2023 Active Vitamin B-12 1000 MCG Sublingual Tablet SublingualIndications :B12 deficiency TAKE 1 TABLET BY MOUTH EVERY DAY 90 Tablet 1 06/30/2023 Active Gabapentin 100 MG Oral Capsule (Neurontin) Take 1 Capsule by mouth in the morning and 1 Capsule at noon and 1 Capsule before bedtime. 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 FOR PAIN. 90 Tablet 0 12/02/2023 Active Losartan Potassium 50 MG Oral Tablet (Cozaar)Indications:H TN, goal below 140/90 TAKE 1 TABLET BY MOUTH EVERY DAY IN THE MORNING 90 Tablet 3 12/08/2023 Active amLODIPine Besylate 5 MG Oral Tablet (Norvasc)Indications: HTN, goal below 140/90 TAKE 1 TABLET BY MOUTH EVERY DAY IN THE MORNING 90 Tablet 3 12/08/2023 Active Gemfibrozil 600 MG Oral Tablet (Lopid) TAKE 1 TABLET BY MOUTH TWICE A DAY BEFORE MEALS 180 Tablet 1 12/23/2023 Active documented as of this encounter (statuses as of 01/05/2024) Active Problems Problem Noted Date Diagnosed Date Type 2 diabetes mellitus wit h stage 3b chronic kidney disease, with long-term current use of insulin 12/01/2022 Chronic kidney disease, stage 3b 06/02/2022 Overview: Per CKD protocol S/P right hip fracture 05/19/2022 COPD, severity to be determined 11/27/2020 Severe aortic stenosis 07/02/2018 B12 deficiency 01/15/2018 MEDICATION USE AGREEMENT 10/01/2017 Hepatic steatosis 07/07/2017 Hepatosplenomegaly 07/03/2016 Gastroesophageal reflux disease without esophagi tis 07/02/2016 Type 2 diabetes mellitus with peripheral neuropa thy 09/18/2015 HTN, goal below 140/90 05/28/2015 Ganglion of right wrist 11/27/2014 Heart failure, diastolic, due to HTN 01/27/2012 Rotator cuff syndrome 10/07/2011 Obstructive sleep apnea 05/29/2011 Overview: BIPAP with 2 liters of oxygen through [facility] Obesity hypoventilation syndrome 11/24/2010 Overview: 04/30/11 -- discontinue oxygen, 2 week compliance AHI 4.2 04/02/11 -- BIPAP 09/2703/11/11 ABG -- RA: 7.438 / 42.7 / 73.2 / 28.2 / 3.6 03/04/11 PSG titration -- 10/29 with biflex 2 12/21 to 01/13/11 COMPLIANCE -- 100%. Average use - 9:24 hrs. IPAP - 18. EPAP - 8. Average clear airway index - 17. Average obstructive airway index - 2. Average AHI - 22.9. No large leak concerns. [facility] Venous insufficiency 10/01/2010 Vitamin D deficiency 12/27/2009 Overview: Vitamin D 9.5 Dyslipidemia, goal LDL below 100 10/30/2009 Overview: Per Lipid Taxonomy. chol 177, hdl 31, ldl 115, trig 344 Type 2 diabetes mellitus wit h hemoglobin A1c goal of less than 8.0% 09/20/2009 Overview: Per Diabetes Taxonomy. glucose 181, hgba1c 8.3 ICD-10 update of inactive term Gouty arthropathy 09/06/2009 Overview: ICD-9 Code Update. uric acid 9.9 ADVANCE DIRECTIVE INFORMATION 12/01/2005 Overview: No, Advance Directive brochure given to patient. - mailed 12/03/10-Tiffani Rai RN No, Advance Directive brochure given to patient at prior appointment. Acquired hypothyroidism 12/01/2005 Overview: TSH 5.62 Tobacco use disorder 03/02/2003 documented as of this encounter (statuses as of 01/05/2024) Resolved Problems Problem Noted Date Diagnosed Date Resolved Date Type 2 diabetes mellitus wit h stage 3b chronic kidney disease, without long-term current use of insulin 05/19/2022 12/21/2023 Kidney disease, chronic, sta ge IV (GFR 15-29 ml/min) 03/19/2020 02/18/2021 Type 2 diabetes mellitus wit h stage 3 chronic kidney disease, with long-term current use of insulin 12/03/2015 12/21/2023 Kidney disease, chronic, sta ge III (GFR 30-59 ml/min) 11/19/2015 03/19/2020 Hypertension goal BP (blood pressure) < 140/80 11/27/2014 05/28/2015 HTN, goal below 140/90 06/28/201306/28 HTN, goal below 130/80 06/28/201311/27 DM type 2 causing renal disease 07/01/2012 12/03/2015 Aortic valve stenosis 01/27/20122017 Diabetic polyneuropathy 10/07/201108/24 Overview: ICD-10 update of inactive term Morbid obesity with BMI of 40.0-44.9, adult 12/05/2010 02/18/2021 Overview: ICD-10 update of inactive diagnosis Heart failure, etiology unknown 11/28/2010 01/27/2012 Heart failure, left-sided 11/25/2010 Severe Tricuspid regurgitation 11/24/2010 01/27/2012 DM type 2 causing neurological disease 08/21/2010 01/15/2018 Kidney disease, chronic, sta ge III (GFR 30-59 ml/min) 04/26/2010 03/08/2015 Overview: GFR 49.8 Obesity, morbid (more than 1 00 lbs over ideal weight or BMI > 40) 02/19/2010 12/05/2010 Overview: Per Obesity Taxonomy ICD-10 update of inactive term HTN, goal below 130/80 12/19/200906/28 Overview: Modified per HTN Taxonomy. HTN, GOAL BELOW 140/90 09/28/200912/19 Overview: Modified per HTN Taxonomy. Type 2 diabetes mellitus wit h hemoglobin A1c goal of less than 7.0% 05/22/2006 09/20/2009 Overview: Per Diabetes Taxonomy. glucose 181, hgba1c 8.3 ICD-10 update of inactive term Elevated C-reactive protein (CRP) 05/21/2005 07/02/2016 Overview: CRP 23 Dyslipidemia, goal to be determined 05/21/2005 10/30/2009 Overview: Per Lipid Taxonomy. chol 177, hdl 31, ldl 115, trig 344 Mixed dyslipidemia 05/21/2005 0 Overview: CHOL 177, HDL 31, LDL 115, TRIG 344 Metabolic syndrome 04/01/2004 9 HYPERINSULINISM NEC 10/28/2002 10/23/20 08 FAM HX-DIABETES MELLITUS 09/15/200209/2016 BENIGN HYPERTENSION 09/28/20 09 Overview: Modified per HTN Taxonomy. Morbid obesity, BMI not known 02/19/2010 Overview: Per Obesity Taxonomy Gouty arthropathy 09/06/2009 Overview: ICD-9 Code Update. uric acid 9.9 ICD-10 update of inactive term DM type 2 causing renal disease 10/01/2010 Other chronic pulmonary heart diseases 06/28/2018 Overview: HYPERTENSION PULMONARY, SECONDARY documented as of this encounter (statuses as of 01/05/2024) Immunizations Name Administration Dates Next Due COVID-19 mRNA, LNP-s, No Pre serve, 2-Dose Series (Silent Communication) 01/21/2021,12/24/2020 Pneumococcal Conjugate Vacc, 13 Valent (Prevnar) 03/26/2022 Pneumococcal Polysaccharide PPV23 (Pneumovax) 10/07/2021,09/21/2006 Season Influenza, Quad, PF, Adjuvanted, 65+ Yrs, IM (FLUAD) 09/26/2021 Seasonal Influenza, PF, 6 M & above, IM , (FluLaval or Fluzone) 09/12/2019,01/15/2018 Seasonal Influenza, Quadriva lent Hd (Fluzone Hd) 12/14/2023,08/23/2021 Seasonal Influenza, Quadriva lent, No Preserve, IM 01/05/2017,09/18/2015 Seasonal Influenza, Split, I IV3, With Preserve, Inj 11/27/2014,11/01/2013,10/26/2012,10/07,08/21/2010,12/27/2009,09/14/2008 ,09/13/2007,09/21/2006 TDAP (age 10 and older)(Boostrix) 01/15/2018 TDAP (age 11 and older)(Adacel) 09/13/2007 Zoster Vaccine Recombinant (Shingrix) 09/29/2021 documented as of this encounter Social History Tobacco Use Types Packs/Day Years Used Date Smoking Tobacco: Every Day Cigarettes 0.5 30 Last attempted to quit: 11/16/2020 Smokeless Tobacco: Never Alcohol Use Standard Drinks/Week Comments No 0 (1 standard drink = 0.6 oz pur e alcohol) PHQ-2 Answer Date Recorded PHQ-2 Score 0 09/12/2019 Sex and Gender Information Value Date Recorded Sex Assigned at Not on file Gender Identity Not on file Sexual Orientation Not on file Job Start Date Occupation Industry Not on file Not on file Not on file documented as of this encounter Miscellaneous Notes * Telephone Encounter - Petrona Overton [facility] - 01/04/2024 1:50 PM EST Patient calling to inform doctor that the patient's insurance will not pay for this medication without a completed prior authorization. Did confirm this information with the pharmacy. Pt's current insurance information is as follows: Patient name: Lorraine North ID number: [id number] BIN number: [id number] N number: [id number] Group number: [id number] Subscriber name: Lorraine North Primary or Secondary Insurance:Primary Medication: Basaglar KwikPen 100 UNIT/ML Subcutaneous Solution Pen-injector (Insulin Glargine Solostar) Reason for Request: [place] frank Pharmacy and phone number: [id number] [facility] Rx plan and phone number: dia [phone] Is this a new medication for the patient? No. How did the patient obtain the medication on the lastfill? It was covered last time on this same insurance. What alternative medications does the pharmacy have in stock?: angel Patient is almost out and asking for high priority Thank you, Petrona Overton [facility] (Former[facility]) 01/04/2024,1:50 PM documented in this encounter Plan of Treatment Upcoming Encounters Date Type Department Care Team (Late st Contact Info) Description 01/25/2024 2:30 PM EST Pharmacy Pharmacy, [address] [place] [phone] [place] [phone] 02/02/2024 3:00 PM EDT Imaging Radiology [address] [place] [phone] 05/19/2024 2:00 PM EDT Office Visit Nephrology [address] [place] [address] Gina Monk PA-C [address] [facility] [place] [address] 07/04/2024 11:40 AM EDT Office Visit [facility] [address] [place] [phone] Carrie Walter CRNP [address] [place] [address] [place] [phone] 01/09/2025 1:20 PM EST Office Visit Family [address] [place] [phone] Mary Robert MD [address] [place] [address] [place] [phone] Scheduled Procedures Name Priority Associated Diagnoses Date/Ti me COLONOSCOPY FLEXIBLE PROXIMAL DIAGNOSTIC Recall History of colon polyps Health Maintenance Due Date Last Done Comments DISCUSS TOBACCO CESSATION (REFER TO SMARTSET #7664) 1956 Cologuard 2001 Fecal Occult Blood Test 2001 Sigmoidoscopy 2001 Hepatitis B (1 of 3 - Risk 3-dose series) 2016 Mammogram 10/30/2017 10/30/2016, 07/26, 08/18/2013, Additional history exists Diabetic Eye Exam 08/09/2020 08/09/2019, , 06/28/2013, Additional history exists Depression Screening 09/12/2020 09/12/2019 Diabetic Foot Exam 09/12/2020 09/12/2019, 0 06/28/2018, 07/07/2017, Additional history exists Zoster Vaccines (2 of 2) 11/24/2021 09/29/2021 COVID-19 Vaccine ( season) 2023 01/21/2021, 12/24/2020 Albumin/Creatinine Ratio 12/01/2023 023, 11/09/2021, 05/19/2020, Additional history exists GFR 06/27/2024 12/28/2023, 05/23, 03/26/2023, Additional history exists HbA1c 06/27/2024 12/28/2023, 05/24, 12/01/2022, Additional history exists O2 ASSESSMENT COMPLETED IN PAST YEAR FOR COPD 12/21/2024 12/21/2023 CKD HGB USE SMARTSET 63422 12/28/202412/28, 12/28/2023, 06/16/2023, Additional history exists CKD PHOS USE SMARTSET 02347 12/28/2024 0203/2024, 03/26/2023, 12/01/2022, Additional history exists TSH 12/28/2024 12/28/2023, 05/24, 05/19/2022, Additional history exists DTaP,Tdap,and Td Vaccines (3 - Td or Tdap) 01/15/2028 01/15/2018, 09/13/2007 Lipid Panel 12/28/2028 12/28/2023, 05/24, 12/01/2022, Additional history exists Colonoscopy 04/29/2032 04/29/2022 Colorectal Cancer Screening 04/29/2032 Pap Smear Discontinued 07/01/2012 (Done elsewhere), 09/13/2007 (Done elsewhere) Alpha-1 Antitrypsin Completed 02/26/2017 Pneumococcal Vaccine: 65+ Years Completed 03/26/2022, 10/07/2021, 09/21/2006 Influenza Vaccine (FLU shot) Completed 12/14/2023, 09/26/2021, 08/23/2021, Additional history exists Nephrology Referral Discontinued 12/14/2023 GARDASIL-HPV IMMUNIZATION SERIES Aged Out No longer eligible based on patient's age to complete this topic MENINGOCOCCAL (MENACTRA/MENVEO) Aged Out No longer eligible based on patient's age to complete this topic documented as of this encounter Medical Devices Not on filedocumented as of this encounter Advance Directives Latest Code Status on File Code Status Date Activated Date Inactivated Comments Full Code 11/24/2010 5:24 PM 12/02/2010 10:24 PM This order reflects the patients wishes and were consensually agreed upon. Question Answer Comments Discussion of Advance Directives occurred with: Patient Does the patient have a Living Will? No Does the patient have Health Care Power of Towing Pilot? No Care Teams Tile Trimmer Relationship Specialty Start Date End Date Mary Robert MD [address] [place] [address] [place] [phone] PCP - General Family Medicine 07/21/17 documented as of this encounter
--- OUTSIDE RECORDS SUMMARY | 2024-01-05 12:59 | External Medical Summary ---
Author Name Unknown Address Unknown Organization K01:[facility] - [address] [place] [address] Laboratory Report Ordering Provider Test Date Status ANAM CISNEROS 12/28/2023 15:11:29 Final Observation Date Value Abnormality Reference (Units ) Status Albumin 12/28/2023 15:11:29 3.7 Below low normal 3.8-5.0 (g/dL) Final AST (Aspartate aminotransferase) 12/28/2023 15:11:29 10 10-35 (U/L) Final Alk Phos 12/28/2023 15:11:29 114 35-130 (U/L) Final ALT (Alanine aminotransferase) 12/28/2023 15:11:29 18 10-35 (U/L) Final Bilirubin, Total 12/28/2023 15:11:29 0.3 <=1.2 (mg/dL) Final Bilirubin, Direct 12/28/2023 15:11:29 <0.2 0.0-0.3 (mg/dL) Final Protein 12/28/2023 15:11:29 5.4 Below low normal 6.0-8.3 (g/dL) Final Performing Location [facility] - [address] [place] [address]
--- OUTSIDE RECORDS SUMMARY | 2024-01-05 12:59 | External Medical Summary | Summary of Care ---
Author Name Unknown Organization [facility] Address [address] [facility] [place] [address] Phone [phone] Care Team Providers Care Patient Financial Services Specialist Name Role Phone Mary Robert MD Primary Care Provide r Reason for Visit * Reason Onset Date Comments Test Results 12/30/2023 Encounter Details Date Type Department Care Team (Late st Contact Info) Description 12/30/2023 Telephone Family Medicine [address] [phone] Mary Robert MD [address] [place] [address] [place] [phone] Test Results Allergies Active Allergy Reactions Criticality Noted Date Comments No Known Drug Allergy 10/01/2010 documented as of this encounter (statuses as of 12/31/2023) Medications Medication Sig Dispensed Refills Start Date End Date Status FISH OIL 1000 MG PO CAPSIndications:Dys lipidemia, goal to be determined one tid with meals 100 5 7 Active ONETOUCH ULTRASOFT LANCETS MISCIndications:DM type 2, goal A1c below 7 tests three times a day;Diagnosis 250.00 [address] 3 Active ACCU-CHEK FASTCLIX LANCETS MISC USE DIRECTED TO TEST BLOOD SUGAR TWICE DAILY. E11.9 204 Each 3 0 Active Glucose Blood (ACCU-CHEK GUIDE) STRP USE DIRECTED TO TEST BLOOD SUGAR TWICE DAILY. E11.9 200 Strip 3 0 Active Omeprazole 20 MG Oral Capsule Delayed Release (PriLOSEC) TAKE ONE CAPSULE BY MOUTH DAILY 30-60 MINUTES BEFORE BREAKFAST 90 Cap 1 0 Active Albuterol Sulfate HFA 108 (90 Base) MCG/ACT Inhalation Aerosol Solution 0 1 Active guaiFENesin ER 1200 MG Oral Tablet [...] 0 Active Aspirin 81 MG Oral Tablet ChewableIndications :Type 2 diabetes mellitus with stage 3b chronic kidney disease, with long-term current use of insulin (HCC) Take 1 Tablet by mouth in the morning. with food.. 100 Tablet 5 2 Active Atorvastatin Calcium 40 MG Oral Tablet (Lipitor)Indication s:Dyslipidemia, goal LDL below 100 TAKE 1 TABLET BY MOUTH EVERY DAY 90 Tablet 3 3 Active Basaglar KwikPen 100 UNIT/ML Subcutaneous Solution Pen-injector (Insulin Glargine Solostar) INJECT UNDER THE SKIN 35 UNITS IN THE MORNING 30 mL 3 3 Active glipiZIDE ER 5 MG Oral Tablet Extended Release 24 Hour (Glucotrol XL) TAKE 1 TABLET BY MOUTH DAILY. 30 MINUTES BEFORE A MEAL. 90 Tablet 3 3 Active Furosemide 40 MG Oral Tablet (Lasix) TAKE 1 TABLET BY MOUTH EVERY DAY 90 Tablet 3 3 Active BD Pen Needle Mini U/F 31G X 5 MM (Insulin Pen Needle)Indications: Type 2 diabetes mellitus with stage 3b chronic kidney disease, with long-term current use of insulin (HCC) USE WITH LANTUS SOLOSTAR. DX E11.9 100 Each 3 3 Active Carvedilol 12.5 MG Oral Tablet (Coreg)Indications: Heart failure, left-sided (HCC),HTN, goal below 130/80 Take 1 Tablet by mouth in the morning and 1 Tablet before bedtime. with food. 180 Tablet 3 3 Active Allopurinol 300 MG Oral Tablet (Zyloprim) TAKE 1 TABLET BY MOUTH EVERY DAY 90 Tablet 1 3 Active Vitamin B-12 1000 MCG Sublingual Tablet SublingualIndicatio ns:B12 deficiency TAKE 1 TABLET BY MOUTH EVERY DAY 90 Tablet 1 3 Active Gabapentin 100 MG Oral Capsule (Neurontin) Take 1 Capsule by mouth in the morning and 1 Capsule at noon and 1 Capsule before bedtime. 270 Capsule 1 3 Active Levothyroxine Sodium 150 MCG Oral Tablet (Levoxyl)Indication s:Acquired hypothyroidism TAKE 1 TABLET BY MOUTH EVERY DAY EXCEPT SATURDAYS AND SUNDAYS 74 Tablet 3 3 Active traMADol HCl 50 MG Oral Tablet (Ultram)Indications :D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 FOR PAIN. 90 Tablet 0 4 Active Losartan Potassium 50 MG Oral Tablet (Cozaar)Indications :HTN, goal below 140/90 TAKE 1 TABLET BY MOUTH EVERY DAY IN THE MORNING 90 Tablet 3 4 Active amLODIPine Besylate 5 MG Oral Tablet (Norvasc)Indication s:HTN, goal below 140/90 TAKE 1 TABLET BY MOUTH EVERY DAY IN THE MORNING 90 Tablet 3 4 Active Gemfibrozil 600 MG Oral Tablet (Lopid) TAKE 1 TABLET BY MOUTH TWICE A DAY BEFORE MEALS 180 Tablet 1 4 Active Ferrous Sulfate 325 (65 Fe) MG Oral Tablet (Feosol) TAKE 1 TABLET BY MOUTH TWICE A DAY WITH MORNING AND EVENING MEAL 180 Tablet 1 3 12/30/19 24 Discontinued documented as of this encounter (statuses as of 12/31/2023) Active Problems Problem Noted Date Diagnosed Date [...] BIPAP with 2 liters of oxygen through [facility] Obesity hypoventilation syndrome 11/24/2010 Overview: 04/30/11 -- [...] AHI - 22.9. No large leak concerns. [facility] Venous insufficiency 10/01/2010 Vitamin D [...] as of this encounter (statuses as of 12/31/2023) Resolved Problems Problem Noted Date Diagnosed Date [...] as of this encounter (statuses as of 12/31/2023) Immunizations Name Administration Dates Next Due COVID-19 mRNA, LNP-s, No Pre serve, 2-Dose Series (Pfizer) 01/21/2021,12/24/2020 Pneumococcal Conjugate Vacc, 13 Valent (Prevnar) [...] encounter Miscellaneous Notes * Telephone Encounter - [place] Tarango OSA - 12/31/2023 12:27 PM EST Appt scheduled in six months with Carrie Walter and next Dec with Dr. Robert. * Telephone Encounter - Krishna Garcia LPN - 12/30/2023 3:45 PM EST message left for patient to return my phone call Transfer phone call to [phone] Pt needs 6 mo f/u with PCP 12/21/2023 (in office), Visit date not found (telemedicine) * Telephone Encounter - Mary Robert MD - 12/30/2023 3:36 PM EST Please let patient know that her blood counts and iron levels are on the higher side now. I want her to stop the ferrous sulfate and repeat at her next visit, which should be 6 months. documented in this encounter Plan of Treatment Upcoming Encounters Date Type Department Care Team (Late st Contact Info) Description 01/04/2024 2:30 PM EST Imaging Radiology [address] [place] [phone] 01/25/2024 2:30 PM EST Pharmacy Pharmacy, [address] [place] [phone] [place] [address] 05/19/2024 2:00 PM EDT Office Visit Nephrology [address] [place] [address] Gina Monk PA-C [address] [facility] [place] [address] 07/04/2024 11:40 AM EDT Office Visit Family Medicine [address] [place] [phone] Carrie Walter [address] [place] [address] 01/09/2025 1:20 PM EST Office Visit Family Medicine [address] [place] [phone] Mary Robert MD [address] [place] [address] [place] [phone] Scheduled Orders Name Type Priority Associated Diagnoses Orde r Schedule CBC WITH WBC DIFFERENTIAL AND ANEMIA REFLEX WORKUP Lab Routine Iron deficiency anemia, unspecified iron deficiency anemia type Expected: 06/29/2024 (Approximate), Expires: 12/30/2024 IRON SCREEN, INCLUDING TIBC Lab Routine Iron deficiency anemia, unspecified iron deficiency anemia type Expected: 06/29/2024 (Approximate), Expires: 12/29/2024 FERRITIN Lab Routine Iron deficiency anemia, unspecified iron deficiency anemia type Expected: 06/29/2024 (Approximate), Expires: 12/29/2024 HEMOGLOBIN A1C Lab Routine Type 2 diabetes mellitus with stage 3b chronic kidney disease, with long-term current use of insulin (HCC) Expected: 06/29/2024 (Approximate), Expires: 12/29/2024 COMPREHENSIVE METABOLIC PANEL Lab Routine Type 2 diabetes mellitus with stage 3b chronic kidney disease, with long-term current use of insulin (HCC) Expected: 06/29/2024 (Approximate), Expires: 12/29/2024 Scheduled Procedures Name Priority Associated Diagnoses Date/Ti me COLONOSCOPY FLEXIBLE PROXIMAL DIAGNOSTIC Recall History of colon polyps Health Maintenance Due Date Last Done Comments DISCUSS TOBACCO CESSATION (REFER TO SMARTSET #6384) 1956 Cologuard 2001 Fecal Occult Blood Test [...] COPD 12/21/2024 12/21/2023 CKD HGB USE SMARTSET 53013 12/28/202412/28, 12/28/2023, 06/16/2023, Additional history exists CKD PHOS USE SMARTSET 07951 12/28/2024 02/03/2024, 03/26/2023, 12/01/2022, Additional history exists TSH 12/28/2024 [...] Not on filedocumented as of this encounter Visit Diagnoses Diagnosis Type 2 diabetes mellitus with stage 3b chronic kidney disease, with long-term current use of insulin (HCC)- Primary Iron deficiency anemia, unspecified iron deficiency anemia type documented in this encounter Advance Directives Latest Code Status on File Code Status Date Activated Date Inactivated Comments Full Code 11/24/2010 5:24 PM 12/02/2010 10:24 PM This order reflects the patients wishes and were consensually agreed upon. Question Answer Comments Discussion of Advance Directives occurred with: Patient Does the patient have a Living Will? No Does the patient have Health Care Power of Double Surface Operator? No Care Teams Patient Financial Services Specialist Relationship Specialty Start Date End Date Mary Robert MD [address] [place] [address] [place] [phone] PCP - General Family Medicine 07/21/17 documented as of this encounter
--- OUTSIDE RECORDS SUMMARY | 2024-01-05 12:59 | External Medical Summary ---
Author Name Unknown Address Unknown Organization [id number][place] [place] [address] [facility] [address] [facility] [address] Laboratory Report Ordering Provider Test Date Status ANAM CISNEROS 12/28/2023 15:11:29 Final Observation Date Value Abnormality Reference (Units ) Status Triglyceride 12/28/2023 15:11:29 200 Above high normal <=174 (mg/dL) Final Triglyceride Reference Range s (mg/dL):
<150 Acceptable
150-174 Borderline high
175-499 High
>=500 Very high Cholesterol 12/28/2023 15:11:29 130 <200 (mg /dL) Final Total Cholesterol Reference Ranges (mg/dL):
<200 Desirable
200-239 Borderline high
>=240 High HDL 12/28/2023 15:11:29 28 Below low normal >49 (mg/dL) Final HDL Cholesterol Reference Ra nges (mg/dL):
>=60 High (Desirable)
<50 Low (Undesirable) For Females
<40 Low (Undesirable) For Males NON-HDL CHOLESTEROL 12/28/2023 15:11:29 102 <=159 (mg/dL) Final Non-HDL Cholesterol Referenc e Range (mg/dL):
<100 Target level for high risk ASCVD patient
<130 Optimal for general population
130-159 Near optimal for general population
160-189 Borderline High
190-219 High
>=220 Very High Performing Location [facility] [place] [address] [place] [address]
--- OUTSIDE RECORDS SUMMARY | 2024-01-05 12:59 | External Medical Summary ---
Author Name Unknown Address Unknown Organization [id number]:[facility] [place] - [address] [place] [address] Laboratory Report Ordering Provider Test Date Status DARRIAN SANTOS 12/28/2023 15:11:29 Final Observation Date Value Abnormality Reference (Units ) Status Variant lymphocytes [Presence] in Blood by Light microscopy 12/28/2023 15:11:29 Present Abnormal None Seen Final Performing Location LABORATORY C - [address] [place] [address]
--- OUTSIDE RECORDS SUMMARY | 2024-01-05 12:59 | External Medical Summary ---
Author Name Unknown Address Unknown Organization [id number]:[facility]ATORY [facility] [place] - [address] [facility] [place] [address] Laboratory Report Ordering Provider Test Date Status DANIELLETRINH CAMERONIAN 12/28/2023 15:11:29 Final Observation Date Value Abnormality Reference (Units ) Status SYNC LEUKOCYTES IN BLOOD BY AUTOMATED COUNT 12/28/2023 15:11:29 9.05 4.00-10.80 (K/uL) Final Segs 12/28/2023 15:11:29 69.9 40.0-75.0 (%) Final Lymphs % 12/28/2023 15:11:29 22.1 18.0-42.0 (%) Final Monos 12/28/2023 15:11:29 5.7 1.0-11.0 (%) Final Eosinophils 12/28/2023 15:11:29 1.0 0.0-6.0 (%) Final Basos 12/28/2023 15:11:29 0.7 0.0-2.0 (%) Final Immature Granulocyte, Percent 12/28/2023 15:11:29 0.6 0.0-2.0 (%) Final Absolute Segs 12/28/2023 15:11:29 6.33 1.80-7.70 (K/uL) Final Lymphs, absolute 12/28/2023 15:11:29 2.00 1.00-4.80 (K/ul) Final Monos, Abs 12/28/2023 15:11:29 0.52 0.00-1.10 (K/uL) Final Eos, Abs 12/28/2023 15:11:29 0.09 0.00-0.70 (K/uL) Final Basos, Abs 12/28/2023 15:11:29 0.06 0.00-0.20 (K/uL) Final Immature Granulocytes, Number 12/28/2023 15:11:29 0.05 0.00-0.20 (K/uL) Final Performing Location LABORATORY [facility] [place] - [facility] [address] [facility] [address]
--- OUTSIDE RECORDS SUMMARY | 2024-01-05 12:59 | External Medical Summary ---
Author Name Unknown Address Unknown Organization [id number][place] [address] [place] [address] Laboratory Report Ordering Provider Test Date Status DANIEL SORTO 12/28/2023 15:11:29 Final Observation Date Value Abnormality Reference (Units ) Status Parathyrin.intact [Mass/volume] in Serum or Plasma 12/28/2023 15:11:29 216 Above high normal 15-65 (pg/mL) Final Performing Location [facility] [place] [address] [place] [address]
--- OUTSIDE RECORDS SUMMARY | 2024-01-05 12:59 | External Medical Summary ---
Author Name Unknown Address Unknown Organization K01:[facility] [place] [address] [facility] [address] [place] [address] Laboratory Report Ordering Provider Test Date Status DARRIAN SANTOS 12/28/2023 15:11:29 Final Observation Date Value Abnormality Reference (Units ) Status Ferritin 12/28/2023 15:11:29 91 13-150 (ng /mL) Final Postmenopausal women have hi gher ferritin levels than pre-menopausal women. The above reference interval is based on pre-menopausal women. Performing Location LABORATORY C - [address] [place] [address]
--- OUTSIDE RECORDS SUMMARY | 2024-01-05 12:59 | External Medical Summary ---
Author Name Unknown Address Unknown Organization [id number][place] [facility] [place] [address] [place] [address] Laboratory Report Ordering Provider Test Date Status ANAM CISNEROS 12/28/2023 15:11:29 Final Observation Date Value Abnormality Reference (Units ) Status TSH 12/28/2023 15:11:29 3.47 0.27-4.20 (uIU/mL) Final Performing Location [facility] [place] [address] [place] [address]
--- OUTSIDE RECORDS SUMMARY | 2024-01-05 12:59 | External Medical Summary | Summary of Care ---
Author Name Unknown Organization [facility] Address [address] [facility] [address] Phone [phone] Care Team Providers Care Supervisor Production Name Role Phone Mary Robert MD Primary Care Provide r Reason for Visit * Reason Comments Outpatient Testing Encounter Details Date Type Department Care Team (Late st Contact Info) Description 12/28/2023 3:00 PM EST Laboratory Laboratory [address] [place] [phone] [place] [address] Gouty arthropathy; Chronic kidney disease, stage 3b ([facility]); Anemia, unspecified type; Type 2 diabetes mellitus with stage 3b chronic kidney disease, with long-term current use of insulin ([facility]); Dyslipidemia, goal LDL below 100; Acquired hypothyroidism Allergies Active Allergy Reactions Criticality Noted Date Comments No Known Drug Allergy 10/01/2010 documented as of this encounter (statuses as of 12/28/2023) Medications Medication Sig Dispensed Refills Start Date [...] EVERY DAY 90 Tablet 1 06/30/2023 Active Ferrous Sulfate 325 (65 Fe) MG Oral Tablet (Feosol) TAKE 1 TABLET BY MOUTH TWICE A DAY WITH MORNING AND EVENING MEAL 180 Tablet 1 07/28/2023 Active Gabapentin 100 MG Oral Capsule (Neurontin) [...] as of this encounter (statuses as of 12/28/2023) Active Problems Problem Noted Date Diagnosed Date [...] BIPAP with 2 liters of oxygen through [facility] Obesity hypoventilation syndrome 11/24/2010 Overview: 04/30/11 -- [...] AHI - 22.9. No large leak concerns. [facility] Venous insufficiency 10/01/2010 Vitamin [...] as of this encounter (statuses as of 12/28/2023) Resolved Problems Problem Noted Date Diagnosed Date [...] as of this encounter (statuses as of 12/28/2023) Immunizations Name Administration Dates Next Due COVID-19 mRNA, LNP-s, No Pre serve, 2-Dose Series ([email or web address]) 01/21/2021,12/24/2020 Pneumococcal Conjugate Vacc, 13 Valent (Prevnar) [...] on file documented as of this encounter Plan of Treatment Upcoming Encounters Date Type Department Care Team (Late st Contact Info) Description 01/04/2024 2:30 PM EST Imaging Radiology [address] [place] [address] 05/19/2024 2:00 PM EDT Office Visit Nephrology [address] [place] [address] ZemaGina betts PA-C [address] [place] [address] Pending Results Name Type Priority Associated Diagnoses Date /Time URIC ACID Lab Routine Gouty arthropathy 12/28/2023 3:11 PM EST CBC WITH WBC DIFFERENTIAL AND ANEMIA REFLEX WORKUP Lab Routine Chronic kidney disease, stage 3b (HCC) Anemia, unspecified type 12/28/2023 3:11 PM EST IRON SCREEN, INCLUDING TIBC Lab Routine Chronic kidney disease, stage 3b (HCC) Anemia, unspecified type 12/28/2023 3:11 PM EST FERRITIN Lab Routine Chronic kidney disease, stage 3b (HCC) Anemia, unspecified type 12/28/2023 3:11 PM EST HEMOGLOBIN A1C Lab Routine Type 2 diabetes mellitus with stage 3b chronic kidney disease, with long-term current use of insulin (HCC) 12/28/2023 3:11 PM EST LIPID PANEL WITH DIRECT LDL IF TG IS HIGH Lab Routine Dyslipidemia, goal LDL below 100 12/28/2023 3:11 PM EST TSH WITH FREE T4 IF INDICATED Lab Routine Acquired hypothyroidism 12/28/2023 3:11 PM EST HEPATIC FUNCTION PANEL Lab Routine Dyslipidemia, goal LDL below 100 12/28/2023 3:11 PM EST ANEMIA CBC Lab Routine Chronic kidney disease, stage 3b (HCC) Anemia, unspecified type 12/28/2023 3:11 PM EST DIFFERENTIAL, AUTOMATED Lab Routine Chronic kidney disease, stage 3b (HCC) Anemia, unspecified type 12/28/2023 3:11 PM EST ANEMIA REFLEX CHEMISTRY HOLD Lab Routine Chronic kidney disease, stage 3b (HCC) Anemia, unspecified type 12/28/2023 3:11 PM EST Scheduled Procedures Name Priority Associated Diagnoses Date/Ti me COLONOSCOPY FLEXIBLE PROXIMAL DIAGNOSTIC Recall History of colon polyps Health Maintenance Due Date Last Done Comments DISCUSS TOBACCO CESSATION (REFER TO SMARTSET #4777) 1955 Cologuard 2001 Fecal Occult Blood Test 2001 Sigmoidoscopy 2001 Hepatitis B (1 of 3 - Risk 3-dose series) 2016 Mammogram 10/30/2017 10/30/2016, 09, 08/18/2013, Additional history exists Diabetic Eye Exam 08/09/2020 08/09/2019, , 06/28/2013, Additional history exists Depression Screening 09/12/2020 09/12/2019 Diabetic Foot Exam 09/12/2020 09/12/2019, 0 06/28/2018, 07/07/2017, Additional history exists Zoster Vaccines (2 of 2) 11/24/2021 09/29/2021 COVID-19 Vaccine (3 - 2022- season) 2023 01/21/2021, 12/24/2020 Albumin/Creatinine Ratio 12/01/2023 023, 11/09/2021, 05/19/2020, Additional history exists GFR 12/11/2023 06/10/2023, 0 02/2023, 12/01/2022, Additional history exists HbA1c 12/17/2023 06/16/2023, 0 07/2023, 05/19/2022, Additional history exists CKD PHOS USE SMARTSET 21571 03/26/2024 050 02/2023, 12/01/2022, 05/19/2020, Additional history exists CKD HGB USE SMARTSET 17211 06/16/202406/16, 06/16/2023, 06/18/2022, Additional history exists TSH 06/16/2024 06/16/2023, 04/24, 11/27/2020, Additional history exists O2 ASSESSMENT COMPLETED IN PAST YEAR FOR COPD 12/21/2024 12/21/2023 DTaP,Tdap,and Td Vaccines (3 - Td or Tdap) 01/15/2028 01/15/2018, 09/13/2007 Lipid Panel 06/16/2028 06/16/2023, 0 07/2023, 11/09/2021, Additional history exists Colonoscopy 04/29/2032 04/29/2022 Colorectal [...] as of this encounter Visit Diagnoses Diagnosis Gouty arthropathy Gouty arthropathy, unspecified Chronic kidney disease, stage 3b (HCC) Anemia, unspecified type Type 2 diabetes mellitus with stage 3b chronic kidney disease, with long-term current use of insulin (HCC) Dyslipidemia, goal LDL below 100 Other and unspecified hyperlipidemia Acquired hypothyroidism Unspecified hypothyroidism documented in this encounter Advance Directives Latest Code Status on File Code Status Date Activated Date Inactivated Comments Full Code 11/24/2010 5:24 PM 12/02/2010 10:24 PM This order reflects the patients wishes and were consensually agreed upon. Question Answer Comments Discussion of Advance Directives occurred with: Patient Does the patient have a Living Will? No Does the patient have Health Care Power of Emergency Room Registered Nurse? No Care Teams Supervisor Production Relationship Specialty Start Date End Date Mary Robert MD [address] [place] [address] [place] [phone] PCP - General Family Medicine 07/21/17 documented as of this encounter
--- OUTSIDE RECORDS SUMMARY | 2024-01-05 12:59 | External Medical Summary | Summary of Care ---
Author Name Unknown Organization [facility] Address [address] [facility] [place] [place] [address] Phone [phone] Care Team Providers Care Finance Insurance Manager Name Role Phone Amelia Mendieta MD Primary Care Provide r Reason for Referral * Evaluate & Treat - Unlimited Visits (Within 10 days (routine)) - Pending Review Specialty Diagnoses / Procedures Referred By Contac t Referred To Contact Pharmacist / Pharmacy Diagnoses Stage 3b chronic kidney disease (HCC) Tobacco use disorder Teressa Murrell MD [address] [place] [address] Referral ID Status Reason Start Date Expiration Date Visits Requested Visits Authorized [id number] Pending Review Specialty Services Required 12/14/2023 99 99 Question Answer Referral Priority Within 10 days (routine) Where should this appointment be scheduled? [facility] Referring Provider Role: Primary Care Reason for Referral: Smoking Cessation Comments Pharmacist Medication Therapy Management: Minimum frequency patient should be seen in person for medication management: as appropriate per clinical condition and patient status By my signature, I understand that my patient Lorraine North will have her medication therapy managed by the [facility] Medication Therapy [facility] ([facility]) per established policies, procedures, and protocols. I also certify that this referral may serve as an initiation of service for the management of drug therapy in the above noted patient. [facility] providers will be responsible for scheduling patient visits, obtaining appropriate laboratory studies, and adjusting medication management therapy per patient's need, in addition to those roles spelled out in the clinic policy, procedures, and drug management protocols. I understand that the service provided by the [facility] is voluntary and have informed patient that they can refuse the service at their discretion. I am aware that the [facility] will provide me with a copy of the patient encounter via my [employer]. I authorize the [facility] to carry out these activities on my behalf. I consider this program to be a necessary part of the patient's medical care. Teressa Murrell MD Reason for Visit * Reason Onset Date Comments Chronic Kidney Disease (CKD) Medication Administration 12/14/2023 Flu an d/or Pneumo Inj Encounter Details Date Type Department Care Team (Late st Contact Info) Description 12/14/2023 2:40 PM EST Office Visit Nephrology [address] [place] [address] Teressa Murrell MD [address] [place] [address] [place] [address] Stage 3b chronic kidney disease (HCC)*; Gouty arthropathy; HTN, goal below 130/80; Hyperparathyroidism, secondary renal (HCC); Uncontrolled hypertension; Persistent proteinuria; Tobacco use disorder; Need for prophylactic vaccination and inoculation against influenza Allergies Active Allergy Reactions Criticality Noted Date Comments No Known Drug Allergy 10/01/2010 documented as of this encounter (statuses as of 01/04/2024) Medications Medication Sig Dispensed Refills Start Date [...] 30-60 MINUTES BEFORE BREAKFAST 90 Cap 1 11/02/202 0 Active Albuterol Sulfate HFA 108 (90 [...] (Ultram)Indications :DM type 2 causing neurological disease ([facility]),Rotator cuff syndrome, unspecified laterality TAKE 1 TABLET [...] THE MORNING 90 Tablet 3 4 Active Nicotine 14 MG/24HR Transdermal Patch 24 Hour (Nicotine Step 2)Indications:Tobac co use disorder Place 1 Patch topically on the skin daily. 28 Patch 0 1 12/21/19 24 Discontinued Ipratropium-Albuter ol 0.5-2.5 (3) MG/3ML Inhalation Solution (Duoneb)Indications :COPD, severity to be determined ([facility]) INHALE 1 VIAL VIA NEBULIZER 4 TIMES A DAY. 360 mL 1 1 12/21/19 24 Discontinued Therems-M Oral Tablet Take by mouth . 0 12/21/19 24 Discontinued Vitamin D (Cholecalciferol) 10 MCG (400 UNIT) Oral Tablet Chewable Take 600 Units by mouth in the morning. 0 12/21/19 24 Discontinued Gemfibrozil 600 MG Oral Tablet (Lopid) TAKE 1 TABLET BY MOUTH TWICE A DAY BEFORE MEALS 180 Tablet 1 3 12/23/19 24 Discontinued Ferrous Sulfate 325 (65 Fe) MG Oral Tablet (Feosol) TAKE 1 TABLET BY MOUTH TWICE A DAY WITH MORNING AND EVENING MEAL 180 Tablet 1 3 12/30/19 24 Discontinued documented as of this encounter (statuses as of 01/04/2024) Active Problems Problem Noted Date Diagnosed Date [...] BIPAP with 2 liters of oxygen through [facility] Obesity hypoventilation syndrome 11/24/2010 Overview: 04/30/11 [...] as of this encounter (statuses as of 01/04/2024) Resolved Problems Problem Noted Date Diagnosed Date [...] as of this encounter (statuses as of 01/04/2024) Immunizations Name Administration Dates Next Due COVID-19 [...] attempted to quit: 11/16/2020 Smokeless Tobacco: Never Tobacco Cessation:Ready to Q uit: No; Counseling Given: Not Answered Alcohol Use Standard Drinks/Week Comments No 0 [...] on file documented as of this encounter Last Filed Vital Signs Vital Sign Reading Time Taken Comments Blood Pressure 132/76 12/14/2023 2:09 PM EST Pulse 105 12/14/2023 2:09 PM EST Temperature 36.5 C (97.7 F) 12/14/2023 2:09 PM ES T Respiratory Rate 18 12/14/2023 2:09 PM EST Oxygen Saturation - - Inhaled Oxygen Concentration - - Weight 107.5 kg (237 lb) 12/14/2023 2:09 PM EST Height - - Body Mass Index 37.12 06/16/2023 3:56 PM EDT documented in this encounter Patient Instructions * Patient Instructions* Mary Gerber RN - 12/14/2023 2:11 PM EST -labs w/ those for upcoming Dr Mendieta appt -will refer you for help w/ stopping smoking -keep using compression hose --eat a low sodium diet (less than 2000 mg or 1/2 tsp) daily -for now no medicine changes but may ask you to start a medicine like jardiance or farxiga -avoid medicines like aleve, advil, ibuprofen, aspirin more than 81 mg daily and other NSAIDS whichare not good for kidney patients. Take only tylenol (acetaminophen) up to 2000 mg daily as needed for pain or as directed by your primary care provider. -do a 3 day BP log >> 2 readings in AM one minute apart and 2 readings in PM same for 3 days then send/drop off results ~~PATIENT INSTRUCTIONS FOR FLU SHOT~~ Possible side effects of influenza vaccine, (flu shot), are usually mild and include: 1. Soreness or redness at injection site 2. Low grade fever 3. Body aches You may use Tylenol/Acetaminophen as needed for these symptoms. LET YOUR DOCTOR KNOW IMMEDIATELY IF YOU HAVE DIFFICULTY BREATHING OR SWALLOWING, EXPERIENCE ITCHINGOF FEET OR HANDS, HAVE SWELLING OF EYES, FACE OR INSIDE OF NOSE. documented in this encounter Progress Notes * Mary Gerber RN - 12/14/2023 2:43 PM EST PRE - ADMINISTRATION DOCUMENTATION Are you experiencing any cold symptoms or fever? No Have you had Guillain-Esmond Syndrome (an illness that causes paralysis) within the last 6 weeks? No Have you had the flu shot in the past? YES Have you ever had a reaction to the flu shot? No Mary Gerber RN, 12/14/2023 2:43 PM Immunization Administration Documentation Time Out Procedure Performed: Yes Patient Identified (Ask Name/Date of ): Yes Does the patient have a fever greater than 101 degrees today? No Patient allergic to latex? No VFC Stock: No Immunization(s) verified: Yes, Immunization Name: Flu, VIS Sheet(s) given: Yes Injection(s) verified: Yes, Injection Name: fluzone Verified Side and Site: Yes Verified Shot(s) with Parent(s)/Patient: Yes * Teressa Murrell MD - 12/14/2023 2:03 PM EST NEPHROLOGY CLINIC NOTE Nephrology [address] [place] [address] 12/14/2023, 2:04 PM Patient Name: Lorraine North BACKGROUND: 68 year old female presents for f/u of ckd3B w/ recently worsened proteinuria to > 1gm in setting of IDDM. Re-established care in Nov 2022 PMH includes HTN since 1970s, gout, severe , class 3 obesity, HL, COPD, HSM, CINTHIA on cpap, active tobacco abuse. DM diagnosed in her 40s; denies hx of retinopathy and does get regular exams; + neuropathy. Cardiac cath 2019 showed no CAD and not consistent w/ aortic stenosis; did have some suggestion of pulmonary disease. Her creatinine June 2018 -early 2019 has run in 1.8-1.9 range, for early CKD 4; prior to this hadbeen 1.3-1.5 since 10/2015. Some paternal FH of complications of DM; one paternal aunt w/ renal failure from DM. No personal hxof stones. Had been riding stationary bike but stopped. 2021 fell and broke R hip; then in rehab through May. Started changing diet since news about worse kidney function No nsaids Used to smoke 3 PPD; got down to less than 1 PPD; now weaning down but no nicotine > latter doesnot suit her TODAY 12/14/2023: no acute interval clinical events. Back to smoking. Cardiology per pt has been telling her she needs a heart "balloon;" but she's not set it up yet. States cardiology told her she should not have chantix. Gets OOBreath w/ doing an indoor lap in her hose Not prone to UTI; does have fungal infections at times in her body folds. Willing to try SGLT2i if needed. BG have been good at home Has valid home bp cuff. REVIEW OF SYSTEMS General: No fatigue, No change in weight Head: No significant headache Respiratory: + cough,No wheezing, some mild exertional dyspnea Cardiovascular:No chest pain, No palpitations, and No syncope Gastrointestinal: No nausea, vomiting, diarrhea No blood in stools No abdominal pain but increased abd girth Urinary: No dysuira, No hematuria. No flank pain Musculoskeletal: No muscle/joint pains , + edema- w/o TEDS they are swollen Skin: No itching Rare presyncopal or orthostatic symptoms; does also have vertigo; no falls Current Outpatient Medications Medication Sig Dispense Refill FISH OIL 1000 MG PO CAPS one tid with meals 100 5 Omeprazole 20 MG Oral Capsule Delayed Release (PriLOSEC) TAKE ONE CAPSULE BY MOUTH DAILY 30-60 MINUTES BEFORE BREAKFAST 90 Cap 1 Albuterol Sulfate HFA 108 (90 Base) MCG/ACT Inhalation Aerosol Solution guaiFENesin ER 1200 MG Oral Tablet Extended Release 12 Hour Take 1 Tablet by mouth every 12 hours as needed for Cough. Acetaminophen 325 MG Oral Tablet Take 2 Tablets by mouth every 6 hours as needed. Loperamide HCl 2 MG Oral Tablet Take 1 Tablet by mouth 4 times a day as needed for Diarrhea. Aspirin 81 MG Oral Tablet Chewable Take 1 Tablet by mouth in the morning. with food.. 100 Tablet 5 Atorvastatin Calcium 40 MG Oral Tablet (Lipitor) TAKE 1 TABLET BY MOUTH EVERY DAY 90 Tablet 3 Basaglar KwikPen 100 UNIT/ML Subcutaneous Solution Pen-injector (Insulin Glargine Solostar) INJECT UNDER THE SKIN 35 UNITS IN THE MORNING 30 mL 3 glipiZIDE ER 5 MG Oral Tablet Extended Release 24 Hour (Glucotrol XL) TAKE 1 TABLET BY MOUTH DAILY.30 MINUTES BEFORE A MEAL. 90 Tablet 3 Furosemide 40 MG Oral Tablet (Lasix) TAKE 1 TABLET BY MOUTH EVERY DAY 90 Tablet 3 Carvedilol 12.5 MG Oral Tablet (Coreg) Take 1 Tablet by mouth in the morning and 1 Tablet before bedtime. with food. 180 Tablet 3 Allopurinol 300 MG Oral Tablet (Zyloprim) TAKE 1 TABLET BY MOUTH EVERY DAY 90 Tablet 1 Vitamin B-12 1000 MCG Sublingual Tablet Sublingual TAKE 1 TABLET BY MOUTH EVERY DAY 90 Tablet 1 Gabapentin 100 MG Oral Capsule (Neurontin) Take 1 Capsule by mouth in the morning and 1 Capsule at noon and 1 Capsule before bedtime. 270 Capsule 1 Levothyroxine Sodium 150 MCG Oral Tablet (Levoxyl) TAKE 1 TABLET BY MOUTH EVERY DAY EXCEPT SATURDAYS AND SUNDAYS 74 Tablet 3 traMADol HCl 50 MG Oral Tablet (Ultram) TAKE 1 TABLET BY MOUTH EVERY 8 HOURS NEEDED FOR PAIN, SEVERE. FOR PAIN. 90 Tablet 0 Losartan Potassium 50 MG Oral Tablet (Cozaar) TAKE 1 TABLET BY MOUTH EVERY DAY IN THE MORNING 90 Tablet 3 amLODIPine Besylate 5 MG Oral Tablet (Norvasc) TAKE 1 TABLET BY MOUTH EVERY DAY IN THE MORNING 90 Tablet 3 ONETOUCH ULTRASOFT LANCETS MISC tests three times a day;Diagnosis 250.00 100 [address] ACCU-CHEK FASTCLIX LANCETS MISC USE DIRECTED TO TEST BLOOD SUGAR TWICE DAILY. E11.9 204 Each 3 Glucose Blood (ACCU-CHEK GUIDE) STRP USE DIRECTED TO TEST BLOOD SUGAR TWICE DAILY. E11.9 200 Strip 3 Bengay Cold Therapy 5 % External Gel (Menthol (Topical Analgesic)) Apply topically to affected area. Apply to right leg/hip every 6 hours as needed for pain. BD Pen Needle Mini U/F 31G X 5 MM (Insulin Pen Needle) USE WITH LANTUS SOLOSTAR. DX E11.9 100 Each 3 Gemfibrozil 600 MG Oral Tablet (Lopid) TAKE 1 TABLET BY MOUTH TWICE A DAY BEFORE MEALS 180 Tablet 1 No current facility-administered medications for this visit. Review of patient's allergies indicates: Allergen Reactions No Known Drug Allergy PHYSICAL EXAMINATION: BP Readings from Last 6 Encounters: 12/21/23 136/74 12/14/23 132/76 06/16/23 124/70 06/05/23 148/72 03/26/23 142/79 01/01/23 122/82 Wt Readings from Last 6 Encounters: 12/21/23 112.5 kg (248 lb) 12/14/23 107.5 kg (237 lb) 06/16/23 108.9 kg (240 lb) 06/05/23 109.7 kg (241 lb 12.8 oz) 03/26/23 105.2 kg (232 lb) 01/01/23 102.9 kg (226 lb 12.8 oz) Pulse Readings from Last 6 Encounters: 12/21/23 104 12/14/23 105 06/16/23 60 06/05/23 84 03/26/23 94 01/01/23 93 NAD, oriented x 3, obese, ambulatory w/ walker, occasional thick smoker cough in appt; no resp distress Normocephalic, atraumatic, eomi nonicteric sclerae MMM Supple neck Tachy in 100s w/ SM; no g/r; 2+ BLE edema w/o teds CTAB w/ reduced air mvt NT abd, +BS, soft No cyanosis or clubbing No rash No tremor, focal or global weakness; fluent speech, good historian LABS: Recent Labs Units 12/28/23 1511 06/10/23 1601 03/26/23 1552 12/01/22 1619 SODIUM - [facility] mmol/L 143 142 146 145 POTASSIUM - [facility] mmol/L 4.1 4.0 4.4 4.0 CHLORIDE - [facility] mmol/L 102 102 104 102 CO2 - [facility] mmol/L 29 27 31 31 BUN - [facility] mg/dL 34* 38* 35* 28* CREATININE - [facility] mg/dL 1.6* 1.7* 1.7* 1.6* ESTIMATED GLOMERULAR FILTRATION RATE - [facility] mL/min 36* 32* 32* 34* Recent Labs Units 12/28/23 1511 06/16/23 1618 06/18/22 1303 05/19/22 1249 HGB - [facility] g/dL 16.4* 16.1* 12.0 9.2* FERRITIN - [facility] ng/mL 91 -- 22 14 TRANSFERRIN SATURATION PERCENT - [facility] % 17 -- 19 9* Recent Labs Units 12/28/23 1511 06/10/23 1601 03/26/23 1552 12/01/22 1619 CALCIUM - [facility] mg/dL 8.4 8.7 9.3 9.0 PHOSPHORUS - [facility] mg/dL 3.3 -- 3.5 3.3 25-HYDROXY VITAMIN D - [facility] ng/mL 23 -- 25 -- PTH - [facility] pg/mL 216* -- 198* -- Recent Labs Units 12/28/23 1511 06/16/23 1618 12/01/22 1619 05/19/22 1249 HEMOGLOBIN A1C - [facility] % 6.5* 6.2* 6.8* 6.0* Recent Labs Units 12/01/22 1619 ALBUMIN / CREATININE RATIO, URINE - [facility] mg/g Creat 1,713* Recent Labs Units 03/26/23 1552 CLARITY, URINE - [facility] Clear GLUCOSE, URINE - [facility] mg/dL Negative BILIRUBIN, URINE - [facility] Negative KETONE, URINE - [facility] mg/dL Negative SPECIFIC GRAVITY, URINE - [facility] 1.012 BLOOD, URINE - [facility] Negative PH, URINE - [facility] Units 6.5 PROTEIN, URINE - [facility] mg/dL 30* UROBILINOGEN, URINE - [facility] mg/dL Normal NITRITE, URINE - [facility] Negative ESTERASE, URINE - [facility] Moderate* BACTERIA, URINE - [facility] /HPF 101-150* WBC, URINE - [facility] /HPF 50+* RBC, URINE - [facility] /HPF 0-2 ASSESSMENT AND PLAN: Stage 3b chronic kidney disease (HCC) (Primary) - ALBUMIN / CREATININE RATIO, URINE - PROTEIN/ CREATININE RATIO, URINE - URINALYSIS WITH MICROSCOPIC EXAM - BASIC METABOLIC PANEL - PHOSPHORUS - MAGNESIUM - PTH - 25-HYDROXY VITAMIN D - PHARMACIST MEDS THERAPY MGMT REFERRAL OP Gouty arthropathy - BASIC METABOLIC PANEL HTN, goal below 130/80 - ALBUMIN / CREATININE RATIO, URINE - URINALYSIS WITH MICROSCOPIC EXAM - BASIC METABOLIC PANEL Hyperparathyroidism, secondary renal (HCC) - BASIC METABOLIC PANEL - PHOSPHORUS - PTH - 25-HYDROXY VITAMIN D Uncontrolled hypertension - BASIC METABOLIC PANEL Persistent proteinuria - ALBUMIN / CREATININE RATIO, URINE - PROTEIN/ CREATININE RATIO, URINE - URINALYSIS WITH MICROSCOPIC EXAM Tobacco use disorder - PHARMACIST MEDS THERAPY MGMT REFERRAL OP Need for prophylactic vaccination and inoculation against influenza - INFLUENZA VACC, QUAD, HIGH DOSE (FLUZONE HD) Follow Up: Return in about 5 months (around 05/14/2024) for clinic visit w/ PA. | For: clinic visit w/ PA CKD 3B w/ acceptable chemistries on May labs and nephrotic range proteinuria w/ edema -upddate labs -continue losartan and look to max dose ->>gemfibrozil use noted; may need to stop -consider SGLT2i HTN nearly controlled -cousnelled against smoking and pt willing to work w/ MTM on cessation -continue amlodipine, losartan, low dose lasix >>HR noted as are reported cardiology concerns; no beta blockade currently but may need to consider -uncontrolled BP still >> 3 day log Patient Instructions -labs w/ those for upcoming Dr Mendieta appt -will refer you for help w/ stopping smoking -keep using compression hose --eat a low sodium diet (less than 2000 mg or 1/2 tsp) daily -for now no medicine changes but may ask you to start a medicine like jardiance or farxiga -avoid medicines like aleve, advil, ibuprofen, aspirin more than 81 mg daily and other NSAIDS whichare not good for kidney patients. Take only tylenol (acetaminophen) up to 2000 mg daily as needed for pain or as directed by your primary care provider. -do a 3 day BP log >> 2 readings in AM one minute apart and 2 readings in PM same for 3 days then send/drop off results ~~PATIENT INSTRUCTIONS FOR FLU SHOT~~ Possible side effects of influenza vaccine, (flu shot), are usually mild and include: 1. Soreness or redness at injection site 2. Low grade fever 3. Body aches You may use Tylenol/Acetaminophen as needed for these symptoms. LET YOUR DOCTOR KNOW IMMEDIATELY IF YOU HAVE DIFFICULTY BREATHING OR SWALLOWING, EXPERIENCE ITCHINGOF FEET OR HANDS, HAVE SWELLING OF EYES, FACE OR INSIDE OF NOSE. Teressa Murrell MD Nephrology [address] [place] [address] CC: Ref: [id number]] NO STREET ADDRESS AVAILABLE None (office) None (fax) PCP: AMELIA MENDIETA [address] [place] [address] [place] [address] [phone] This chart was completed in part utilizing [employer] Voice Recognition Software. Randomword insertions, pronoun errors, and incomplete sentences are an occasional consequence of this system due to software limitations, and ambient noise. Any questions or concerns about the content, text, or information contained within the body of this dictation should be directly addressed to the provider for clarification. documented in this encounter Nursing Notes * Mary Gerber RN - 12/14/2023 2:11 PM EST Follow up visit today. You recent illness or hospital stays. Daughter with pt today. documented in this encounter Miscellaneous Notes * Result Encounter Note - Teressa Murrell MD - 01/04/2024 7:19 AM EST Stable kidney labs but with uncontrolled proteinuria -jardiance 10 mg daily -do not pick this med up if too $$$; let us know and we will rx another similar one if possible -review the sick day rule for jardiance -lower lasix to MWF as she starts this med >>as discussed at OV > this med can worsen renal function temporarily but over long run proven to help protect kidneys and heart in longer run -repeat bmp after 2-3 weks on new med; also at that time get UACM, ACR, SPEP, UPEP, kappa -lambda ratio -3 day BP log same time as repeat labs or in 2-3 wks if no labs documented in this encounter Plan of Treatment Upcoming Encounters Date Type Department Care Team (Late st Contact Info) Description 01/04/2024 2:30 PM EST Imaging Radiology [address] [place] [id number] 01/25/2024 2:30 PM EST Pharmacy Pharmacy, [address] [place] [phone] [place] [id number] 05/19/2024 2:00 PM EDT Office Visit Nephrology [address] [place] [address] Gina Monk PA-C [address] [place] [id number] 07/04/2024 11:40 AM EDT Office Visit Family Medicine [address] [place] [phone] Carrie Walter CRNP [address] [place] [address] [place] [id number] 01/09/2025 1:20 PM EST Office Visit Family Medicine [address] [place] [phone] Amelia Mendieta MD [address] [place] [address] [place] [phone] Scheduled Orders Name Type Priority Associated Diagnoses Orde r Schedule ALBUMIN / CREATININE RATIO, URINE Lab Routine Stage 3b chronic kidney disease (HCC) HTN, goal below 130/80 Persistent proteinuria Ordered: 12/14/2023 PROTEIN/ CREATININE RATIO, URINE Lab Routine Stage 3b chronic kidney disease (HCC) Persistent proteinuria Ordered: 12/14/2023 URINALYSIS WITH MICROSCOPIC EXAM Lab Routine Stage 3b chronic kidney disease (HCC) HTN, goal below 130/80 Persistent proteinuria Ordered: 12/14/2023 Scheduled Procedures Name Priority Associated Diagnoses Date/Ti al COLONOSCOPY FLEXIBLE PROXIMAL DIAGNOSTIC Recall History of colon polyps Scheduled Referrals Name Type Priority Associated Diagnoses Orde r Schedule PHARMACIST MEDS THERAPY MGMT REFERRAL OP Referral Within 10 days (routine) Stage 3b chronic kidney disease (HCC) Tobacco use disorder Ordered: 12/14/2023 Health Maintenance Due Date Last Done Comments DISCUSS TOBACCO CESSATION (REFER TO SMARTSET #[id number]) 1956 Cologuard 2001 Fecal Occult Blood Test 2001 Sigmoidoscopy 2001 Hepatitis B (1 of 3 - Risk 3-dose series) 2016 Mammogram 10/30/2017 10/30/2016, 07/26, 08/18/2013, Additional history exists Diabetic Eye Exam 08/09/2020 08/09/2019, , 06/28/2013, Additional history exists Depression Screening 09/12/2020 09/12/2019 Diabetic Foot Exam 09/12/2020 09/12/2019, 0 06/28/2018, 07/07/2017, Additional history exists Zoster Vaccines (2 of 2) 11/24/2021 09/29/2021 COVID-19 Vaccine (2022- season) 2023 01/21/2021, 12/24/2020 Albumin/Creatinine Ratio 12/01/2023 023, 11/09/2021, 05/19/2020, Additional history exists GFR 06/27/2024 12/28/2023, 05/23, 03/26/2023, Additional history exists HbA1c 06/27/2024 12/28/2023, 05/24, 12/01/2022, Additional history exists O2 ASSESSMENT COMPLETED IN PAST YEAR FOR COPD 12/21/2024 12/21/2023 CKD HGB USE SMARTSET [id number] 12/28/202412/28, 12/28/2023, 06/16/2023, Additional history exists CKD PHOS USE SMARTSET 86891 12/28/202403/2024, 03/26/2023, 12/01/2022, Additional history exists TSH 12/28/2024 [...] Not on filedocumented as of this encounter Procedures Procedure Name Priority Date/Time Associated Diagnosis Comments 25-HYDROXY VITAMIN D Routine 12/28/2023 3:11 PM EST Stage 3b chronic kidney disease (HCC) Hyperparathyroidism, secondary renal (HCC) BASIC METABOLIC PANEL Routine 12/28/2023 3:11 PM EST Stage 3b chronic kidney disease (HCC) Gouty arthropathy HTN, goal below 130/80 Hyperparathyroidism, secondary renal (HCC) Uncontrolled hypertension PHOSPHORUS Routine 12/28/2023 3:11 PM EST Stage 3b chronic kidney disease (HCC) Hyperparathyroidism, secondary renal (HCC) PTH Routine 12/28/2023 3:11 PM EST Stage 3b chronic kidney disease (HCC) Hyperparathyroidism, secondary renal (HCC) MAGNESIUM Routine 12/28/2023 3:11 PM EST Stage 3b chronic kidney disease (HCC) documented in this encounter Results * 25-HYDROXY VITAMIN D (12/28/2023 3:11 PM EST) 25-Hydroxy Vitamin D 23 >19 ng/mL 12/29/2023 12:19 AM EST [facility] Blood Venous blood specimen / Unknown Venipuncture / Unknown 12/28/2023 3:11 PM EST 12/28/2023 3:11 PM EST Narrative [facility] - 12/29/2023 12:19 AM EST Deficient: <20 ng/mL Insufficient: 20-29 ng/mL Recommended/Optimum:30-50 ng/mL Vitamin D intoxication is rare. If suspicious of Vitamin D toxicity, evaluation of serum Calcium and PTH is recommended. Teressa Murrell MD LAB BLOOD ORDERAB LES Performing Organization Address City/[facility] Co de Phone Number [facility] [address] [place] [address] * (ABNORMAL) PTH (12/28/2023 3:11 PM EST) PTH 216(H) 15 - 65 pg/mL 12/29/2023 12:19 AM EST [facility] Blood Venous blood specimen / Unknown Venipuncture / Unknown 12/28/2023 3:11 PM EST 12/28/2023 3:11 PM EST Teressa Murrell MD LAB BLOOD ORDERAB LES Performing Organization Address [facility] Co de Phone Number LABORATORY [facility] [address] [place] [address] * MAGNESIUM (12/28/2023 3:11 PM EST) Magnesium 2.0 1.5 - 2.6 mg/dL 12/28/2023 11:46 PM EST LAB[facility]ATORY [facility] Blood Venous blood specimen / Unknown Venipuncture / Unknown 12/28/2023 3:11 PM EST 12/28/2023 3:11 PM EST Teressa Murrell MD LAB BLOOD ORDERAB LES Performing Organization Address City/[facility]/ZIP Co de Phone Number LABORATORY [facility] [address] [place] [address] * PHOSPHORUS (12/28/2023 3:11 PM EST) Phosphorus 3.3 2.5 - 4.8 mg/dL 12/28/2023 11:46 PM EST [facility] Blood Venous blood specimen / Unknown Venipuncture / Unknown 12/28/2023 3:11 PM EST 12/28/2023 3:11 PM EST Teressa Murrell MD LAB BLOOD ORDERAB LES [facility] [address] [place] [address] * (ABNORMAL) BASIC METABOLIC PANEL (12/28/2023 3:11 PM EST) BUN 34(H) 6 - 20 mg/dL 12/28/2023 11:46 PM EST [facility] Creatinine 1.6(H) 0.5 - 1.0 mg/dL 12/28/2023 11:46 PM EST [facility] Estimated Glomerular Filtration Rate 36(L) >=60 mL/min 12/28/2023 11:46 PM EST [facility] Comment:eGFR is calculated b ased on the CKD-EPI 2020 equation Sodium 143 135 - 146 mmol/L 12/28/2023 11:46 PM EST [facility] Potassium 4.1 3.5 - 5.1 mmol/L 12/28/2023 11:46 PM EST [facility] Chloride 102 98 - 107 mmol/L 12/28/2023 11:46 PM EST [facility] CO2 29 22 - 32 mmol/L 12/28/2023 11:46 PM EST [facility] Anion Gap 12 7 - 15 mmol/L 12/28/2023 11:46 PM EST [facility] Glucose 161(H) 70 - 120 mg/dL 12/28/2023 11:46 PM EST [facility] Calcium 8.4 8.4 - 10.2 mg/dL 12/28/2023 11:46 PM EST [facility] Blood Venous blood specimen / Unknown Venipuncture / Unknown 12/28/2023 3:11 PM EST 12/28/2023 3:11 PM EST Teressa Murrell MD LAB BLOOD ORDERAB LES [facility] [address] [facility] [place] [address] documented in this encounter Visit Diagnoses Diagnosis Stage 3b chronic kidney disease (HCC)- Primary Gouty arthropathy Gouty arthropathy, unspecified HTN, goal below 130/80 Unspecified essential hypertension Hyperparathyroidism, secondary renal (HCC) Secondary hyperparathyroidism (of renal origin) Uncontrolled hypertension Unspecified essential hypertension Persistent proteinuria Proteinuria Tobacco use disorder Need for prophylactic vaccination and inoculation against influenza documented in this encounter Advance Directives Latest Code Status on File Code Status Date Activated Date Inactivated Comments Full Code 11/24/2010 5:24 PM 12/02/2010 10:24 PM This order reflects the patients wishes and were consensually agreed upon. Question Answer Comments Discussion of Advance Directives occurred with: Patient Does the patient have a Living Will? No Does the patient have Health Care Power of External Grinder Tender? No Care Teams Finance Insurance Manager Relationship Specialty Start Date End Date Amelia Mendieta MD [address] [place] [address] [place] [address] PCP - General Family Medicine 07/21/17 documented as of this encounter
--- OUTSIDE RECORDS SUMMARY | 2024-01-05 12:59 | External Medical Summary ---
Author Name Unknown Address Unknown Organization [id number]:LABORATORY [facility] - [address] [place] [address] Laboratory Report Ordering Provider Test Date Status DANIEL SORTO 12/28/2023 15:11:29 Final Deficient: <20 ng/mL
Ins ufficient: 20-29 ng/mL
Recommended/Optimum:30-50 ng/mL

Vitamin D intoxication is rare. If suspicious of Vitamin D toxicity, evaluation of serum Calcium and PTH is recommended. Observation Date Value Abnormality Reference (Units ) Status 25-OH Vitamin D total 12/28/2023 15:11:29 23 >19 (ng/mL) Final Performing Location LABORATORY [facility] - [address] [place] [address]
--- OUTSIDE RECORDS SUMMARY | 2024-01-05 12:59 | External Medical Summary | Summary of Care ---
Author Name Unknown Organization [facility] Address [address] [facility] [address] Phone [phone] Care Team Providers Care Animal Geneticist Name Role Phone Mary Robert MD Primary Care Provide r Reason for Visit * Reason Comments Dosage Adjustment In Person (Anticoag Cl inic) Smoking Addiction * Evaluate & Treat - Unlimited Visits (Within 10 days (routine)) - Pending Review Specialty Diagnoses / Procedures Referred By Moose t Referred To Contact Pharmacist / Pharmacy Diagnoses Stage 3b chronic kidney disease (HCC) Tobacco use disorder Teressa Murrell MD [address] [place] [address] Referral ID Status Reason Start Date Expiration Date Visits Requested Visits Authorized [id number] Pending Review Specialty Services Required 12/14/2023 99 99 Encounter Details Date Type Department Care Team (Late st Contact Info) Description 12/28/2023 3:30 PM [facility] Pharmacy Pharmacy, [address] [place] [phone] [place] [address] Tobacco use disorder* Allergies Active Allergy Reactions Criticality Noted Date [...] BIPAP with 2 liters of oxygen through [facility] Obesity hypoventilation syndrome 11/24/2010 Overview: 04/30/11 [...] AHI - 22.9. No large leak concerns. [facility] Venous insufficiency 10/01/2010 Vitamin D deficiency [...] on file documented as of this encounter Progress Notes * Ellie Martinez, [facility], located [facility] - 12/28/2023 3:29 PM EST Medication Therapy Disease Management - Smoking Cessation HPI: Social History Tobacco Use Smoking Status Every Day Packs/day: 0.50 Years: 30.00 Additional pack years: 0.00 Total pack years: 15.00 Types: Cigarettes Last attempt to quit: 11/16/2020 Years since quittin.1 Smokeless Tobacco Never How many cigarettes do you smoke in one day? Full pack How soon do you smoke your first cigarette upon wakening? About an 1 - 1 1/2 hours How long have you been smoking? Since she was 17 years old Location:In home; not in the car Exposed to second hand smoke through: parents What are your thoughts on quitting smoking? Motivated for health (COPD); Feel better; Mental health How ready are you to quit smoking? On a scale of 0-10, unsure What are your motivations to quit smoking? reducing risk of COPD, family/friend's safety, and cost What are your fears about quitting smoking? Denies What are your triggers? during periods of stress Have you picked a quit date? If so when? NO Have you ever tried quitting in the past? If so, did you use any medications to help you? How long did you quit for? Why did you begin to smoke again? NRT (gum, patches) Comorbidities which discourage use of: Bupropion: none Chantix: none Nicotine replacement therapy: Failed in the past Objective: BP Readings from Last 3 Encounters: 12/21/23 136/74 12/14/23 132/76 06/16/23 124/70 Pulse Readings from Last 3 Encounters: 12/21/23 104 12/14/23 105 06/16/23 60 Wt Readings from Last 3 Encounters: 12/21/23 112.5 kg (248 lb) 12/14/23 107.5 kg (237 lb) 06/16/23 108.9 kg (240 lb) Assessment & Plan: The patient was instructed as to the detrimental effects of Tobacco & the serious impact that it has upon their health, especially their current condition, COPD. Discussed that smoking affects not only the patient's health but the health of their family members, children and others exposed to second hand tobacco smoke. Discussed the advantages of tobacco cessation: slow progression of their underlying disease, improve lung function and reduce risk for development of cancer and other tobacco related illnesses. Discussed the treatment options with the patient. Overall, will plan to set several goals and work on non-pharmacological options at this time after discussing with patient. If needed in the future, can look towards possible trial of Chantix. Goals: Eliminate smoking inside. Only able to smoke when outside of the house. Patient currently rolling 10 cigs/day. Agreeable to work on only rolling less than this each day todecrease amount. Utilize [employer] nelly on her phone. Work on crocheting when feeling anxious/stressed. Referral to [place] Department of Health/[place] [employer] Free Quitline: . Tobacco Use Disorder Pt was educated on smoking cessation and/or tobacco cessation for: 30 minutes Tobacco Cessation Counseling Attempt: first Start Date: 12/28/23 Today's Visit #: 1 (max 4) Follow up: x4 weeks Ellie Martinez [facility], located [facility] Clinical Pharmacist Medication Therapy Disease Management 12/28/2023, 3:30 PM documented in this encounter Plan of Treatment Upcoming Encounters Date Type Department Care Team (Late st Contact Info) Description 01/04/2024 2:30 PM EST Imaging Radiology [address] [place] [address] 01/25/2024 2:30 PM EST Pharmacy Pharmacy, [address] [place] [phone] [place] [address] 05/19/2024 2:00 PM EDT Office Visit Nephrology [address] [place] [address] ZeGina mcintosh PA-C [address] [facility] [place] [address] Scheduled Procedures Name Priority Associated Diagnoses Date/Ti me COLONOSCOPY FLEXIBLE PROXIMAL DIAGNOSTIC Recall History of colon polyps Scheduled Referrals Name Type Priority Associated Diagnoses Orde r Schedule PHARMACIST MEDS THERAPY MGMT REFERRAL OP Referral Within 10 days (routine) Stage 3b chronic kidney disease (HCC) Tobacco use disorder Ordered: 12/14/2023 Health Maintenance Due Date Last Done Comments DISCUSS TOBACCO CESSATION (REFER TO SMARTSET #6541) 1956 Cologuard 2001 Fecal Occult Blood Test [...] 05/19/2020, Additional history exists GFR 12/11/2023 06/10/2023, 050 02/2023, 12/01/2022, Additional history exists HbA1c 12/17/2023 06/16/2023, 010 07/2023, 05/19/2022, Additional history exists CKD PHOS USE SMARTSET 08171 03/26/2024 050 02/2023, 12/01/2022, 05/19/2020, Additional history exists CKD HGB USE SMARTSET 79293 06/16/202406/16, 06/16/2023, 06/18/2022, Additional history exists TSH 06/16/2024 06/16/2023, 04/24, 11/27/2020, Additional history exists O2 ASSESSMENT COMPLETED IN PAST YEAR FOR COPD 12/21/2024 12/21/2023 DTaP,Tdap,and Td Vaccines (3 - Td or Tdap) 01/15/2028 01/15/2018, 09/13/2007 Lipid Panel 06/16/2028 06/16/2023, 07/2023, 11/09/2021, Additional history exists Colonoscopy 04/29/2032 [...] as of this encounter Visit Diagnoses Diagnosis Tobacco use disorder- Primary documented in this encounter Advance Directives Latest Code Status on File Code Status Date Activated Date Inactivated Comments Full Code 11/24/2010 5:24 PM 12/02/2010 10:24 PM This order reflects the patients wishes and were consensually agreed upon. Question Answer Comments Discussion of Advance Directives occurred with: Patient Does the patient have a Living Will? No Does the patient have Health Care Power of Dining Room Tables Set Up Attendant? No Care Teams Animal Geneticist Relationship Specialty Start Date End Date Mary Robert MD [address] [place] [address] [place] [address] PCP - General Family Medicine 07/21/17 documented as of this encounter
--- OUTSIDE RECORDS SUMMARY | 2024-01-05 12:59 | External Medical Summary ---
Author Name Unknown Address Unknown Organization K01:LAB[facility]ATORY [facility] - [address] [place] [address] Laboratory Report Ordering Provider Test Date Status DANIEL SORTO 12/28/2023 15:11:29 Final Observation Date Value Abnormality Reference (Units ) Status Phosphate 12/28/2023 15:11:29 3.3 2.5-4.8 (m g/dL) Final Performing Location [facility] - [address] [place] [address]
--- OUTSIDE RECORDS SUMMARY | 2024-01-05 12:59 | External Medical Summary ---
Author Name Unknown Address Unknown Organization [id number]:LABORATORY [facility] - [address] [address] [facility] [address] [place] [address] Laboratory Report Ordering Provider Test Date Status DARRIAN SANTOS 12/28/2023 15:11:29 Final Observation Date Value Abnormality Reference (Units ) Status WBC, Total 12/28/2023 15:11:29 9.05 4.00-10.8 0 (K/uL) Final RBC 12/28/2023 15:11:29 5.52 3.85-5.15 (M/uL) Final Hemoglobin 12/28/2023 15:11:29 16.4 Above high normal 1 2.0-15.3 (g/dL) Final Anemia reflex testing trigge rs on a HGB < 12.0 for Females and HGB < 13.0 for Males in accordance with the WHO Anemia Guidelines HCT 12/28/2023 15:11:29 54.1 Above high normal 36 .0-45.2 (%) Final MCV 12/28/2023 15:11:29 98.0 81.5-97.5 (fL) Final MCH 12/28/2023 15:11:29 29.7 27.0-34.0 (pg) Final MCHC 12/28/2023 15:11:29 30.3 32.0-36.0 (g/dL) Final RDW 12/28/2023 15:11:29 18.7 11.5-15.5 (%) Final Platelets 12/28/2023 15:11:29 116 Below low normal 140 -400 (K/uL) Final MPV 12/28/2023 15:11:29 Final No result - abnormal platele t distribution. Nucleated erythrocytes/100 l eukocytes [Ratio] in Blood by Automated count 12/28/2023 15:11:29 0 <=0 (/100 WBCs) Final Performing Location LABORATORY [facility] - [address] [place] [address]
--- OUTSIDE RECORDS SUMMARY | 2024-01-05 12:59 | External Medical Summary ---
Author Name Unknown Address Unknown Organization K01:LABORATORY [facility] - [address] [place] [address] Laboratory Report Ordering Provider Test Date Status ANAM CISNEROS 12/28/2023 15:11:29 Final Observation Date Value Abnormality Reference (Units ) Status LDL, (direct) 12/28/2023 15:11:29 79 <=129 (mg/dL) Final LDL Cholesterol Reference Ra nges (mg/dL):
<70 Target level for high risk ASCVD patient
<100 Optimal for general population
100-129 Near optimal for general population
130-159 Borderline high
160-189 High
>=190 Very high Performing Location [facility] - [address] [place] [address]
--- OUTSIDE RECORDS SUMMARY | 2024-01-05 12:59 | External Medical Summary | Summary of Care ---
Author Name Unknown Organization [facility] Address [address] [facility] [address] Phone [phone] Care Team Providers Care Junior Recruiter Name Role Phone Mary Robert MD Primary [...] use disorder Teressa Murrell MD [address] [place] [address] Referral ID Status Reason Start Date Expiration Date Visits Requested Visits Authorized [id number] Pending Review Specialty Services Required 12/14/2023 99 99 Encounter Details Date Type Department Care Team (Late st Contact Info) Description 12/28/2023 3:[address] [facility] Pharmacy Pharmacy, [address] [place] [address] [place] [address] Tobacco use disorder* Allergies Active Allergy Reactions Criticality Noted Date Comments No Known Drug Allergy 10/01/2010 documented as of this encounter (statuses as of 12/29/2023) Medications Medication Sig Dispensed Refills Start Date [...] as of this encounter (statuses as of 12/29/2023) Active Problems Problem Noted Date Diagnosed Date [...] BIPAP with 2 liters of oxygen through [facility] Obesity hypoventilation syndrome 11/24/2010 Overview: [...] AHI - 22.9. No large leak concerns. [facility] Venous insufficiency 10/01/2010 Vitamin D deficiency [...] as of this encounter (statuses as of 12/29/2023) Resolved Problems Problem Noted Date Diagnosed Date [...] as of this encounter (statuses as of 12/29/2023) Immunizations Name Administration Dates Next Due COVID-19 [...] as of this encounter Progress Notes * Ilia Martinez, [facility] - 12/28/2023 3:29 PM EST Medication Therapy [...] than this each day todecrease amount. Utilize [employer] nelly on her phone. Work on crocheting when feeling anxious/stressed. Referral to [place] Department of Health/[place] [employer] Free Quitline: . Tobacco Use Disorder Pt was educated on smoking cessation and/or tobacco cessation for: 30 minutes Tobacco Cessation Counseling Attempt: first Start Date: 12/28/23 Today's Visit #: 1 (max 4) Follow up: x4 weeks Ilia Martinez RP Clinical Pharmacist Medication Therapy Disease Management 12/28/2023, 3:30 PM documented in this encounter Miscellaneous Notes * Addendum Note - Ilia Martinez RPh - 12/29/2023 4:21 PM ESTAddended by: ILIA MARTINEZ on: 12/29/2023 04:21 PM Modules accepted: Orders documented in this encounter Plan of Treatment Upcoming Encounters Date Type Department Care Team (Late st Contact Info) Description 01/04/2024 2:30 PM EST Imaging Radiology [address] [place] [address] 01/25/2024 2:30 PM EST Pharmacy Pharmacy, [address] [place] [address] [place] [address] 05/19/2024 2:00 PM EDT Office Visit Nephrology [address] [place] [address] Gina Monk PA-C [address] [facility] [place], [place] [address] Scheduled Procedures Name Priority Associated Diagnoses Date/Ti me COLONOSCOPY FLEXIBLE PROXIMAL DIAGNOSTIC Recall History of colon polyps Health Maintenance Due Date Last Done Comments DISCUSS TOBACCO CESSATION (REFER TO SMARTSET #9791) 1956 Cologuard 2001 Fecal Occult Blood Test [...] COPD 12/21/2024 12/21/2023 CKD HGB USE SMARTSET 69812 12/28/202412/28, 12/28/2023, 06/16/2023, Additional history exists CKD PHOS USE SMARTSET 08438 12/28/2024 02/0 03/2024, 03/26/2023, 12/01/2022, Additional history exists TSH 12/28/2024 [...] the patient have Health Care Power of Machine Hose Cutter? No Care Teams Junior Recruiter Relationship Specialty Start Date End Date Mary Robert MD [address] [place] [address] [place] [address] PCP - General Family Medicine 07/21/17 documented as of this encounter
--- OUTSIDE RECORDS SUMMARY | 2024-01-05 12:59 | External Medical Summary ---
Author Name Unknown Address Unknown Organization K01:LABORATORY [facility] - [address] [facility] [address] [facility] [address] Laboratory Report Ordering Provider Test Date Status FABIENRAKESHELIZABETH AgrawalANAM 12/28/2023 15:11:29 Final Observation Date Value Abnormality Reference (Units ) Status HbA1C 12/28/2023 15:11:29 6.5 Above high normal 4. 0-5.6 (%) Final The use of HbA1c to monitor glycemic status is based on normal hemoglobin and HbA composition. This test should not be used in patients with abnormal hemoglobin that affects the half life of the red blood cell or the in vivo glycation rates. Glucose, estimated average 12/28/2023 15:11:29 140 Above high normal <126 (mg/dL) Baldev villareal Performing Location LABORATORY [facility] - [address] [facility] [address]
--- OUTSIDE RECORDS SUMMARY | 2024-01-05 12:59 | External Medical Summary ---
Author Name Unknown Address Unknown Organization K01:LABORATORY [facility] - [address] [place] [address] Laboratory Report Ordering Provider Test Date Status DANIEL SORTO 12/28/2023 15:11:29 Final Observation Date Value Abnormality Reference (Units ) Status Magnesium 12/28/2023 15:11:29 2.0 1.5-2.6 (m g/dL) Final Performing Location [facility] - [address] [place] [address]
--- OUTSIDE RECORDS SUMMARY | 2024-01-05 12:59 | External Medical Summary ---
Author Name Unknown Address Unknown Organization K01:LABORATORY [facility] - [address] [place] [address] Laboratory Report Ordering Provider Test Date Status DARRIAN SANTOS 12/28/2023 15:11:29 Final Observation Date Value Abnormality Reference (Units ) Status Iron 12/28/2023 15:11:29 38 33-151 (ug/dL) Final Iron-binding capacity 12/28/2023 15:11:29 220 Below low normal 250-425 (ug/dL) Final Transferrin Sat % 12/28/2023 15:11:29 17 15-55 (%) Final Performing Location LABORATORY [facility] - [address] [place] [address]
--- OUTSIDE RECORDS SUMMARY | 2024-01-05 12:59 | External Medical Summary ---
Author Name Unknown Address Unknown Organization K01:LABORATORY [facility] - [address] [place] [address] Laboratory Report Ordering Provider Test Date Status JAYKAILEYANTONIA 12/28/2023 15:11:29 Final Observation Date Value Abnormality Reference (Units ) Status Uric Acid 12/28/2023 15:11:29 5.3 2.4-5.7 (m g/dL) Final Performing Location LABORATORY [facility] - [address] [place] [address]
--- OUTSIDE RECORDS SUMMARY | 2024-01-05 13:00 | External Medical Summary | Summary of Care ---
Author Name Unknown Organization [facility] Address [address] [facility] [address] Phone [phone] Care Team Providers Care Operator And Truck Driver Name Role Phone Mary Robert MD Primary Care Provide r Reason for Visit * Reason Onset Date Comments Appointment 12/16/2023 Smoking Cessatio n PHARMACIST MEDS THERAPY MGMT REFERRAL Encounter Details Date Type Department Care Team (Late st Contact Info) Description 12/16/2023 Telephone Nephrology [address] [place] [phone] Teressa Murrell MD 200 [facility] [place] [address] Appointment (Smoking Cessation PHARMACIST ... Allergies Active Allergy Reactions Criticality Noted Date Comments No Known Drug Allergy 10/01/2010 documented as of this encounter (statuses as of 12/16/2023) Medications Medication Sig Dispensed Refills Start Date End Date Status FISH OIL 1000 MG PO CAPSIndications:Dysl ipidemia, goal to be determined one tid with [...] MCG/ACT Inhalation Aerosol Solution 0 11/23/2020 Active Nicotine 14 MG/24HR Transdermal Patch 24 Hour (Nicotine Step 2)Indications:Tobacc o use disorder Place 1 Patch topically on the skin daily. 28 Patch 0 11/27/2020 Active Additional Information Patient not taking.Reported on 12/14/2023 Ipratropium-Albutero l 0.5-2.5 (3) MG/3ML Inhalation Solution (Duoneb)Indications: COPD, severity to be determined ([facility]) INHALE 1 VIAL VIA NEBULIZER 4 TIMES A DAY. 360 mL 1 08/23/2021 Active Additional Information Patient not taking.Reported on 12/14/2023 guaiFENesin ER 1200 MG Oral Tablet Extended Release 12 Hour Take 1 Tablet by mouth every 12 hours as needed for Cough. 0 Active Therems-M Oral Tablet Take by mouth . 0 Active Vitamin D (Cholecalciferol) 10 MCG (400 UNIT) Oral Tablet Chewable Take 600 Units by mouth in the morning. 0 Active Acetaminophen 325 MG Oral Tablet [...] 0 Active Aspirin 81 MG Oral Tablet ChewableIndications: Type 2 diabetes mellitus with stage 3b chronic kidney disease, with long-term current use of insulin ([facility]) Take 1 Tablet by mouth in the morning. with food.. 100 Tablet 5 05/19/2022 Active Atorvastatin Calcium 40 MG Oral Tablet (Lipitor)Indications :Dyslipidemia, goal LDL below 100 TAKE 1 TABLET [...] U/F 31G X 5 MM (Insulin Pen Needle)Indications:T ype 2 diabetes mellitus with stage 3b chronic kidney disease, with long-term current use of insulin (HCC) USE WITH LANTUS SOLOSTAR. DX E11.9 100 Each 3 06/11/2023 Active Gemfibrozil 600 MG Oral Tablet (Lopid) TAKE 1 TABLET BY MOUTH TWICE A DAY BEFORE MEALS 180 Tablet 1 06/16/2023 Active Carvedilol 12.5 MG Oral Tablet (Coreg)Indications:H eart failure, left-sided (HCC),HTN, goal below 130/80 Take 1 Tablet by mouth in the morning and 1 Tablet before bedtime. with food. 180 Tablet 3 06/29/2023 Active Allopurinol 300 MG Oral Tablet (Zyloprim) TAKE 1 TABLET BY MOUTH EVERY DAY 90 Tablet 1 06/30/2023 Active Vitamin B-12 1000 MCG Sublingual Tablet SublingualIndication s:B12 deficiency TAKE 1 TABLET BY MOUTH EVERY [...] Active Levothyroxine Sodium 150 MCG Oral Tablet (Levoxyl)Indications :Acquired hypothyroidism TAKE 1 TABLET BY MOUTH EVERY DAY EXCEPT SATURDAYS AND SUNDAYS 74 Tablet 3 08/10/2023 Active traMADol HCl 50 MG Oral Tablet (Ultram)Indications: D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 FOR PAIN. 90 Tablet 0 12/02/2023 Active Losartan Potassium 50 MG Oral Tablet (Cozaar)Indications: HTN, goal below 140/90 TAKE 1 TABLET BY MOUTH EVERY DAY IN THE MORNING 90 Tablet 3 12/08/2023 Active amLODIPine Besylate 5 MG Oral Tablet (Norvasc)Indications :HTN, goal below 140/90 TAKE 1 TABLET BY MOUTH EVERY DAY IN THE MORNING 90 Tablet 3 12/08/2023 Active documented as of this encounter (statuses as of 12/16/2023) Active Problems Problem Noted Date Diagnosed Date Type 2 diabetes mellitus wit h stage 3b chronic kidney disease, with long-term current use of insulin 12/01/2022 Chronic kidney disease, stage 3b 06/02/2022 Overview: Per CKD protocol Type 2 diabetes mellitus wit h stage 3b chronic kidney disease, without long-term current use of insulin 05/19/2022 S/P right hip fracture 05/19/2022 COPD, severity to be determined 11/27/2020 Severe aortic stenosis 07/02/2018 B12 deficiency 01/15/2018 MEDICATION USE AGREEMENT 10/01/2017 Hepatic steatosis 07/07/2017 Hepatosplenomegaly 07/03/2016 Gastroesophageal reflux disease without esophagi tis 07/02/2016 Type 2 diabetes mellitus wit h stage 3 chronic kidney disease, with long-term current use of insulin 12/03/2015 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 No large leak concerns. [facility] Venous insufficiency 10/01/2010 Vitamin D deficiency [...] as of this encounter (statuses as of 12/16/2023) Resolved Problems Problem Noted Date Diagnosed Date Resolved Date Kidney disease, chronic, sta ge IV (GFR 15-29 ml/min) 03/19/2020 02/18/2021 Kidney disease, chronic, sta ge III (GFR [...] as of this encounter (statuses as of 12/16/2023) Immunizations Name Administration Dates Next Due COVID-19 [...] encounter Miscellaneous Notes * Telephone Encounter - Richard Malone OSA - 12/16/2023 9:39 AM EST I called pt and left a message on her vm to call me back to make an appt documented in this encounter Plan of Treatment Upcoming Encounters Date Type Department Care Team (Late st Contact Info) Description 12/21/2023 5:40 PM EST Office Visit Family Medicine [address] [place] [phone] Mary Robert MD [address] [place] [address] [place] [phone] 05/19/2024 2:00 PM EDT Office Visit Nephrology [address] [place] [address] ZemaitisGina PA-C [address] [place] [address] Scheduled Procedures Name Priority Associated Diagnoses Date/Ti me COLONOSCOPY FLEXIBLE PROXIMAL DIAGNOSTIC Recall History of colon polyps Health Maintenance Due Date Last Done Comments DISCUSS TOBACCO CESSATION (REFER TO SMARTSET #0370) 1956 Cologuard 2001 Fecal Occult Blood Test [...] 2) 11/24/2021 09/29/2021 COVID-19 Vaccine (3 - 3-24 season) 2023 01/21/2021, 12/24/2020 Albumin/Creatinine Ratio 12/01/2023 023, 11/09/2021, 05/19/2020, Additional history exists GFR 12/11/2023 06/10/2023, 02/2023, 12/01/2022, Additional history exists O2 ASSESSMENT COMPLETED IN PAST YEAR FOR COPD 12/16/2023 12/16/2022 HbA1c 12/17/2023 06/16/2023, 0 07/2023, 05/19/2022, Additional history exists CKD PHOS USE SMARTSET 90941 03/26/202402/2023, 12/01/2022, 05/19/2020, Additional history exists CKD HGB USE SMARTSET 93093 06/16/202406/16, 06/16/2023, 06/18/2022, Additional history exists TSH 06/16/2024 06/16/2023, 04/24, 11/27/2020, Additional history exists DTaP,Tdap,and Td Vaccines (3 [...] the patient have Health Care Power of Wood Cutter? No Care Teams Operator And Truck Driver Relationship Specialty Start Date End Date Mary Robert MD [address] [place] [address] [place] [phone] PCP - General Family Medicine 07/21/17 documented as of this encounter
--- OUTSIDE RECORDS SUMMARY | 2024-01-05 13:00 | External Medical Summary | Summary of Care ---
Author Name Unknown Organization [facility] Address [address] [facility] [address] Phone [phone] Care Team Providers Care School Bus Technician Name Role Phone Mary Robert MD Primary Care Provide r Reason for Visit * Reason Onset Date Comments Appointment 12/16/2023 Smoking Cessatio n PHARMACIST MEDS THERAPY MGMT REFERRAL Encounter Details Date Type Department Care Team (Late st Contact Info) Description 12/16/2023 Telephone Ne[address] [place] [phone] Teressa Murrell MD 200 [facility] [place] [address] Appointment (Smoking Cessation PHARMACIST ... Allergies Active [...] Solution (Duoneb)Indications: COPD, severity to be determined ([facility]) INHALE 1 VIAL VIA NEBULIZER 4 TIMES [...] disease, with long-term current use of insulin ([facility]) Take 1 Tablet by mouth in the [...] Encounter - Richard Malone OSA - 12/16/2023 1:49 PM EST I spoke to pt. She is scheduled and aware. Declined anything in November 2023 * Telephone Encounter - Richard Malone OSA - 12/16/2023 9:39 AM EST I called pt and left a message on her vm to call me back to make an appt documented in this encounter Plan of Treatment Upcoming Encounters Date Type Department Care Team (Late st Contact Info) Description 12/21/2023 5:40 PM EST Office Visit Family Medicine [address] [place] [phone] Mary Robert MD [address] [place] [address] [place] [phone] 12/28/2023 3:30 PM EST Pharmacy Pharmacy, [address] [place] [phone] [place] [address] 05/19/2024 2:00 PM EDT Office Visit Nephrology [address] [place] [address] ZeGina mcintosh PA-C 200 [facility] [place] [address] Scheduled Procedures Name Priority Associated Diagnoses Date/Ti me COLONOSCOPY FLEXIBLE PROXIMAL DIAGNOSTIC Recall History of colon polyps Health Maintenance Due Date Last Done Comments DISCUSS TOBACCO CESSATION (REFER TO SMARTSET #6254) 1956 Cologuard 2001 Fecal Occult Blood Test [...] 06/10/2023, 0 02/2023, 12/01/2022, Additional history exists O2 ASSESSMENT COMPLETED IN PAST YEAR FOR COPD 12/16/2023 12/16/2022 HbA1c 12/17/2023 06/16/2023, 0 07/2023, 05/19/2022, Additional history exists CKD PHOS USE SMARTSET 98268 03/26/2024 050 02/2023, 12/01/2022, 05/19/2020, Additional history exists CKD HGB USE SMARTSET 11535 06/16/202406/16, 06/16/2023, 06/18/2022, Additional history exists TSH [...] the patient have Health Care Power of Operations Leader? No Care Teams School Bus Technician Relationship Specialty Start Date End Date Mary Robert MD [address] [place] [address] [place] [phone] PCP - General Family Medicine 07/21/17 documented as of this encounter
--- OUTSIDE RECORDS SUMMARY | 2024-01-05 13:00 | External Medical Summary | Summary of Care ---
Author Name Unknown Organization [facility] Address [address] [facility] [address] Phone [phone] Care Team Providers Care Certified Ophthalmic Surgical Assistant Name Role Phone Amelia Robert MD Primary Care Provide r Reason for Visit * Reason Comments eRx-Medication Refill Encounter Details Date Type Department Care Team (Late st Contact Info) Description 12/22/2023 Refill Family Medicine [address] [phone] Amelia Robert MD [address] [place] [address] [place] [address] Allergies Active Allergy Reactions Criticality Noted Date Comments No Known Drug Allergy 10/01/2010 documented as of this encounter (statuses as of 12/23/2023) Medications Medication Sig Dispensed Refills Start Date [...] EVERY DAY 90 Tablet 1 3 Active Ferrous Sulfate 325 (65 Fe) MG Oral Tablet (Feosol) TAKE 1 TABLET BY MOUTH TWICE A DAY WITH MORNING AND EVENING MEAL 180 Tablet 1 3 Active Gabapentin 100 MG [...] BEFORE MEALS 180 Tablet 1 4 Active Gemfibrozil 600 MG Oral Tablet (Lopid) TAKE 1 TABLET BY MOUTH TWICE A DAY BEFORE MEALS 180 Tablet 1 3 12/23/19 24 Discontinued documented as of this encounter (statuses as of 12/23/2023) Active Problems Problem Noted Date Diagnosed Date [...] BIPAP with 2 liters of oxygen through [facility] Obesity hypoventilation syndrome 11/24/2010 Overview: 04/30/11 -- [...] AHI - 22.9. No large leak concerns. [facility] Venous insufficiency 10/01/2010 Vitamin D deficiency [...] as of this encounter (statuses as of 12/23/2023) Resolved Problems Problem Noted Date Diagnosed Date [...] as of this encounter (statuses as of 12/23/2023) Immunizations Name Administration Dates Next Due COVID-19 mRNA, LNP-s, No Pre serve, 2-Dose Series ([employer] 01/21/2021,12/24/2020 Pneumococcal Conjugate Vacc, 13 Valent (Prevnar) [...] encounter Miscellaneous Notes * Telephone Encounter - Marques Lind [facility] - 12/23/2023 9:01 AM ESTSigned Prescriptions: Disp Refills Gemfibrozil 600 MG Oral Tablet (Lopid) 180 Ta*1 Sig: TAKE 1 TABLET BY MOUTH TWICE A DAY BEFORE MEALSAuthorizing Provider: AMELIA ROBERTOrderbrittney User: MARQUES LIND documented in this encounter Plan of Treatment Upcoming Encounters Date Type Department Care Team (Late st Contact Info) Description 12/28/2023 3:30 PM EST Pharmacy Pharmacy, [address] [place] [phone] [place] [address] 01/04/2024 2:30 PM EST Imaging Radiology [address] [place] [address] 05/19/2024 2:00 PM EDT Office Visit Nephrology [address] [place] [address] Zemaitis, Gina Murrell PA-C [address] [place] [address] Scheduled Procedures Name Priority Associated Diagnoses Date/Ti me COLONOSCOPY FLEXIBLE PROXIMAL DIAGNOSTIC Recall History of colon polyps Health Maintenance Due Date Last Done Comments DISCUSS TOBACCO CESSATION (REFER TO SMARTSET #9095) 1956 Cologuard 2001 Fecal Occult Blood Test [...] Additional history exists CKD PHOS USE SMARTSET 87150 03/26/20240 02/2023, 12/01/2022, 05/19/2020, Additional history exists CKD HGB USE SMARTSET 76092 06/16/202406/16, 06/16/2023, 06/18/2022, Additional history exists TSH [...] the patient have Health Care Power of Turner Off? No Care Teams Certified Ophthalmic Surgical Assistant Relationship Specialty Start Date End Date Amelia Robert MD [address] [place] [address] [place] [phone] PCP - General Family Medicine 07/21/17 documented as of this encounter
--- OUTSIDE RECORDS SUMMARY | 2024-01-05 13:00 | External Medical Summary | Summary of Care ---
Author Name Unknown Organization [facility] Address [address] [facility] [address] Phone [phone] Care Team Providers Care Animal Surgeon Name Role Phone Amelia Robert MD Primary Care Provide r Reason for Visit * Reason Comments eRx-Medication Refill Encounter Details Date Type Department Care Team (Late st Contact Info) Description 09/27/2023 Refill Family Medicine [address] [phone] Amelia Robert MD [address] [place] [address] [place] [phone] DM Type 2 causing Neuro Dz (HCC); Rotator cuff syndrome, unspecified laterality Allergies Active Allergy Reactions Criticality Noted Date Comments No Known Drug Allergy 10/01/2010 documented as of this encounter (statuses as of 09/28/2023) Medications Medication Sig Dispensed Refills Start Date [...] MCG/ACT Inhalation Aerosol Solution 0 1 Active Nicotine 14 MG/24HR Transdermal Patch 24 Hour (Nicotine Step 2)Indications:Tobac co use disorder Place 1 Patch topically on the skin daily. 28 Patch 0 1 Active Ipratropium-Albuter ol 0.5-2.5 (3) MG/3ML Inhalation Solution (Duoneb)Indications :COPD, severity to be determined ([facility]) INHALE 1 VIAL VIA NEBULIZER 4 TIMES A DAY. 360 mL 1 1 Active guaiFENesin ER 1200 MG Oral [...] disease, with long-term current use of insulin ([facility]) Take 1 Tablet by mouth in the morning. with food.. 100 Tablet 5 2 Active Losartan Potassium 50 MG Oral Tablet (Cozaar) Take 1 Tablet by mouth in the morning. 90 Tablet 3 3 Active amLODIPine Besylate 5 MG Oral Tablet (Norvasc) Take 1 Tablet by mouth in the morning. 90 Tablet 3 3 Active Atorvastatin Calcium 40 MG Oral Tablet [...] DX E11.9 100 Each 3 3 Active Gemfibrozil 600 MG Oral Tablet (Lopid) TAKE 1 TABLET BY MOUTH TWICE A DAY BEFORE MEALS 180 Tablet 1 3 Active Carvedilol 12.5 MG Oral Tablet [...] PAIN, SEVERE. FOR PAIN. 90 Tablet 0 3 Active traMADol HCl 50 MG Oral Tablet (Ultram)Indications :D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 FOR PAIN. 90 Tablet 0 3 09/28/20 23 Discontinued documented as of this encounter (statuses as of 09/28/2023) Active Problems Problem Noted Date Diagnosed Date [...] BIPAP with 2 liters of oxygen through [facility] Obesity hypoventilation syndrome 11/24/2010 Overview: 04/30/11 -- [...] AHI - 22.9. No large leak concerns. [facility] Venous insufficiency 10/01/2010 Vitamin D deficiency [...] as of this encounter (statuses as of 09/28/2023) Resolved Problems Problem Noted Date Diagnosed Date [...] as of this encounter (statuses as of 09/28/2023) Immunizations Name Administration Dates Next Due COVID-19 mRNA, LNP-s, No Pre serve, 2-Dose Series ([employer]) 01/21/2021,12/24/2020 Pneumococcal Conjugate Vacc, 13 Valent (Prevnar) 03/26/2022 Pneumococcal Polysaccharide PPV23 (Pneumovax) 10/07/2021,09/21/2006 SEASONAL INFLUENZA, PF, 6 M & Above, IM , (FLULAVAL or FLUZONE) 09/12/2019,01/15/2018 Season Influenza, Quad, PF, Adjuvanted, 65+ Yrs, IM (FLUAD) 09/26/2021 Seasonal Influenza, Quadriva lent Hd (Fluzone Hd) 08/23/2021 Seasonal Influenza, Quadriva lent, No Preserve, IM [...] encounter Miscellaneous Notes * Telephone Encounter - Amelia Robert MD - 09/28/2023 3:58 PM EST Signed Prescriptions: Disp Refills traMADol HCl 50 MG Oral Tablet (Ultram) 90 Tab*0 Sig: TAKE 1 TABLET BY MOUTH EVERY 8 HOURS NEEDED FOR PAIN, SEVERE. FOR PAIN. Authorizing Provider: AMELIA ROBERT * Telephone Encounter - Darrian Downey [facility] - 09/28/2023 3:19 PM EST Pending Prescriptions: Disp Refills traMADol HCl 50 MG Oral Tablet [Pharmacy M*90 Tab*0 Sig: TAKE 1 TABLET BY MOUTH EVERY 8 HOURS NEEDED FOR PAIN, SEVERE. FOR PAIN. * Telephone Encounter - Darrian Downey [facility] - 09/28/2023 3:18 PM EST I have reviewed the patients controlled substance dispensing history in the Prescription Drug Monitoring Program in compliance with the [facility] regulations before prescribing a controlled substance. PDMP checked on 09/28/2023. Pending Prescriptions: Disp Refills traMADol HCl 50 MG Oral Tablet (Ultram) [*90 Tab*0 Sig: TAKE 1 TABLET BY MOUTH EVERY 8 HOURS NEEDED FOR PAIN, SEVERE. FOR PAIN. Last Visit: 06/16/2023 (in office), Visit date not found (telemedicine) Next Visit: 12/01/2023 Date medication was last filled: 08/27/23 Date medication is due for refill: 09/25/23 Pharmacy: [id number] [id number] [facility] Is this request for a controlled substance? Yes and Urine Drug Screen Not completed Toxicology results: Results for orders placed or performed in visit on 10/01/17 OPIOIDS/BENZO COMPLIANCE MONITORING W/INTERP Result Value COMPLIANCE INTERP (NOTE) URINE DRUG SCREEN RESULT Amphetamine NEGATIVE Barbiturates NEGATIVE Benzodiazepines NEGATIVE Cannabinoids NEGATIVE Cocaine Metabolite NEGATIVE METHADONE METABOLITE NEGATIVE Morphine / Codeine NEGATIVE OXYCODONE NEGATIVE COMMENT THE ABOVE SCREENING RESULTS ARE PRESUMPTIVE AND CAN ONLY BE USED FOR MEDICAL PURPOSES. CONFIRMATORY TESTING IS AVAILABLE UPON REQUEST. Cutoff Concentration URINE VALID INTERP NORMAL CREATININE ALEXI 31 NITRITE ALEXI 0 pH ALEXI 5.0 *Note: Due to a large number of results and/or encounters for the requested time period, some results have not been displayed. A complete set of results can be found in Results Review. Please approve if appropriate. Thanks, Darrian Downey, PharmD Clinical Pharmacist [facility] ([facility]) (formerly Telepharmacy) [phone] 09/28/2023, 3:18 PM documented in this encounter Plan of Treatment Upcoming Encounters Date Type Department Care Team (Late st Contact Info) Description 12/01/2023 4:00 PM EST Office Visit Family Medicine [address] [place] [phone] Amelia Robert MD [address] [place] [address] [place] [phone] 12/02/2023 3:00 PM EST Office Visit Nephrology [address] [place] [phone] Teressa Murrell MD [address] [place] [address] [place] [id number] Scheduled Procedures Name Priority Associated Diagnoses Date/Ti me COLONOSCOPY FLEXIBLE PROXIMAL DIAGNOSTIC Recall History of colon polyps Health Maintenance Due Date Last Done Comments DISCUSS TOBACCO CESSATION (REFER TO SMARTSET #6910) 1956 Cologuard 2001 Fecal Occult Blood Test [...] COVID-19 Vaccine ( season) 2023 01/21/2021, 12/24/2020 Influenza Vaccine (FLU shot) (#1) 2023 09/26/2021, 08/23/2021, 09/12/2019, Additional history exists Albumin/Creatinine Ratio 12/01/2023 023, 11/09/2021, 05/19/2020, Additional history exists GFR 12/11/2023 06/10/2023, 050 02/2023, 12/01/2022, Additional history exists O2 ASSESSMENT COMPLETED IN PAST YEAR FOR COPD 12/16/2023 12/16/2022 HbA1c 12/17/2023 06/16/2023, 010 07/2023, 05/19/2022, Additional history exists CKD PHOS USE SMARTSET 50204 03/26/2024 050 02/2023, 12/01/2022, 05/19/2020, Additional history exists CKD HGB USE SMARTSET 32444 06/16/202406/16, 06/16/2023, 06/18/2022, Additional history exists TSH 06/16/2024 06/16/2023, 04/24, 11/27/2020, Additional history exists DTaP,Tdap,and Td Vaccines (3 - Td or Tdap) 01/15/2028 01/15/2018, 09/13/2007 Lipid Panel 06/16/2028 06/16/2023, 07/2023, 11/09/2021, Additional history exists Colonoscopy 04/29/2032 04/29/2022 Colorectal Cancer Screening 04/29/2032 Pap Smear Discontinued 07/01/2012 (Done elsewhere), 09/13/2007 (Done elsewhere) Alpha-1 Antitrypsin Completed 02/26/2017 Pneumococcal Vaccine: 65+ Years Completed 03/26/2022, 10/07/2021, 09/21/2006 Nephrology Referral Discontinued 12/16/2022 GARDASIL-HPV IMMUNIZATION SERIES Aged Out No longer eligible based on patient's age to complete this topic MENINGOCOCCAL (MENACTRA/MENVEO) Aged Out No longer eligible based on patient's age to complete this topic documented as of this encounter Medical Devices Not on filedocumented as of this encounter Visit Diagnoses Diagnosis 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 Question Answer Comments Discussion of Advance Directives occurred with: Patient Does the patient have a Living Will? No Does the patient have Health Care Power of Tower Observer? No Care Teams Animal Surgeon Relationship Specialty Start Date End Date Amelia Robert MD [address] [place] [address] [place] [phone] PCP - General Family Medicine 07/21/17 documented as of this encounter
--- OUTSIDE RECORDS SUMMARY | 2024-01-05 13:00 | External Medical Summary | Summary of Care ---
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 FOR PAIN. 90 Tablet 0 3 10/30/20 23 Discontinued documented as of this encounter (statuses as of 10/30/2023) Active Problems Problem Noted Date Diagnosed Date [...] as of this encounter (statuses as of 10/30/2023) Resolved Problems Problem Noted Date Diagnosed Date [...] as of this encounter (statuses as of 10/30/2023) Immunizations Name Administration Dates Next Due COVID-19 [...] Telephone Encounter - Amelia Robert MD - 10/30/2023 3:10 PM EST Signed Prescriptions: Disp Refills traMADol HCl 50 MG Oral Tablet (Ultram) 90 Tab*0 Sig: TAKE 1 TABLET BY MOUTH EVERY 8 HOURS NEEDED FOR PAIN, SEVERE. FOR PAIN. Authorizing Provider: AMELIA ROBERT * Telephone Encounter - Melvi Johnson [facility] - 10/30/2023 2:34 PM ESTPending Prescriptions: Disp Refills traMADol HCl 50 MG Oral Tablet [Pharmacy M*90 Tab*0 Sig: TAKE 1 TABLET BY MOUTH EVERY 8 HOURS NEEDED FOR PAIN, SEVERE. FOR PAIN. * Telephone Encounter - Melvi Johnson [facility] - 10/30/2023 2:33 PM EST I have reviewed the patients controlled substance dispensing history in the Prescription Drug Monitoring Program in compliance with the [facility] regulations before prescribing a controlled substance. PDMP checked on 10/30/2023. Pending Prescriptions: Disp Refills traMADol HCl 50 MG Oral Tablet (Ultram) [*90 Tab*0 Sig: TAKE 1 TABLET BY MOUTH EVERY 8 HOURS NEEDED FOR PAIN, SEVERE. FOR PAIN. Last Visit: 06/16/2023 (in office), Visit date not found (telemedicine) Next Visit: 12/01/2023 Date medication was last filled: 09/28 Date medication is due for refill: 10/27 Pharmacy: [id number] [address] [facility] Is this request for a controlled [...] in Results Review. Please approve if appropriate. Thank you, Melvi Johnson, PharmD Clinical Pharmacist [facility] ([facility]) 10/30/23 2:33 PM [phone] documented in this encounter Plan of Treatment Upcoming Encounters Date Type Department Care Team (Late st Contact Info) Description 12/01/2023 4:00 PM EST Office Visit Family Medicine [address] [place] [phone] Amelia Robert MD [address] [place] [address] [place] [phone] 12/02/2023 3:00 PM EST Office Visit Nephrology [address] [place] [address] Teressa Murrell MD [address] [place] [address] [place] [address] Scheduled Procedures Name Priority Associated Diagnoses Date/Ti me COLONOSCOPY FLEXIBLE PROXIMAL DIAGNOSTIC Recall History of colon polyps Health Maintenance Due Date Last Done Comments DISCUSS TOBACCO CESSATION (REFER TO SMARTSET #2081) 1956 Cologuard 2001 Fecal Occult Blood Test [...] 2) 11/24/2021 09/29/2021 COVID-19 Vaccine (3 - season) 2023 01/21/2021, 12/24/2020 Influenza Vaccine (FLU shot) (#1) 2023 09/26/2021, 08/23/2021, 09/12/2019, Additional history exists Albumin/Creatinine Ratio 12/01/2023 023, 11/09/2021, 05/19/2020, Additional history exists GFR 12/11/2023 06/10/2023, 050 02/2023, 12/01/2022, Additional history exists O2 ASSESSMENT COMPLETED IN PAST YEAR FOR COPD 12/16/2023 12/16/2022 HbA1c 12/17/2023 06/16/2023, 010 07/2023, 05/19/2022, Additional history exists CKD PHOS USE SMARTSET 63943 03/26/2024 05/0 02/2023, 12/01/2022, 05/19/2020, Additional history exists CKD HGB USE SMARTSET 52467 06/16/202406/16, 06/16/2023, 06/18/2022, Additional history exists TSH [...] the patient have Health Care Power of Well Testing Operator? No Care Teams Outpatient Coding Specialist Relationship Specialty Start Date End Date Amelia Robert MD [address] [place] [address] [place] [phone] PCP - General Family Medicine 07/21/17 documented as of this encounter
--- OUTSIDE RECORDS SUMMARY | 2024-01-05 13:00 | External Medical Summary | Summary of Care ---
Author Name Unknown Organization [facility] Address [address] [facility] [place] [address] Phone [phone] Care Team Providers Care Engraver Flatware Name Role Phone Mary Robert MD Primary Care Provide r Reason for Visit * Reason Comments Re-Check Encounter Details Date Type Department Care Team (Latest Contact Info) Description 12/21/2023 5:40 PM EST Office Visit Family Medicine [address] [phone] Mary Robert MD [address] [place] [address] [place] [address] Type 2 diabetes mellitus with stage 3b chronic kidney disease, with long-term current use of insulin (HCC)*; Encounter for screening mammogram for malignant neoplasm of breast; Stage 3b chronic kidney disease (HCC); Obesity hypoventilation syndrome ([facility]); Type 2 diabetes mellitus with peripheral neuropathy ([facility]); Heart failure, diastolic, due to HTN ([facility]); COPD, severity to be determined ([facility]); Dyslipidemia, goal LDL below 100; Acquired hypothyroidism; Severe aortic stenosis; Gouty arthropathy Allergies Active Allergy Reactions Criticality Noted Date Comments No Known Drug Allergy 10/01/2010 documented as of this encounter (statuses as of 12/22/2023) Medications Medication Sig Dispensed Refills Start Date [...] Solution (Duoneb)Indications :COPD, severity to be determined ([facility]) INHALE 1 VIAL VIA NEBULIZER 4 TIMES A DAY. 360 mL 1 1 12/21/19 24 Discontinued Therems-M Oral Tablet Take by mouth . 0 12/21/19 24 Discontinued Vitamin D (Cholecalciferol) 10 MCG (400 UNIT) Oral Tablet Chewable Take 600 Units by mouth in the morning. 0 12/21/19 24 Discontinued documented as of this encounter (statuses as of 12/22/2023) Active Problems Problem Noted Date Diagnosed Date [...] BIPAP with 2 liters of oxygen through [facility] Obesity hypoventilation syndrome 11/24/2010 Overview: [...] AHI - 22.9. No large leak concerns. [facility] Venous insufficiency 10/01/2010 Vitamin D deficiency [...] as of this encounter (statuses as of 12/22/2023) Resolved Problems Problem Noted Date Diagnosed Date [...] as of this encounter (statuses as of 12/22/2023) Immunizations Name Administration Dates Next Due COVID-19 mRNA, LNP-s, No Pre serve, 2-Dose Series ([employer]) 01/21/2021,12/24/2020 Pneumococcal Conjugate Vacc, 13 Valent (Prevnar) [...] Sign Reading Time Taken Comments Blood Pressure 136/74 12/21/2023 5:40 PM EST Pulse 104 12/21/2023 5:40 PM EST Temperature 36.1 C (97 F) 12/21/2023 5:40 PM EST Respiratory Rate - - Oxygen Saturation 90% 12/21/2023 5:40 PM EST Inhaled Oxygen Concentration - - Weight 112.5 kg (248 lb) 12/21/2023 5:40 PM EST Height 170.2 cm (5' 7") 12/21/2023 5:40 PM EST Body Mass Index 38.84 12/21/2023 5:40 PM EST documented in this encounter Progress Notes * Mary Robert MD - 12/21/2023 5:49 PM EST Subjective: Lorraine North is a 68 year old female. Chief Complaint Patient presents with Re-Check HPI: Brief Clinical History Ms. North is a 68 year old woman last seen in Family Medicine 6 months ago (06-16-23). She is due for eval of Obesity hypoventilation syndrome (HCC). COPD is worse in the cold weather. Has been taking Mucinex and that keeps her mucus loose so she can cough it up. Has not been coughing more or making more sputum than usual. Saw nephrology last week. Had labs ordered and was waiting to see if she needed any labs from PCP. Has been checking her sugars twice a day. They have been good. Has eye exams done at [facility] and will schedule. Is going to see MTM about smoking cessation. Legs swell when she does not wear the compression stockings. Follows with cardiology for aortic stenosis. Last seen 12/2022 and was recommended to have another cath as the echo was showing severe aortic stenosis and felt to be worse than shown on echo. States she was scared to find out but will schedule follow-up with cardiology. Results for orders placed or performed in visit on 06/16/23 LIPID PANEL WITH DIRECT LDL IF TG IS HIGH Result Value Ref Range Triglycerides 228 (H) <=174 mg/dL Cholesterol 145 <200 mg/dL HDL Cholesterol 30 (L) >49 mg/dL Non-HDL Cholesterol 115 <=159 mg/dL HEMOGLOBIN A1C Result Value Ref Range Hemoglobin A1C 6.2 (H) 4.0 - 5.6 % Estimated Average Glucose 131 (H) <126 mg/dL TSH WITH FREE T4 IF INDICATED Result Value Ref Range TSH 2.39 0.27 - 4.20 uIU/mL ANEMIA CBC Result Value Ref Range WBC 8.02 4.00 - 10.80 K/uL RBC 5.43 3.85 - 5.15 M/uL HGB 16.1 (H) 12.0 - 15.3 g/dL HCT 52.2 (H) 36.0 - 45.2 % MCV 96.1 81.5 - 97.5 fL MCH 29.7 27.0 - 34.0 pg MCHC 30.8 32.0 - 36.0 g/dL RDW 17.1 11.5 - 15.5 % PLT 110 (L) 140 - 400 K/uL MPV nRBCs 0 <=0 /100 WBCs DIFFERENTIAL, AUTOMATED Result Value Ref Range WBC 8.02 4.00 - 10.80 K/uL Neutrophils % 60.9 40.0 - 75.0 % Lymphocytes % 29.9 18.0 - 42.0 % Monocytes % 7.4 1.0 - 11.0 % Eosinophils % 0.9 0.0 - 6.0 % Basophils % 0.7 0.0 - 2.0 % Immature Granulocytes % 0.2 0.0 - 2.0 % Absolute Neutrophils 4.88 1.80 - 7.70 K/uL Absolute Lymphocytes 2.40 1.00 - 4.80 K/ul Absolute Monocytes 0.59 0.00 - 1.10 K/uL Absolute Eosinophils 0.07 0.00 - 0.70 K/uL Absolute Basophils 0.06 0.00 - 0.20 K/uL Absolute Immature Granulocytes 0.02 0.00 - 0.20 K/uL LDL CHOLESTEROL (DIRECT MEASURE) Result Value Ref Range LDL Cholesterol (Direct Measure) 79 <=129 mg/dL *Note: Due to a large number of results and/or encounters for the requested time period, some results have not been displayed. A complete set of results can be found in Results Review. PHM: Patient Active Problem List Diagnosis Code Tobacco use disorder F17.200 ADVANCE DIRECTIVE INFORMATION Acquired hypothyroidism E03.9 Gouty arthropathy M10.9 Type 2 diabetes mellitus with hemoglobin A1c goal of less than 8.0% ([facility]) E11.9 Dyslipidemia, goal LDL below 100 E78.5 Vitamin D deficiency E55.9 Venous insufficiency I87.2 Obesity hypoventilation syndrome ([facility]) E66.2 Obstructive sleep apnea G47.33 Rotator cuff syndrome M75.100 Heart failure, diastolic, due to HTN ([facility]) I11.0, I50.30 Ganglion of right wrist M67.431 HTN, goal below 140/90 I10 Type 2 diabetes mellitus with peripheral neuropathy ([facility]) E11.42 Gastroesophageal reflux disease without esophagitis K21.9 Hepatosplenomegaly R16.2 Hepatic steatosis K76.0 MEDICATION USE AGREEMENT [id number] B12 deficiency E53.8 Severe aortic stenosis I35.0 COPD, severity to be determined ([facility]) J44.9 S/P right hip fracture Z87.81 Chronic kidney disease, stage 3b ([facility]) N18.32 Type 2 diabetes mellitus with stage 3b chronic kidney disease, with long-term current use of insulin ([facility]) E11.22, N18.32, Z79.4 Current Outpatient Medications Medication Sig Dispense Refill FISH OIL 1000 MG PO CAPS one tid with meals 100 5 ONETOUCH ULTRASOFT LANCETS MISC tests three times a day;Diagnosis 250.00 100 Box 11 ACCU-CHEK FASTCLIX LANCETS MISC USE DIRECTED TO TEST BLOOD SUGAR TWICE DAILY. E11.9 204 Each 3 Glucose Blood (ACCU-CHEK GUIDE) STRP USE DIRECTED TO TEST BLOOD SUGAR TWICE DAILY. E11.9 200 Strip 3 Omeprazole 20 MG Oral Capsule Delayed Release [...] times a day as needed for Diarrhea. Bengay Cold Therapy 5 % External Gel (Menthol (Topical Analgesic)) Apply topically to affected area. Apply to right leg/hip every 6 hours as needed for pain. Aspirin 81 MG Oral Tablet Chewable Take [...] BY MOUTH EVERY DAY 90 Tablet 3 BD Pen Needle Mini U/F 31G X 5 MM (Insulin Pen Needle) USE WITH LANTUS SOLOSTAR. DX E11.9 100 Each 3 Gemfibrozil 600 MG Oral Tablet (Lopid) TAKE 1 TABLET BY MOUTH TWICE A DAY BEFORE MEALS 180 Tablet 1 Carvedilol 12.5 MG Oral Tablet (Coreg) Take 1 Tablet by mouth in the morning and 1 Tablet before bedtime. with food. 180 Tablet 3 Allopurinol 300 MG Oral Tablet (Zyloprim) TAKE 1 TABLET BY MOUTH EVERY DAY 90 Tablet 1 Vitamin B-12 1000 MCG Sublingual Tablet Sublingual TAKE 1 TABLET BY MOUTH EVERY DAY 90 Tablet 1 Ferrous Sulfate 325 (65 Fe) MG Oral Tablet (Feosol) TAKE 1 TABLET BY MOUTH TWICE A DAY WITH MORNINGAND EVENING MEAL 180 Tablet 1 Gabapentin 100 MG Oral Capsule [...] DAY IN THE MORNING 90 Tablet 3 No current facility-administered medications for this visit. Past Medical History: Diagnosis Date Abnormal blood chemistry 05/21/2005 glusoce 141 Aortic valve stenosis, moderate 2011 moderate on 2011 echocardiogram Body mass index 40 and over, adult 02/19/2010 COVID-19 12/20/2020 DM type 2 causing neurological disease (HCC) 08/21/2010 DM type 2 causing renal disease (HCC) DM type 2, goal A1c below 7 05/22/2006 hgba1c 6.0(09/2010) Dyslipidemia, goal LDL below 100 Elevated C-reactive protein (CRP) 05/21/2005 CRP 23 Ganglion of right wrist 11/27/2014 Gastroesophageal reflux disease without esophagitis 07/02/2016 Gouty arthropathy 11/11/2009 uric acid 9.9 Gouty arthropathy, unspecified 09/06/2009 Hepatic steatosis 07/07/2017 Hepatosplenomegaly 07/03/2016 HTN, goal below 130/80 HTN, goal below 140/90 06/28/2013 Hypertension goal BP (blood pressure) < 140/80 11/27/2014 Kidney disease, chronic, stage III (GFR 30-59 ml/min) ([facility]) 04/26/2010 GFR 49.8 Metabolic syndrome 09/23/2002 insulin 28.7 Mixed dyslipidemia 05/21/2005 CHOL 177, HDL 31, LDL 115, TRIG 344 Morbid obesity, BMI not known ([facility]) Obesity, Class II, BMI 35.0-39.9, with comorbidity (see actual BMI) 12/05/2010 Other chronic pulmonary heart diseases 11/20/2010 moderately severe pulmonary HTN Other specified acquired hypothyroidism 12/01/2005 TSH 4.01 (09/2010) Peripheral sensory neuropathy 09/18/2015 Polyneuropathy in diabetes(357.2) 10/07/2011 Rotator cuff syndrome 10/07/2011 Tobacco use disorder Type 2 diabetes mellitus with diabetic chronic kidney disease (HCC) 12/03/2015 Venous insufficiency 10/01/2010 Vitamin D deficiency 12/27/2009 Vitamin D 9.5 Past Surgical History: Procedure Laterality Date DELIVERY 1980s COLONOSCOPY, DIAGNOSTIC (RECTUM) N/A 04/29/2022 [facility], colonoscopy, 3 -5 to8mm in ascending, diverticulosis in sigmoid colon, external & internal hemorrhoids / biopsies benign adenomatous polyp and serrated adenomatous polyps / 3 year recall CORONARY ANGIOGRAPHY W/RIGHT+LEFT CATH Right 08/13/2018 CORONARY ANGIOGRAPHY W/RIGHT+LEFT CATH performed by Hugo Buckley MD at [facility] MAMMOGRAM SCREENING BILATERAL 07/18/2009 almost entirely fat category 1 normal MAMMOGRAM SCREENING-BILATERAL 02/12/2007 almost entirely fat, category 1 normal MAMMOGRAM SCREENING-BILATERAL 07/05/2008 almost entirely fat, category 1 normal REPAIR HIP FRACTURE(S), W/FIXATION Right 03/10/2022 IM nail--Dr. Harris [facility] DOPPLER LE 09/01/2008 MURALI 0.92, so no stenosis. but right brachial is 130, left 105, suggesting left subclavian stenosis Social History Socioeconomic History Marital status: Spouse name: Not on file Number of children: 5 Years of education: Not on file Highest education level: Not on file Occupational History Occupation: Year Up Employer: [email or web address] Tobacco Use Smoking status: Every Day Packs/day: 0.50 Years: 30.00 Additional pack years: 0.00 Total pack years: 15.00 Types: Cigarettes Last attempt to quit: 11/16/2020 Years since quittin.0 Smokeless tobacco: Never Vaping Use Vaping Use: Never used Substance and Sexual Activity Alcohol use: No Drug use: No Sexual activity: Yes Partners: Male control/protection: Surgical Other Topics Concern Service No Blood Transfusions No Caffeine Concern Yes Occupational Exposure No Hobby Hazards No Sleep Concern No Stress Concern No Weight Concern Yes Special Diet Yes Back Care Not Asked Exercise No Bike Helmet Not Asked Seat Belt Yes Self-Exams Not Asked Social History Narrative Homemaker Social Determinants of Health Financial Resource Strain: Not on file Food Insecurity: Not on file Transportation Needs: Not on file Physical Activity: Not on file Stress: Not on file Social Connections: Not on file Intimate Partner Violence: Not on file Housing Stability: Not on file Review of patient's allergies indicates: Allergen Reactions No Known Drug Allergy Objective: BP 136/74 | Pulse 104 | Temp 36.1 C (97 F) (Tympanic) | Ht 1.702 m (5' 7") | Wt 112.5 kg (248 lb) | SpO2 90% | BMI 38.84 kg/m | BSA 2.31 m Physical Exam: General: alert, healthy, no distress, well nourished, and well developed Head: Normocephalic, No masses, lesions, tenderness or abnormalities Eye Exam: PERRLA, extraocular movements intact, conjunctiva are pink and non- injected, sclera clear Ears: External ears normal, Canals clear, TM's Normal Nose: no mucosal erythema, no mucosal edema, no purulent discharge Oropharynx: no exudate, no erythema, lips, buccal mucosa, and tongue normal, and mucous membranes are moist Neck: supple, no adenopathy, no bruits Heart: regular rate & rhythm, no gallops, and 3/6 holosystolic low pitched harsh murmur aortic area Lungs: chest symmetric with normal AP diameter, no chest deformities noted, no chest wall tenderness, decreased breath sounds Extremities: +lymphedema in bilateral lower extremities Neuro Exam: alert & oriented x 3 with fluent speech, no focal motor/sensory deficits Extensive ROS Constitutional (f/c/wt/vision/hearing): Negative Resp (cough/sob/obando): see above hpi CV (cp/palp/fluttering/diaphoresis/obando/pnd):see above hpi GI (n/v/d/hrtburn): Negative Endo (hair/cold or heat intol/ 3 p's): see above hpi Neuro (shaking/weak/fatigu/parasthesi/): Negative Skin (rash/easy bruis/xerosis): see above hpi Psy (si/hi/halluc/): Negative (nocturia/hesit/drib/sexual review): Negative Lymph (swollen glands/b sx's/: Negative ASSESSMENT: Type 2 diabetes mellitus with stage 3b chronic kidney disease, with long-term current use of insulin ([facility]) (Primary)--due for labs. Continue glipizide ER 5 mg daily and Basaglar 35 units daily. - HEMOGLOBIN A1C; Future; Expected date: 12/21/2023 Encounter for screening mammogram for malignant neoplasm of breast - MAMMOGRAM SCREENING RITA BILATERAL; Future; Expected date: 12/21/2023 Stage 3b chronic kidney disease (HCC)--stable. Following with nephrology. Obesity hypoventilation syndrome (HCC)--stable Type 2 diabetes mellitus with peripheral neuropathy ([facility])--continue gabapentin 100 mg TID. Heart failure, diastolic, due to HTN (HCC)--continue furosemide 40 mg daily. Due for cardiology follow-up. COPD, severity to be determined (HCC)--discussed smoking cessation. To see [facility] for smoking cessation. Dyslipidemia, goal LDL below 100--controlled with atorvastatin 40 mg daily. - LIPID PANEL WITH DIRECT LDL IF TG IS HIGH; Future; Expected date: 12/21/2023 - HEPATIC FUNCTION PANEL; Future; Expected date: 12/21/2023 Acquired hypothyroidism--continue levothyroxine 150 mcg daily. - TSH WITH FREE T4 IF INDICATED; Future; Expected date: 12/21/2023 Severe aortic stenosis--due for follow-up with cardiology, who recommended repeat cath last year. Gouty arthropathy--controlled with allopurinol 300 mg daily. Check-out note: Schedule f/u with cardiology for severe aortic stenosis PLAN: Continue present medication(s): Study(ies) ordered: Mammogram Schedule labs: A1C, Lipid panel, TSH, and hepatic function panel when she has labs done for nephrology Patient education: Discussed smoking cessation, COVID booster, compression stocking use, Follow up: in 6 month(s). Mary Robert MD documented in this encounter Nursing Notes * Sophy Birch LPN - 12/21/2023 5:40 PM EST 6 month recheck No concerns today Declines BPA at this time. documented in this encounter Plan of Treatment Upcoming Encounters Date Type Department Care Team (Late st Contact Info) Description 12/28/2023 3:30 PM EST Pharmacy Pharmacy, [address] [place] [phone] [place] [address] 01/04/2024 2:30 PM EST Imaging Radiology [address] [place] [phone] 05/19/2024 2:00 PM EDT Office Visit Nephrology [address] [place] [address] Gina Monk PA-C [address] [facility] [place] [id number] Scheduled Orders Name Type Priority Associated Diagnoses Orde r Schedule MAMMOGRAM SCREENING RITA BILATERAL Medical Imaging Routine Encounter for screening mammogram for malignant neoplasm of breast Expected: 12/21/2023, Expires: 01/20/2025 HEMOGLOBIN A1C Lab Routine Type 2 diabetes mellitus with stage 3b chronic kidney disease, with long-term current use of insulin (HCC) Expected: 12/21/2023 (Approximate), Expires: 12/20/2024 LIPID PANEL WITH DIRECT LDL IF TG IS HIGH Lab Routine Dyslipidemia, goal LDL below 100 Expected: 12/21/2023, Expires: 12/21/2024 TSH WITH FREE T4 IF INDICATED Lab Routine Acquired hypothyroidism Expected: 12/21/2023 (Approximate), Expires: 12/20/2024 HEPATIC FUNCTION PANEL Lab Routine Dyslipidemia, goal LDL below 100 Expected: 12/21/2023 (Approximate), Expires: 12/20/2024 Scheduled Procedures Name Priority Associated Diagnoses Date/Ti me COLONOSCOPY FLEXIBLE PROXIMAL DIAGNOSTIC Recall History of colon polyps Health Maintenance Due Date Last Done Comments DISCUSS TOBACCO CESSATION (REFER TO SMARTSET #4035) 1956 Cologuard 2001 Fecal Occult Blood Test [...] Additional history exists CKD PHOS USE SMARTSET 77791 03/26/20240 02/2023, 12/01/2022, 05/19/2020, Additional history exists CKD HGB USE SMARTSET 81829 06/16/202406/16, 06/16/2023, 06/18/2022, Additional history exists TSH [...] long-term current use of insulin (HCC)- Primary Encounter for screening mammogram for malignant neoplasm of breast Other screening mammogram Stage 3b chronic kidney disease (HCC) Obesity hypoventilation syndrome (HCC) Obesity hypoventilation syndrome Type 2 diabetes mellitus with peripheral neuropathy (HCC) Heart failure, diastolic, due to HTN (HCC) Unspecified hypertensive heart disease with heart failure COPD, severity to be determined (HCC) Chronic airway obstruction, not elsewhere classified Dyslipidemia, goal LDL below 100 Other and unspecified hyperlipidemia Acquired hypothyroidism Unspecified hypothyroidism Severe aortic stenosis Aortic valve disorders Gouty arthropathy Gouty arthropathy, unspecified documented in this encounter Advance Directives Latest Code Status on File Code Status Date Activated Date Inactivated Comments Full Code 11/24/2010 5:24 PM 12/02/2010 10:24 PM This order reflects the patients wishes and were consensually agreed upon. Question Answer Comments Discussion of Advance Directives occurred with: Patient Does the patient have a Living Will? No Does the patient have Health Care Power of Patient Companion? No Care Teams Engraver Flatware Relationship Specialty Start Date End Date Mary Robert MD [address] [place] [address] [place] [phone] PCP - General Family Medicine 07/21/17 documented as of this encounter
--- OUTSIDE RECORDS SUMMARY | 2024-01-05 13:00 | External Medical Summary | Summary of Care ---
Author Name Unknown Organization [facility] Address [address] [facility] [place] [address] Phone [phone] Care Team Providers Care Service Learning Coordinator Name Role Phone Mary Robert MD Primary Care Provide r Reason for Visit * Reason Onset Date Comments Appointment 12/08/2023 Encounter Details Date Type Department Care Team (Late st Contact Info) Description 12/08/2023 Telephone NephrologyPrince [address] [place] [address] Teressa Murrell MD [address] [place] [address] Appointment Allergies Active Allergy Reactions Criticality Noted Date Comments No Known Drug Allergy 10/01/2010 documented as of this encounter (statuses as of 12/08/2023) Medications Medication Sig Dispensed Refills Start Date [...] MG/24HR Transdermal Patch 24 Hour (Nicotine Step 2)Indications:Tobacco use disorder Place 1 Patch topically on the skin daily. 28 Patch 0 11/27/2020 Active Ipratropium-Albuterol 0.5-2.5 (3) MG/3ML Inhalation Solution (Duoneb)Indications:C OPD, severity to be determined (HCC) INHALE 1 VIAL VIA NEBULIZER 4 TIMES A DAY. 360 mL 1 08/23/2021 Active guaiFENesin ER 1200 MG Oral Tablet [...] with food.. 100 Tablet 5 05/19/2022 Active Losartan Potassium 50 MG Oral Tablet (Cozaar) Take 1 Tablet by mouth in the morning. 90 Tablet 3 12/16/2022 Active amLODIPine Besylate 5 MG Oral Tablet (Norvasc) Take 1 Tablet by mouth in the morning. 90 Tablet 3 12/16/2022 Active Atorvastatin Calcium 40 MG Oral Tablet [...] 06/16/2023 Active Carvedilol 12.5 MG Oral Tablet (Coreg)Indications:He [...] FOR PAIN. 90 Tablet 0 12/02/2023 Active documented as of this encounter (statuses as of 12/08/2023) Active Problems Problem Noted Date Diagnosed Date [...] BIPAP with 2 liters of oxygen through [facility] Obesity hypoventilation syndrome 11/24/2010 Overview: [...] AHI - 22.9. No large leak concerns. [facility] Venous insufficiency 10/01/2010 Vitamin D [...] as of this encounter (statuses as of 12/08/2023) Resolved Problems Problem Noted Date Diagnosed Date [...] as of this encounter (statuses as of 12/08/2023) Immunizations Name Administration Dates Next Due COVID-19 [...] encounter Miscellaneous Notes * Telephone Encounter - Mary Gerber RN - 12/08/2023 8:55 AM EST Lease Examiner- Please call to schedule pt with Dr Murrell at [facility]- Was due to be seen in June 2023. documented in this encounter Plan of Treatment Upcoming Encounters Date Type Department Care Team (Late st Contact Info) Description 12/21/2023 5:40 PM EST Office Visit Family Medicine [address] [place] [phone] Mary Robert MD [address] [place] [address] [place] [phone] 09/19/2024 3:00 PM EDT Office Visit Nephrology [address] [place] [address] Teressa Murrell MD [address] [facility] [place] [address] Scheduled Procedures Name Priority Associated Diagnoses Date/Ti me COLONOSCOPY FLEXIBLE PROXIMAL DIAGNOSTIC Recall History of colon polyps Health Maintenance Due Date Last Done Comments DISCUSS TOBACCO CESSATION (REFER TO SMARTSET #0551) 1956 Cologuard 2001 Fecal Occult Blood Test [...] Additional history exists CKD PHOS USE SMARTSET 29863 03/26/2024 050 02/2023, 12/01/2022, 05/19/2020, Additional history exists CKD HGB USE SMARTSET 64217 06/16/202406/16, 06/16/2023, 06/18/2022, Additional history exists TSH [...] the patient have Health Care Power of Founding Partner? No Care Teams Service Learning Coordinator Relationship Specialty Start Date End Date Mary Robert MD [address] [place] [address] [place] [phone] PCP - General Family Medicine 07/21/17 documented as of this encounter
--- OUTSIDE RECORDS SUMMARY | 2024-01-05 13:00 | External Medical Summary | Summary of Care ---
Author Name Unknown Organization [facility] [address] [facility] [address] Phone [phone] Care Team Providers Care Director Of Athletics Name Role Phone Mary Robert MD Primary Care Provide r Reason for Visit * Reason Comments eRx-Medication Refill Encounter Details Date Type Department Care Team (Late st Contact Info) Description 12/08/2023 Refill Nephrology [address] [place] [phone] Macario Sanchez [facility] [address] [facility] [address] HTN, goal below 140/90* Allergies Active Allergy Reactions Criticality Noted Date [...] Solution (Duoneb)Indications :COPD, severity to be determined (HCC) INHALE 1 [...] THE MORNING 90 Tablet 3 4 Active Losartan Potassium 50 MG Oral Tablet (Cozaar) Take 1 Tablet by mouth in the morning. 90 Tablet 3 3 12/08/19 24 Discontinued amLODIPine Besylate 5 MG Oral Tablet (Norvasc) Take 1 Tablet by mouth in the morning. 90 Tablet 3 3 12/08/19 24 Discontinued documented as of this encounter [...] encounter Miscellaneous Notes * Telephone Encounter - Macario Sanchez MD - 12/08/2023 10:02 PM ESTSigned Prescriptions: Disp Refills Losartan Potassium 50 MG Oral Tablet (Coza*90 Tab*3 Sig: TAKE 1 TABLET BY MOUTH EVERY DAY IN THE MORNING Authorizing Provider: MACARIO SANCHEZ amLODIPine Besylate 5 MG Oral Tablet (Norv*90 Tab*3 Sig: TAKE 1 TABLET BY MOUTH EVERY DAY IN THE MORNING Authorizing Provider: MACARIO SANCHEZ * Telephone Encounter - Mary Gerber RN - 12/08/2023 8:54 AM ESTPending Prescriptions: Disp Refills Losartan Potassium 50 MG Oral Tablet (Coza*90 Tab*3 Sig: TAKE 1 TABLET BY MOUTH EVERY DAY IN THE MORNING amLODIPine Besylate 5 MG Oral Tablet (Norv*90 Tab*3 Sig: TAKE 1 TABLET BY MOUTH EVERY DAY IN THE MORNING * Telephone Encounter - Mary Gerber RN - 12/08/2023 8:51 AM EST Prescription request received from pharmacy pending. Please authorize. Last OV 03/26/23 Next OV 09/19/24-Note sent to corporate scheduler- Was to be seen in June. documented in this encounter Plan of Treatment Upcoming Encounters Date Type Department Care Team (Late st Contact Info) Description 12/21/2023 5:40 PM EST Office Visit Family Medicine [address] [place] [phone] Mary Robert MD [address] [place] [address] [place] [phone] 09/19/2024 3:00 PM EDT Office Visit Nephrology [address] [place] [phone] Macario Sanchez MD [address] [facility] [address] Scheduled Procedures Name Priority Associated Diagnoses Date/Ti me COLONOSCOPY FLEXIBLE PROXIMAL DIAGNOSTIC Recall History of colon polyps Health Maintenance Due Date Last Done Comments DISCUSS TOBACCO CESSATION (REFER TO SMARTSET #3291) 1955 Cologuard 2001 Fecal Occult Blood Test [...] Additional history exists CKD PHOS USE SMARTSET 76380 03/26/2024 050 02/2023, 12/01/2022, 05/19/2020, Additional history exists CKD HGB USE SMARTSET 42774 06/16/202406/16, 06/16/2023, 06/18/2022, Additional history exists TSH [...] as of this encounter Visit Diagnoses Diagnosis HTN, goal below 140/90- Primary Unspecified essential hypertension documented in this encounter Advance Directives Latest Code Status on File Code Status Date Activated Date Inactivated Comments Full Code 11/24/2010 5:24 PM 12/02/2010 10:24 PM This order reflects the patients wishes and were consensually agreed upon. Question Answer Comments Discussion of Advance Directives occurred with: Patient Does the patient have a Living Will? No Does the patient have Health Care Power of Pull Worker? No Care Teams Director Of Athletics Relationship Specialty Start Date End Date Mary Robert MD [address] [place] [address] [place] [phone] PCP - General Family Medicine 07/21/17 documented as of this encounter
--- OUTSIDE RECORDS SUMMARY | 2024-01-05 13:00 | External Medical Summary | Summary of Care ---
Author Name Unknown Organization [facility] Address [address] [facility] [place] [address] Phone [phone] Care Team Providers Care Planer Mill Grader Name Role Phone Mary Robert MD Primary Care Provide r Reason for Referral * Medication Prior Authorization - Closed Specialty Diagnoses / Procedures Referred By Contac t Referred To Contact Diagnoses DM type 2 causing neurological disease (HCC) Rotator cuff syndrome, unspecified laterality Marcia Coto MD [address] [place] [address] [place] [phone] Referral ID Status Reason Start Date Expiration Date Visits Re quested Visits Authorized [id number] Closed 999 999 Reason for Visit * Reason Comments eRx-Medication Refill Encounter Details Date Type Department Care Team (Late st Contact Info) Description 12/01/2023 Refill Family Medicine [address] [place] [phone] Mary Robert MD [address] [place] [address] [place] [phone] DM Type 2 causing Neuro Dz (HCC); Rotator cuff syndrome, unspecified laterality Allergies Active Allergy Reactions Criticality Noted Date Comments No Known Drug Allergy 10/01/2010 documented as of this encounter (statuses as of 12/02/2023) Medications Medication Sig Dispensed Refills Start Date [...] severity to be determined ([facility]) INHALE 1 VIAL VIA NEBULIZER 4 [...] current use of insulin ([facility]) Take 1 Tablet by mouth in [...] FOR PAIN. 90 Tablet 0 4 Active traMADol HCl 50 MG Oral Tablet (Ultram)Indications :D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 FOR PAIN. 90 Tablet 0 3 12/02/19 24 Discontinued documented as of this encounter (statuses as of 12/02/2023) Active Problems Problem Noted Date Diagnosed Date [...] BIPAP with 2 liters of oxygen through [facility] Obesity hypoventilation syndrome 11/24/2010 Overview: 04/30/11 -- [...] AHI - 22.9. No large leak concerns. [facility] Venous insufficiency 10/01/2010 Vitamin D deficiency [...] as of this encounter (statuses as of 12/02/2023) Resolved Problems Problem Noted Date Diagnosed Date [...] as of this encounter (statuses as of 12/02/2023) Immunizations Name Administration Dates Next Due COVID-19 mRNA, LNP-s, No Pre serve, 2-Dose Series (MixRank) 01/21/2021,12/24/2020 Pneumococcal Conjugate Vacc, 13 Valent (Prevnar) [...] encounter Miscellaneous Notes * Telephone Encounter - Marcia Coto MD - 12/02/2023 1:05 PM EST Signed Prescriptions: Disp Refills traMADol HCl 50 MG Oral Tablet (Ultram) 90 Tab*0 Sig: TAKE 1 TABLET BY MOUTH EVERY 8 HOURS NEEDED FOR PAIN, SEVERE. FOR PAIN. Authorizing Provider: MARCIA COTO * Telephone Encounter - Rowena Rowland RPh - 12/02/2023 12:57 PM EST Pending Prescriptions: Disp Refills traMADol HCl 50 MG Oral Tablet (Ultram) 90 Tab*0 Sig: TAKE 1 TABLET BY MOUTH EVERY 8 HOURS NEEDED FOR PAIN, SEVERE. FOR PAIN. * Telephone Encounter - Rowena Rowland RPh - 12/02/2023 12:56 PM EST I have reviewed the patients controlled substance dispensing history in the Prescription Drug Monitoring Program in compliance with the [facility] regulations before prescribing a controlled substance. PDMP checked on 12/02/2023. Pending Prescriptions: Disp Refills traMADol HCl 50 MG Oral Tablet (Ultram) [*90 Tab*0 Sig: TAKE 1 TABLET BY MOUTH EVERY 8 HOURS NEEDED FOR PAIN, SEVERE. FOR PAIN. Last Visit: 06/16/2023 (in office), Visit date not found (telemedicine) Next Visit: 12/21/2023 Date medication was last filled: 10/30/23 Date medication is due for refill: 11/28/23 Pharmacy: [id number] [id number] [facility] Is this request for a controlled substance? [...] Results Review. Please approve if appropriate. Thank You Rowena Rowland, PharmD Clinical Pharmacist [facility] ([facility]) (formerly Telepharmacy) [phone] / [phone] 12/02/2023, 12:56 PM documented in this encounter Plan of Treatment Upcoming Encounters Date Type Department Care Team (Late st Contact Info) Description 12/21/2023 5:40 PM EST Office Visit [address] [phone] Mary Robert MD [address] [place] [address] [place] [phone] 09/19/2024 3:00 PM EDT Office Visit Nephrology [address] [place] [phone] Teressa Murrell MD [address] [facility] [address] Scheduled Procedures Name Priority Associated Diagnoses Date/Ti me COLONOSCOPY FLEXIBLE PROXIMAL DIAGNOSTIC Recall History of colon polyps Health Maintenance Due Date Last Done Comments DISCUSS TOBACCO CESSATION (REFER TO SMARTSET #3293) 1955 Cologuard 2001 Fecal Occult Blood Test [...] 05/19/2020, Additional history exists GFR 12/11/2023 06/10/2023, 05/0 02/2023, 12/01/2022, Additional history exists O2 ASSESSMENT COMPLETED IN PAST YEAR FOR COPD 12/16/2023 12/16/2022 HbA1c 12/17/2023 06/16/2023, 07/2023, 05/19/2022, Additional history exists CKD PHOS USE SMARTSET 52095 03/26/202402/2023, 12/01/2022, 05/19/2020, Additional history exists CKD HGB USE SMARTSET 92726 06/16/202406/16, 06/16/2023, 06/18/2022, Additional history exists TSH [...] the patient have Health Care Power of Supervisor Pile Driving? No Care Teams Planer Mill Grader Relationship Specialty Start Date End Date Mary Robert MD [address] [place] [address] [place] [phone] PCP - General Family Medicine 07/21/17 documented as of this encounter
--- OUTSIDE RECORDS SUMMARY | 2024-01-05 13:01 | External Medical Summary | Summary of Care ---
Author Name Unknown Organization [facility] Address [address] [facility] [address] Phone [phone] Care Team Providers Care Contract Administrator Name Role Phone Mary Robert MD Primary Care Provide r Encounter Details Date Type Department Care Team Description 07/28/2023 External Data Patient Risk Medial Allergies Active Allergy Reactions Severity Noted Date Comments No Known Drug Allergy 10/01/2010 documented as of this encounter (statuses as of 07/28/2023) Medications Medication Sig Dispensed Refills Start Date [...] EVERY DAY 90 Tablet 3 12/31/2022 Active Levothyroxine Sodium 150 MCG Oral Tablet (Levoxyl)Indications: Acquired hypothyroidism TAKE 1 TABLET BY MOUTH EVERY DAY EXCEPT SATURDAYS AND SUNDAYS 74 Tablet 1 02/12/2023 Active Gabapentin 100 MG Oral Capsule (Neurontin) TAKE 1 CAPSULE BY MOUTH THREE TIMES A DAY 270 Capsule 1 03/09/2023 Active Basaglar KwikPen 100 UNIT/ML Subcutaneous Solution [...] EVENING MEAL 180 Tablet 1 07/28/2023 Active traMADol HCl 50 MG Oral Tablet (Ultram)Indications:D 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 FOR PAIN. 90 Tablet 0 07/28/2023 Active documented as of this encounter (statuses as of 07/28/2023) Active Problems Problem Noted Date Type 2 diabetes mellitus wit h stage 3b chronic kidney disease, with long-term current use of insulin 12/01/2022 Chronic kidney disease, stage 3b 022 Overview: Per CKD protocol Type 2 diabetes mellitus wit h stage 3b chronic kidney disease, without long-term current use of insulin 05/19/2022 S/P right hip fracture 05/19/2022 COPD, severity to be determined 11/27/19 21 Severe aortic stenosis 07/02/2018 B12 deficiency 01/15/2018 MEDICATION USE AGREEMENT 10/01/2017 Hepatic steatosis 07/07/2017 Hepatosplenomegaly 07/03/2016 Gastroesophageal reflux disease without esophagitis 07/02/2016 Type 2 diabetes mellitus wit h stage 3 chronic kidney disease, with long-term current use of insulin 12/03/2015 Type 2 diabetes mellitus with peripheral neuropathy 09/18/2015 HTN, goal below 140/90 05/28/2015 Ganglion of right wrist 11/27/2014 Heart failure, diastolic, due to HTN 04/2012 Rotator cuff syndrome 10/07/2011 Obstructive sleep apnea 05/29/2011 Overview: BIPAP with 2 liters of oxygen through [facility] Obesity hypoventilation syndrome 011 Overview: 04/30/11 -- discontinue oxygen, 2 week [...] AHI - 22.9. No large leak concerns. [facility] Venous insufficiency 10/01/2010 Vitamin D deficiency 12/27/2009 Overview: Vitamin D 9.5 Dyslipidemia, goal LDL below 100 009 Overview: Per Lipid Taxonomy. chol 177, hdl 31, ldl 115, trig 344 Type 2 diabetes mellitus with hemoglobin A1c [...] as of this encounter (statuses as of 07/28/2023) Resolved Problems Problem Noted Date Resolved Date Kidney disease, chronic, stage IV (GFR 15-29 ml/ min) 03/19/2020 02/18/2021 Kidney disease, chronic, stage III (GFR 30-59 ml /min) 11/19/2015 03/19/2020 Hypertension goal BP (blood pressure) < 140/80 0 11/27/2014 05/28/2015 HTN, goal below 140/90 06/28/2013 3 HTN, goal below 130/80 06/28/2013 5 DM type 2 causing renal disease 07/01/2012 12/03/2015 Aortic valve stenosis 01/27/2012 07/02/2018 Diabetic polyneuropathy 10/07/2011 09/18/20 15 Overview: ICD-10 update of inactive term Morbid obesity with BMI of 40.0-44.9, adult 11/2302/18/2021 Overview: ICD-10 update of inactive diagnosis Heart failure, etiology unknown 11/28/2010 01/27/2012 Heart failure, left-sided 11/25/20102011 Severe Tricuspid regurgitation 11/24/2010 0 01/27/2012 DM type 2 causing neurological disease 0 01/15/2018 Kidney disease, chronic, stage III (GFR 30-59 ml /min) 04/26/2010 03/08/2015 Overview: GFR 49.8 Obesity, morbid (more than 1 00 lbs over ideal weight or BMI > 40) 02/19/2010 12/05/2010 Overview: Per Obesity Taxonomy ICD-10 update of inactive term HTN, goal below 130/80 12/19/2009 3 Overview: Modified per HTN Taxonomy. HTN, GOAL BELOW 140/90 09/28/2009 0 Overview: Modified per HTN Taxonomy. Type 2 [...] ldl 115, trig 344 Mixed dyslipidemia 05/21/2005 10/01/2010 Overview: CHOL 177, HDL 31, LDL 115, TRIG 344 Metabolic syndrome 04/01/2004 09/12/2019 HYPERINSULINISM NEC 10/28/2002 10/23/2008 FAM HX-DIABETES MELLITUS 09/15/2002 016 BENIGN HYPERTENSION 09/28/2009 Overview: Modified per HTN Taxonomy. Morbid obesity, BMI not known Overview: Per Obesity Taxonomy Gouty arthropathy 09/06/2009 Overview: ICD-9 Code Update. uric acid 9.9 ICD-10 update of inactive term DM type 2 causing renal disease 10/01/2010 Other chronic pulmonary heart diseases 06/28/2018 Overview: HYPERTENSION PULMONARY, SECONDARY documented as of this encounter (statuses as of 07/28/2023) Immunizations Name Administration Dates Next Due COVID-19 mRNA, LNP-s, No Pre serve, 2-Dose Series (Pfizer) 01/21/2021,12/24/2020 Pneumococcal Conjugate Vacc, 13 Valent (Prevnar) 03/26/2022 Pneumococcal Polysaccharide PPV23 (Pneumovax) 10/07/2021,09/21/2006 Season Influenza, Quad, PF, Adjuvanted, 65+ Yrs, IM (FLUAD) 09/26/2021 Seasonal Influenza, PF, 6 mo ns & Above, IM , (Flulaval) 09/12/2019,01/15/2018 Seasonal Influenza, Quadriva lent Hd (Fluzone [...] drink = 0.6 oz pur e alcohol) Sex Assigned at Date Recorded Not on file Job Start Date Occupation Industry Not on file Not on file Not on file documented as of this encounter Plan of Treatment Upcoming Encounters Date Type Specialty Care Team Description 12/01/2023 Office Visit Family Medicine Mary Robert MD [address] [place] [address] [place] [phone] 12/02/2023 Office Visit Nephrology Teressa Murrell MD [address] [place] [address] [place] [address] Scheduled Procedures Name Priority Associated Diagnoses Date/Ti me COLONOSCOPY FLEXIBLE PROXIMAL DIAGNOSTIC Recall History of colon polyps Health Maintenance Due Date Last Done Comments DISCUSS TOBACCO CESSATION (REFER TO SMARTSET #6309) 1955 Cologuard 2001 Fecal Occult Blood Test 2001 Sigmoidoscopy 2001 Mammogram 10/30/2017 10/30/2016, 07/26, 08/18/2013, Additional history exists DIABETES-EYE EXAM 08/09/2020 08/09/2019, , 12/27/2009, Additional history exists DIABETES-FOOT EXAM 09/12/2020 09/12/2019, 0 06/28/2018, 07/07/2017, Additional history exists Depression Screening, Annual for Pts 12 and Over 09/12/2020 09/12/2019 COVID-19 Vaccine (3 - Pfizer series) 03/18/2021 01/21/2021, 12/24/2020 Zoster Vaccines (2 of 2) 11/24/2021 09/29/2021 Influenza Vaccine (FLU shot) (#1) 2023 09/26/2021, 08/23/2021, 09/12/2019, Additional history exists Albumin/Creatinine Ratio 12/01/2023 023, 11/09/2021, 05/19/2020, Additional history exists GFR 12/11/2023 06/10/2023, 05/0 02/2023, 12/01/2022, Additional history exists O2 ASSESSMENT COMPLETED IN PAST YEAR FOR COPD 12/16/2023 12/16/2022 HbA1c 12/17/2023 06/16/2023, 010 07/2023, 05/19/2022, Additional history exists CKD PHOS USE SMARTSET 40578 03/26/2024 050 02/2023, 12/01/2022, 05/19/2020, Additional history exists CKD HGB USE SMARTSET 16062 06/16/202406/16, 06/16/2023, 06/18/2022, Additional history exists TSH 06/16/2024 06/16/2023, 04/24, 11/27/2020, Additional history exists DTaP,Tdap,and Td Vaccines (3 - Td or Tdap) 01/15/2028 01/15/2018, 09/13/2007 Lipid Panel 06/16/2028 06/16/2023, 01/0 07/2023, 11/09/2021, Additional history exists Colonoscopy 04/29/2032 04/29/2022 Colorectal Cancer Screening 04/29/2032 Pap Smear Discontinued 07/01/2012 (Done elsewhere), 09/13/2007 (Done elsewhere) Alpha-1 Antitrypsin Completed 02/26/2017 Pneumococcal Vaccine: 65+ Years Completed 03/26/2022, 10/07/2021, 09/21/2006 Nephrology Referral Discontinued 12/16/2022 GARDASIL-HPV IMMUNIZATION SERIES Aged Out No longer eligible based on patient's age to complete this topic Hepatitis B Aged Out No longer eligi ble based on patient's age to complete this [...] the patient have Health Care Power of City Designer? No Care Teams Contract Administrator Relationship Specialty Start Date End Date Mary Robert MD [address] [place] [address] [place] [phone] PCP - General Family Medicine 07/21/17 documented as of this encounter
--- OUTSIDE RECORDS SUMMARY | 2024-01-05 13:01 | External Medical Summary | Summary of Care ---
Author Name Unknown Organization [facility] Address [address] [facility] [place] [address] Phone [phone] Care Team Providers Care Director Of Marketing Analytics Name Role Phone Amelia Robert MD Primary Care Provide r Reason for Visit * Reason Onset Date Comments Medication Refill 07/28/2023 Encounter Details Date Type Department Care Team Description 07/28/2023 Refill Family Medicine [address] [phone] [place] [id number] Allergies Active Allergy Reactions Severity Noted Date [...] skin daily. 28 Patch 0 11/27/2020 Active Ipratropium-Albuter ol 0.5-2.5 (3) MG/3ML Inhalation Solution (Duoneb)Indications :COPD, severity to be determined ([facility]) INHALE 1 VIAL VIA NEBULIZER [...] disease, with long-term current use of insulin ([facility]) Take 1 Tablet by mouth [...] AND SUNDAYS 74 Tablet 1 02/12/2023 Active Basaglar KwikPen 100 UNIT/ML Subcutaneous Solution [...] 06/16/2023 Active Carvedilol 12.5 MG Oral Tablet (Coreg)Indications: [...] FOR PAIN. 90 Tablet 0 07/28/2023 Active Gabapentin 100 MG Oral Capsule (Neurontin) Take 1 Capsule by mouth in the morning and 1 Capsule at noon and 1 Capsule before bedtime. 270 Capsule 1 07/28/2023 Active Gabapentin 100 MG Oral Capsule (Neurontin) TAKE 1 CAPSULE BY MOUTH THREE TIMES A DAY 270 Capsule 1 03/09/2023 3 Discontinue d(Refill) documented as of this encounter (statuses as [...] [facility] Ob[facility] hypoventilation syndrome 011 Overview: 04/30/11 -- [...] AHI - 22.9. No large leak concerns. [facility] Venous insufficiency 10/01/2010 Vitamin [...] Telephone Encounter - Amelia Robert MD - 07/28/2023 4:58 PM EDT Signed Prescriptions: Disp Refills Gabapentin 100 MG Oral Capsule (Neurontin) 270 Ca*1 Sig: Take 1 Capsule by mouth in the morning and 1 Capsule at noon and 1 Capsule before bedtime. Authorizing Provider: AMELIA ROBERT * Telephone Encounter - Brionna Stringer RN - 07/28/2023 4:29 PM EDTPending Prescriptions: Disp Refills Gabapentin 100 MG Oral Capsule (Neurontin) 270 Ca*1 Sig: Take 1 Capsule by mouth in the morning and 1 Capsule at noon and 1 Capsule before bedtime. * Telephone Encounter - Lesly Chavarria - 07/28/2023 2:34 PM EDT Did you pend patient's preferred pharmacy and medication before forwarding?yes Pharmacy: [id number] [facility] Pending Prescriptions: Disp Refills Gabapentin 100 MG Oral Capsule (Neurontin)270 Ca*1 Sig: Take 1 Capsule by mouth in the morning and 1 Capsule at noon and 1 Capsule before bedtime. Last Visit: 06/16/2023 (in office), Visit date not found (telemedicine) Next Visit: 12/01/2023 If no future appointments scheduled, and last appointment is greater than a year ago, please schedule patient for a follow-up appointment Last date the medication was ordered: 03/09/2023 Is this request for a controlled substance?No Urine Drug Screen: Results for orders placed or performed in [...] results can be found in Results Review. Patient Phone Numbers Labs: Lab Results Component Value Date/Time CREAT 1.7 (H) 06/10/2023 04:01 PM CREAT 1.40 (A) 11/09/2021 12:00 AM CREAT 1.3 (H) 11/27/2020 11:34 AM CREAT 0.8 10/25/1996 05:29 PM POTASSIUM 4.0 06/10/2023 04:01 PM POTASSIUM 3.8 11/09/2021 12:00 AM POTASSIUM 4.2 11/27/2020 11:34 AM POTASSIUM 3.6 10/25/1996 05:29 PM TSH 2.39 06/16/2023 04:18 PM TSH 2.43 11/27/2020 11:34 AM TSH 2.100 10/30/2019 12:00 AM LDLCALC 109 12/01/2022 04:19 PM LDLCALC 48.60 11/09/2021 12:00 AM LDLCALC 57 12/04/2017 12:12 PM LDLDIRECT 79 06/16/2023 04:18 PM LDLDIRECT 61 11/09/2021 12:00 AM LDLDIRECT NOT APPLICABLE 12/04/2017 12:12 PM LDLDIRECT 106 09/21/2006 04:05 PM ALT 14 12/01/2022 04:19 PM ALT 13 05/19/2020 12:00 AM ALT 11 08/05/2018 01:57 PM HGBA1C 6.2 (H) 06/16/2023 04:18 PM HGBA1C 8.8 (A) 11/09/2021 12:00 AM HGBA1C 6.1 (H) 11/27/2020 11:34 AM documented in this encounter Plan of Treatment Upcoming Encounters Date Type Specialty Care Team Description 12/01/2023 Office Visit Family Medicine Amelia Robert MD [address] [place] [address] [place] [id number] 12/02/2023 Office Visit Nephrology Teressa Murrell MD [address] [facility] [place] [address] Scheduled Procedures Name Priority Associated Diagnoses Date/Ti me COLONOSCOPY FLEXIBLE PROXIMAL DIAGNOSTIC Recall History of colon polyps Health Maintenance Due Date Last Done Comments DISCUSS TOBACCO CESSATION (REFER TO SMARTSET #2955) 1956 Cologuard 2001 Fecal Occult Blood Test [...] Additional history exists CKD PHOS USE SMARTSET 17909 03/26/202402/2023, 12/01/2022, 05/19/2020, Additional history exists CKD HGB USE SMARTSET 64575 06/16/202406/16, 06/16/2023, 06/18/2022, Additional history exists TSH [...] the patient have Health Care Power of Processing Technician? No Care Teams Director Of Marketing Analytics Relationship Specialty Start Date End Date Amelia Robert MD [address] [place] [address] [place] [address] PCP - General Family Medicine 8/29/17 documented as of this encounter
--- OUTSIDE RECORDS SUMMARY | 2024-01-05 13:01 | External Medical Summary | Summary of Care ---
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 FOR PAIN. 90 Tablet 0 3 08/27/20 23 Discontinued documented as of this encounter (statuses as of 08/27/2023) Active Problems Problem Noted Date Type 2 [...] of oxygen through [facility] Obesity hypoventilation syndrome 011 Overview: 04/30/11 -- [...] as of this encounter (statuses as of 08/27/2023) Resolved Problems Problem Noted Date Resolved Date [...] as of this encounter (statuses as of 08/27/2023) Immunizations Name Administration Dates Next Due COVID-19 [...] encounter Miscellaneous Notes * Telephone Encounter - Doriann Eckert Jakob, MD - 08/27/2023 12:14 PM EDT Signed Prescriptions: Disp Refills traMADol HCl 50 MG Oral Tablet (Ultram) 90 Tab*0 Sig: TAKE 1 TABLET BY MOUTH EVERY 8 HOURS NEEDED FOR PAIN, SEVERE. FOR PAIN. Authorizing Provider: AMELIA ROBERT * Telephone Encounter - Renata Lind [facility] - 08/27/2023 11:44 AM EDTPending Prescriptions: Disp Refills traMADol HCl 50 MG Oral Tablet [Pharmacy M*90 Tab*0 Sig: TAKE 1 TABLET BY MOUTH EVERY 8 HOURS NEEDED FOR PAIN, SEVERE. FOR PAIN. * Telephone Encounter - Renata Lind [facility] - 08/27/2023 11:44 AM EDT I have reviewed the patients controlled substance dispensing history in the Prescription Drug Monitoring Program in compliance with the [facility] regulations before prescribing a controlled substance. PDMP checked on 08/27/2023. Pending Prescriptions: Disp Refills traMADol HCl 50 MG Oral Tablet (Ultram) [*90 Tab*0 Sig: TAKE 1 TABLET BY MOUTH EVERY 8 HOURS NEEDED FOR PAIN, SEVERE. FOR PAIN. Last Visit: 06/16/2023 (in office), Visit date not found (telemedicine) Next Visit: 12/01/2023 Date medication was last filled: 07/28/23 Date medication is due for refill: 08/26/23 Pharmacy: [id number] [address] [facility] Is this request for a controlled substance? [...] Results Review. Please approve if appropriate. Thanks, Renata Lind, PharmD Clinical Pharmacist [facility] ([facility]) [phone] 08/27/2023 11:44 AM documented in this encounter Plan of Treatment Upcoming Encounters Date Type Specialty Care Team Description 12/01/2023 Office Visit Family Medicine Amelia Robert MD [address] [place] [address] [place] [address] 12/02/2023 Office Visit Nephrology Teressa Murrell MD [address] [place] [address] [place] [address] Scheduled Procedures Name Priority Associated Diagnoses Date/Ti me COLONOSCOPY FLEXIBLE PROXIMAL DIAGNOSTIC Recall History of colon polyps Health Maintenance Due Date Last Done Comments DISCUSS TOBACCO CESSATION (REFER TO SMARTSET #6859) 1956 Cologuard 2001 Fecal Occult Blood Test 2001 Sigmoidoscopy 2001 Mammogram 10/30/2017 10/30/2016, 07/26, 08/18/2013, Additional history exists DIABETES-EYE EXAM 08/09/2020 08/09/2019, , 12/27/2009, Additional history exists Depression Screening 09/12/2020 09/12/2019 [...] Additional history exists CKD PHOS USE SMARTSET 82582 03/26/20240 02/2023, 12/01/2022, 05/19/2020, Additional history exists CKD HGB USE SMARTSET 02967 06/16/202406/16, 06/16/2023, 06/18/2022, Additional history exists TSH 06/16/2024 06/16/2023, 04/24, 11/27/2020, Additional history exists DTaP,Tdap,and Td Vaccines (3 - Td or Tdap) 01/15/2028 01/15/2018, 09/13/2007 Lipid Panel 06/16/2028 06/16/2023, 010 07/2023, 11/09/2021, Additional history exists Colonoscopy 04/29/2032 [...] the patient have Health Care Power of Continuous Improvement Specialist? No Care Teams Principle Industrial Hygienist Relationship Specialty Start Date End Date Amelia Robert MD [address] [place] [address] [place] [phone] PCP - General Family Medicine 07/21/17 documented as of this encounter
--- OUTSIDE RECORDS SUMMARY | 2024-01-05 13:01 | External Medical Summary | Summary of Care ---
Author Name Unknown Organization [facility] Address [address] [place] [place] [address] Phone [phone] Care Team Providers Care Senior Architectural Designer Name Role Phone Amelia Robert MD Primary Care Provide r Reason for Visit * Reason Comments eRx-Medication Refill Encounter Details Date Type Department Care Team Description 08/10/2023 Refill Family Medicine [address] [phone] Amelia Robert MD [address] [place], [place] [address] [address] Acquired hypothyroidism Allergies Active Allergy Reactions Severity Noted Date Comments No Known Drug Allergy 10/01/2010 documented as of this encounter (statuses as of 08/10/2023) Medications Medication Sig Dispensed Refills Start Date [...] (Duoneb)Indications :COPD, severity to be determined ([facility]) INHALE 1 VIAL VIA NEBULIZER 4 TIMES [...] with long-term current use of insulin ([facility]) Take 1 Tablet by mouth in the [...] EVENING MEAL 180 Tablet 1 3 Active traMADol HCl 50 MG Oral Tablet (Ultram)Indications :D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 FOR PAIN. 90 Tablet 0 3 Active Gabapentin 100 MG Oral Capsule (Neurontin) Take 1 Capsule by mouth in the morning and 1 Capsule at noon and 1 Capsule before bedtime. 270 Capsule 1 3 Active Levothyroxine Sodium 150 MCG Oral Tablet (Levoxyl)Indication s:Acquired hypothyroidism TAKE 1 TABLET BY MOUTH EVERY DAY EXCEPT SATURDAYS AND SUNDAYS 74 Tablet 3 3 Active Levothyroxine Sodium 150 MCG Oral Tablet (Levoxyl)Indication s:Acquired hypothyroidism TAKE 1 TABLET BY MOUTH EVERY DAY EXCEPT SATURDAYS AND SUNDAYS 74 Tablet 1 3 08/10/20 23 Discontinued documented as of this encounter (statuses as of 08/10/2023) Active Problems Problem Noted Date Type 2 diabetes mellitus wit h stage 3b chronic kidney disease, with long-term current use of insulin 12/01/2022 Chronic kidney disease, stage 3b 022 Overview: Per CKD protocol Type 2 diabetes mellitus wit h stage 3b chronic kidney disease, without long-term current use of insulin 05/19/2022 S/P right hip fracture 05/19/2022 COPD, severity to be determined 11/27/19 Severe aortic stenosis 07/02/2018 B12 deficiency 01/15/2018 [...] AHI - 22.9. No large leak concerns. [facility] Venous insufficiency 10/01/2010 Vitamin D deficiency [...] as of this encounter (statuses as of 08/10/2023) Resolved Problems Problem Noted Date Resolved Date [...] as of this encounter (statuses as of 08/10/2023) Immunizations Name Administration Dates Next Due COVID-19 [...] encounter Miscellaneous Notes * Telephone Encounter - Nat Montgomery, [facility] - 08/10/2023 4:07 PM EDT Signed Prescriptions: Disp Refills Levothyroxine Sodium 150 MCG Oral Tablet (*74 Tab*3 Sig: TAKE 1 TABLET BY MOUTH EVERY DAY EXCEPT SATURDAYS AND SUNDAYSAuthorizing Provider: AMELIA ROBERTOrdering User: NAT MONTGOMERY --- documented in this encounter Plan of Treatment Upcoming Encounters Date Type Specialty Care Team Description 12/01/2023 Office Visit Family Medicine Amelia Robert MD [address] [place] [address] [place] [address] 12/02/2023 Office Visit Nephrology Teressa Murrell MD [address] [place] [address], [place] [address] Scheduled Procedures Name Priority Associated Diagnoses Date/Ti me COLONOSCOPY FLEXIBLE PROXIMAL DIAGNOSTIC Recall History of colon polyps Health Maintenance Due Date Last Done Comments DISCUSS TOBACCO CESSATION (REFER TO SMARTSET #9087) 1956 Cologuard 2001 Fecal Occult Blood Test 2001 Sigmoidoscopy 2001 Mammogram 10/30/2017 10/30/2016, 07/26, 08/18/2013, Additional history exists DIABETES-EYE EXAM 08/09/2020 08/09/2019, , 12/27/2009, Additional history exists Depression Screening 09/12/2020 09/12/2019 Diabetic Foot Exam 09/12/2020 09/12/2019, 0 06/28/2018, 07/07/2017, Additional history exists COVID-19 Vaccine (3 - Pfizer series) 03/18/2021 [...] Additional history exists CKD PHOS USE SMARTSET 28628 03/26/202402/2023, 12/01/2022, 05/19/2020, Additional history exists CKD HGB USE SMARTSET 23081 06/16/202406/16, 06/16/2023, 06/18/2022, Additional history exists TSH [...] as of this encounter Visit Diagnoses Diagnosis Acquired hypothyroidism Unspecified hypothyroidism documented in this [...] the patient have Health Care Power of Frame Bender? No Care Teams Senior Architectural Designer Relationship Specialty Start Date End Date Amelia Robert MD [address] [place] [address] [place] [address] PCP - General Family Medicine 07/21/17 documented as of this encounter
--- OUTSIDE RECORDS SUMMARY | 2024-01-05 13:01 | External Medical Summary | Summary of Care ---
Author Name Unknown Organization [facility] Address [address] [facility] [address] Phone [phone] Care Team Providers Care Aeronautical Engineer Name Role Phone Mary Robert MD Primary Care Provide r Reason for Visit * Reason Onset Date Comments Information 07/28/2023 AAA screening Encounter Details Date Type Department Care Team Description 07/28/2023 Telephone Family Medicine [address] [phone] Mary Robert MD [address] [place] [address] [place], [place] [id number] Information (AAA screening ) Allergies Active Allergy Reactions Severity Noted Date Comments No Known Drug Allergy 10/01/2010 documented as of this encounter (statuses as of 08/04/2023) Medications Medication Sig Dispensed Refills Start Date [...] disease, with long-term current use of insulin ([facility]) Take 1 Tablet by mouth in the [...] as of this encounter (statuses as of 08/04/2023) Active Problems Problem Noted Date Type 2 [...] [facility] Obesity hypoventilation syndrome 011 Overview: 04/30/11 [...] - 22.9. No large leak concerns. [facility] Venous insufficiency 10/01/2010 Vitamin [...] as of this encounter (statuses as of 08/04/2023) Resolved Problems Problem Noted Date Resolved Date [...] as of this encounter (statuses as of 08/04/2023) Immunizations Name Administration Dates Next Due COVID-19 [...] encounter Miscellaneous Notes * Telephone Encounter - Adelina Anderson LPN - 08/04/2023 9:51 AM EDT Through advanced analysis/trending of this patient's history, they have been identified to have a positive AAA flag and are at a higher risk for Abdominal aortic aneurysm. This advanced analysis estimates the patient's risk for AAA. It only indicates that the patient's chances to have this condition are higher compared to most people. It does not indicate that the patient has this condition, but it is highly recommended the patient have a AAA screening for further evaluation. I have contacted the patient regarding scheduling a AAA screening. Outcomes: Unable to contact after 3 telephone attempts. Letter sent. * Telephone Encounter - Adelina Anderson LPN - 08/01/2023 8:34 AM EDT Through advanced analysis/trending of this patient's history, they have been identified to have a positive AAA flag and are at a higher risk for Abdominal aortic aneurysm. This advanced analysis estimates the patient's risk for AAA. It only indicates that the patient's chances to have this condition are higher compared to most people. It does not indicate that the patient has this condition, but it is highly recommended the patient have a AAA screening for further evaluation. I have contacted the patient regarding scheduling a AAA screening. Outcomes: Left message With household member * Telephone Encounter - Adelina Anderson LPN - 07/31/2023 8:59 AM EDT I am calling to discuss some recommended testing. Our records indicate that you are due for a screening ultrasound of your aorta (this test checks for an enlargement of your aorta at the level of your abdomen). Have you had discussions with your provider about this?we've recently started evaluating your electronic health record to provide better screening and care for people at risk for disease of the aorta (the main artery that carries blood from your heart to the rest of your body). Based on your laboratory results and other clinical conditions, you may be at high risk for an abdominal aortic aneurysm (AAA, an enlargement of your lower aorta). This evaluation doesn't mean you have an AAA. It just means you should get screened at your earliest convenience by having an ultrasound. The screening results will tell your doctor if there's anything they need to examine more closely. Through advanced analysis/trending of this patient's history, they have been identified to have a positive AAA flag and are at a higher risk for Abdominal aortic aneurysm. This advanced analysis estimates the patient's risk for AAA. It only indicates that the patient's chances to have this condition are higher compared to most people. It does not indicate that the patient has this condition, but it is highly recommended the patient have a AAA screening for further evaluation. I have contacted the patient regarding scheduling a AAA screening. Outcomes: Left message * Telephone Encounter - Adelina Anderson LPN - 07/28/2023 11:52 AM EDT Through advanced analysis/trending of this patient's history, they have been identified to have a positive AAA flag and are at a higher risk for Abdominal aortic aneurysm. Pt will be contacted by a [facility] nurse to discuss AAA screening. documented in this encounter Plan of Treatment Upcoming Encounters Date Type Specialty Care Team Description 12/01/2023 Office Visit Family Medicine Mary Robert MD [address] [place] [address] [place] [address] 12/02/2023 Office Visit Nephrology Teressa Murrell MD [address] [place] [address] [place] [address] Scheduled Procedures Name Priority Associated Diagnoses Date/Ti me COLONOSCOPY FLEXIBLE PROXIMAL DIAGNOSTIC Recall History of colon polyps Health Maintenance Due Date Last Done Comments DISCUSS TOBACCO CESSATION (REFER TO SMARTSET #8031) 1956 Cologuard 2001 Fecal Occult Blood Test [...] Additional history exists CKD PHOS USE SMARTSET 85785 03/26/20240 02/2023, 12/01/2022, 05/19/2020, Additional history exists CKD HGB USE SMARTSET 08556 06/16/202406/16, 06/16/2023, 06/18/2022, Additional history exists TSH [...] the patient have Health Care Power of Electrical Systems Designer? No Care Teams Aeronautical Engineer Relationship Specialty Start Date End Date Mary Robert MD [address] [place] [address] [place] [phone] PCP - General Family Medicine 07/21/17 documented as of this encounter
--- OUTSIDE RECORDS SUMMARY | 2024-01-05 13:02 | External Medical Summary | Summary of Care ---
Author Name Unknown Organization [facility] Address [address] [facility] [place] [address] Phone [phone] Care Team Providers Care Explosives Detonator Name Role Phone Amelia Robert MD Primary Care Provide r Reason for Visit * Reason Comments eRx-Medication Refill Encounter Details Date Type Department Care Team Description 07/24/2023 Refill Family Medicine [address] [id number] Amelia Robert MD [address] [place] [address] KAUSHAL Perez [id number] Chronic kidney disease, stage 3b ([facility]; Anemia, unspecified type Allergies Active Allergy Reactions Severity Noted Date [...] Solution (Duoneb)Indications :COPD, severity to be determined ([facility]) INHALE 1 VIAL VIA NEBULIZER 4 TIMES [...] disease, with long-term current use of insulin ([facility]) Take 1 Tablet by mouth in the [...] EVERY DAY 90 Tablet 3 3 Active Levothyroxine Sodium 150 MCG Oral Tablet (Levoxyl)Indication s:Acquired hypothyroidism TAKE 1 TABLET BY MOUTH EVERY DAY EXCEPT SATURDAYS AND SUNDAYS 74 Tablet 1 3 Active Gabapentin 100 MG Oral Capsule (Neurontin) TAKE 1 CAPSULE BY MOUTH THREE TIMES A DAY 270 Capsule 1 3 Active Basaglar KwikPen 100 UNIT/ML Subcutaneous [...] EVENING MEAL 180 Tablet 1 3 Active Ferrous Sulfate 325 (65 Fe) MG Oral Tablet (Feosol) TAKE BY MOUTH 1 TABLET 2 TIMES A DAY WITH MORNING AND EVENING MEALS . 180 Tablet 1 3 07/28/20 23 Discontinued traMADol HCl 50 MG Oral Tablet (Ultram)Indications :D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 FOR PAIN. 90 Tablet 0 3 07/28/20 23 Discontinued documented as of this encounter [...] Encounter - Amelia Robert MD - 07/28/2023 8:08 AM EDT Signed Prescriptions: Disp Refills Ferrous Sulfate 325 (65 Fe) MG Oral Tablet*180 Ta*1 Sig: TAKE 1 TABLET BY MOUTH TWICE A DAY WITH MORNING AND EVENING MEAL Authorizing Provider: AMELIA ROBERT * Telephone Encounter - Dhruv Bonilla [facility] - 07/25/2023 7:06 AM EDTPending Prescriptions: Disp Refills Ferrous Sulfate 325 (65 Fe) MG Oral Tablet*180 Ta*1 Sig: TAKE 1 TABLET BY MOUTH TWICE A DAY WITH MORNING AND EVENING MEAL * Telephone Encounter - Dhruv Bonilla [facility] - 07/25/2023 7:06 AM EDT Pending Prescriptions: Disp Refills Ferrous Sulfate 325 (65 Fe) MG Oral Tablet*180 Ta*1 Sig: TAKE 1 TABLET BY MOUTH TWICE A DAY WITH MORNING AND EVENING MEAL Last Visit: 06/16/2023 (in office), Visit date not found (telemedicine) Next Visit: 12/01/2023 If no future appointments scheduled, and last appointment is greater than a year ago, please schedule patient for a follow-up appointment Last date the medication was ordered: 01-16-23 Pharmacy: [id number] [facility] Is this request for a controlled substance?No [...] Office Visit Family Medicine Amelia Robert MD [address] [place] [address] KAUSHAL Perez [phone] 12/02/2023 Office Visit Nephrology Teressa Murrell MD [address] [facility] [place] [address] Scheduled Orders Name Type Priority Associated Diagnoses Orde r Schedule CBC WITH WBC DIFFERENTIAL AND ANEMIA REFLEX WORKUP Lab Routine Chronic kidney disease, stage 3b (HCC) Anemia, unspecified type Expected: 12/01/2023 (Approximate), Expires: 07/29/2024 IRON SCREEN, INCLUDING TIBC Lab Routine Chronic kidney disease, stage 3b (HCC) Anemia, unspecified type Expected: 12/01/2023 (Approximate), Expires: 07/29/2024 FERRITIN Lab Routine Chronic kidney disease, stage 3b (HCC) Anemia, unspecified type Expected: 12/01/2023 (Approximate), Expires: 07/29/2024 Scheduled Procedures Name Priority Associated Diagnoses Date/Ti me COLONOSCOPY FLEXIBLE PROXIMAL DIAGNOSTIC Recall History of colon polyps Health Maintenance Due Date Last Done Comments DISCUSS TOBACCO CESSATION (REFER TO SMARTSET #9347) 1956 Cologuard 2001 Fecal Occult Blood Test [...] Additional history exists CKD PHOS USE SMARTSET 33185 03/26/202402/2023, 12/01/2022, 05/19/2020, Additional history exists CKD HGB USE SMARTSET 12772 06/16/202406/16, 06/16/2023, 06/18/2022, Additional history exists TSH [...] as of this encounter Visit Diagnoses Diagnosis Chronic kidney disease, stage 3b (HCC)- Primary Anemia, unspecified type documented in this encounter Advance Directives [...] the patient have Health Care Power of Paint Roller Winder? No Care Teams Explosives Detonator Relationship Specialty Start Date End Date Amelia Robert MD [address] [place] [address] KAUSHAL Perez [phone] PCP - General Family Medicine 07/21/17 documented as of this encounter
--- OUTSIDE RECORDS SUMMARY | 2024-01-05 13:02 | External Medical Summary | Summary of Care ---
Author Name Unknown Organization [facility] Address [address] [facility] [address] Phone [phone] Care Team Providers Care Director Business Management Name Role Phone Amelia Robert MD Primary Care Provide r Reason for Referral * Medication Prior Authorization - Closed Specialty Diagnoses / Procedures Referred By Contamanda t Referred To Contact Diagnoses DM type 2 causing neurological disease (HCC) Rotator cuff syndrome, unspecified laterality Amelia Robert MD [address] [place] [address] KAUSH[place] Perez [id number] Referral ID Status Reason Start Date Expiration Date Visits Re quested Visits Authorized [id number] Closed [phone] Reason for Visit * Reason Comments eRx-Medication Refill Encounter Details Date Type Department Care Team Description 07/25/2023 Refill Family Medicine [address] [place] [address] Amelia Robert MD [address] [place] [address] KAUSHAL Perez [id number] DM Type 2 causing Neuro Dz (HCC); [...] Solution (Duoneb)Indications :COPD, severity to be determined ([facility]) INHALE 1 VIAL VIA NEBULIZER [...] EVERY DAY 90 Tablet 1 3 Active traMADol HCl 50 MG Oral Tablet (Ultram)Indications :D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 FOR PAIN. 90 Tablet 0 3 Active Ferrous Sulfate 325 (65 Fe) [...] of oxygen through Dicks Obesity hypoventilation syndrome 011 Overview: 04/30/11 -- [...] Encounter - Amelia Robert MD - 07/28/2023 8:09 AM EDT Signed Prescriptions: Disp Refills traMADol HCl 50 MG Oral Tablet (Ultram) 90 Tab*0 Sig: TAKE 1 TABLET BY MOUTH EVERY 8 HOURS NEEDED FOR PAIN, SEVERE. FOR PAIN. Authorizing Provider: AMELIA ROBERT * Telephone Encounter - Chiqui Barry [facility] - 07/28/2023 5:56 AM EDTPending Prescriptions: Disp Refills traMADol HCl 50 MG Oral Tablet [Pharmacy M*90 Tab*0 Sig: TAKE 1 TABLET BY MOUTH EVERY 8 HOURS NEEDED FOR PAIN, SEVERE. FOR PAIN. * Telephone Encounter - Chiqui Barry [facility] - 07/28/2023 5:55 AM EDT I have reviewed the patients controlled substance dispensing history in the Prescription Drug Monitoring Program in compliance with the [facility] regulations before prescribing a controlled substance. PDMP checked on 07/28/2023. Pending Prescriptions: Disp Refills traMADol HCl 50 MG Oral Tablet (Ultram) [*90 Tab*0 Sig: TAKE 1 TABLET BY MOUTH EVERY 8 HOURS NEEDED FOR PAIN, SEVERE. FOR PAIN. Last Visit: 06/16/2023 (in office), Visit date not found (telemedicine) Next Visit: 12/01/2023 Date medication was last filled: 06/24 Date medication is due for refill: 07/24 Pharmacy: [id number] [address] [facility] Is this request for a [...] Review. Please approve if appropriate. Thank you, Chiqui Barry, PharmD. Clinical Pharmacist [facility] ([facility]) (formerly Telepharmacy) 07/28/2023, 5:56 AM documented in this encounter Plan of Treatment Upcoming Encounters Date Type Specialty Care Team Description 12/01/2023 Office Visit Family Medicine Amelia Robert MD [address] [place] [address] KAUSH[place] Perez [phone] 12/02/2023 Office Visit Nephrology Teressa Murrell MD [address] [place], [place] [address] [id number] Scheduled Procedures Name Priority Associated Diagnoses Date/Ti me COLONOSCOPY FLEXIBLE PROXIMAL DIAGNOSTIC Recall History of colon polyps Health Maintenance Due Date Last Done Comments DISCUSS TOBACCO CESSATION (REFER TO SMARTSET #5324) 1956 Cologuard 2001 Fecal Occult Blood Test [...] Additional history exists CKD PHOS USE SMARTSET 30261 03/26/2024 050 02/2023, 12/01/2022, 05/19/2020, Additional history exists CKD HGB USE SMARTSET 56639 06/16/202406/16, 06/16/2023, 06/18/2022, Additional history exists TSH [...] the patient have Health Care Power of Display Fabricator? No Care Teams Director Business Management Relationship Specialty Start Date End Date Amelia Robert MD [address] [place] [address] KAUSHAL Perez [phone] PCP - General Family Medicine 07/21/17 documented as of this encounter
--- NOTE | 2024-01-05 13:39 | XRay Report ---
XR chest 1V portable CLINICAL HISTORY: Dyspnea TECHNIQUE: Single frontal radiograph of the chest was obtained. Comparison: Comparison is made to chest radiograph 03/13/2022 FINDINGS: No lines and tubes are seen. Cardiomegaly is noted. The aortic arch is calcified. Prominence and ceph alization of the vasculature is seen. No evidence of pleural effusion or pneumothorax. IMPRESSION: Cardiomegaly and mild pulmonary edema. ACT 112: Negative or not required by law. Electronically signed by: Daren Yepez M.D. 01/05/2024 1:38 PM
--- NOTE | 2024-01-05 13:54 | Emergency Department Note ---
Impression & Plan Acute dyspnea, CHF (congestive heart failure), COVID-19, MELISSA (acute kidney injury), Acute hypoxemic respiratory failure ED Provider Note HISTORY OF PRESENT ILLNESS: Patient is a 68-year-old female presenting with shortness of breath. Patient reports that about 9 days ago she was exposed to someone who tested positive for COVID. Reports over the last 3 to 4 days she has had progressively worsening shortness of breath. She reports that she does not wear any supplemental oxygen at baseline. She does wear CPAP at nighttime. Reports that in the last 3 to 4 days she has been very short of breath with any minimal exertion. She reports that she has had progressively worsening swelling of her lower extremities. She is on Lasix 40 mg daily and last took a dose this morning. Denies any chest pain with the shortness of breath. She is on a baby aspirin daily but no other anticoagulation. Denies any DVT or PE history. Denies any fevers. ROS: as above PHYSICAL EXAM: Constitutional: Patient appears in no acute distress. HENT: Head: Normocephalic and atraumatic. Eyes: EOMI, PERRL Mouth/Throat: Mucous membranes moist. Neck: Trachea midline. Neck supple. Cardiovascular: Tachycardic with irregularly rhythm. No murmurs, rubs or gallops. Intact distal pulses. Pulmonary/Chest: No respiratory distress. Breath sounds clear and equal bilaterally. No wheezes or rales. Conversationally dyspneic Abdominal: Abdomen soft, no tenderness, rebound or guarding. Musculoskeletal: No tenderness or deformity noted. +2 pitting edema of bilateral lower extremities extending to mid-malik Skin: Warm and dry. No rash, erythema, pallor or cyanosis Psychiatric: Appropriate mood and affect for situation. Neurological: Alert and keenly responsive. CN II-XII grossly intact, moving all extremities equally and fully. MDM: - Vitals signs showed tachycardia and hypoxia. Patient placed on 4 L nasal cannula - History obtained via patient. Patient presents with shortness of breath. Patient reports progressive shortness of breath over the last 3 to 4 days. She is also had lower extremity edema. She had a COVID exposure around 9 days ago. Denies any fevers. Denies any chest pain. Denies any DVT or PE history. She is on a baby aspirin no other anticoagulation. - Chronic conditions affecting care: COPD; CHF; DM-2; CKD - Differential diagnoses include, but are not limited to: Congestive heart failure; acute coronary syndrome; COPD/asthma exacerbation; pulmonary edema; pulmonary embolism; pneumonia; pneumothorax; viral syndrome - Order placed for continuous cardiac monitoring. At this time, monitor showed rate of 105 bpm with irregular rhythm, per my interpretation. - External medical records reviewed. Discharge summary dated 05/02/2022 was reviewed. She was admitted at that time for GI bleed. She had previously been on aspirin and Plavix, but after her GI bleed the Plavix was stopped. - EKG interpreted by myself showed atrial fibrillation. Rate 76 bpm. QT 384. No acute ischemic changes. - Laboratory workup interpreted by myself showed normal WBC; stable electrolytes; MELISSA (Cr 1.81); slightly elevated troponin (18); normal BNP - CXR showed mild pulmonary edema, per my interpretation - Viral respiratory panel positive for COVID-19 - VBG shows respiratory acidosis (pH 7.23; PCO2 93) - BiPAP ordered - Patient given 500 cc NS for her tachycardia and MELISSA. - Patient took her 40 mg PO lasix earlier today. Given her MELISSA, further IV lasix was not ordered. - Discussion was had with health care facilities inspector about patient's case and need for admission - Hospitalist consulted for admission - Patient admitted to [facility] for further evaluation and management. I have personally spent 32 minutes of critical care time in the direct management of this patient. This includes bedside care, interpretation of diagnostic studies, and testing, discussion with consultants, patient, and family members, and other required patient management activities. This 32 minutes is in excess of all separately billable procedures. ASSESSMENT AND PLAN: Diagnosis: dyspnea; COVID-19 infection; CHF; MELISSA; acute hypoxemic respiratory failure Plan: admit Past Med/Surg History Medical History Aortic stenosis Chronic diastolic (congestive) heart failure CKD (chronic kidney disease) stage 3, GFR 30-59 ml/min COPD (chronic obstructive pulmonary disease) Diabetes mellitus GERD (gastroesophageal reflux disease) Gout Hypothyroid Obesity CINTHIA (obstructive sleep apnea) Smoker Surgical History History of hip surgery Previous section Family History Father Coronary heart disease Brother Coronary heart disease Stroke Sister Diabetes Brother Coronary heart disease Social History Smoking Status: Current every day smoker Tobacco Type: Cigarettes Cigarettes Per Day: 1 ppd; Second Hand Exposure: No; Do You Dip or Chew Tobacco: No; Hx Alcohol Use: No Hx Substance Use: No Preferred Language: Kiswahili Communication Ability: Effective Window Shade Cutter Required: No Beliefs That Will Affect Care: None marital status: Current Living Situation: Rehab Current Living Situation Comment: [facility] Feels Safe at Home: Yes Assistive Devices: Oxygen - at Night and Walker Allergies Allergies Allergy/AdvReac Type Severity Reaction Status Date / Time No Known Allergies Allergy Verified 01/05/24 12:59 Home Meds Home Medications Medication Instructions Recorded Confirmed allopurinol 300 mg tablet 300 mg PO DAILY 03/09/22 04/27/22 aspirin 81 mg capsule 81 mg PO DAILY 03/09/22 04/27/22 atorvastatin 40 mg tablet 40 mg PO QPM 03/09/22 04/27/22 camphor-menthol 0.2 %-3.5 % 1 applic topical Q6H PRN Pain 03/09/22 04/27/22 topical gel carvedilol 6.25 mg tablet 6.25 mg PO BID 03/09/22 04/27/22 clotrimazole 1 % topical cream 1 applic topical Q8H PRN ATHLETE'S 03/09/22 04/27/22 (Athlete's Foot (clotrimazole)) FEET cyanocobalamin (vitamin B-12) 1,000 mcg PO DAILY 03/09/22 04/27/22 1,000 mcg tablet furosemide 40 mg tablet 40 mg PO DAILY 03/09/22 04/27/22 gabapentin 100 mg capsule 100 mg PO TID 03/09/22 04/27/22 gemfibrozil 600 mg tablet 600 mg PO BID 03/09/22 04/27/22 glipizide 5 mg tablet, extended 5 mg PO DAILY 03/09/22 04/27/22 release 24 hr guaifenesin 1,200 mg tablet, 1,200 mg PO Q12H PRN Cough 03/09/22 04/27/22 extended release 12 hr levothyroxine 150 mcg tablet 150 mcg PO DAILY 03/09/22 04/27/22 omega 5-pxf-uvl-fish oil 1,000 mg 1 cap PO TID 03/09/22 04/27/22 (120 mg-180 mg) capsule (Fish Oil) omeprazole 20 mg tablet,delayed 20 mg PO DAILY 03/09/22 04/27/22 release ipratropium 0.5 mg-albuterol 3 mg 3 ml inhalation Q6H PRN Shortness 03/17/22 04/27/22 (2.5 mg base)/3 mL nebulization Of Breath Or Wheezing soln mometasone-formoterol HFA 200 2 inh inhalation BID 03/17/22 04/27/22 mcg-5 mcg/actuation aerosol inhaler (Dulera) acetaminophen 325 mg tablet 650 mg PO Q6H PRN FEVER >100/PAIN 04/27/22 04/27/22 (Tylenol) (1-4) albuterol sulfate 90 mcg/actuation 2 inh inhalation Q6H PRN Shortness 04/27/22 04/27/22 breath activated powder inhaler Of Breath Or Wheezing insulin glargine 100 unit/mL 35 unit subcut DAILY 04/27/22 04/27/22 subcutaneous solution menthol 0.44 %-zinc oxide 20.6 % 1 applic topical TID 04/27/22 04/27/22 topical ointment (Calmoseptine) methyl salicylate 15 %-menthol 10 1 applic topical Q6H PRN RIGHT 04/27/22 04/27/22 % topical cream LEG/HIP PAIN multivitamin with minerals 1 tab PO DAILY 04/27/22 04/27/22 tramadol 50 mg tablet 50 mg PO Q8H PRN Pain (Scale Score 04/27/22 04/27/22 5-10) Previous Rx's Medication Instructions Recorded blood-glucose meter (Accu-Chek #1 ea 03/17/22 Maty Plus Meter) cholecalciferol (vitamin D3) 10 600 unit PO QAM #30 tabs 03/17/22 mcg (400 unit) tablet (Vitamin D3) pen needle, diabetic 32 gauge x #100 ea 03/17/2232" (Pen Needle) Results & Data (ED) Vital Signs Vital Signs - 24 hr 01/05/24 12:53 01/05/24 12:53 01/05/24 14:13 Temperature 36.8 C Temperature Source Oral Pulse Rate 113 H Pulse Rate [Right Finger] Pulse Rhythm Regular Pulse Rhythm [Right Finger] Pulse Strength Normal Pulse Strength [Right Finger] Respiratory Rate 24 Respiratory Effort / Characteristics Spontaneous Accessory Muscle Use Short of Breath SOB on Exertion Non-Labored Spontaneous Respiratory Depth Normal Respiratory Pattern Regular Regular Blood Pressure 118/77 Blood Pressure Mean 90 Blood Pressure Position Sitting Pulse Oximetry 87 L 92 Oxygen Delivery Method Nasal Cannula Nasal Cannula Oxygen Flow Rate 4 5 Sepsis Recent Fever Within 48 Hours No Sepsis New/Unexplained Change in Mental Status No Sepsis Action Taken by Nursing No Action Required 01/05/24 14:13 01/05/24 14:13 01/05/24 14:16 Temperature 36.8 C Temperature Source Oral Pulse Rate 104 H 105 H Pulse Rate [Right Finger] 104 H Pulse Rhythm Regular Pulse Rhythm [Right Finger] Regular Pulse Strength Pulse Strength [Right Finger] Normal Respiratory Rate 22 22 Respiratory Effort / Characteristics Non-Labored Spontaneous Respiratory Depth Normal Respiratory Pattern Regular Blood Pressure Blood Pressure Mean Blood Pressure Position Pulse Oximetry 92 92 Oxygen Delivery Method Nasal Cannula Nasal Cannula Oxygen Flow Rate 5 5 Sepsis Recent Fever Within 48 Hours Sepsis New/Unexplained Change in Mental Status Sepsis Action Taken by Nursing Laboratory Data 01/05/24 13:23 01/05/24 13:23 Lab Results 01/05/24 01/05/24 01/05/24 Range/Units 13:20 13:23 14:13 WBC 7.17 (4.8-10.8) K/ul RBC 5.63 H (4.20-5.40) M/uL Hgb 16.3 H (12.0-16.0) g/dl Hct 54.4 H (37.0-47.0) % MCV 96.6 (80.0-100.0) fL MCH 29.0 (25.0-34.0) pg MCHC 30.0 L (32.0-36.0) g/dL RDW Std Deviation 66.2 H (36.4-46.3) fL RDW Coeff of Prakash 19.1 H (11.5-14.5) % Plt Count 96 L (130-400) K/uL Immature Gran % (Auto) 1.1 % Neut % (Auto) 73.0 % Lymph % (Auto) 18.4 % [place] % (Auto) 6.8 % Eos % (Auto) 0.1 % Baso % (Auto) 0.6 % Neut # (Auto) 5.23 (1.40-6.50) K/uL Lymph # (Auto) 1.32 (1.20-3.40) K/uL [place] # (Auto) 0.49 (0.11-0.59) K/uL Eos # (Auto) 0.01 (0.00-0.50) K/uL Baso # (Auto) 0.04 (0.00-0.20) K/uL Immature Gran # (Auto) 0.08 (0.01-0.20) K/uL Absolute Nucleated RBC 0.02 (0.00-0.12) K/uL Nucleated RBC % (auto) 0.3 % Platelet Estimate Decreased L (Normal) VBG pH 7.23 L (7.36-7.41) VBG pCO2 93 H (38-50) mmHg VBG pO2 36 mmHg VBG HCO3 39 mmol/L VBG O2 Saturation < 60.0 % VBG Base Excess 7.1 mEq/L Sodium 143 (136-145) mmol/L Potassium 4.5 (3.5-5.1) mmol/L Chloride 104 (98-107) mmol/L Carbon Dioxide 33 H (21-32) mmol/L Anion Gap 6 (3-11) BUN 49 H (6-23) mg/dl Creatinine 1.81 H (0.6-1.2) mg/dl Est Cr Clr Drug Dosing Not Reportable Est GFR ( Amer) 32.9 ml/min Est GFR (Non-Af Amer) 28.4 ml/min BUN/Creatinine Ratio 27.1 H (10-20) Glucose 143 H (70-99(Fasting)) mg/dl Calcium 8.6 (8.6-10.3) mg/dl Magnesium 1.9 (1.7-2.4) mg/dl Total Bilirubin 0.5 (0.2-1.0) mg/dl AST 15 (13-39) U/L ALT 19 (7-52) U/L Alkaline Phosphatase 96 (34-104) U/L Troponin I High Sens 18.0 H (0-14) pg/ml B-Natriuretic Peptide 72 (0-100) pg/ml Total Protein 6.7 (6.0-8.3) gm/dl Albumin 3.5 (3.4-5.0) gm/dl Globulin 3.2 (2.5-4.0) gm/dl Albumin/Globulin Ratio 1.1 (0.9-2) Adenovirus (PCR) Not Detected (NotDetected) B. pertussis DNA (PCR) Not Detected (NotDetected) B.parapertussis DNA PCR Not Detected (NotDetected) C. pneumoniae DNA (PCR) Not Detected (NotDetected) Coronavirus OC43 (PCR) Not Detected (NotDetected) Coronavirus HKU1 (PCR) Not Detected (NotDetected) Coronavirus 229E (PCR) Not Detected (NotDetected) SARS-CoV-2 (PCR) DETECTED A (NotDetected) Coronavirus NL63 (PCR) Not Detected (NotDetected) Human Metapneumovir PCR Not Detected (NotDetected) Influenza Type A (PCR) Not Detected (NotDetected) Influenza Type B (PCR) Not Detected (NotDetected) M. pneumoniae (PCR) Not Detected (NotDetected) Parainfluenza 1 (PCR) Not Detected (NotDetected) Parainfluenza 2 (PCR) Not Detected (NotDetected) Parainfluenza 3 (PCR) Not Detected (NotDetected) Parainfluenza 4 (PCR) Not Detected (NotDetected) RSV (PCR) Not Detected (NotDetected) Entero/Rhino (PCR) Not Detected (NotDetected) Administered Medications Discontinued Medications Sodium Chloride (Nss) 500 mls @ 999 mls/hr IV .Q31M ONE Stop: 01/05/24 13:54 Last Infusion: 01/05/24 14:57 Dose: Infused Documented By: Admin: 01/05/24 14:05 Dose: 999 mls/hr Documented By: CAW Imaging Data Radiologist's Impression: Chest X-Ray 01/05/24 12:54 XR chest 1V portable CLINICAL HISTORY: Dyspnea TECHNIQUE: Single frontal radiograph of the chest was obtained. Comparison: Comparison is made to chest radiograph 03/13/2022 FINDINGS: No lines and tubes are seen. Cardiomegaly is noted. The aortic arch is calcified. Prominence and cephalization of the vasculature is seen. No evidence of pleural effusion or pneumothorax. IMPRESSION: Cardiomegaly and mild pulmonary edema. ACT 112: Negative or not required by law. Electronically signed by: Daren Yepez M.D. 01/05/2024 1:38 PM Discharge Plan Visit Data Chief Complaint: Shortness of Breath/Dyspnea Stated Complaint: LOW OXYGEN, WEAKNESS, TROUBLE BREATHING ED Provider: Salud Migeul Discharge Problem: Acute dyspnea, CHF (congestive heart failure), COVID-19, MELISSA (acute kidney injury), Acute hypoxemic respiratory failure Forms Stand Alone Forms: My [facility] Prescriptions Prescriptions: No Action gemfibrozil 600 mg tablet 600 mg PO BID levothyroxine 150 mcg tablet 150 mcg PO DAILY furosemide 40 mg tablet 40 mg PO DAILY atorvastatin 40 mg tablet 40 mg PO QPM glipizide 5 mg tablet extended release 24 hr 5 mg PO DAILY cyanocobalamin (vitamin B-12) 1,000 mcg tablet 1,000 mcg PO DAILY allopurinol 300 mg tablet 300 mg PO DAILY gabapentin 100 mg capsule 100 mg PO TID clotrimazole [Athlete's Foot (clotrimazole)] 1 % Cream 1 applic TOPICAL Q8H PRN (Reason: ATHLETE'S FEET) guaifenesin 1,200 mg Tablet Extended Release 12hr 1,200 mg PO Q12H PRN (Reason: Cough) omeprazole 20 mg Tablet,Delayed Release (Dr/Ec) 20 mg PO DAILY omega 7-[id number]-[id number]-fish oil [Fish Oil] 1,000 mg (120 mg-180 mg) Capsule 1 cap PO TID camphor-menthol 0.2-3.5 % Gel 1 applic TOPICAL Q6H PRN (Reason: Pain) ipratropium-albuterol 0.5 mg-3 mg(2.5 mg base)/3 mL solution for nebulization 3 ml INHALATION Q6H PRN (Reason: Shortness Of Breath Or Wheezing) Dulera 200-5 mcg/actuation Hfa Aerosol Inhaler 2 inh INHALATION BID Rx Instructions: QAM & 1630 cholecalciferol (vitamin D3) [Vitamin D3] 10 mcg (400 unit) Tablet 600 unit PO QAM Qty: 30 0RF (DME) pen needle, diabetic [Pen Needle] 32 gauge x 5/32" needle See Rx Instructions .Route Qty: 100 0RF Rx Instructions: Take Insulin once a day as directed (DME) blood-glucose meter [Accu-Chek Maty Plus Meter] Misc See Rx Instructions .Route Qty: 1 0RF Rx Instructions: Check Blood Glucose 3 times a day as directed acetaminophen [Tylenol] 325 mg Tablet 650 mg PO Q6H MDD 3 GRAMS/24 HOURS PRN (Reason: FEVER >100/PAIN (1-4)) multivitamin with minerals Tablet 1 tab PO DAILY methyl salicylate-menthol 15-10 % Cream 1 applic TOPICAL Q6H PRN (Reason: RIGHT LEG/HIP PAIN) menthol-zinc oxide [Calmoseptine] 0.44-20.6 % Ointment 1 applic TOPICAL TID Rx Instructions: APPLY TO BUTTOCKS FOR SKIN CARE. albuterol sulfate 90 mcg/actuation Aerosol Powdr Breath Activated 2 inh INHALATION Q6H PRN (Reason: Shortness Of Breath Or Wheezing) tramadol 50 mg tablet 50 mg PO Q8H PRN (Reason: Pain (Scale Score 5-10)) carvedilol 12.5 mg tablet 12.5 mg PO BID amlodipine 5 mg tablet 5 mg PO QAM ferrous sulfate 325 mg (65 mg iron) Tablet 325 mg PO BIDM aspirin 81 mg Tablet,Chewable 81 mg PO DAILY insulin glargine [Basaglar KwikPen U-100 Insulin] 100 unit/mL (3 mL) insulin pen 35 unit SUBCUT QAM Referrals Referrals: Mary Robert MD [Primary Care Provider] -
[2024-01-05 14:05] LABS: Alanine Aminotransferase 19 U/L (7-52); Albumin Globulin Ratio 1.1 (0.9-2); Albumin Level 3.5 gm/dl (3.4-5.0); Alkaline Phosphatase 96 U/L (34-104); Anion Gap 6 (3-11); Aspartate Aminotransferase 15 U/L (13-39); BUN Creatinine Ratio 27.1 (10-20); Bilirubin,Total 0.5 mg/dl (0.2-1.0); Blood Urea Nitrogen 49 mg/dl (6-23); Calcium 8.6 mg/dl (8.6-10.3); Carbon Dioxide 33 mmol/L (21-32); Chloride 104 mmol/L (98-107); Est GFR (African American) 32.9 ml/min; Est GFR (Non-African American) 28.4 ml/min; Globulin 3.2 gm/dl (2.5-4.0); Glucose 143 mg/dl (70-99(Fasting)); Magnesium 1.9 mg/dl (1.7-2.4); Potassium 4.5 mmol/L (3.5-5.1); Sodium 143 mmol/L (136-145); Total Protein 6.7 gm/dl (6.0-8.3)
[2024-01-05] MEDS: SODIUM CHLORIDE 0.9% 500 ML IV ONE (14:05)
[2024-01-05 14:09] LABS: Basophils # (auto) 0.04 K/uL (0.00-0.20); Basophils % (auto) 0.6 %; Eosinophils # (auto) 0.01 K/uL (0.00-0.50); Eosinophils % (auto) 0.1 %; Hematocrit (blood only) 54.4 % (37.0-47.0); Hemoglobin 16.3 g/dl (12.0-16.0); Immature Granulocytes # (auto) 0.08 K/uL (0.01-0.20); Immature Granulocytes % (auto) 1.1 %; Lymphocytes # (auto) 1.32 K/uL (1.20-3.40); Lymphocytes % (auto) 18.4 %; Mean Corpuscular Volume 96.6 fL (80.0-100.0); Monocytes # (auto) 0.49 K/uL (0.11-0.59); Monocytes % (auto) 6.8 %; Neutrophils # (auto) 5.23 K/uL (1.40-6.50); Nucleated RBC # (auto) 0.02 K/uL (0.00-0.12); Nucleated RBC % (auto) 0.3 %; Platelet Count 96 K/uL (130-400); Platelet Estimate Decreased (Normal); RDW Coefficient of Variation 19.1 % (11.5-14.5); RDW Standard Deviation 66.2 fL (36.4-46.3); Red Blood Count 5.63 M/uL (4.20-5.40); White Blood Count 7.17 K/ul (4.8-10.8)
[2024-01-05 14:23] LABS: Base Excess VBG 7.1 mEq/L; HCO3 VBG 39 mmol/L; Oxygen Saturation VBG < 60.0 %; PCO2 VBG 93 mmHg (38-50); PO2 VBG 36 mmHg; pH VBG 7.23 (7.36-7.41)
[2024-01-05 14:29] LABS: Adenovirus PCR Not Detected (NotDetected); Bordetella parapertussis PCR Not Detected (NotDetected); Bordetella pertussis PCR Not Detected (NotDetected); Chlamydia pneumoniae PCR Not Detected (NotDetected); Coronavirus 229E PCR Not Detected (NotDetected); Coronavirus CoV-2 (COVID19)PCR DETECTED (NotDetected); Coronavirus HKU1 PCR Not Detected (NotDetected); Coronavirus NL63 PCR Not Detected (NotDetected); Coronavirus OC43PCR Not Detected (NotDetected); Human Metapneumovirus PCR Not Detected (NotDetected); Influenza A PCR Not Detected (NotDetected); Influenza B PCR Not Detected (NotDetected); Mycoplasma pneumoniae PCR Not Detected (NotDetected); Parainfluenza Virus 1 PCR Not Detected (NotDetected); Parainfluenza Virus 2 PCR Not Detected (NotDetected); Parainfluenza Virus 3 PCR Not Detected (NotDetected); Parainfluenza Virus 4 PCR Not Detected (NotDetected); Respiratory Syncytial VirusPCR Not Detected (NotDetected); Rhinovirus/Enterovirus PCR Not Detected (NotDetected)
--- NOTE | 2024-01-05 15:40 | History & Physical Report ---
Date of Service January 05, 2024 Assessment & Plan (1) Acute respiratory failure with hypoxia and hypercarbia: (2) COVID-19: (3) Respiratory acidosis: (4) COPD (chronic obstructive pulmonary disease): (5) CINTHIA (obstructive sleep apnea): (6) Obesity hypoventilation syndrome: Plan: This is a 68-year-old female with PMH of COPD, CINTHIA on CPAP with 3L O2 bled through HS, obesity hypoventilation syndrome, diastolic heart failure, severe aortic stenosis, hypertension, hypothyroidism, dyslipidemia, CKD 3, ongoing daily tobacco use and other medical problems listed below who presents from home with worsening shortness of breath. Covid exposure last week, progressive SOB, malaise x 3 days Tachycardic 105-110, hypoxic in 80s on RA, improved to 92 % on 5L VBG pH 7.23, pCO2 93 - mentation improving on Bipap CRP elevated at 4.76 Starting on Decadron, incentive spirometry, mucinex, PRN Duonebs (7) (HFpEF) heart failure with preserved ejection fraction: (8) Aortic stenosis: Plan: Patient feels dry, Cr elevated, BLE at baseline CXR with cardiomegaly and mild pulmonary edema, BNP wnl Continue with home lasix 40mg PO daily (took this AM) for now, monitor volume status closely (9) Acute kidney injury superimposed on CKD: Plan: Cr 1.8 (baseline ~ 1.5) in setting of covid, decreased PO intake. Monitor with daily BMP, hold losartan for now (10) Diabetes mellitus: Plan: A1c 6.5 this month Hold home agents Basal/bolus insulin while in-patient BSG AC HS (11) Hypothyroidism: Plan: Continue levothyroxine (12) GERD (gastroesophageal reflux disease): Plan: Continue PPI (13) Tobacco use: Plan: Smoking 1-2 ppd, discussed importance of cessation, offered nicotine patch and declines DVT Ppx: SQ heparin Code status: FULL PCP: Jakob Dispo: Admitted to PCU Patient seen in collaboration with Dr. Hylton. Please see addendum. I spent a total of 75 minutes coordinating, documenting, and providing care for this patient excluding time spent in the performance of separately billed services. History of Present Illness Chief Complaint: Shortness of breath Primary Care Provider: Mary Robert MD This is a 68-year-old female with PMH of COPD, CINTHIA on CPAP with 3L O2 bled through HS, obesity hypoventilation syndrome, diastolic heart failure, severe aortic stenosis, hypertension, hypothyroidism, dyslipidemia, CKD 3, ongoing daily tobacco use and other medical problems listed below who presents from home with worsening shortness of breath. Was exposed to family members COVID 1 week ago and started to develop symptoms 3 days ago with lethargy, chills, generalized weakness and progressively worsening shortness of breath. Does not require oxygen at baseline. Denies wheezing. Was notably more lethargic today so brought in for further evaluation. Denies any fever, chest pain, nausea, vomiting, abdominal pain, dysuria, diarrhea or constipation. Decreased appetite but is still been eating and drinking. Taking medications as scheduled, including Lasix this morning. Still smoking 1 to 2 packs/day. Husbands states her lower extremity swelling seems to be at baseline. Allergies Allergy/AdvReac Type Severity Reaction Status Date / Time No Known Allergies Allergy Verified 01/05/24 15:28 Home Medications Medication Instructions Recorded Confirmed Type allopurinol 300 mg tablet 300 mg PO DAILY 03/09/22 01/05/24 History atorvastatin 40 mg tablet 40 mg PO QPM 03/09/22 01/05/24 History camphor-menthol 0.2 %-3.5 % 1 applic topical Q6H PRN Pain 03/09/22 01/05/24 History topical gel clotrimazole 1 % topical cream 1 applic topical Q8H PRN ATHLETE'S 03/09/22 01/05/24 History (Athlete's Foot (clotrimazole)) FEET cyanocobalamin (vitamin B-12) 1,000 mcg PO DAILY 03/09/22 01/05/24 History 1,000 mcg tablet furosemide 40 mg tablet 40 mg PO DAILY 03/09/22 01/05/24 History gabapentin 100 mg capsule 100 mg PO TID 03/09/22 01/05/24 History gemfibrozil 600 mg tablet 600 mg PO BID 03/09/22 01/05/24 History glipizide 5 mg tablet, extended 5 mg PO DAILYBB 03/09/22 01/05/24 History release 24 hr guaifenesin 1,200 mg tablet, 1,200 mg PO Q12H PRN Cough 03/09/22 01/05/24 History extended release 12 hr levothyroxine 150 mcg tablet 150 mcg PO 5XWK 03/09/22 01/05/24 History omega 8-pbt-xwv-fish oil 1,000 mg 1 cap PO TIDM 03/09/22 01/05/24 History (120 mg-180 mg) capsule (Fish Oil) omeprazole 20 mg tablet,delayed 20 mg PO DAILY 03/09/22 01/05/24 History release blood-glucose meter (Accu-Chek #1 ea 03/17/22 04/27/22 Rx Maty Plus Meter) pen needle, diabetic 32 gauge x #100 ea 03/17/22 04/27/22 Rx 5/32" (Pen Needle) acetaminophen 325 mg tablet 650 mg PO Q6H PRN FEVER >100/PAIN 04/27/22 01/05/24 History (Tylenol) (1-4) albuterol sulfate 90 mcg/actuation 2 inh inhalation Q6H PRN Shortness 04/27/22 01/05/24 History breath activated powder inhaler Of Breath Or Wheezing methyl salicylate 15 %-menthol 10 1 applic topical Q6H PRN RIGHT 04/27/22 01/05/24 History % topical cream LEG/HIP PAIN tramadol 50 mg tablet 50 mg PO Q8H PRN Pain (Scale Score 04/27/22 01/05/24 History 5-10) amlodipine 5 mg tablet 5 mg PO QAM 01/05/24 01/05/24 History aspirin 81 mg chewable tablet 81 mg PO DAILY 01/05/24 01/05/24 History carvedilol 12.5 mg tablet 12.5 mg PO BID 01/05/24 01/05/24 History ferrous sulfate 325 mg (65 mg 325 mg PO BIDM 01/05/24 01/05/24 History iron) tablet insulin glargine 100 unit/mL (3 35 unit subcut QAM 01/05/24 01/05/24 History mL) subcutaneous pen (Basaglar NinoPen U-100 Insulin) loperamide 2 mg tablet (Imodium 2 mg PO QID PRN Diarrhea 01/05/24 01/05/24 History A-D) losartan 50 mg tablet 50 mg PO QAM 01/05/24 01/05/24 History Past Med/Surg History Medical History (Updated 01/05/24 @ 16:43 by Serenity Fuller PA-C) Obesity hypoventilation syndrome Hypothyroidism Tobacco use (HFpEF) heart failure with preserved ejection fraction Gout GERD (gastroesophageal reflux disease) Aortic stenosis CKD (chronic kidney disease) stage 3, GFR 30-59 ml/min Smoker COPD (chronic obstructive pulmonary disease) CINTHIA (obstructive sleep apnea) Diabetes mellitus Obesity Surgical History (Updated 01/05/24 @ 16:36 by Serenity Fuller PA-C) Previous section History of hip surgery Family History Father Coronary heart disease Brother Coronary heart disease Stroke Sister Diabetes Brother Coronary heart disease Social History Smoking Status: Current every day smoker Tobacco Type: Cigarettes Cigarettes Per Day: 1 ppd; Second Hand Exposure: No; Do You Dip or Chew Tobacco: No; Hx Alcohol Use: No Hx Substance Use: No Preferred Language: Turkmen Communication Ability: Effective Forensic Dna Analyst Required: No Beliefs That Will Affect Care: None marital status: Current Living Situation: Rehab Current Living Situation Comment: [facility] Feels Safe at Home: Yes Assistive Devices: Oxygen - at Night and Walker Review of Systems Review of Systems: At least ten systems reviewed and negative except as noted in the HPI. Physical Exam Physical Exam: General Appearance: WD/WN, vitals as above, NAD, sitting up in bed, pleasant, obese, bipap mask in place Head: normocephalic, atraumatic Eyes: normal inspection, PERRL, conjunctivae normal, anicteric sclerae ENT: external ear and nose normal, oropharynx normal Neck: normal visual inspection, trachea midline, no thyromegaly Respiratory: increased respiratory effort, decreased breath sounds with scattered rhonchi, no wheezing. No accessory muscle use Cardiovascular: tachycardic rate, regular rhythm, no murmur, normal peripheral pulses, 1+ BLE edema. Vessels: no JVD Chest: normal inspection of chest Abdomen/GI: normal bowel sounds, soft, nontender, no hepatosplenomegaly Extremities/Musculoskeletal: no cyanosis or clubbing, venous stasis changes BLE, extremities motor strength 5/5 Neurologic: PERRL, EOMI, accommodation nl, no face palsy, no dysarthria, CN's II-XI intact bilaterally and moves all extremities Psychiatric: A+Ox3, euthymic affect Skin: no rashes, normal color, warm/dry Results & Data Results & Data Vital Signs (Past 12 Hours) Vital Signs Temp Pulse Pulse Resp BP Pulse Ox O2 Del Method 01/05/24 14:16 105 H 01/05/24 14:13 104 H 22 92 Nasal Cannula 01/05/24 14:13 36.8 C 104 H 22 92 Nasal Cannula 01/05/24 14:13 92 Nasal Cannula 01/05/24 12:53 36.8 C 113 H 24 118/77 87 L Nasal Cannula O2 Flow Rate 01/05/24 14:16 01/05/24 14:13 5 01/05/24 14:13 5 01/05/24 14:13 5 01/05/24 12:53 4 Laboratory Results Short CBC 01/05/24 Range/Units 13:23 WBC 7.17 (4.8-10.8) K/ul Hgb 16.3 H (12.0-16.0) g/dl Hct 54.4 H (37.0-47.0) % Plt Count 96 L (130-400) K/uL BMP 01/05/24 13:23 Sodium 143 Potassium 4.5 Chloride 104 Carbon Dioxide 33 H BUN 49 H Creatinine 1.81 H Glucose 143 H Calcium 8.6 Liver Function 01/05/24 Range/Units 13:23 Total Bilirubin 0.5 (0.2-1.0) mg/dl AST 15 (13-39) U/L ALT 19 (7-52) U/L Alkaline Phosphatase 96 (34-104) U/L Albumin 3.5 (3.4-5.0) gm/dl Diagnostic Findings Chest X-Ray 01/05/24 12:54 XR chest 1V portable CLINICAL HISTORY: Dyspnea TECHNIQUE: Single frontal radiograph of the chest was obtained. Comparison: Comparison is made to chest radiograph 03/13/2022 FINDINGS: No lines and tubes are seen. Cardiomegaly is noted. The aortic arch is calcified. Prominence and cephalization of the vasculature is seen. No evidence of pleural effusion or pneumothorax. IMPRESSION: Cardiomegaly and mild pulmonary edema. ACT 112: Negative or not required by law. Electronically signed by: Daren Yepez M.D. 01/05/2024 1:38 PM ECG Additional Comments: EKG reviewed- sinus tachycardia at 111bpm Code Status & VTE Plan VTE Prophylaxis Plan VTE Prophylaxis will be ordered: Yes Supervising Physician Co-Signing Physician Notes Attending addendum: The patient was seen and examined in the emergency room in presence of the She has been complaining of shortness of breath with cough for the last 2 to 3 days Denies any chest pain and her palpitation, no fever and no chills, no abdominal pain nausea or vomiting Denies any increasing leg swelling On examination Sitting on the bed with some shortness of breath but has been feeling better Hemodynamically stable with tachycardia of 105 Chest-decreased breath sound bilaterally with minimal crackles at the bases Heart-S1-S2 with a 2/6 ESM over precordium Abdomen-distended, soft, bowel sound present Extremities-chronic edema bilaterally about 1+ Her admission labs, EKG and imaging studies reviewed Has COVID-19 virus infection with history of COPD and CINTHIA Respiratory acidosis with CO2 level elevated at 93 Has been on BiPAP and tolerating well with improvement Will start dexamethasone for COVID Continue other supportive measures Reviewed with assessment and plan as outlined above by ELIA Aguayo Dr
[2024-01-05] MEDS ORDERED: ALBUT/IPRATROP 3MG/0.5MG NEB 3 ML VIAL NEB PRN (16:55)
[2024-01-05] MEDS: dexAMETHasone 6 MG in SYRINGE 0 ML IV ONE (17:10)
[2024-01-05] MEDS ORDERED: CAMPHOR MENTHOL TOP PRN (18:58)
[2024-01-05] MEDS ORDERED: traMADol HCL 50 MG TABLET PO PRN (18:58)
[2024-01-05] MEDS ORDERED: DEXTROSE 50% 50 ML SYRINGE IV PRN (18:58)
[2024-01-05] MEDS ORDERED: GLUCOSE 10 TAB/TUBE PO PRN (18:58)
[2024-01-05] MEDS ORDERED: GLUCAGON FOR INJ 1 MG VIAL SQ PRN (18:58)
[2024-01-05] MEDS ORDERED: POLYETHYLENE (MIRALAX) 17 GM PACK PO PRN (18:58)
[2024-01-05] MEDS ORDERED: ONDANSETRON INJ 2 MG/ML 2 ML VIAL IV PRN (18:58)
[2024-01-05] MEDS ORDERED: ACETAMINOPHEN 325 MG TAB PO PRN (18:58)
[2024-01-05] MEDS ORDERED: CARBOHYDRATES FOR HYPOGLYCEMIA PO PRN (18:58)
[2024-01-05] MEDS ORDERED: GLUCOSE 40% GEL 15 GM TUBE PO PRN (18:58)
[2024-01-05] MEDS ORDERED: LOPERAMIDE HCL 2 MG CAP PO PRN (19:06)
[2024-01-05] MEDS ORDERED: ALBUTEROL HFA 8 GM INHALER INH PRN (19:13)
[2024-01-05] MEDS ORDERED: IPRATROPIUM BROMIDE NEB SOLN 0.02% 0.5MG/2.5ML VIAL INH SCH (20:45)
[2024-01-05] MEDS ORDERED: LEVALBUTEROL 1.25 MG/3 ML NEB NEB SCH (20:45)
--- OUTSIDE RECORDS SUMMARY | 2024-01-05 20:45 | External Medical Summary | Summary of Care ---
Author Name Unknown Organization [facility] Address [address] [place] [address] Phone [phone] Care Team Providers Care Ceramic Tile Setter Name Role Phone Mary Robert MD Primary Care Provide r Reason for Visit * Reason Onset Date Comments Medication Pre-auth 01/04/2024 Encounter Details Date Type Department Care Team (Late st Contact Info) Description 01/04/2024 Refill Family Medicine [address] [phone] Mary Robert MD [address] [place], [place] [address] [address] Allergies Active Allergy Reactions Criticality Noted Date [...] EVERY DAY 90 Tablet 3 3 Active glipiZIDE ER 5 MG [...] BEFORE MEALS 180 Tablet 1 4 Active Lantus SoloStar 100 UNIT/ML Subcutaneous Solution Pen-injector Inject 35 Units under the skin in the morning. 30 mL 3 4 Active Basaglar KwikPen 100 UNIT/ML Subcutaneous Solution Pen-injector (Insulin Glargine Solostar) INJECT UNDER THE SKIN 35 UNITS IN THE MORNING 30 mL 3 3 01/05/20 24 Discontinued documented as of this encounter [...] BIPAP with 2 liters of oxygen through [facility] Obesity hypoventilation syndrome 11/24/2010 Overview: 04/30/11 [...] - 22.9. No large leak concerns. [facility] Venous insufficiency 10/01/2010 Vitamin [...] as of this encounter Miscellaneous Notes * Addendum Note - Mary Robert MD - 01/05/2024 11:36 AM ESTAddended by: MARY ROBERT on: 01/05/2024 11:36 AM Modules accepted: Orders * Telephone Encounter - Mary Robert MD - 01/05/2024 11:36 AM EST Signed Prescriptions: Disp Refills Lantus SoloStar 100 UNIT/ML Subcutaneous S*30 mL 3 Sig: Inject 35 Units under the skin in the morning.Authorizing Provider: MARY ROBERT * Addendum Note - Michele Mason RP - 01/05/2024 11:00 AM ESTAddended by: MICHELE MASON on: 01/05/2024 11:00 AM Modules accepted: Orders * Telephone Encounter - Michele Mason RP - 01/05/2024 10:57 AM EST Rx is pended for alternative medication that is covered (insurance does not cover BASAGLAR). Pleasesign if agreeable and route back to me so I can advise patient. Pending Prescriptions: Disp Refills Lantus SoloStar 100 UNIT/ML Subcutaneous *30 mL 3 Sig: Inject 35 Units under the skin in the morning. Thanks, Michele Mason, PharmD Clinical Pharmacist [facility] ([facility]) [phone] 01/05/2024 10:58 AM * Telephone Encounter - Petrona Overton CPhT - 01/04/2024 1:50 PM EST Patient calling to inform doctor that the patient's insurance will not pay for this medication without a completed prior authorization. Did confirm this information with the pharmacy. Pt's current insurance information is as follows: Patient name: Lorraine Marina Can ID number: [id number] BIN number: [id number] N number: [id number] Group number: [id number] Subscriber name: Lorraine North Primary or Secondary Insurance:Primary Medication: Basaglar KwikPen 100 UNIT/ML Subcutaneous Solution Pen-injector (Insulin Glargine Solostar) Reason for Request: [place] Pharmacy and phone number: [id number] [address] Rx plan and phone number: [email or web address] [phone] Is this a new medication for the patient? No. How did the patient obtain the medication on the lastfill? It was covered last time on this same insurance. What alternative medications does the pharmacy have in stock?: lantus Patient is almost out and asking for high priority Thank you, Petrona Overton Slot Operations Manager [facility] ([facility] ([facility]) 01/04/2024,1:50 PM documented in this encounter Plan of Treatment Upcoming Encounters Date Type Department Care Team (Late st Contact Info) Description 01/25/2024 2:30 PM EST Pharmacy Pharmacy, [address] [place] [id number] [place] [address] 02/02/2024 3:00 PM EDT Imaging Radiology [address] [place] [address] 05/19/2024 2:00 PM EDT Office Visit Nephrology [address] [place] [address] Gina Monk PA-C [facility] [place] [address] 07/04/2024 11:40 AM EDT Office Visit Family Medicine [address] [place] [phone] Carrie Walter [address] [place] [address] 01/09/2025 1:20 PM EST Office Visit Family Medicine [facility] [address] [place] [address] [place] [phone] Mary Robert MD [address] [place] [address] [place] [phone] Scheduled Procedures Name Priority Associated Diagnoses Date/Ti me COLONOSCOPY FLEXIBLE PROXIMAL DIAGNOSTIC Recall History of colon polyps Health Maintenance Due Date Last Done Comments DISCUSS TOBACCO CESSATION (REFER TO SMARTSET #2064) 1956 Cologuard 2001 Fecal Occult Blood Test [...] COPD 12/21/2024 12/21/2023 CKD HGB USE SMARTSET 50962 12/28/202412/28, 12/28/2023, 06/16/2023, Additional history exists CKD PHOS USE SMARTSET 82727 12/28/2024 02/0 03/2024, 03/26/2023, 12/01/2022, Additional history [...] the patient have Health Care Power of Geothermal Electrical Engineer? No Care Teams Ceramic Tile Setter Relationship Specialty Start Date End Date Mary Robert MD [address] [place] [address] [place] [phone] PCP - General Family Medicine 07/21/17 documented as of this encounter
--- OUTSIDE RECORDS SUMMARY | 2024-01-05 20:46 | External Medical Summary | Summary of Care ---
Author Name Unknown Organization [facility] Address [address] [facility] [place] [address] Phone [phone] Care Team Providers Care Button Cutter Name Role Phone Mary Robert MD Primary Care Provide r Reason for Visit * Reason Onset Date Comments Medication Pre-auth 01/04/2024 Encounter Details Date Type Department Care Team (Late st Contact Info) Description 01/04/2024 Refill Family Medicine [address] [phone] Mary Robert MD [address] [place], [place] [address] [id number] Allergies Active Allergy Reactions Criticality Noted Date [...] - 22.9. No large leak concerns. [facility] Venous insufficiency 10/01/2010 Vitamin [...] encounter Miscellaneous Notes * Addendum Note - Michele Masno RPh - 01/05/2024 11:00 AM ESTAddended by: MICHELE MASON on: 01/05/2024 11:00 AM Modules accepted: Orders * Telephone Encounter - Michele Mason RPh - 01/05/2024 10:57 AM EST Rx is [...] [facility]) [phone] 01/05/2024 10:58 AM * Telephone Encounter - Petrona Overton CPhT - 01/04/2024 1:50 PM EST Patient calling to inform doctor that the patient's insurance will not pay for this medication without a completed prior authorization. Did confirm this information with the pharmacy. Pt's current insurance information is as follows: Patient name: Lorraine North ID number: [id number] BIN number: [id number] PCN number: [id number] Group number: [id number] Subscriber name: Lorraine North Primary or Secondary Insurance:Primary Medication: Basaglar KwikPen 100 UNIT/ML Subcutaneous Solution Pen-injector (Insulin Glargine Solostar) Reason for Request: [place] [facility] Pharmacy and phone number: [id number] [address] [facility] Rx plan and phone number: [email or web address] [phone] Is this a new medication for the patient? No. How did the patient obtain the medication on the lastfill? It was covered last time on this same insurance. What alternative medications does the pharmacy have in stock?: lantus Patient is almost out and asking for high priority Thank you, Petrona Overton Sales Officer [facility] ([facility]) 01/04/2024,1:50 PM documented in this encounter Plan of Treatment Upcoming Encounters Date Type Department Care Team (Late st Contact Info) Description 01/25/2024 2:30 PM EST Pharmacy Pharmacy, [address] [place] [phone] [place] [address] 02/02/2024 3:00 PM EDT Imaging Radiology [address] [place] [address] 05/19/2024 2:00 PM EDT Office Visit Nephrology [address] [place] [address] Gina Monk PA-C [address] [place] [address] 07/04/2024 11:40 AM EDT Office Visit [address] [place] [phone] Carrie Walter CRNP [address] [place] [address] [place] [address] 01/09/2025 1:20 PM EST Office Visit Family [address] [place] [phone] Mary Robert MD [address] [place] [address] [place] [phone] Scheduled Procedures Name Priority Associated Diagnoses Date/Ti me COLONOSCOPY FLEXIBLE PROXIMAL DIAGNOSTIC Recall History of colon polyps Health Maintenance Due Date Last Done Comments DISCUSS TOBACCO CESSATION (REFER TO SMARTSET #8261) 1955 Cologuard 2001 Fecal Occult Blood Test 2001 Sigmoidoscopy 2001 Hepatitis B (1 of 3 - Risk 3-dose series) 2016 Mammogram 10/30/2017 10/30/2016, 07/26, 08/18/2013, Additional history exists Diabetic Eye Exam 08/09/2020 08/09/2019, , 06/28/2013, Additional history exists Depression Screening 09/12/2020 09/12/2019 Diabetic Foot Exam 09/12/2020 09/12/2019, 0 06/28/2018, 07/07/2017, Additional history exists Zoster Vaccines (2 of 2) 11/24/2021 09/29/2021 COVID-19 Vaccine ( - 2023-24 season) 2023 01/21/2021, 12/24/2020 Albumin/Creatinine Ratio 12/01/2023 023, 11/09/2021, 05/19/2020, Additional history exists GFR 06/27/2024 12/28/2023, 05/23, 03/26/2023, Additional history exists HbA1c 06/27/2024 12/28/2023, 05/24, 12/01/2022, Additional history exists O2 ASSESSMENT COMPLETED IN PAST YEAR FOR COPD 12/21/2024 12/21/2023 CKD HGB USE SMARTSET 05512 12/28/202412/28, 12/28/2023, 06/16/2023, Additional history exists CKD PHOS USE SMARTSET 39826 12/28/2024 02/0 03/2024, 03/26/2023, 12/01/2022, Additional history [...] the patient have Health Care Power of Dough Cutting Machine Operator? No Care Teams Button Cutter Relationship Specialty Start Date End Date Mary Robert MD [address] [place] [address] [place] [phone] PCP - General Family Medicine 07/21/17 documented as of this encounter
[2024-01-05 20:51] LABS: Appearance Urine Cloudy (Clear); Bacteria Urine Automated 4+ (Negative); Bilirubin Urine Negative (Negative); Blood Urine 1+ (Negative); Color Urine Yellow; Glucose Urine UA Negative (Negative); Ketones Urine Negative (Negative); Leukocyte Esterase Urine 2+ (Negative); Nitrite Urine Negative (Negative); Protein Urine 2+ (Negative); RBC Urine Automated 0-4 /hpf (0-4); Specific Gravity Urine 1.013 (1.000-1.030); Urobilinogen Urine Negative (Negative); WBC Urine Automated >30 /hpf (0-5)
--- NOTE | 2024-01-05 20:58 | Communication Note ---
Date of Service: January 05, 2024 Notified by RN of O2 desaturation on ambulation even on 15 L mask. Patient with moist but nonproductive cough as per RN. Patient later noted to be febrile and tachycardic. No UTI complaints as per admitting provider. UA WBC esterase VBG in a.m. noted pH 7.23, pCO2 93 AP Hypoxemic, hypercapnic respiratory failure secondary to COPD exacerbation secondary to severe COVID-19 pneumonia Underlying OHS Sepsis Possible sources : Respiratory infection Complicated UTI Tweak BiPAP settings Recheck ABG Add Remdesivir to Decadron for severe COVID-19 pneumonia Nebs RTC for presumptive COPD exacerbation Pulmonary consult if without improvement CS, ceftriaxone for pneumonia, possible UTI; doxycycline for atypical coverage
[2024-01-05] MEDS: LEVALBUTEROL 1.25 MG/3 ML NEB NEB SCH (21:10)
[2024-01-05] MEDS: IPRATROPIUM BROMIDE NEB SOLN 0.02% 0.5MG/2.5ML VIAL INH SCH (21:10)
[2024-01-05] MEDS: ALBUT/IPRATROP 3MG/0.5MG NEB 3 ML VIAL NEB SCH (21:10)
[2024-01-05] MEDS: XOPENEX/ATROVENT 1.25mg/0.5MG NEB COMBO NEB STA (21:11)
[2024-01-05] MEDS: ATORVASTATIN 40 MG TAB PO SCH (21:36)
[2024-01-05] MEDS: carvediloL 12.5 MG TAB PO SCH (21:36)
[2024-01-05] MEDS: HEPARIN SOD 5,000 UNIT/0.5 ML VIAL SQ SCH (21:36)
[2024-01-05] MEDS: GABAPENTIN 100 MG CAP PO SCH (21:36)
[2024-01-05] MEDS: MAGNESIUM SULFATE / D5W 1 GM/100 ML BAG IV ONE (21:36)
[2024-01-05] MEDS: ACETAMINOPHEN 1,000 MG/100 ML VIAL IV STA (21:36)
[2024-01-05 21:40] LABS: HCO3 ABG 35 mmol/L (19-24); Oxygen Saturation ABG 97.6 % (90-95); PCO2 ABG 69 mmHg (35-46); PO2 ABG 86 mmHg (80-95); pH ABG 7.31 (7.35-7.45)
[2024-01-05 21:42] LABS: Allen Test Pos (Pos)
[2024-01-05] MEDS: INSULIN ASPART PER UNIT CHARGE SC SCH (22:38)
[2024-01-05] MEDS: LANTUS PER UNIT CHARGE SQ SCH (22:39)
[2024-01-06] MEDS: ALBUMIN 25% 12.5 GM/50 ML VIAL IV ONE (00:41)
[2024-01-06] MEDS: cefTRIAXone SODIUM 2,000 MG in DEXTROSE 5 % MINI-B 50 ML IV SCH (00:42)
[2024-01-06] MEDS: REMDESIVIR 200 MG in SODIUM CHLORIDE 0.9% 210 ML IV STA (00:42)
[2024-01-06] MEDS: DOXYCYCLINE HYCLATE 100 MG in DEXTROSE 5% MINI-B 100 ML IV STA (02:34)
[2024-01-06] MEDS: LEVOTHYROXINE SODIUM 150 MCG TABLET PO SCH (06:18)
[2024-01-06 06:34] LABS: BUN Creatinine Ratio 29.5 (10-20); Calcium 8.5 mg/dl (8.6-10.3); Creatinine Clr Calc Pharmacy 43.1 ml/min; Est GFR (African American) 36.6 ml/min; Est GFR (Non-African American) 31.6 ml/min; Potassium 4.5 mmol/L (3.5-5.1)
[2024-01-06 06:37] LABS: Hematocrit (blood only) 47.4 % (37.0-47.0); Hemoglobin 14.2 g/dl (12.0-16.0); Mean Corpuscular Hemoglobin 29.2 pg (25.0-34.0); Mean Corpuscular Volume 97.3 fL (80.0-100.0); Platelet Count 94 K/uL (130-400); RDW Coefficient of Variation 18.5 % (11.5-14.5); RDW Standard Deviation 65.6 fL (36.4-46.3); Red Blood Count 4.87 M/uL (4.20-5.40); White Blood Count 4.23 K/ul (4.8-10.8)
--- NOTE | 2024-01-06 06:53 | XRay Report ---
SINGLE VIEW CHEST CLINICAL HISTORY: Hypoxia FINDINGS: An AP, portable, upright chest radiograph is compared to study performed earlier the same d ay 01/05/2014. The cardiomediastinal silhouette is top normal for projection noting atherosclerotic ca lcification of the thoracic aorta. The pulmonary vasculature is noncongested. Chronic interstitial th ickening similar to previous. Dependent airspace opacities are seen at both lung bases. No large pleu ral effusion or pneumothorax is seen. The skeletal structures are osteopenic. The bony thorax is shante sly intact. Arthritic change is noted in the shoulders. IMPRESSION: Dependent airspace opacities likely represent atelectasis. Correlate clinically for evide nce of a superimposed infectious/inflammatory pneumonitis. ACT 112: Negative or not required by law. Electronically signed by: Jeffery Ruff M.D. 01/06/2024 6:51 AM
[2024-01-06] MEDS: FERROUS SULFATE 325 MG TAB PO SCH (07:40)
[2024-01-06] MEDS: PANTOprazole 40 MG TAB PO SCH (07:41)
[2024-01-06] MEDS: CYANOCOBALAMIN (B-12) 500 MCG TABLET PO SCH (07:41)
[2024-01-06] MEDS: guaiFENesin 600 MG TABCR PO PRN (07:41)
[2024-01-06] MEDS: allopurinoL 300 MG TAB PO SCH (07:41)
[2024-01-06] MEDS: ASPIRIN 81 MG CHEW PO SCH (07:41)
[2024-01-06] MEDS: amLODIPine BESYLATE 5 MG TAB PO SCH (07:41)
[2024-01-06] MEDS: FUROSEMIDE 40 MG/4 ML VIAL IV ONE (08:36)
[2024-01-06] MEDS: methylPREDNISolone 40 MG in SYRINGE 0 ML IV SCH (08:36)
[2024-01-06] MEDS: ALBUT/IPRATROP 3MG/0.5MG NEB 3 ML VIAL NEB SCH (08:48)
[2024-01-06] MEDS ORDERED: FUROSEMIDE 40 MG TAB PO SCH (09:00)
[2024-01-06] MEDS: FORMOTEROL 20 MCG/2 ML VIAL NEB SCH (09:21)
[2024-01-06] MEDS: BUDESONIDE 0.5 MG/2 ML VIAL (PULMICORT) NEB SCH (09:21)
--- NOTE | 2024-01-06 13:49 | Hospitalist Progress Note ---
Date of Service January 06, 2024 Assessment & Plan (1) Acute respiratory failure with hypoxia and hypercarbia: (2) COVID-19: (3) Respiratory acidosis: (4) COPD (chronic obstructive pulmonary disease): (5) CINTHIA (obstructive sleep apnea): (6) Obesity hypoventilation syndrome: Plan: This is a 68-year-old female with PMH of COPD, CITNHIA on CPAP with 3L O2 bled through HS, obesity hypoventilation syndrome, diastolic heart failure, severe aortic stenosis, hypertension, hypothyroidism, dyslipidemia, CKD 3, ongoing daily tobacco use and other medical problems listed below who presents from home with worsening shortness of breath. Patient presents with Covid exposure last week, progressive SOB, malaise x 3 days Chest x-ray on admission personally reviewed; dependent airspace opacities in bilateral lung bases Start dycdcy-nff-yyrsy DuoNebs every 4 hours IV methylprednisolone IV every 8 hours Budesonide and formoterol nebs Remdesivir Ceftriaxone and doxycycline for 7 days (7) UTI (urinary tract infection): Plan: Urinalysis positive for infection Urine culture shows gram-negative bacilli Continue ceftriaxone; follow-up on final culture and sensitivity (8) (HFpEF) heart failure with preserved ejection fraction: (9) Aortic stenosis: Plan: Possible acute on chronic diastolic heart failure CXR personally reviewed; possible cardiomegaly and mild pulmonary edema On home lasix 40mg PO daily Will give IV Lasix 40 mg today (10) Acute kidney injury superimposed on CKD: Plan: Cr 1.8 (baseline ~ 1.5) in setting of covid, decreased PO intake. Monitor with daily BMP, hold losartan for now Creatinine slightly improved. Continue to hold losartan (11) Diabetes mellitus: Plan: A1c 6.5 this month Hold home agents Basal/bolus insulin while in-patient BSG AC (12) Hypothyroidism: Plan: Continue levothyroxine (13) GERD (gastroesophageal reflux disease): Plan: Continue PPI (14) Tobacco use: Plan: Smoking 1-2 ppd, discussed importance of cessation, offered nicotine patch and declines DVT Ppx: SQ heparin Code status: FULL PCP: Jakob Dispo: Admitted to PCU Time spent evaluating patient, direct bedside care, chart review, placing order s, interpretation of diagnostic studies, discussion with consultants, patient, and family members, as well as other required patient management activities is 50 minutes Please note the above document was generated using voice recognition software. It may contain grammatical, syntax or spelling errors. Any formal questions or concerns about the content, text or information contained within the body of this dictation should be directly addressed to the provider for clarification Admission and Anticipated Discharge Date Admission Date: January 05, 2024 Subjective Patient seen and examined at bedside. Patient reports feeling short of breath off BiPAP. No fever or chills. Review of Systems Review of Systems: All systems reviewed & are unremarkable except as noted in Subjective Physical Exam Physical Exam: General Appearance: WD/WN, vitals as above, NAD, sitting up in bed, pleasant, obese, bipap mask in place Head: normocephalic, atraumatic Eyes: normal inspection, PERRL, conjunctivae normal, anicteric sclerae ENT: external ear and nose normal, oropharynx normal Neck: normal visual inspection, trachea midline, no thyromegaly Respiratory: increased respiratory effort, decreased breath sounds with scattered rhonchi, no wheezing. No accessory muscle use Cardiovascular: tachycardic rate, regular rhythm, no murmur, normal peripheral pulses, 1+ BLE edema. Vessels: no JVD Chest: normal inspection of chest Abdomen/GI: normal bowel sounds, soft, nontender, no hepatosplenomegaly Extremities/Musculoskeletal: no cyanosis or clubbing, venous stasis changes BLE, extremities motor strength 5/5 Neurologic: PERRL, EOMI, accommodation nl, no face palsy, no dysarthria, CN's II-XI intact bilaterally and moves all extremities Psychiatric: A+Ox3, euthymic affect Skin: no rashes, normal color, warm/dry Results & Data Results & Data Vital Signs (Past 12 Hours) Vital Signs Temp Pulse Pulse Resp BP Pulse Ox O2 Del Method 01/06/24 11:58 36.6 C 95 H 18 131/77 91 Nasal Cannula 01/06/24 09:23 96 H 20 96 01/06/24 09:22 95 H 18 96 BiPAP 01/06/24 08:00 36.8 C 86 16 122/75 94 Oxymask 01/06/24 08:00 BiPAP 01/06/24 07:10 96 H 15 96 01/06/24 07:00 45 L 01/06/24 02:48 36.5 C 93 H 20 122/78 93 BiPAP 01/06/24 02:23 95 H 17 99 BiPAP O2 Flow Rate FiO2 01/06/24 11:58 01/06/24 09:23 40 01/06/24 09:22 40 01/06/24 08:00 6 01/06/24 08:00 01/06/24 07:10 01/06/24 07:00 01/06/24 02:48 01/06/24 02:23 40
[2024-01-06] MEDS ORDERED: dexAMETHasone 6 MG in SYRINGE 0 ML IV SCH (16:30)
[2024-01-06] MEDS: REMDESIVIR 100 MG in SODIUM CHLORIDE 0.9% 230 ML IV SCH (21:04)
[2024-01-06] MEDS: DOXYCYCLINE HYCLATE 100 MG CAP PO SCH (21:07)
[2024-01-06] MEDS: MELATONIN 3 MG TAB PO PRN (21:08)
--- NOTE | 2024-01-06 22:22 | Electrocardiogram Report ---
Test Reason : Blood Pressure : / mmHG Vent. Rate : 111 BPM Atrial Rate : 111 BPM P-R Int : 170 ms QRS Dur : 088 ms QT Int : 344 ms P-R-T Axes : 067 078 069 degrees QTc Int : 467 ms Sinus tachycardia Possible Anterior infarct , age undetermined Abnormal ECG When compared with ECG of 27-APR-2022 15:34, No significant change Confirmed by Cresencio Johnson ([id number]) on 01/06/2024 10:22:01 PM Referred By: REFERRED SELF Confirmed By:Cresencio Johnson
[2024-01-07 07:02] LABS: Hematocrit (blood only) 46.4 % (37.0-47.0); Hemoglobin 14.1 g/dl (12.0-16.0); Mean Corpuscular Hemoglobin 28.7 pg (25.0-34.0); Mean Corpuscular Hgb Conc 30.4 g/dL (32.0-36.0); Mean Corpuscular Volume 94.5 fL (80.0-100.0); Platelet Count 105 K/uL (130-400); RDW Coefficient of Variation 18.4 % (11.5-14.5); Red Blood Count 4.91 M/uL (4.20-5.40); White Blood Count 4.33 K/ul (4.8-10.8)
[2024-01-07 07:34] LABS: BUN Creatinine Ratio 32.7 (10-20); Calcium 8.9 mg/dl (8.6-10.3); Est GFR (African American) 38.5 ml/min; Est GFR (Non-African American) 33.3 ml/min; Potassium 4.4 mmol/L (3.5-5.1)
--- NOTE | 2024-01-07 11:41 | Hospitalist Progress Note ---
Date of Service January 07, 2024 Assessment & Plan (1) Acute respiratory failure with hypoxia and hypercarbia: (2) COVID-19: (3) Respiratory acidosis: (4) COPD (chronic obstructive pulmonary disease): (5) CINTHIA (obstructive sleep apnea): (6) Obesity hypoventilation syndrome: Plan: This is a 68-year-old female with PMH of COPD, CINTHIA on CPAP with 3L O2 through HS, obesity hypoventilation syndrome, diastolic heart failure, severe aortic stenosis, hypertension, hypothyroidism, dyslipidemia, CKD 3, ongoing daily tobacco use and other medical problems listed below who presents from home with worsening shortness of breath. Patient presents with Covid exposure last week, progressive SOB, malaise x 3 days Chest x-ray on admission personally reviewed; dependent airspace opacities in bilateral lung bases Continue xefden-tnf-uiliz DuoNebs every 4 hours IV methylprednisolone IV every 8 hours Budesonide and formoterol nebs Continue remdesivir Ceftriaxone and doxycycline for 7 days Will need two-step oxygen evaluation at discharge Will also need outpatient pulmonary referral. (7) UTI (urinary tract infection): Plan: Urinalysis positive for infection Urine culture shows gram-negative bacilli Continue ceftriaxone; plan to treat for 5 days (8) (HFpEF) heart failure with preserved ejection fraction: (9) Aortic stenosis: Plan: Possible acute on chronic diastolic heart failure CXR personally reviewed; possible cardiomegaly and mild pulmonary edema Will give another dose of IV Lasix today (10) Acute kidney injury superimposed on CKD: Plan: Cr 1.8 (baseline ~ 1.5) in setting of covid, decreased PO intake. Monitor with daily BMP, hold losartan for now Creatinine slightly improved. Continue to hold losartan (11) Diabetes mellitus: Plan: A1c 6.5 this month Hold home agents Basal/bolus insulin while in-patient BSG AC HS (12) Hypothyroidism: Plan: Continue levothyroxine (13) GERD (gastroesophageal reflux disease): Plan: Continue PPI (14) Tobacco use: Plan: Smoking 1-2 ppd, discussed importance of cessation, offered nicotine patch and declines DVT Ppx: SQ heparin Code status: FULL PCP: Jakob Dispo: Admitted to PCU Time spent evaluating patient, direct bedside care, chart review, placing orders, interpretation of diagnostic studies, discussion with consultants, patient, and family members, as well as other required patient management activities is 50 minutes Please note the above document was generated using voice recognition software. It may contain grammatical, syntax or spelling errors. Any formal questions or concerns about the content, text or information contained within the body of this dictation should be directly addressed to the provider for clarification Admission and Anticipated Discharge Date Admission Date: January 05, 2024 Subjective Patient seen and examined at bedside. Comfortable; not in distress. She is sitting up on the chair at the side of the bed. Reports that her shortness of breath has much improved Denies fever, chills, chest pain, abdominal pain or urinary symptoms. No significant overnight events Review of Systems Review of Systems: All systems reviewed & are unremarkable except as noted in Subjective Physical Exam Physical Exam: General Appearance: WD/WN, vitals as above, NAD, sitting up in bed, pleasant, obese, bipap mask in place Respiratory: Decreased breath sound at bases. Cardiovascular: tachycardic rate, regular rhythm, no murmur, normal peripheral pulses, 1+ BLE edema. Vessels: no JVD Chest: normal inspection of chest Abdomen/GI: normal bowel sounds, soft, nontender, no hepatosplenomegaly Extremities/Musculoskeletal: no cyanosis or clubbing, venous stasis changes BLE, extremities motor strength 5/5 Neurologic: PERRL, EOMI, accommodation nl, no face palsy, no dysarthria, CN's II-XI intact bilaterally and moves all extremities Psychiatric: A+Ox3, euthymic affect Skin: no rashes, normal color, warm/dry Results & Data Results & Data Vital Signs (Past 12 Hours) Vital Signs Temp Pulse Pulse Resp BP Pulse Ox O2 Del Method 01/07/24 11:27 96 H 18 85 L Room Air 01/07/24 11:01 Oxymask 01/07/24 07:58 36.5 C 92 H 18 149/85 H 98 Oxymask 01/07/24 06:30 97 H 22 91 Oxymask 01/07/24 02:56 37 C 90 18 125/77 95 BiPAP 01/07/24 02:51 91 H 19 95 01/07/24 02:50 88 21 94 BiPAP O2 Flow Rate FiO2 01/07/24 11:27 01/07/24 11:01 8 01/07/24 07:58 10 01/07/24 06:30 15 01/07/24 02:56 01/07/24 02:51 40 01/07/24 02:50 40
[2024-01-07] MEDS: FUROSEMIDE 40 MG/4 ML VIAL IV ONE (12:08)
[2024-01-07] MEDS: MICONAZOLE NITRATE POWDER 85 GM EXT PRN (21:08)
[2024-01-08 06:56] LABS: Basophils # (auto) 0.01 K/uL (0.00-0.20); Basophils % (auto) 0.2 %; Hemoglobin 14.5 g/dl (12.0-16.0); Immature Granulocytes # (auto) 0.04 K/uL (0.01-0.20); Immature Granulocytes % (auto) 0.9 %; Lymphocytes # (auto) 0.71 K/uL (1.20-3.40); Lymphocytes % (auto) 16.5 %; Mean Corpuscular Hgb Conc 31.5 g/dL (32.0-36.0); Monocytes # (auto) 0.15 K/uL (0.11-0.59); Monocytes % (auto) 3.5 %; Neutrophils % (auto) 78.9 %; Platelet Count 104 K/uL (130-400); RDW Coefficient of Variation 18.8 % (11.5-14.5); White Blood Count 4.31 K/ul (4.8-10.8)
[2024-01-08 07:16] LABS: Calcium 9.2 mg/dl (8.6-10.3); Creatinine Clr Calc Pharmacy 44.1 ml/min; Est GFR (African American) 37.7 ml/min; Est GFR (Non-African American) 32.5 ml/min; Potassium 4.8 mmol/L (3.5-5.1)
[2024-01-08] MEDS: FUROSEMIDE 40 MG/4 ML VIAL IV ONE (11:24)
--- NOTE | 2024-01-08 12:22 | Hospitalist Progress Note ---
Date of Service January 08, 2024 Assessment & Plan (1) Acute respiratory failure with hypoxia and hypercarbia: (2) COVID-19: (3) Respiratory acidosis: (4) COPD (chronic obstructive pulmonary disease): (5) CINTHIA (obstructive sleep apnea): (6) Obesity hypoventilation syndrome: Plan: This is a 68-year-old female with PMH of COPD, CINTHIA on CPAP with 3L O2 through HS, obesity hypoventilation syndrome, diastolic heart failure, severe aortic stenosis, hypertension, hypothyroidism, dyslipidemia, CKD 3, ongoing daily tobacco use and other medical problems listed below who presents from home with worsening shortness of breath. Patient presents with Covid exposure last week, progressive SOB, malaise x 3 days Chest x-ray on admission personally reviewed; dependent airspace opacities in bilateral lung bases Continue iosnib-hky-wigap DuoNebs every 4 hours Will change IV methylprednisolone to p.o. prednisone for 4 more days Budesonide and formoterol nebs Continue remdesivir; plan to treat for 4 days Ceftriaxone and doxycycline for 7 days Two-step oxygen evaluation done today's; patient required 6 L on minimal exertion. Patient will need to be on inhalers at discharge; patient reports that she will prefer nebulized inhalers. Will need outpatient pulmonology referral. (7) UTI (urinary tract infection): Plan: Urinalysis positive for infection Urine culture shows gram-negative bacilli Continue ceftriaxone; plan to treat for 5 days (8) (HFpEF) heart failure with preserved ejection fraction: (9) Aortic stenosis: Plan: Possible acute on chronic diastolic heart failure CXR personally reviewed; possible cardiomegaly and mild pulmonary edema Status post Lasix (10) Acute kidney injury superimposed on CKD: Plan: Cr 1.8 (baseline ~ 1.5) in setting of covid, decreased PO intake. Monitor with daily BMP, hold losartan for now Creatinine slightly improved. Continue to hold losartan (11) Diabetes mellitus: Plan: A1c 6.5 this month Hold home agents Basal/bolus insulin while in-patient BSG AC (12) Hypothyroidism: Plan: Continue levothyroxine (13) GERD (gastroesophageal reflux disease): Plan: Continue PPI (14) Tobacco use: Plan: Smoking 1-2 ppd, discussed importance of cessation, offered nicotine patch and declines DVT Ppx: SQ heparin Code status: FULL PCP: Jakob Dispo: Admitted to PCU. Patient continues to be hospitalized for COPD exacerbat ion needing mshcl-blt-orxnd DuoNeb, close monitoring of the respiratory status. Possible discharge in next few days depending on clinical status. Time spent evaluating patient, direct bedside care, chart review, placing orders, interpretation of diagnostic studies, discussion with consultants, patient, and family members, as well as other required patient management activities is 50 minutes Please note the above document was generated using voice recognition software. It may contain grammatical, syntax or spelling errors. Any formal questions or concerns about the content, text or information contained within the body of this dictation should be directly addressed to the provider for clarification Admission and Anticipated Discharge Date Admission Date: January 05, 2024 Subjective Patient seen and examined at bedside. She is sitting up on the chair at the side of the bed; not in any distress. Two-step oxygen evaluation was done; patient required 4 L/min at rest and 6 L on exertion. Patient reports that her shortness of breath has slightly improved compared to previous days. Review of Systems Review of Systems: All systems reviewed & are unremarkable except as noted in Subjective Physical Exam Physical Exam: General Appearance: WD/WN, vitals as above, NAD, sitting up in bed, pleasant, obese, bipap mask in place Respiratory: Decreased breath sound at bases. Decreased breath entry at bases. Cardiovascular: tachycardic rate, regular rhythm, no murmur, normal peripheral pulses, 1+ BLE edema. Vessels: no JVD Chest: normal inspection of chest Abdomen/GI: normal bowel sounds, soft, nontender, no hepatosplenomegaly Extremities/Musculoskeletal: no cyanosis or clubbing, venous stasis changes BLE, extremities motor strength 5/5 Neurologic: PERRL, EOMI, accommodation nl, no face palsy, no dysarthria, CN's II-XI intact bilaterally and moves all extremities Psychiatric: A+Ox3, euthymic affect Skin: no rashes, normal color, warm/dry Results & Data Results & Data Vital Signs (Past 12 Hours) Vital Signs Temp Pulse Pulse Pulse Pulse Pulse Pulse 01/08/24 11:37 36.8 C 01/08/24 10:45 01/08/24 08:23 120 H 124 H 124 H 93 H 98 H 01/08/24 08:09 36.7 C 01/08/24 07:03 86 01/08/24 07:03 01/08/24 03:50 91 H 01/08/24 03:49 01/08/24 03:00 36.7 C 01/08/24 00:27 95 H Pulse Pulse Resp Resp Resp Resp Resp 01/08/24 11:37 98 H 18 01/08/24 10:45 89 19 01/08/24 08:23 94 H 22 24 20 18 01/08/24 08:09 98 H 18 01/08/24 07:03 19 01/08/24 07:03 89 19 01/08/24 03:50 19 01/08/24 03:49 90 18 01/08/24 03:00 85 18 01/08/24 00:27 Resp Resp BP Pulse Ox Pulse Ox Pulse Ox Pulse Ox 01/08/24 11:37 155/85 H 94 01/08/24 10:45 92 01/08/24 08:23 18 18 86 L 88 L 90 01/08/24 08:09 148/91 H 95 01/08/24 07:03 94 01/08/24 07:03 94 01/08/24 03:50 92 01/08/24 03:49 93 01/08/24 03:00 124/76 95 01/08/24 00:27 Pulse Ox Pulse Ox Pulse Ox O2 Del Method O2 Flow Rate O2 Flow Rate O2 Flow Rate 01/08/24 11:37 Nasal Cannula 01/08/24 10:45 Nasal Cannula 4.5 01/08/24 08:23 87 L 87 L 84 L 4 5 01/08/24 08:09 Room Air 01/08/24 07:03 01/08/24 07:03 BiPAP 01/08/24 03:50 01/08/24 03:49 BiPAP 01/08/24 03:00 BiPAP 01/08/24 00:27 O2 Flow Rate O2 Flow Rate O2 Flow Rate FiO2 01/08/24 11:37 01/08/24 10:45 01/08/24 08:23 6 2 3 01/08/24 08:09 01/08/24 07:03 40 01/08/24 07:03 40 01/08/24 03:50 40 01/08/24 03:49 40 01/08/24 03:00 01/08/24 00:27
[2024-01-08] MEDS: PANTOprazole 40 MG in SYRINGE 0 ML IV SCH (23:41)
[2024-01-08] MEDS: SODIUM CHLORIDE 0.9% 1,000 ML IV SCH (23:41)
[2024-01-09 00:23] LABS: Hematocrit (blood only) 47.8 % (37.0-47.0); Hemoglobin 15.4 g/dl (12.0-16.0)
[2024-01-09 04:05] LABS: Basophils # (auto) 0.01 K/uL (0.00-0.20); Basophils % (auto) 0.1 %; Hematocrit (blood only) 45.3 % (37.0-47.0); Hemoglobin 14.6 g/dl (12.0-16.0); Immature Granulocytes # (auto) 0.05 K/uL (0.01-0.20); Immature Granulocytes % (auto) 0.7 %; Lymphocytes # (auto) 1.41 K/uL (1.20-3.40); Lymphocytes % (auto) 18.9 %; Mean Corpuscular Hemoglobin 29.5 pg (25.0-34.0); Mean Corpuscular Hgb Conc 32.2 g/dL (32.0-36.0); Mean Corpuscular Volume 91.5 fL (80.0-100.0); Mean Platelet Volume 11.5 fL (9.4-12.4); Monocytes # (auto) 0.69 K/uL (0.11-0.59); Monocytes % (auto) 9.2 %; Neutrophils % (auto) 71.1 %; Platelet Count 142 K/uL (130-400); RDW Coefficient of Variation 18.7 % (11.5-14.5); RDW Standard Deviation 60.3 fL (36.4-46.3); Red Blood Count 4.95 M/uL (4.20-5.40); White Blood Count 7.46 K/ul (4.8-10.8)
[2024-01-09 04:22] LABS: BUN Creatinine Ratio 36.1 (10-20); Calcium 8.5 mg/dl (8.6-10.3); Creatinine Clr Calc Pharmacy 36.9 ml/min; Est GFR (African American) 30.3 ml/min; Est GFR (Non-African American) 26.1 ml/min; Potassium 4.6 mmol/L (3.5-5.1)
[2024-01-09] MEDS: predniSONE 20 MG TAB PO SCH (07:26)
--- NOTE | 2024-01-09 09:28 | XRay Report ---
XR chest 2V PA/lateral HISTORY: 68 years-old Female Follow up on previous CXR acute shortness of breath COMPARISON: 01/05/2024 TECHNIQUE: PA and lateral views of the chest FINDINGS: Hyperinflation. Mild linear bibasilar opacities are similar to prior. The cardiomediastinal and hilar silhouettes are unchanged. Atherosclerosis aorta. No pneumothorax or overt pulmonary edema. Chronic burst fracture at the thoracolumbar junction. Degenerative changes of the shoulders and spine. IMPRESSION: Mild persistent linear bibasilar densities likely represent atelectasis or scarring. Pneu monia considered less likely. ACT 112: Negative or not required by law. The above report was generated using voice recognition software. It may contain grammatical, syntax o r spelling errors. Electronically signed by: Malcolm Stauffer M.D. 01/09/2024 9:26 AM
--- NOTE | 2024-01-09 11:26 | Gastrointestinal Consultation ---
Date of Consultation January 09, 2024 Assessment & Plan (1) Hematochezia: Stable and normal H/H, Hgb > 14, indicating nonsignificant source of bleeding like hemorrhoidal bleeding. Other DDx includes diverticular source, less likely colitis or PUD. He is currently in respiratory failure and sepsis from COVID hence no endoscopic intervention is planned. Continue PPI. Monitor H/H Will need colonoscopy as OP in 4-6 weeks. Recall GI if any change in his clinical status. History of Present Illness Reason for Consultation: Rectal bleeding Attending Physician: Yakov Morales MD History of Present Illness 68 years old male patient with multiple medical comorbids including COPD, CHF, CKD, admitted with COVID infection, respiratory failure, sepsis, had rectal bleeding, dark red blood, otherwise denies any GI symptoms. Had similar issues with bleeding a year ago, colonoscopy showed small polyps, diverticulosis and hemorrhoids. Labs showed normal and stable H/H. Allergies Allergy/AdvReac Type Severity Reaction Status Date / Time No Known Allergies Allergy Verified 01/05/24 15:28 Home Medications Medication Instructions Recorded Confirmed Type allopurinol 300 mg tablet 300 mg PO DAILY 03/09/22 01/05/24 History atorvastatin 40 mg tablet 40 mg PO QPM 03/09/22 01/05/24 History camphor-menthol 0.2 %-3.5 % 1 applic topical Q6H PRN Pain 03/09/22 01/05/24 History topical gel clotrimazole 1 % topical cream 1 applic topical Q8H PRN ATHLETE'S 03/09/22 01/05/24 History (Athlete's Foot (clotrimazole)) FEET cyanocobalamin (vitamin B-12) 1,000 mcg PO DAILY 03/09/22 01/05/24 History 1,000 mcg tablet furosemide 40 mg tablet 40 mg PO DAILY 03/09/22 01/05/24 History gabapentin 100 mg capsule 100 mg PO TID 03/09/22 01/05/24 History gemfibrozil 600 mg tablet 600 mg PO BID 03/09/22 01/05/24 History glipizide 5 mg tablet, extended 5 mg PO DAILYBB 03/09/22 01/05/24 History release 24 hr guaifenesin 1,200 mg tablet, 1,200 mg PO Q12H PRN Cough 03/09/22 01/05/24 History extended release 12 hr levothyroxine 150 mcg tablet 150 mcg PO 5XWK 03/09/22 01/05/24 History omega 9-ata-lub-fish oil 1,000 mg 1 cap PO TIDM 03/09/22 01/05/24 History (120 mg-180 mg) capsule (Fish Oil) omeprazole 20 mg tablet,delayed 20 mg PO DAILY 03/09/22 01/05/24 History release blood-glucose meter (Accu-Chek #1 ea 03/17/22 04/27/22 Rx Maty Plus Meter) pen needle, diabetic 32 gauge x #100 ea 03/17/22 04/27/22 Rx 5/32" (Pen Needle) acetaminophen 325 mg tablet 650 mg PO Q6H PRN FEVER >100/PAIN 04/27/22 01/05/24 History (Tylenol) (1-4) albuterol sulfate 90 mcg/actuation 2 inh inhalation Q6H PRN Shortness 04/27/22 01/05/24 History breath activated powder inhaler Of Breath Or Wheezing methyl salicylate 15 %-menthol 10 1 applic topical Q6H PRN RIGHT 04/27/22 01/05/24 History % topical cream LEG/HIP PAIN tramadol 50 mg tablet 50 mg PO Q8H PRN Pain (Scale Score 04/27/22 01/05/24 History 5-10) amlodipine 5 mg tablet 5 mg PO QAM 01/05/24 01/05/24 History aspirin 81 mg chewable tablet 81 mg PO DAILY 01/05/24 01/05/24 History carvedilol 12.5 mg tablet 12.5 mg PO BID 01/05/24 01/05/24 History ferrous sulfate 325 mg (65 mg 325 mg PO BIDM 01/05/24 01/05/24 History iron) tablet insulin glargine 100 unit/mL (3 35 unit subcut QAM 01/05/24 01/05/24 History mL) subcutaneous pen (Basaglar KwikPen U-100 Insulin) loperamide 2 mg tablet (Imodium 2 mg PO QID PRN Diarrhea 01/05/24 01/05/24 History A-D) losartan 50 mg tablet 50 mg PO QAM 01/05/24 01/05/24 History Patient History Medical History (Updated 01/09/24 @ 11:29 by Celia Ceron MD) Obesity hypoventilation syndrome Hypothyroidism Tobacco use (HFpEF) heart failure with preserved ejection fraction Gout GERD (gastroesophageal reflux disease) Aortic stenosis CKD (chronic kidney disease) stage 3, GFR 30-59 ml/min Smoker COPD (chronic obstructive pulmonary disease) CINTHIA (obstructive sleep apnea) Diabetes mellitus Obesity Surgical History (Updated 01/05/24 @ 16:36 by Serenity Fuller PA-C) Previous section History of hip surgery Family History Father Coronary heart disease Brother Coronary heart disease Stroke Sister Diabetes Brother Coronary heart disease Social History Smoking Status: Current every day smoker Tobacco Type: Cigarettes Cigarettes Per Day: 1 ppd; Second Hand Exposure: No; Do You Dip or Chew Tobacco: No; Hx Alcohol Use: No Hx Substance Use: No Preferred Language: Monegasque Communication Ability: Effective Counsel[employer] Required: No Beliefs That Will Affect Care: None marital status: Current Living Situation: Family Other Information That Helps Us Care for You: No Feels Safe at Home: Yes Safety Concerns: Feels Safe At This Time Assistive Devices: CPAP, Oxygen - at Night and Walker Review of Systems Review of Systems: All systems reviewed & are unremarkable except as noted in HPI & below Results & Data Vital Signs (Past 12 Hours) Vital Signs Temp Pulse Pulse Resp BP Pulse Ox O2 Del Method 01/09/24 10:45 100 H 18 95 Nasal Cannula 01/09/24 08:50 107 H 18 143/85 H 92 Nasal Cannula 01/09/24 05:54 94 H 19 94 BiPAP 01/09/24 05:53 94 H 19 94 01/09/24 04:11 37.1 C 102 H 23 155/95 H 93 Nasal Cannula 01/09/24 03:32 100 H 19 96 01/09/24 03:32 100 H 19 96 BiPAP 01/09/24 01:45 96 H 135/100 01/09/24 01:09 98 H 163/105 H 01/09/24 00:45 98 H 148/85 H 87 L Nasal Cannula 01/08/24 23:44 36.6 C 95 H 17 128/71 95 CPAP O2 Flow Rate FiO2 01/09/24 10:45 4 01/09/24 08:50 3.5 01/09/24 05:54 40 01/09/24 05:53 40 01/09/24 04:11 3 01/09/24 03:32 40 01/09/24 03:32 40 01/09/24 01:45 01/09/24 01:09 01/09/24 00:45 3 01/08/24 23:44 Laboratory Results Laboratory Results - last 24 hr 01/08/24 01/08/24 01/08/24 16:26 21:09 23:22 WBC RBC Hgb 15.4 Hct 47.8 H MCV MCH MCHC RDW Std Deviation RDW Coeff of Prakash Plt Count MPV Immature Gran % (Auto) Neut % (Auto) Lymph % (Auto) Sherman % (Auto) Eos % (Auto) Baso % (Auto) Neut # (Auto) Lymph # (Auto) Sherman # (Auto) Eos # (Auto) Baso # (Auto) Immature Gran # (Auto) Sodium Potassium Chloride Carbon Dioxide Anion Gap BUN Creatinine Est Cr Clr Drug Dosing Est GFR ( Amer) Est GFR (Non-Af Amer) BUN/Creatinine Ratio Glucose POC Glucose 140 H 134 H Calcium 01/09/24 03:49 WBC 7.46 RBC 4.95 Hgb 14.6 Hct 45.3 MCV 91.5 MCH 29.5 MCHC 32.2 RDW Std Deviation 60.3 H RDW Coeff of Prakash 18.7 H Plt Count 142 MPV 11.5 Immature Gran % (Auto) 0.7 Neut % (Auto) 71.1 Lymph % (Auto) 18.9 Sherman % (Auto) 9.2 Eos % (Auto) 0.0 Baso % (Auto) 0.1 Neut # (Auto) 5.30 Lymph # (Auto) 1.41 Sherman # (Auto) 0.69 H Eos # (Auto) 0.00 Baso # (Auto) 0.01 Immature Gran # (Auto) 0.05 Sodium 142 Potassium 4.6 Chloride 106 Carbon Dioxide 29 Anion Gap 7 BUN 70 H Creatinine 1.94 H D Est Cr Clr Drug Dosing 36.9 Est GFR ( Amer) 30.3 Est GFR (Non-Af Amer) 26.1 BUN/Creatinine Ratio 36.1 H Glucose 129 H POC Glucose Calcium 8.5 L
--- NOTE | 2024-01-09 14:53 | Hospitalist Progress Note ---
Date of Service January 09, 2024 Assessment & Plan (1) Acute respiratory failure with hypoxia and hypercarbia: (2) COVID-19: (3) Respiratory acidosis: (4) COPD (chronic obstructive pulmonary disease): (5) CINTHIA (obstructive sleep apnea): (6) Obesity hypoventilation syndrome: Plan: This is a 68-year-old female with PMH of COPD, CINTHIA on CPAP with 3L O2 through HS, obesity hypoventilation syndrome, diastolic heart failure, severe aortic stenosis, hypertension, hypothyroidism, dyslipidemia, CKD 3, ongoing daily tobacco use and other medical problems listed below who presents from home with worsening shortness of breath. Patient presents with Covid exposure last week, progressive SOB, malaise x 3 days Chest x-ray on admission personally reviewed; dependent airspace opacities in bilateral lung bases Continue [id number] DuoNebs every 4 hours Is on. prednisone for 4 more days Budesonide and formoterol nebs Status post 4 days of remdesivir Ceftriaxone and doxycycline for 7 days Two-step oxygen evaluation done January 08; patient required 6 L on minimal exertion. Patient will need to be on inhalers at discharge; patient reports that she will prefer nebulized inhalers. Will need outpatient pulmonology referral. (7) Hematochezia: Plan: Patient had multiple episode of hematochezia overnight on January 08, 2024 Hemoglobin is stable. Patient reports similar episode back in April 2022; was admitted for acute blood loss anemia with lower GI bleed and hematochezia. Colonoscopy at that time showed diverticulosis, internal and external hemorrhoids; multiple polyps were removed. Hold heparin, aspirin. Repeat CBC at 8 PM; transfuse if hemoglobin is less than 7 PPI twice daily GI was consulted; recommend colonoscopy in 4 to 6 weeks as outpatient (8) UTI (urinary tract infection): Plan: Urinalysis positive for infection Urine culture shows gram-negative bacilli Continue ceftriaxone; plan to treat for 5 days (9) (HFpEF) heart failure with preserved ejection fraction: (10) Aortic stenosis: Plan: Possible acute on chronic diastolic heart failure CXR personally reviewed; possible cardiomegaly and mild pulmonary edema Status post multiple dose of Lasix (11) Acute kidney injury superimposed on CKD: Plan: Creatinine improved initially and uptrending today likely due to lower GI bleed Continue to hold losartan Repeat CBC in a.m. (12) Diabetes mellitus: Plan: A1c 6.5 this month Hold home agents Basal/bolus insulin while in-patient BSG AC HS (13) Hypothyroidism: Plan: Continue levothyroxine (14) GERD (gastroesophageal reflux disease): Plan: Continue PPI (15) Tobacco use: Plan: Smoking 1-2 ppd, discussed importance of cessation, offered nicotine patch and declines DVT Ppx: SQ heparin Code status: FULL PCP: Jaokb Dispo: Admitted to PCU. Patient continues to be hospitalized for COPD exacerbation needing [id number] DuoNeb, close monitoring of the respiratory status. Patient also had multiple episode of lower GI bleed requiring close monitoring. Possible discharge in next few days depending on clinical status. Time spent evaluating patient, direct bedside care, chart review, placing orders, interpretation of diagnostic studies, discussion with consultants, patient, and family members, as well as other required patient management activities is 60 minutes Please note the above document was generated using voice recognition software. It may contain grammatical, syntax or spelling errors. Any formal questions or concerns about the content, text or information contained within the body of this dictation should be directly addressed to the provider for clarification Admission and Anticipated Discharge Date Admission Date: January 05, 2024 Subjective Overnight, patient had multiple episodes of rectal bleeding. Patient reports similar episode back in April 2022; was admitted for acute blood loss anemia with lower GI bleed and hematochezia. Colonoscopy at that time showed diverticulosis, internal and external hemorrhoids; multiple polyps were removed. Review of Systems Review of Systems: All systems reviewed & are unremarkable except as noted in Subjective Physical Exam Physical Exam: General Appearance: WD/WN, vitals as above, NAD, sitting up in bed, pleasant Respiratory: Decreased breath sound at bases. Decreased breath entry at bases. Minimal Cardiovascular: tachycardic rate, regular rhythm, no murmur, normal peripheral pulses, 1+ BLE edema. Vessels: no JVD Chest: normal inspection of chest Abdomen/GI: normal bowel sounds, soft, nontender, no hepatosplenomegaly Extremities/Musculoskeletal: no cyanosis or clubbing, venous stasis changes BLE, extremities motor strength 5/5 Neurologic: PERRL, EOMI, accommodation nl, no face palsy, no dysarthria, CN's II-XI intact bilaterally and moves all extremities Psychiatric: A+Ox3, euthymic affect Skin: no rashes, normal color, warm/dry Results & Data Results & Data Vital Signs (Past 12 Hours) Vital Signs Temp Pulse Pulse Resp BP Pulse Ox O2 Del Method 01/09/24 14:45 103 H 18 93 Nasal Cannula 01/09/24 12:26 36.8 C 101 H 18 110/76 92 Nasal Cannula 01/09/24 10:45 100 H 18 95 Nasal Cannula 01/09/24 08:50 107 H 18 143/85 H 92 Nasal Cannula 01/09/24 05:54 94 H 19 94 BiPAP 01/09/24 05:53 94 H 19 94 01/09/24 04:11 37.1 C 102 H 23 155/95 H 93 Nasal Cannula 01/09/24 03:32 100 H 19 96 01/09/24 03:32 100 H 19 96 BiPAP O2 Flow Rate FiO2 01/09/24 14:45 3 01/09/24 12:26 4 01/09/24 10:45 4 01/09/24 08:50 3.5 01/09/24 05:54 40 01/09/24 05:53 40 01/09/24 04:11 3 01/09/24 03:32 40 01/09/24 03:32 40
[2024-01-09 17:56] LABS: Basophils # (auto) 0.02 K/uL (0.00-0.20); Basophils % (auto) 0.3 %; Eosinophils # (auto) 0.01 K/uL (0.00-0.50); Eosinophils % (auto) 0.2 %; Hematocrit (blood only) 45.3 % (37.0-47.0); Hemoglobin 14.4 g/dl (12.0-16.0); Immature Granulocytes # (auto) 0.05 K/uL (0.01-0.20); Immature Granulocytes % (auto) 0.8 %; Lymphocytes # (auto) 1.15 K/uL (1.20-3.40); Lymphocytes % (auto) 19.1 %; Mean Corpuscular Hemoglobin 29.2 pg (25.0-34.0); Mean Corpuscular Hgb Conc 31.8 g/dL (32.0-36.0); Mean Corpuscular Volume 91.9 fL (80.0-100.0); Mean Platelet Volume 12.1 fL (9.4-12.4); Monocytes % (auto) 8.3 %; Neutrophils # (auto) 4.29 K/uL (1.40-6.50); Neutrophils % (auto) 71.3 %; Platelet Count 134 K/uL (130-400); RDW Coefficient of Variation 19.1 % (11.5-14.5); RDW Standard Deviation 62.1 fL (36.4-46.3); Red Blood Count 4.93 M/uL (4.20-5.40); White Blood Count 6.02 K/ul (4.8-10.8)
[2024-01-09] MEDS ORDERED: SODIUM CHLORIDE 0.9% 250 ML IV PRN (18:32)
[2024-01-09 21:35] LABS: Hematocrit (blood only) 46.3 % (37.0-47.0); Hemoglobin 14.5 g/dl (12.0-16.0)
[2024-01-10 06:43] LABS: Eosinophils # (auto) 0.01 K/uL (0.00-0.50); Eosinophils % (auto) 0.2 %; Hematocrit (blood only) 38.5 % (37.0-47.0); Hemoglobin 12.2 g/dl (12.0-16.0); Immature Granulocytes # (auto) 0.05 K/uL (0.01-0.20); Immature Granulocytes % (auto) 0.9 %; Lymphocytes # (auto) 1.18 K/uL (1.20-3.40); Lymphocytes % (auto) 21.7 %; Mean Corpuscular Hemoglobin 29.1 pg (25.0-34.0); Mean Corpuscular Hgb Conc 31.7 g/dL (32.0-36.0); Mean Corpuscular Volume 91.9 fL (80.0-100.0); Mean Platelet Volume 12.2 fL (9.4-12.4); Monocytes # (auto) 0.47 K/uL (0.11-0.59); Monocytes % (auto) 8.7 %; Neutrophils # (auto) 3.72 K/uL (1.40-6.50); Neutrophils % (auto) 68.5 %; Platelet Count 108 K/uL (130-400); RDW Coefficient of Variation 18.6 % (11.5-14.5); RDW Standard Deviation 61.1 fL (36.4-46.3); Red Blood Count 4.19 M/uL (4.20-5.40); White Blood Count 5.43 K/ul (4.8-10.8)
[2024-01-10 06:56] LABS: BUN Creatinine Ratio 36.4 (10-20); Calcium 8.1 mg/dl (8.6-10.3); Creatinine Clr Calc Pharmacy 38.2 ml/min; Est GFR (African American) 31.7 ml/min; Est GFR (Non-African American) 27.3 ml/min; Potassium 4.5 mmol/L (3.5-5.1)
--- NOTE | 2024-01-10 14:28 | Hospitalist Progress Note ---
Date of Service January 10, 2024 Assessment & Plan (1) Acute respiratory failure with hypoxia and hypercarbia: (2) COVID-19: (3) Respiratory acidosis: (4) COPD (chronic obstructive pulmonary disease): (5) CINTHIA (obstructive sleep apnea): (6) Obesity hypoventilation syndrome: Plan: This is a 68-year-old female with PMH of COPD, CINTHIA on CPAP with 3L O2 through HS, obesity hypoventilation syndrome, diastolic heart failure, severe aortic stenosis, hypertension, hypothyroidism, dyslipidemia, CKD 3, ongoing daily tobacco use and other medical problems listed below who presents from home with worsening shortness of breath. Patient presents with Covid exposure last week, progressive SOB, malaise x 3 days Chest x-ray on admission personally reviewed; dependent airspace opacities in bilateral lung bases Continue [id number] DuoNebs every 4 hours Is on. prednisone for 4 more days Budesonide and formoterol nebs Status post 4 days of remdesivir Ceftriaxone and doxycycline for 7 days Two-step oxygen evaluation done January 08; patient required 6 L on minimal exertion. Patient will need to be on inhalers at discharge; patient reports that she will prefer nebulized inhalers. Will need outpatient pulmonology referral. (7) Hematochezia: Plan: Patient had multiple episode of hematochezia overnight on January 08, 2024 Hemoglobin is stable. Patient reports similar episode back in April 2022; was admitted for acute blood loss anemia with lower GI bleed and hematochezia. Colonoscopy at that time showed diverticulosis, internal and external hemorrhoids; multiple polyps were removed. Hold heparin, aspirin. Transfuse if hemoglobin is less than 7 PPI twice daily GI was consulted; recommend colonoscopy in 4 to 6 weeks as outpatient Liquid diet (8) UTI (urinary tract infection): Plan: Urinalysis positive for infection Urine culture shows gram-negative bacilli Continue ceftriaxone; plan to treat for 5 days (9) (HFpEF) heart failure with preserved ejection fraction: (10) Aortic stenosis: Plan: Possible acute on chronic diastolic heart failure CXR personally reviewed; possible cardiomegaly and mild pulmonary edema Status post multiple dose of Lasix (11) Acute kidney injury superimposed on CKD: Plan: Creatinine improved initially and uptrending today likely due to lower GI bleed Continue to hold losartan Repeat CBC in a.m. (12) Diabetes mellitus: Plan: A1c 6.5 this month Hold home agents Basal/bolus insulin while in-patient BSG AC HS (13) Hypothyroidism: Plan: Continue levothyroxine (14) GERD (gastroesophageal reflux disease): Plan: Continue PPI (15) Tobacco use: Plan: Smoking 1-2 ppd, discussed importance of cessation, offered nicotine patch and declines DVT Ppx: SQ heparin currently on hold due to lower GI bleed Code status: FULL PCP: Jakob Dispo: Admitted to PCU. Patient continues to be hospitalized for COPD exacerbation needing [id number] DuoNeb, close monitoring of the respiratory status. Patient also had multiple episode of lower GI bleed requiring close monitoring. Possible discharge in next few days depending on clinical status. Time spent evaluating patient, direct bedside care, chart review, placing orders, interpretation of diagnostic studies, discussion with consultants, patient, and family members, as well as other required patient management activities is 50 minutes Please note the above document was generated using voice recognition software. It may contain grammatical, syntax or spelling errors. Any formal questions or concerns about the content, text or information contained within the body of this dictation should be directly addressed to the provider for clarification Admission and Anticipated Discharge Date Admission Date: January 05, 2024 Subjective Patient seen and examined at bedside. She continues to have bright red blood per rectum No episode of hypotension. No complaints of abdominal pain Reports that her shortness of breath has been getting better. Review of Systems Review of Systems: All systems reviewed & are unremarkable except as noted in Subjective Physical Exam Physical Exam: General Appearance: WD/WN, vitals as above, NAD, sitting up in bed, pleasant Respiratory: Decreased breath entry at bases. Minimal wheeze Cardiovascular: tachycardic rate, regular rhythm, no murmur, normal peripheral pulses, 1+ BLE edema. Vessels: no JVD Chest: normal inspection of chest Abdomen/GI: normal bowel sounds, soft, nontender, no hepatosplenomegaly Extremities/Musculoskeletal: no cyanosis or clubbing, venous stasis changes BLE, extremities motor strength 5/5 Neurologic: PERRL, EOMI, accommodation nl, no face palsy, no dysarthria, CN's II-XI intact bilaterally and moves all extremities Psychiatric: A+Ox3, euthymic affect Skin: no rashes, normal color, warm/dry Results & Data Results & Data Vital Signs (Past 12 Hours) Vital Signs Temp Pulse Pulse Resp BP Pulse Ox O2 Del Method 01/10/24 11:29 36.7 C 96 H 18 123/87 92 Nasal Cannula 01/10/24 10:51 102 H 20 92 Nasal Cannula 01/10/24 09:15 Nasal Cannula, CPAP 01/10/24 08:00 102 H 01/10/24 08:00 36.5 C 99 H 21 113/75 91 Nasal Cannula 01/10/24 07:30 97 H 19 91 Nasal Cannula 01/10/24 03:16 100 H 20 96 01/10/24 03:16 100 H 20 96 BiPAP 01/10/24 03:02 36.8 C 105 H 18 113/76 97 CPAP O2 Flow Rate FiO2 01/10/24 11:29 3 01/10/24 10:51 3 01/10/24 09:15 3 01/10/24 08:00 01/10/24 08:00 3 01/10/24 07:30 3 01/10/24 03:16 01/10/24 03:16 40 01/10/24 03:02
[2024-01-11 06:24] LABS: Basophils # (auto) 0.01 K/uL (0.00-0.20); Basophils % (auto) 0.2 %; Hematocrit (blood only) 36.5 % (37.0-47.0); Hemoglobin 11.6 g/dl (12.0-16.0); Immature Granulocytes # (auto) 0.07 K/uL (0.01-0.20); Immature Granulocytes % (auto) 1.1 %; Lymphocytes # (auto) 1.23 K/uL (1.20-3.40); Mean Corpuscular Hemoglobin 29.2 pg (25.0-34.0); Mean Corpuscular Hgb Conc 31.8 g/dL (32.0-36.0); Mean Corpuscular Volume 91.9 fL (80.0-100.0); Mean Platelet Volume 11.9 fL (9.4-12.4); Monocytes # (auto) 0.43 K/uL (0.11-0.59); Neutrophils % (auto) 71.7 %; Platelet Count 108 K/uL (130-400); RDW Coefficient of Variation 18.5 % (11.5-14.5); RDW Standard Deviation 61.2 fL (36.4-46.3); Red Blood Count 3.97 M/uL (4.20-5.40); White Blood Count 6.14 K/ul (4.8-10.8)
[2024-01-11 06:39] LABS: Albumin Globulin Ratio 1.7 (0.9-2); BUN Creatinine Ratio 33.1 (10-20); Bilirubin,Total 0.5 mg/dl (0.2-1.0); Calcium 8.4 mg/dl (8.6-10.3); Est GFR (African American) 34.3 ml/min; Est GFR (Non-African American) 29.6 ml/min; Globulin 1.8 gm/dl (2.5-4.0); Potassium 4.3 mmol/L (3.5-5.1); Total Protein 4.8 gm/dl (6.0-8.3)
--- NOTE | 2024-01-11 08:50 | Gastroenterology Progress Note ---
Date of Service January 11, 2024 Assessment & Plan (1) Hematochezia: Plan: 68 year old female w/ history of COPD, CINTHIA on CPAP, obesity hypoventilation syndrome, diastolic heart failure, severe aortic stenosis, hypertension, hypothyroidism, dyslipidemia, CKD admitted with acute respiratory failure, COVID-19 positive. GI asked to evaluate for rectal bleeding. She has remained hemodynamically stable w/ stable HGB Her rectal bleeding is improving and notes was trace, on toilet tissue and coating stool yesterday No acute indication for inpatient endoscopic evaluation Continue conservative measures PO PPI OP Colonoscopy in 4-6 weeks Recall GI as needed. Thank you for allowing us to participate in the care of this patient. Please call with any acute changes, questions or concerns. Please see addendum below with additional recommendation from my supervising physician. Admission and Anticipated Discharge Date Admission Date: January 05, 2024 Supervising Physician Co-Signing Physician Notes I personally saw and evaluated the patient on 01/11/2024 with MARCIAL Duran. Abdomen soft and non-tender. Patient sitting up at the edge of the bed. Gi initially consulted for hematochezia. Patient reports she has had no further bleeding. Stools are all brown and formed. Hgb is stable at 11.6. We will arrange outpatient Colonoscopy in 6-8 weeks after she has recovered from COVID- 19 infection. Will need to be done in hospital setting given her multiple co- morbidities including severe aortic stenosis. Last colonoscopy in 2021 with 3 polyps removed along with diverticulosis and hemorrhoids. GI will sign off but please call back with questions. Rosie Schaffer, Gastroenterology and Hepatology Subjective Pt was seen and evaluated, chart reviewed. Notes from GI standpoint she is feeling better. Denies abd pain. Last BM yesterday was mostly brown. This had some blood coating on outside of stool and on the toilet tissue. No black stools. Tolerating PO intake. No nausea, vomiting. HGB 11.6 Review of Systems Review of Systems: All systems reviewed & are unremarkable except as noted in HPI & below Physical Exam Gastrointestinal (Abdomen): normal bowel sounds, soft, nontender, no hepatosplenomegaly Results & Data Vital Signs (Past 12 Hours) Vital Signs Temp Pulse Pulse Resp BP BP Pulse Ox 01/11/24 08:30 99 H 18 96 01/11/24 07:51 37.0 C 99 H 19 145/79 H 93 01/11/24 03:32 36.7 C 94 H 16 135/55 L 94 01/11/24 02:58 94 H 15 96 01/11/24 02:57 94 H 15 96 01/11/24 01:59 96 H 01/10/24 23:45 95 H 19 100 01/10/24 23:44 95 H 19 98 01/10/24 23:41 36.7 C 93 H 17 117/57 L 97 O2 Del Method O2 Flow Rate FiO2 01/11/24 08:30 Nasal Cannula 3 01/11/24 07:51 Nasal Cannula 3.0 01/11/24 03:32 BiPAP 01/11/24 02:58 BiPAP 40 01/11/24 02:57 40 01/11/24 01:59 01/10/24 23:45 40 01/10/24 23:44 BiPAP 40 01/10/24 23:41 BiPAP Laboratory Results 01/11/24 01/11/24 01/10/24 Range/Units 07:43 05:54 20:41 WBC 6.14 (4.8-10.8) K/ul RBC 3.97 L (4.20-5.40) M/uL Hgb 11.6 L (12.0-16.0) g/dl Hct 36.5 L (37.0-47.0) % MCV 91.9 (80.0-100.0) fL MCH 29.2 (25.0-34.0) pg MCHC 31.8 L (32.0-36.0) g/dL RDW Std Deviation 61.2 H (36.4-46.3) fL RDW Coeff of Prakash 18.5 H (11.5-14.5) % Plt Count 108 L (130-400) K/uL MPV 11.9 (9.4-12.4) fL Immature Gran % (Auto) 1.1 % Neut % (Auto) 71.7 % Lymph % (Auto) 20.0 % [place] % (Auto) 7.0 % Eos % (Auto) 0.0 % Baso % (Auto) 0.2 % Neut # (Auto) 4.40 (1.40-6.50) K/uL Lymph # (Auto) 1.23 (1.20-3.40) K/uL [place] # (Auto) 0.43 (0.11-0.59) K/uL Eos # (Auto) 0.00 (0.00-0.50) K/uL Baso # (Auto) 0.01 (0.00-0.20) K/uL Immature Gran # (Auto) 0.07 (0.01-0.20) K/uL Sodium 143 (136-145) mmol/L Potassium 4.3 (3.5-5.1) mmol/L Chloride 107 (98-107) mmol/L Carbon Dioxide 31 (21-32) mmol/L Anion Gap 5 (3-11) BUN 58 H (6-23) mg/dl Creatinine 1.75 H (0.6-1.2) mg/dl Est Cr Clr Drug Dosing 39.0 ml/min Est GFR ( Amer) 34.3 ml/min Est GFR (Non-Af Amer) 29.6 ml/min BUN/Creatinine Ratio 33.1 H (10-20) Glucose 97 (70-99(Fasting)) mg/dl POC Glucose 107 H 132 H (70-99) mg/dl Calcium 8.4 L (8.6-10.3) mg/dl Total Bilirubin 0.5 (0.2-1.0) mg/dl AST 9 L (13-39) U/L ALT 12 (7-52) U/L Alkaline Phosphatase 48 (34-104) U/L Total Protein 4.8 L (6.0-8.3) gm/dl Albumin 3.0 L (3.4-5.0) gm/dl Globulin 1.8 L (2.5-4.0) gm/dl Albumin/Globulin Ratio 1.7 (0.9-2) 01/10/24 01/10/24 Range/Units 15:12 11:28 WBC (4.8-10.8) K/ul RBC (4.20-5.40) M/uL Hgb (12.0-16.0) g/dl Hct (37.0-47.0) % MCV (80.0-100.0) fL MCH (25.0-34.0) pg MCHC (32.0-36.0) g/dL RDW Std Deviation (36.4-46.3) fL RDW Coeff of Prakash (11.5-14.5) % Plt Count (130-400) K/uL MPV (9.4-12.4) fL Immature Gran % (Auto) % Neut % (Auto) % Lymph % (Auto) % [place] % (Auto) % Eos % (Auto) % Baso % (Auto) % Neut # (Auto) (1.40-6.50) K/uL Lymph # (Auto) (1.20-3.40) K/uL [place] # (Auto) (0.11-0.59) K/uL Eos # (Auto) (0.00-0.50) K/uL Baso # (Auto) (0.00-0.20) K/uL Immature Gran # (Auto) (0.01-0.20) K/uL Sodium (136-145) mmol/L Potassium (3.5-5.1) mmol/L Chloride (98-107) mmol/L Carbon Dioxide (21-32) mmol/L Anion Gap (3-11) BUN (6-23) mg/dl Creatinine (0.6-1.2) mg/dl Est Cr Clr Drug Dosing ml/min Est GFR ( Amer) ml/min Est GFR (Non-Af Amer) ml/min BUN/Creatinine Ratio (10-20) Glucose (70-99(Fasting)) mg/dl POC Glucose 133 H 206 H (70-99) mg/dl Calcium (8.6-10.3) mg/dl Total Bilirubin (0.2-1.0) mg/dl AST (13-39) U/L ALT (7-52) U/L Alkaline Phosphatase (34-104) U/L Total Protein (6.0-8.3) gm/dl Albumin (3.4-5.0) gm/dl Globulin (2.5-4.0) gm/dl Albumin/Globulin Ratio (0.9-2)
--- NOTE | 2024-01-11 11:53 | Discharge Summary ---
Date of Service January 11, 2024 Admission HPI Per Admitting Provider This is a 68-year-old female with PMH of COPD, CINTHIA on CPAP with 3L O2 bled through HS, obesity hypoventilation syndrome, diastolic heart failure, severe aortic stenosis, hypertension, hypothyroidism, dyslipidemia, CKD 3, ongoing daily tobacco use and other medical problems listed below who presents from home with worsening shortness of breath. Was exposed to family members COVID 1 week ago and started to develop symptoms 3 days ago with lethargy, chills, generalized weakness and progressively worsening shortness of breath. Does not require oxygen at baseline. Denies wheezing. Was notably more lethargic today so brought in for further evaluation. Denies any fever, chest pain, nausea, vomiting, abdominal pain, dysuria, diarrhea or constipation. Decreased appetite but is still been eating and drinking. Taking medications as scheduled, including Lasix this morning. Still smoking 1 to 2 packs/day. Husbands states her lower extremity swelling seems to be at baseline. Admission Exam Per Admitting Provider General Appearance: WD/WN, vitals as above, NAD, sitting up in bed, pleasant, obese, bipap mask in place Head: normocephalic, atraumatic Eyes: normal inspection, PERRL, conjunctivae normal, anicteric sclerae ENT: external ear and nose normal, oropharynx normal Neck: normal visual inspection, trachea midline, no thyromegaly Respiratory: increased respiratory effort, decreased breath sounds with scattered rhonchi, no wheezing. No accessory muscle use Cardiovascular: tachycardic rate, regular rhythm, no murmur, normal peripheral pulses, 1+ BLE edema. Vessels: no JVD Chest: normal inspection of chest Abdomen/GI: normal bowel sounds, soft, nontender, no hepatosplenomegaly Extremities/Musculoskeletal: no cyanosis or clubbing, venous stasis changes BLE, extremities motor strength 5/5 Neurologic: PERRL, EOMI, accommodation nl, no face palsy, no dysarthria, CN's II-XI intact bilaterally and moves all extremities Psychiatric: A+Ox3, euthymic affect Skin: no rashes, normal color, warm/dry Principal Diagnosis COPD exacerbation Acute hypoxic respiratory failure Hematochezia Discharge Exam General Appearance: WD/WN, vitals as above, NAD, sitting up in bed, pleasant Respiratory: Decreased breath entry at bases. Improved from previous day. Cardiovascular: tachycardic rate, regular rhythm, no murmur, normal peripheral pulses, 1+ BLE edema. Vessels: no JVD Chest: normal inspection of chest Abdomen/GI: normal bowel sounds, soft, nontender, no hepatosplenomegaly Extremities/Musculoskeletal: no cyanosis or clubbing, venous stasis changes BLE, extremities motor strength 5/5 Neurologic: PERRL, EOMI, accommodation nl, no face palsy, no dysarthria, CN's II-XI intact bilaterally and moves all extremities Psychiatric: A+Ox3, euthymic affect Skin: no rashes, normal color, warm/dry Discharge Data Allergies Allergy/AdvReac Type Severity Reaction Status Date / Time No Known Allergies Allergy Verified 01/05/24 15:28 Consultations 01/05/24 15:31 ED Decision to Admit Stat 01/09/24 08:00 Consult Gastroenterology Routine Hospital Course (1) Acute respiratory failure with hypoxia and hypercarbia: (2) COVID-19: (3) Respiratory acidosis: (4) COPD (chronic obstructive pulmonary disease): (5) CINTHIA (obstructive sleep apnea): (6) Obesity hypoventilation syndrome: This is a 68-year-old female with PMH of COPD, CINTHIA on CPAP with 3L O2 through HS, obesity hypoventilation syndrome, diastolic heart failure, severe aortic stenosis, hypertension, hypothyroidism, dyslipidemia, CKD 3, ongoing daily tobacco use and other medical problems listed below who presents from home with worsening shortness of breath. Patient presents with Covid exposure last week, progressive SOB, malaise x 3 days Chest x-ray on admission personally reviewed; dependent airspace opacities in bilateral lung bases During the hospitalization, patient was treated with [id number] DuoNebs every 4 hours, IV steroid, IV antibiotics. She was also treated with 4 days of remdesivir for COVID-19 infection Two-step oxygen evaluation at discharge was done; patient required 2 L of oxygen at rest and exertion At discharge, patient was placed on budesonide and formoterol nebs twice daily, antibiotics and as needed DuoNebs Patient will need referral for pulmonology as outpatient for management of COPD (7) Hematochezia: (8) Acute blood loss anemia: Patient had multiple episode of hematochezia overnight on January 08, 2024 Hemoglobin down trended from 14 to 11.6 at discharge Patient reports similar episode back in April 2022; was admitted for acute blood loss anemia with lower GI bleed and hematochezia. Colonoscopy at that time showed diverticulosis, internal and external hemorrhoids; multiple polyps were removed. GI was consulted during the hospitalization; they recommend outpatient colonoscopy in 4 weeks. Aspirin was kept on hold at discharge. Will need follow-up with primary care doctor to decide for long-term management of aspirin (9) UTI (urinary tract infection): Urinalysis positive for infection Urine culture shows gram-negative bacilli Continue ceftriaxone; plan to treat for 5 days (10) (HFpEF) heart failure with preserved ejection fraction: (11) Aortic stenosis: Possible acute on chronic diastolic heart failure CXR personally reviewed; possible cardiomegaly and mild pulmonary edema Status post multiple dose of Lasix (12) Acute kidney injury superimposed on CKD: Creatinine was at baseline at discharge (13) Diabetes mellitus: A1c 6.5 this month Hold home agents Basal/bolus insulin while in-patient BSG AC HS (14) Hypothyroidism: Continue levothyroxine (15) GERD (gastroesophageal reflux disease): Continue PPI (16) Tobacco use: Discussed regarding using Chantix or other nicotine replacement treatment. Patient to discuss further with PCP Please note the above document was generated using voice recognition software. It may contain grammatical, syntax or spelling errors. Any formal questions or c oncerns about the content, text or information contained within the body of this dictation should be directly addressed to the provider for clarification Total Time Total Time Spent Total Time Spent (In Minutes): 45 Total Time Includes: Examination of the Patient, Discharge Planning, Medication Reconciliation, Communication With Other Providers and Other Discharge Plan Discharge Items Patient Disposition: Home - Self-Care Reason For Visit: RESP ACIDOSIS, COVID Discharge Diagnosis: COPD exacerbation Bright red blood per rectum COVID-19 infection Activity: Resume your previous activity Non-emergency contact: Primary Care Provider Call non-emergency contact if: you have any medication questions and your s ymptoms worsen Follow-up/Referrals: Mary Robert MD [Primary Care Provider] - (Date & Time 01/14/2024 2:00 PM Provider Greg Bush MD Department Family Medicine [facility] ) Ayde Pineda CRNP [Nurse Practitioner] - (The GI office will contact you for an appointment/testing.) Diet: Regular Addtl Attending Provider Instructions: You were admitted to the hospital for following reasons; 1) COVID-19 infection COPD exacerbation During the hospitalization you were treated with breathing treatment, steroids and antiviral agents. You will need 2 L of oxygen at rest and on exertion. You are prescribed following medication to complete the treatment course: A) Antibioticscefdinir and doxycycline twice a day for 2 days B) Steroidsprednisone 40 mg once a day for 2 days C) Breathing treatmentyou need to use budesonide 0.5 mg and formoterol 20 mcg twice daily every day through our nebulizer for the long-term management of COPD. If it is not covered by insurance; please discuss with your primary care doctor on follow-up regarding alternate treatment options. You are also prescribed DuoNeb to be used every 4 hours as needed if you experience increasing shortness of breath and wheezing. You will need Referral for pulmonology by her primary care doctor for management of COPD. 2) Bright red blood per rectum The likely cause for the bleeding episode is diverticular bleed or hemorrhoids. GI doctor saw you during the hospitalization; they will schedule outpatient colonoscopy to evaluate further. Please stop taking aspirin for the time being. Please discuss with your primary care doctor if you need to be on it long-term in the future. You are prescribed Protonix to be taken once daily in place of the omeprazole. Pending Studies at Discharge: No Stand-Alone Forms: My [facility], Smoking Cessation Medications and DC Order Prescriptions: New doxycycline hyclate 100 mg Capsule 100 mg PO BID 2 Days Qty: 4 0RF ipratropium-albuterol 0.5 mg-3 mg(2.5 mg base)/3 mL Solution For Nebulization 3 ml NEB Q4R PRN (Reason: shortness of breath or wheezing) Qty: 90 0RF prednisone 20 mg Tablet 40 mg PO DAILY 2 Days Qty: 4 0RF budesonide 0.5 mg/2 mL Suspension For Nebulization 0.5 mg NEB BIDR Qty: 60 0RF formoterol fumarate [Perforomist] 20 mcg/2 mL Solution For Nebulization 20 mcg NEB BIDR Qty: 60 0RF cefdinir 300 mg capsule 300 mg PO BID 2 Days Qty: 4 0RF pantoprazole [Protonix] 40 mg tablet,delayed release (DR/EC) 40 mg PO DAILY Qty: 30 0RF Continued gemfibrozil 600 mg tablet 600 mg PO BID levothyroxine 150 mcg tablet 150 mcg PO [id number] Rx Instructions: THURSDAY THROUGH THURSDAY, DOES NOT TAKE SAT OR SUN. furosemide 40 mg tablet 40 mg PO DAILY atorvastatin 40 mg tablet 40 mg PO QPM glipizide 5 mg tablet extended release 24 hr 5 mg PO DAILYBB cyanocobalamin (vitamin B-12) 1,000 mcg tablet 1,000 mcg PO DAILY allopurinol 300 mg tablet 300 mg PO DAILY gabapentin 100 mg capsule 100 mg PO TID clotrimazole [Athlete's Foot (clotrimazole)] 1 % Cream 1 applic TOPICAL Q8H PRN (Reason: ATHLETE'S FEET) guaifenesin 1,200 mg Tablet Extended Release 12hr 1,200 mg PO Q12H PRN (Reason: Cough) omega [id number] oil [Fish Oil] 1,000 mg (120 mg-180 mg) Capsule 1 cap PO TIDM camphor-menthol 0.2-3.5 % Gel 1 applic TOPICAL Q6H PRN (Reason: Pain) (DME) pen needle, diabetic [Pen Needle] 32 gauge x 5/32" needle See Rx Instructions .Route Qty: 100 0RF Rx Instructions: Take Insulin once a day as directed (DME) blood-glucose meter [Accu-Chek Maty Plus Meter] Mis See Rx Instructions .Route Qty: 1 0RF Rx Instructions: Check Blood Glucose 3 times a day as directed acetaminophen [Tylenol] 325 mg Tablet 650 mg PO Q6H MDD 3 GRAMS/24 HOURS PRN (Reason: FEVER >100/PAIN (1-4)) methyl salicylate-menthol 15-10 % Cream 1 applic TOPICAL Q6H PRN (Reason: RIGHT LEG/HIP PAIN) albuterol sulfate 90 mcg/actuation Aerosol Powdr Breath Activated 2 inh INHALATION Q6H PRN (Reason: Shortness Of Breath Or Wheezing) tramadol 50 mg tablet 50 mg PO Q8H PRN (Reason: Pain (Scale Score 5-10)) carvedilol 12.5 mg tablet 12.5 mg PO BID amlodipine 5 mg tablet 5 mg PO QAM ferrous sulfate 325 mg (65 mg iron) Tablet 325 mg PO BIDM insulin glargine [Basaglar KwikPen U-100 Insulin] 100 unit/mL (3 mL) insulin pen 35 unit SUBCUT QAM losartan 50 mg tablet 50 mg PO QAM loperamide [Imodium A-D] 2 mg Tablet 2 mg PO QID PRN (Reason: Diarrhea) Held aspirin 81 mg Tablet,Chewable 81 mg PO DAILY Hold Instructions: Resume on 01/18/24. Till you see your primary care doctor Discontinued omeprazole 20 mg Tablet,Delayed Release (Dr/Ec) 20 mg PO DAILY Discharge Orders: Discharge Order (Routine); Ordered 01/11/24 Ordered By: Yakov Carrero/Other Patient Handouts: Managing Type 2 Diabetes Admission Data Admit Date/Time: 01/05/24 15:38 Attending Provider: Yakov Morales Admit Provider: Cameron Hylton Primary Care Provider: Mary Robert Other Providers: Cameron Hylton; Anahi Baron; Fredy Ellis; Rebecca North; Ale Pimentel; Lynda Juarez; Delicia José; Paco Brooke; Melo Greco; Gunner Wilkins; Maricruz Buchanan; Sanam Person; Ayde Pineda; Jessica Malagon; Kim Bhatt; Amanda Hein; Celia Ceron; Mitchell Chester; Erick Fragoso; Rosie Schaffer; Geronimo Elliott Jr
--- NOTE | 2024-01-14 12:09 | Coding Query ---
SEPSIS To promote full compliance with coding requirements relating to patient care, physician participation is requested in all cases of workplace rehabilitation officer uncertainty. Please assist us with the question(s) below: In responding to this query, please exercise your independent professional judgement. The fact that a question is asked does not imply that any particular answer is desired or expected. We appreciate your clarification on this issue. Throughout the medical record, you have clearly documented a localized infection and your patient has clinical evidence of a generalized sepsis or severe sepsis. The term urosepsis is a nonspecific entity and is coded as an UTI. If the patient has sepsis, severe sepsis, from an urinary source or some other source, please clarify in your response below. The medical record reflects the following clinical findings: Pt admitted with COVID-19, acute hypoxxic/hypocapnia. 01/05 progress note mentioned Sepsis and Covid 19 pneumonia. Please check if known or suspected, the diagnosis that was treated if applicable. Thanks for your help. Peter Cruz [facility] ____ ( )Bacteremia (Nonspecific laboratory finding of bacteria in the blood) Specify Organism ( ) Present on Admission ( ) Not present on admission ( ) Unable to clinically determine ( ) Septicemia (Systemic disease associated with the presence of pathogenic microorganisms in the blood): Specify Organism () Present on Admission () Not present on admission () Unable to clinically determine ( X) Sepsis Specify Organism - E.coli Specify Associated Condition/Diagnosis -UTI (X ) Present on Admission ( ) Not present on admission ( ) Unable to clinically determine ( ) Severe Sepsis (Sepsis associated with acute organ dysfunction) Specify Organism Specify Associated Condition/Diagnosis ( ) Present on Admission ( ) Not present on admission ( ) Unable to clinically determine ( ) Septic Shock (Severe sepsis with acute circulatory failure, unexplained by other causes) ( ) Present on Admission ( ) Not present on admission ( ) Unable to clinically determine ( ) Other, patient has: MTDD
== END 2024-01-11 15:05 | disposition home or self-care (01) | DRG 177 ==
LOC: ED 12:45 → 2E 15:38 → SUATTDRO 15:38 → 2E 17:49
DX: Z79.84 Long term (current) use of oral hypoglycemic drugs; N39.0 Urinary tract infection, site not specified; E87.29 Other acidosis; E66.2 Morbid (severe) obesity with alveolar hypoventilation; Z79.82 Long term (current) use of aspirin; J12.82 Pneumonia due to coronavirus disease 2019; U07.1 COVID-19; I13.0 Hypertensive heart and chronic kidney disease with heart failure and stage 1 through stage 4 chronic kidney disease, or unspecified chronic kidney disease; A41.9 Sepsis, unspecified organism; K64.9 Unspecified hemorrhoids; I50.33 Acute on chronic diastolic (congestive) heart failure; J96.01 Acute respiratory failure with hypoxia; E03.9 Hypothyroidism, unspecified; F17.210 Nicotine dependence, cigarettes, uncomplicated; N17.9 Acute kidney failure, unspecified; I35.0 Nonrheumatic aortic (valve) stenosis; J96.02 Acute respiratory failure with hypercapnia; E11.9 Type 2 diabetes mellitus without complications; D62 Acute posthemorrhagic anemia; K92.1 Melena; J44.1 Chronic obstructive pulmonary disease with (acute) exacerbation; Z99.81 Dependence on supplemental oxygen